=== PATIENT | female | born 1950 | race Caucasian/White ===

== ENCOUNTER 2016-10-08 10:59 | Inpatient (IN) | payer MEDICARE, BC ==
[2016-10-08 12:08] LABS: Anisocytosis Slight; Basophils % (A) 0 %; CH 30.2; CHCM 31.3; Eosinophils # (A) 0.1 k/uL (0-0.7); Eosinophils % (A) 1 %; HCT 26.9 % (34.0-46.0); HGB 8.1 gm/dL (11.4-16.0); Hypochromasia Moderate; Luc # (Auto) 0.14; Luc % (Auto) 1; Lymphocytes % (A) 10 %; MCH 29.3 pg (25.0-35.0); MCHC 30.1 g/dL (31.0-37.0); MCV 97.6 fL (80.0-100.0); Macrocytosis Slight; Monocytes # (A) 0.4 k/uL (0-1.0); Monocytes % (A) 5 %; Neutrophils # (A) 7.8 k/uL (1.3-7.7); Neutrophils % (A) 83 %; Poikilocytosis Slight; RBC 2.76 m/uL (3.80-5.40); WBC 9.5 k/uL (3.8-10.6); WBC (Perox) 9.44
[2016-10-08 12:10] LABS: Total Protein 6.2 g/dL (6.3-8.2)
[2016-10-08 12:12] LABS: Partial Thromboplastin Time 27.9 sec (22.0-30.0); Prothrombin Time 64.9 sec (9.0-12.0)
[2016-10-08 12:18] LABS: Calcium 6.3 mg/dL (8.4-10.2)
[2016-10-08 12:19] LABS: Potassium 2.8 mmol/L (3.5-5.1)
[2016-10-08 12:20] LABS: Creatine Kinase 40 U/L (30-135)
[2016-10-08 12:22] LABS: Target Cells Present
[2016-10-08 12:23] LABS: Polychromasia Present
[2016-10-08 12:32] LABS: Creatine Kinase MB 0.7 ng/mL (0.0-2.4); INR 6.4 (<1.1); Troponin I <0.012 ng/mL (0.000-0.034)
[2016-10-08 14:00] LABS: Glucose,Whole Blood 93 mg/dL (75-99)
--- NOTE | 2016-10-08 14:03 | XR ---
EXAMINATION TYPE: XR chest 1V portable DATE OF EXAM: 10/08/2016 1:43 PM COMPARISON: Prior chest x-ray for April 2015 HISTORY: Altered mental status TECHNIQUE: Single frontal view of the chest is obtained. FINDINGS: There is no focal air space opacity, pleural effusion, or pneumothorax seen. The cardiac silhouette size is within normal limits. Patient is rotated, there are overlying cardiac leads. The osseous structures are intact. IMPRESSION: No acute process.
--- NOTE | 2016-10-08 14:05 | CT ---
EXAMINATION TYPE: CT brain wo con DATE OF EXAM: 10/08/2016 1:47 PM COMPARISON: Prior CT brain four April 2015 HISTORY: Altered mental status CT DLP: 1216 mGycm Automated exposure control for dose reduction was used. FINDINGS: There is no acute intracranial hemorrhage, mass effect, or midline shift identified. The ventricles and sulci are within normal limits in size. The globes are intact and the visualized sinuses are lidia ar. IMPRESSION: No acute intracranial hemorrhage, mass effect, or midline shift is seen.
[2016-10-08 14:10] LABS: Appearance,Urine Cloudy (Clear); Bacteria,Urine Occasional /hpf; Bilirubin,Urine Negative (Negative); Glucose,Urine (UA) Negative (Negative); Ketones,Urine Trace (Negative); Leukocyte Esterase,Urine Moderate (Negative); Nitrite,Urine Negative (Negative); Particle Count 31279; Protein,Urine Trace (Negative); RBC,Urine 1 /hpf (0-5); Specific Gravity,Urine 1.011 (1.001-1.035); Squamous Epithelial Cell,Urine 1 /hpf (0-4); UA Billing (MACRO vs. MICRO) MICRO; Urobilinogen,Urine <2.0 mg/dL (<2.0); WBC,Urine 23 /hpf (0-5)
[2016-10-08] MEDS ORDERED: NALOXONE 0.4 MG/ML 1 ML VIAL IV PRN (15:01)
[2016-10-08] MEDS ORDERED: POTASSIUM BICARB-CITRIC ACID 25 MEQ TABLET.EFF PO STA (15:06)
[2016-10-08] MEDS ORDERED: WATER IV ONE ×4 (15:06→20:18)
[2016-10-08] MEDS ORDERED: DEXTROSE 5% IV ONE ×4 (15:06→20:18)
[2016-10-08] MEDS ORDERED: ACETYLCYSTEINE IV ONE ×4 (15:06→20:18)
[2016-10-08] MEDS ORDERED: CALCIUM GLUCONATE 1,000 MG in SODIUM CHLORIDE 0.9% 100 ML IVPB ONE (15:14)
--- NOTE | 2016-10-08 15:14 | ED ---
Altered Mental Status HPI - General Chief Complaint: Altered Mental Status Stated Complaint: weakness Time Seen by Provider: 10/08/16 11:03 Source: family, EMS Mode of arrival: EMS Limitations: altered mental status - History of Present Illness Initial Comments: Patient is 65-year-old woman brought in for altered mental status. The patient' s states that going on 3 days now the patient's has been more somnolent , not wanting to get out of bed, not taking anything to eat or drink. She did have previous episode of this a number years ago that may have been related to overuse of her medications, but the patient's states that he has been controlling her axis to her controlled medications and that she would not have taken an overdose this time. When the patient was not able to support herself to get to the bathroom he had her brought here. The patient appears delirious and is not giving much in way of history. MD Complaint: altered mental status, weakness Onset/Timin -: days(s) Severity: moderate Consistency of Symptoms: getting worse Context: history of similar presentation Associated Symptoms: nausea/vomiting - Related Data Home Medications Medication Instructions Recorded Confirmed Folic Acid 1 mg PO BID 08/29/14 10/08/16 Vitamin B12/Magnesium Shot 1 dose SQ Q21D 08/29/14 10/08/16 diphenhydrAMINE [Benadryl] 50 mg PO HS 08/29/14 10/08/16 Zolpidem [Ambien] 10 mg PO HS PRN 01/19/15 10/08/16 Baclofen [Lioresal] 20 mg PO TID PRN 10/08/16 10/08/16 Besivance Eye Drops 1 drop RIGHT EYE TID 10/08/16 10/08/16 Citalopram Hydrobromide [CeleXA] 40 mg PO DAILY 10/08/16 10/08/16 Melatonin 10 mg PO HS 10/08/16 10/08/16 oxyCODONE-APAP 7.5-325MG [Percocet 1 tab PO BID PRN 10/08/16 10/08/16 7.5-325 mg] Allergies Allergy/AdvReac Type Severity Reaction Status Date / Time No Known Allergies Allergy Verified 10/08/16 13:06 Review of Systems ROS Statement: Those systems with pertinent positive or pertinent negative responses have been documented in the HPI. ROS Other: All systems not noted in ROS Statement are negative. Limitations: ROS unobtainable due to patients medical condition Constitutional: Reports: weakness Respiratory: Reports: cough Cardiovascular: Denies: chest pain Gastrointestinal: Reports: vomiting. Denies: abdominal pain Neurological: Denies: headache Past Medical History Past Medical History: Fibromyalgia, Syncope Additional Past Medical History / Comment(s): DUMPING SYNDROME, DDD History of Any Multi-Drug Resistant Organisms: None Reported Past Surgical History: Adenoidectomy, Bowel Resection, Cholecystectomy, Joint Replacement, Tonsillectomy, Tubal Ligation Additional Past Surgical History / Comment(s): RT TKACOLONOSCOPYTILT TABLE TEST , D & C. Gastric Bypass - 30 years ago Past Anesthesia/Blood Transfusion Reactions: No Reported Reaction Past Psychological History: Depression Smoking Status: Never smoker Past Alcohol Use History: None Reported Past Drug Use History: None Reported - Past Family History Father Family Medical History: Cancer Sister(s) Family Medical History: Cancer Mother Family Medical History: Deep Vein Thrombosis (DVT) General Exam Limitations: altered mental status General appearance: obtunded, in distress Head exam: Present: atraumatic, normocephalic ENT exam: Present: mucous membranes dry Neck exam: Present: normal inspection. Absent: tenderness Respiratory exam: Present: normal lung sounds bilaterally, rhonchi. Absent: respiratory distress, wheezes, rales, stridor, chest wall tenderness Cardiovascular Exam: Present: regular rate, normal rhythm, normal heart sounds. Absent: systolic murmur, diastolic murmur, rubs, gallop GI/Abdominal exam: Present: soft, hypoactive bowel sounds. Absent: distended, tenderness, guarding, rebound, pulsatile mass, hernia Extremities exam: Present: normal inspection, normal capillary refill. Absent: pedal edema, calf tenderness Back exam: Present: normal inspection. Absent: CVA tenderness (R), CVA tenderness (L) Neurological exam: Present: altered, CN II-XII intact. Absent: oriented X3, motor sensory deficit Skin exam: Present: warm, dry, intact, pallor. Absent: normal color, rash Course Vital Signs 10/08/16 10/08/16 10/08/16 11:03 11:15 11:45 Temperature 97.0 F L Pulse Rate 89 94 86 Respiratory 16 16 16 Rate Blood Pressure 117/58 117/58 108/64 O2 Sat by Pulse 97 97 93 L Oximetry 10/08/16 10/08/16 12:15 12:45 Temperature Pulse Rate 84 68 Respiratory 16 16 Rate Blood Pressure 101/62 100/64 O2 Sat by Pulse 92 L 99 Oximetry Medical Decision Making - Medical Decision Making Patient's a 65-year-old woman who presents with altered mental status going on 3 days now. Workup reveals that the patient appears to have significant dehydration and some acute renal failure related to that. In addition the patient's INR is elevated though she does not take Coumadin. The patient also has an elevation of AST and ALT. I'm concerned patient may have had a missed Tylenol overdose, being part of her Percocet. We'll start N-acetylcysteine. Patient also receiving IV hydration. In addition there is probably urinary tract infection patient started on a dose of Rocephin for that. She was given calcium for the hypocalcemia. Also potassium supplementation for the hypokalemia. Case discussed with admitting physician. Patient admitted for further fluids and treatment. - Lab Data Result diagrams: 10/08/16 11:30 10/08/16 11:30 Lab Results 10/08/16 10/08/16 10/08/16 Range/Units 11:30 11:30 11:30 WBC 9.5 (3.8-10.6) k/uL RBC 2.76 L (3.80-5.40) m/uL Hgb 8.1 L (11.4-16.0) gm/dL Hct 26.9 L (34.0-46.0) % MCV 97.6 (80.0-100.0) fL MCH 29.3 (25.0-35.0) pg MCHC 30.1 L (31.0-37.0) g/dL RDW 17.0 H (11.5-15.5) % Plt Count 375 (150-450) k/uL Neutrophils % 83 % Lymphocytes % 10 % Monocytes % 5 % Eosinophils % 1 % Basophils % 0 % Neutrophils # 7.8 H (1.3-7.7) k/uL Lymphocytes # 1.0 (1.0-4.8) k/uL Monocytes # 0.4 (0-1.0) k/uL Eosinophils # 0.1 (0-0.7) k/uL Basophils # 0.0 (0-0.2) k/uL Polychromasia Present Hypochromasia Moderate Poikilocytosis Slight Anisocytosis Slight Macrocytosis Slight Target Cells Present PT (9.0-12.0) sec INR (<1.1) APTT (22.0-30.0) sec Sodium 144 (137-145) mmol/L Potassium 2.8 L* (3.5-5.1) mmol/L Chloride 109 H (98-107) mmol/L Carbon Dioxide 17 L (22-30) mmol/L Anion Gap 18 mmol/L BUN 30 H (7-17) mg/dL Creatinine 1.96 H (0.52-1.04) mg/dL Est GFR (MDRD) Af Amer 31 (>60 ml/min/1.73 sqM) Est GFR (MDRD) Non-Af 26 (>60 ml/min/1.73 sqM) Glucose 96 (74-99) mg/dL POC Glucose (mg/dL) (75-99) mg/dL POC Glu Access Developer ID Plasma Lactic Acid Adriano (0.7-2.0) mmol/L Calcium 6.3 L* (8.4-10.2) mg/dL Total Bilirubin 1.0 (0.2-1.3) mg/dL AST 172 H (14-36) U/L ALT 373 H (9-52) U/L Alkaline Phosphatase 94 (38-126) U/L Total Creatine Kinase 40 (30-135) U/L CK-MB (CK-2) 0.7 (0.0-2.4) ng/mL CK-MB (CK-2) Rel Index 1.8 Troponin I <0.012 (0.000-0.034) ng/mL Total Protein 6.2 L (6.3-8.2) g/dL Albumin 3.1 L (3.5-5.0) g/dL Urine Color Urine Appearance (Clear) Urine pH (5.0-8.0) Ur Specific [place] (1.001-1.035) Urine Protein (Negative) Urine Glucose (UA) (Negative) Urine Ketones (Negative) Urine Blood (Negative) Urine Nitrate (Negative) Urine Bilirubin (Negative) Urine Urobilinogen (<2.0) mg/dL Ur Leukocyte Esterase (Negative) Urine RBC (0-5) /hpf Urine WBC (0-5) /hpf Ur Squamous Epith Cells (0-4) /hpf Urine Bacteria (None) /hpf Acetaminophen ug/mL 10/08/16 10/08/16 10/08/16 Range/Units 11:30 11:30 11:30 WBC (3.8-10.6) k/uL RBC (3.80-5.40) m/uL Hgb (11.4-16.0) gm/dL Hct (34.0-46.0) % MCV (80.0-100.0) fL MCH (25.0-35.0) pg MCHC (31.0-37.0) g/dL RDW (11.5-15.5) % Plt Count (150-450) k/uL Neutrophils % % Lymphocytes % % Monocytes % % Eosinophils % % Basophils % % Neutrophils # (1.3-7.7) k/uL Lymphocytes # (1.0-4.8) k/uL Monocytes # (0-1.0) k/uL Eosinophils # (0-0.7) k/uL Basophils # (0-0.2) k/uL Polychromasia Hypochromasia Poikilocytosis Anisocytosis Macrocytosis Target Cells PT 64.9 H (9.0-12.0) sec INR 6.4 H* (<1.1) APTT 27.9 (22.0-30.0) sec Sodium (137-145) mmol/L Potassium (3.5-5.1) mmol/L Chloride (98-107) mmol/L Carbon Dioxide (22-30) mmol/L Anion Gap mmol/L BUN (7-17) mg/dL Creatinine (0.52-1.04) mg/dL Est GFR (MDRD) Af Amer (>60 ml/min/1.73 sqM) Est GFR (MDRD) Non-Af (>60 ml/min/1.73 sqM) Glucose (74-99) mg/dL POC Glucose (mg/dL) (75-99) mg/dL POC Glu Access Developer ID Plasma Lactic Acid Adriano 1.7 (0.7-2.0) mmol/L Calcium (8.4-10.2) mg/dL Total Bilirubin (0.2-1.3) mg/dL AST (14-36) U/L ALT (9-52) U/L Alkaline Phosphatase (38-126) U/L Total Creatine Kinase (30-135) U/L CK-MB (CK-2) (0.0-2.4) ng/mL CK-MB (CK-2) Rel Index Troponin I (0.000-0.034) ng/mL Total Protein (6.3-8.2) g/dL Albumin (3.5-5.0) g/dL Urine Color Urine Appearance (Clear) Urine pH (5.0-8.0) Ur Specific [place] (1.001-1.035) Urine Protein (Negative) Urine Glucose (UA) (Negative) Urine Ketones (Negative) Urine Blood (Negative) Urine Nitrate (Negative) Urine Bilirubin (Negative) Urine Urobilinogen (<2.0) mg/dL Ur Leukocyte Esterase (Negative) Urine RBC (0-5) /hpf Urine WBC (0-5) /hpf Ur Squamous Epith Cells (0-4) /hpf Urine Bacteria (None) /hpf Acetaminophen <10.0 ug/mL 10/08/16 10/08/16 Range/Units 13:50 13:58 WBC (3.8-10.6) k/uL RBC (3.80-5.40) m/uL Hgb (11.4-16.0) gm/dL Hct (34.0-46.0) % MCV (80.0-100.0) fL MCH (25.0-35.0) pg MCHC (31.0-37.0) g/dL RDW (11.5-15.5) % Plt Count (150-450) k/uL Neutrophils % % Lymphocytes % % Monocytes % % Eosinophils % % Basophils % % Neutrophils # (1.3-7.7) k/uL Lymphocytes # (1.0-4.8) k/uL Monocytes # (0-1.0) k/uL Eosinophils # (0-0.7) k/uL Basophils # (0-0.2) k/uL Polychromasia Hypochromasia Poikilocytosis Anisocytosis Macrocytosis Target Cells PT (9.0-12.0) sec INR (<1.1) APTT (22.0-30.0) sec Sodium (137-145) mmol/L Potassium (3.5-5.1) mmol/L Chloride (98-107) mmol/L Carbon Dioxide (22-30) mmol/L Anion Gap mmol/L BUN (7-17) mg/dL Creatinine (0.52-1.04) mg/dL Est GFR (MDRD) Af Amer (>60 ml/min/1.73 sqM) Est GFR (MDRD) Non-Af (>60 ml/min/1.73 sqM) Glucose (74-99) mg/dL POC Glucose (mg/dL) 93 (75-99) mg/dL POC Glu Access Developer ID Trisha Garcia Plasma Lactic Acid Adriano (0.7-2.0) mmol/L Calcium (8.4-10.2) mg/dL Total Bilirubin (0.2-1.3) mg/dL AST (14-36) U/L ALT (9-52) U/L Alkaline Phosphatase (38-126) U/L Total Creatine Kinase (30-135) U/L CK-MB (CK-2) (0.0-2.4) ng/mL CK-MB (CK-2) Rel Index Troponin I (0.000-0.034) ng/mL Total Protein (6.3-8.2) g/dL Albumin (3.5-5.0) g/dL Urine Color Yellow Urine Appearance Cloudy H (Clear) Urine pH 6.0 (5.0-8.0) Ur Specific [place] 1.011 (1.001-1.035) Urine Protein Trace H (Negative) Urine Glucose (UA) Negative (Negative) Urine Ketones Trace H (Negative) Urine Blood Negative (Negative) Urine Nitrate Negative (Negative) Urine Bilirubin Negative (Negative) Urine Urobilinogen <2.0 (<2.0) mg/dL Ur Leukocyte Esterase Moderate H (Negative) Urine RBC 1 (0-5) /hpf Urine WBC 23 H (0-5) /hpf Ur Squamous Epith Cells 1 (0-4) /hpf Urine Bacteria Occasional H (None) /hpf Acetaminophen ug/mL Critical Care Time Critical Care Time: Yes (40 minutes) Disposition Clinical Impression: Altered mental status, Generalized weakness, Elevated transaminase level, Elevated INR, Hypokalemia Narrative: Suspected missed Tylenol overdose. Disposition: ADMITTED IP TO THIS HOSP Condition: Poor
[2016-10-08] MEDS ORDERED: VITAMIN B12 SQ SCH (15:15)
[2016-10-08] MEDS ORDERED: SODIUM CHLORIDE 0.9% 1,000 ML IV SCH (15:15)
[2016-10-08] MEDS ORDERED: [UNRECOGNIZED DRUG - OTHER] SQ SCH (15:15)
[2016-10-08] MEDS ORDERED: SODIUM CHLORIDE 0.9% 1,000 ML with MVI, ADULT NO.4 WITH VIT K 10 ML, THIAMINE 100 MG, F... IV ONE ×5 (17:29)
[2016-10-08 17:55] LABS: Anisocytosis Slight; Basophils % (A) 0 %; CH 30.5; CHCM 31.9; Eosinophils # (A) 0.1 k/uL (0-0.7); Eosinophils % (A) 1 %; HCT 26.6 % (34.0-46.0); HDW 3.63; HGB 8.1 gm/dL (11.4-16.0); Hypochromasia Slight; Luc % (Auto) 1; Lymphocytes # (A) 1.6 k/uL (1.0-4.8); Lymphocytes % (A) 17 %; MCH 29.7 pg (25.0-35.0); MCHC 30.6 g/dL (31.0-37.0); MCV 96.8 fL (80.0-100.0); Macrocytosis Slight; Mean Platelet Volume 8.8; Monocytes # (A) 0.3 k/uL (0-1.0); Monocytes % (A) 4 %; Neutrophils # (A) 7.4 k/uL (1.3-7.7); Neutrophils % (A) 77 %; Poikilocytosis Slight; RBC 2.74 m/uL (3.80-5.40); RDW 17.3 % (11.5-15.5); WBC 9.6 k/uL (3.8-10.6); WBC (Perox) 8.97
--- NOTE | 2016-10-08 18:42 | HP ---
DATE OF ADMISSION: 10/08/2016. CHIEF COMPLAINT: Weakness and change in mental status. HISTORY OF PRESENT ILLNESS: This 64 -year-old woman with past medical history of fibromyalgia, history of recurrent syncope, abdominal pain, history of syndrome, history of adenoidectomy, bowel resection, cholecystectomy, joint replacement, history of right total knee arthroplasty, history of depression being followed by Dr. Murillo in the outpatient setting, not feeling well over the past several days. noted that the patient also somnolent and change in mental status and difficulty walking, difficulty moving the arms and the patient was taken to [facility] and admitted to the hospital for further evaluation and treatment. Percocet overdose suspected, but the is watching the patient and all the medications have been controlled by him. Interestingly, the INR was found to be 6.4 and PT 64.9 indicating coagulopathy but no obvious reason for coagulopathy was noted and there is no history of any possibility of Coumadin overdose or anything like that according to the also. The patient also had multiple , abnormalities also. There is no history of fever, rigors or chills. No history of headache, loss of consciousness or seizures. PAST MEDICAL HISTORY: History of fibromyalgia, syncope, DDD, bowel resection, cholecystectomy, history of depression. Medications prior to admission: 1. Oxycodone 7.5 milligrams b.i.d. p.r.n. 2. Benadryl 50 mg q.h.s. 3. Ambien 10 mg q.h.s. p.r.n. 4. Vitamin B12. 5. Magnesium one dose b.i.d. 6. Melatonin 10 mg at bedtime. 7. Folic acid 1 mg daily. 8. Celexa 40 mg daily. 9. ( ) eye drops, one drop right eye t.i.d. 10. Lioresal 20 mg p.o. t.i.d. p.r.n. ALLERGIES: None. FAMILY HISTORY: History of cancer in the family. SOCIAL HISTORY: No history of smoking. No history of alcohol. REVIEW OF SYSTEMS: ENT: Diminished vision. Diminished hearing. CARDIOVASCULAR: No angina or palpitations. RESPIRATORY: No cough. GI: No nausea or vomiting. : No dysuria. Nervous system: As mentioned earlier. Allergy/immunology: No asthma or hayfever. MUSCULOSKELETAL: As mentioned earlier. HEMATOLOGY/ONCOLOGY: No history of anemia. ENDOCRINE: No history of diabetes hypothyroidism, CONSTITUTIONAL: As mentioned earlier. DERMATOLOGY: Negative. RHEUMATOLOGY: Negative. PSYCHIATRY: As mentioned earlier. PHYSICAL EXAMINATION: The patient is alert and oriented times two. Pulse 92, blood pressure 98/62 respiratory rate 16, temperature 97.4, pulse ox 100% on 2 L. HEENT: Conjunctivae pale. Oral mucosa moist. Neck no jugular venous distention. No carotid bruit. No lymph node enlargement. CARDIOVASCULAR: S1, S2 muffled. No S3, no S4. RESPIRATORY: Breath sounds diminished at the bases. A few scattered rhonchi, no crackles. ABDOMEN: Soft, obese, nontender. No mass palpable. Legs: No edema, no swelling. Nervous system: Higher function as mentioned earlier. Cranial nerves 2 thru 12 intact. Eye movements are slightly sluggish on the left. No nystagmus noted. Pupils are dilated secondary to surgery and recent according to the family. Otherwise, bilateral . Gait dysfunction also noted, gait is ataxic, diffuse weakness noted. LYMPHATICS: No lymph nodes palpable in the neck, axilla or groin. SKIN: No ulcer, rash or bleeding. LABS: WBC 9.2, hemoglobin is 8.1, PT 64.9, INR 6.4. Sodium 142, potassium 2.8, calcium 6.3, albumin 3.1. UA possible urinary tract infection. ASSESSMENT: 1. Change in mental status, ataxia, rule out brain stem stroke. 2. Anemia, normocytic anemia of chronic disease. 3. Coagulopathy of undetermined origin. 4. Severe hypokalemia. 5. Increased creatinine with acute renal failure. 6. Hypocalcemia severe. 7. Increased AST, ALT, possibly hepatitis. 8. Possible urinary tract infection with sepsis. 9. History of fibromyalgia. 10. Syncope. 11. History syndrome. 12. History of bowel resection. 13. History of cholecystectomy. 14. History of degenerative joint disease. 15. History of gastric bypass. 16. History of depression. 17. FULL CODE. RECOMMENDATIONS AND DISCUSSION: In this 65-year-old woman presented with multiple complex medical issues, we will monitor the patient closely. Continue the current medications. Continue symptomatic treatment. We will repeat labs, supplement potassium and calcium. Otherwise empiric antibiotics will be given. If the INR is also elevated, we will monitor the patient in the ICU, MRI and neurology consultation. Prognosis guarded. Further recommendations to follow. A copy of dictation being forwarded to Dr. Murillo who is the primary care physician. BETTYE
[2016-10-08 18:51] LABS: Total Bilirubin 0.6 mg/dL (0.2-1.3); Total Protein 5.5 g/dL (6.3-8.2)
[2016-10-08 19:09] LABS: Calcium 6.3 mg/dL (8.4-10.2); Magnesium 0.9 mg/dL (1.6-2.3); Potassium 2.6 mmol/L (3.5-5.1)
[2016-10-08 19:23] LABS: Prothrombin Time 73.1 sec (9.0-12.0)
[2016-10-08] MEDS ORDERED: PHYTONADIONE 5 MG in SODIUM CHLORIDE 0.9% 50 ML IVPB STA (19:30)
[2016-10-08 19:32] LABS: INR 7.1 (<1.1)
[2016-10-08 20:20] LABS: Glucose,Whole Blood 144 mg/dL (75-99)
[2016-10-08] MEDS: MAGNESIUM SULFATE-D5W PMX 1 GM in DEXTROSE/WATER 1 100ML.BAG IVPB SCH ×2 (20:35→21:57)
[2016-10-08] MEDS: diphenhydrAMINE 50 MG CAP PO SCH (21:21)
[2016-10-08] MEDS: MELATONIN 5 MG TABLET PO SCH (21:21)
[2016-10-08] MEDS: FOLIC ACID 1 MG TAB PO SCH (21:56)
[2016-10-08] MEDS: CALCIUM GLUCONATE 1,000 MG in SODIUM CHLORIDE 0.9% 100 ML IVPB SCH (22:46)
[2016-10-08] MEDS ORDERED: Potassium Replacement Protocol 1 EACH MISC MISCELLANE PRN (23:35)
[2016-10-09] MEDS: POTASSIUM CHLORIDE ER 20 MEQ TAB.ER PO SCH ×4 (00:15→06:13)
[2016-10-09 03:25] LABS: Anisocytosis Slight; CHCM 29.2; HCT 30.8 % (34.0-46.0); HDW 3.45; HGB 9.2 gm/dL (11.4-16.0); Hypochromasia Marked; MCHC 29.8 g/dL (31.0-37.0); MCV 100.7 fL (80.0-100.0); Macrocytosis Slight; Mean Platelet Volume 7.7; Poikilocytosis Slight; RBC 3.06 m/uL (3.80-5.40); RDW 16.8 % (11.5-15.5); WBC (Perox) 9.63
[2016-10-09 03:35] LABS: INR 1.7 (<1.1); Prothrombin Time 16.3 sec (9.0-12.0)
[2016-10-09 03:41] LABS: ALT 366 U/L (9-52); AST 144 U/L (14-36); Acetaminophen <10.0 ug/mL; Alkaline Phosphatase 89 U/L (38-126); Anion Gap 20 mmol/L; Blood Urea Nitrogen 23 mg/dL (7-17); Calcium 6.7 mg/dL (8.4-10.2); Carbon Dioxide 16 mmol/L (22-30); Chloride 110 mmol/L (98-107); Glucose 113 mg/dL (74-99); Non-African American GFR(MDRD) 34 (>60 ml/min/1.73 sqM); Sodium 146 mmol/L (137-145); Total Bilirubin 1.2 mg/dL (0.2-1.3); Total Protein 5.7 g/dL (6.3-8.2)
[2016-10-09 03:43] LABS: Potassium 2.7 mmol/L (3.5-5.1)
[2016-10-09] MEDS ORDERED: Potassium Replacement Protocol 1 EACH MISC MISCELLANE PRN (03:53)
[2016-10-09 04:11] LABS: Magnesium 1.6 mg/dL (1.6-2.3)
[2016-10-09 04:19] LABS: Add Differential Manual Differential
[2016-10-09 04:21] LABS: Nucleated Red Blood Cells 2 /100 WBC (0-0); Total Cells Counted 200
[2016-10-09 04:22] LABS: Large Platelets Present; Manual Review Performed; Polychromasia Present; WBC 9.4 k/uL (3.8-10.6)
[2016-10-09] MEDS ORDERED: MAGNESIUM SULFATE-D5W PMX 1 GM in DEXTROSE/WATER 1 100ML.BAG IVPB ONE (07:08)
[2016-10-09] MEDS: PANTOPRAZOLE 40 MG TABLET PO SCH (08:13)
[2016-10-09 08:38] LABS: Phosphorous 2.1 mg/dL (2.5-4.5)
--- NOTE | 2016-10-09 11:25 | P.CNPUL ---
History of Present Illness Consult date: 10/09/16 Reason for consult: other Chief complaint: Mental status changes electrolyte disturbances History of present illness: This is a 65-year-old female who was brought into the emergency department for mental status changes. Apparently the patient has not been herself for about 3 days prior to admission. She was somewhat somnolent. She was widened to get out of bed. Not really taking anything by by mouth. She had a similar episode a number of years back secondary to medication overuse. Dr. Romero initially thought that maybe there was a Tylenol overdose but I don't suspect that's what was going on. Anyway the patient was found on the floor. I sent one of the nurses in the ICU down to see her as part of the 18. We ended up deciding to move the patient up to the ICU because of the fact that she needed a number of different electrolytes to be replaced and because of mental status changes and so forth. The patient seemed to do do be doing relatively well. She is on O2 at 2 L. He is getting appointment 9 IV at 75 mL an hour. She is a little lethargic and somnolent but she does arouse and answer questions. Review of Systems The patient really has a hard time articulating was wrong with her. She states that she feels a little weak. Other than that. She has no complaints. Past Medical History Past Medical History: Fibromyalgia, Syncope Additional Past Medical History / Comment(s): DUMPING SYNDROME, DDD History of Any Multi-Drug Resistant Organisms: None Reported Past Surgical History: Adenoidectomy, Bowel Resection, Cholecystectomy, Joint Replacement, Tonsillectomy, Tubal Ligation Additional Past Surgical History / Comment(s): RT TKACOLONOSCOPYTILT TABLE TEST , D & C. Gastric Bypass - 30 years ago Past Anesthesia/Blood Transfusion Reactions: No Reported Reaction Past Psychological History: Depression Smoking Status: Never smoker Past Alcohol Use History: None Reported Past Drug Use History: None Reported - Past Family History Father Family Medical History: Cancer Sister(s) Family Medical History: Cancer Mother Family Medical History: Deep Vein Thrombosis (DVT) Medications and Allergies Home Medications Medication Instructions Recorded Confirmed Type Folic Acid 1 mg PO BID 08/29/14 10/08/16 History Vitamin B12/Magnesium Shot 1 dose SQ Q21D 08/29/14 10/08/16 History diphenhydrAMINE [Benadryl] 50 mg PO HS 08/29/14 10/08/16 History Zolpidem [Ambien] 10 mg PO HS PRN 01/19/15 10/08/16 History Baclofen [Lioresal] 20 mg PO TID PRN 10/08/16 10/08/16 History Besivance Eye Drops 1 drop RIGHT EYE TID 10/08/16 10/08/16 History Citalopram Hydrobromide [CeleXA] 40 mg PO DAILY 10/08/16 10/08/16 History Melatonin 10 mg PO HS 10/08/16 10/08/16 History oxyCODONE-APAP 7.5-325MG [Percocet 1 tab PO BID PRN 10/08/16 10/08/16 History 7.5-325 mg] Allergies Allergy/AdvReac Type Severity Reaction Status Date / Time No Known Allergies Allergy Verified 10/08/16 13:06 Physical Exam Osteopathic Statement: *. No significant issues noted on an osteopathic structural exam other than those noted in the History and Physical/Consult. Vitals: Vital Signs Temp Pulse Pulse Resp BP BP Pulse Ox 10/09/16 10:00 97 17 102/66 99 10/09/16 09:00 110 H 16 102/66 97 10/09/16 08:00 98.1 F 101 H 18 102/61 97 10/09/16 07:00 98 14 118/67 97 10/09/16 06:00 93 16 113/75 92 L 10/09/16 05:00 97 16 107/70 99 10/09/16 04:00 98.4 F 95 14 83/70 98 10/09/16 03:00 91 16 110/70 98 10/09/16 02:00 96 18 110/70 95 10/09/16 01:00 90 15 116/74 98 10/09/16 00:00 98.7 F 86 18 110/63 100 10/08/16 23:46 86 16 90/68 98 10/08/16 23:00 84 14 93/56 99 10/08/16 22:00 90 18 93/63 97 10/08/16 21:00 91 16 101/66 98 10/08/16 20:33 98.3 F 96 18 117/73 98 02/18/17 17:47 92 16 10/08/16 16:45 97.5 F L 92 16 98/62 100 Intake and Output 10/08/16 10/09/16 10/09/16 22:59 06:59 14:59 Intake Total 300 1025 Output Total 700 Balance 300 325 Intake: Intake, IV Titration 300 925 Amount Calcium Gluconate 1,000 100 mg In Sodium Chloride 0.9 % 100 ml @ 100 mls/hr IVPB TID SAUL Rx#: [id number] Magnesium Sulfate-D5w Pmx 100 100 1 gm In Dextrose/Water 1 100ml.bag @ 100 mls/hr IVPB Q1H SAUL Rx#: [id number] Phytonadione 5 mg In 50 Sodium Chloride 0.9% 50 ml @ 100 mls/hr IVPB ONCE STA Rx#:[id number] Sodium Chloride 0.9% 1, 150 675 000 ml @ 75 mls/hr IV . [id number] ONE with Mvi, Adult No.4 with Vit K 10 ml with Thiamine 100 mg with Folic Acid 1 mg with Potassium Chloride 40 meq Rx#:[id number] cefTRIAXone 1,000 mg In 50 Sodium Chloride 0.9% 50 ml @ 100 mls/hr IVPB Q24HR SAUL Rx#:[id number] Oral 100 Output: Urine 700 Other: Voiding Method Bedside Commode Bedside Commode Bedside Commode # Voids 1 1 # Bowel Movements 1 Weight 72.1 kg No acute distress. Oriented 3. Not a particularly good historian. HEENT examination is unremarkable. Mucous membranes are moist. No oral lesions. Neck supple. Full range of motion. No adenopathy. No thyromegaly. Neck veins are flat. Cardiovascular examination reveals regular rhythm rate. Heart rate and low 80s. S1-S2 normal. There is no murmur. Lungs are clear breath sounds are equal. No wheezes rhonchi. Abdomen soft bowel sounds are heard. Extremities are intact. Results - Laboratory Findings CBC and BMP: 10/09/16 03:19 10/09/16 03:19 PT/INR, D-dimer PT 16.3 sec (9.0-12.0) H 10/09/16 03:19 INR 1.7 (<1.1) 10/09/16 03:19 Abnormal lab findings: Abnormal Labs 10/08/16 10/08/16 10/08/16 17:35 17:35 19:00 RBC 2.74 L Hgb 8.1 L Hct 26.6 L MCV MCHC 30.6 L RDW 17.3 H Nucleated RBCs PT 73.1 H INR 7.1 H* Sodium 148 H Potassium 2.6 L* Chloride 111 H Carbon Dioxide 15 L BUN 26 H Creatinine 1.61 H Glucose 102 H POC Glucose (mg/dL) Calcium 6.3 L* Phosphorus Magnesium 0.9 L* AST 117 H ALT 331 H Alkaline Phosphatase 35 L Total Protein 5.5 L Albumin 2.7 L Ur Oxycodone Screen 10/08/16 10/08/16 10/09/16 19:50 20:17 03:19 RBC 3.06 L Hgb 9.2 L Hct 30.8 L MCV 100.7 H MCHC 29.8 L RDW 16.8 H Nucleated RBCs 2 H PT INR Sodium Potassium Chloride Carbon Dioxide BUN Creatinine Glucose POC Glucose (mg/dL) 144 H Calcium Phosphorus Magnesium AST ALT Alkaline Phosphatase Total Protein Albumin Ur Oxycodone Screen Detected H 10/09/16 10/09/16 10/09/16 03:19 03:19 03:19 RBC Hgb Hct MCV MCHC RDW Nucleated RBCs PT 16.3 H INR Sodium 146 H Potassium 2.7 L* Chloride 110 H Carbon Dioxide 16 L BUN 23 H Creatinine 1.52 H Glucose 113 H POC Glucose (mg/dL) Calcium 6.7 L Phosphorus 2.1 L Magnesium AST 144 H ALT 366 H Alkaline Phosphatase Total Protein 5.7 L Albumin 2.9 L Ur Oxycodone Screen - Diagnostic Findings Chest x-ray: image reviewed (X-rays medications labs are all reviewed.) Assessment and Plan (1) Altered mental status Status: Acute (2) Generalized weakness Status: Acute (3) Hypokalemia Status: Acute (4) Chronic narcotic dependence Status: Acute Plan: Plan The patient's medications labs and x-rays are reviewed. I feel she stable enough to be transferred back to the general medical floor. She will need some electrolyte replacement the form of potassium. She is a low dry we'll increase the fluids. No additional recommendations are made. We'll follow. Time with Patient: Greater than 30
[2016-10-09] MEDS: CITALOPRAM HYDROBROMIDE 20 MG TAB PO SCH (13:31)
[2016-10-09] MEDS: CALCIUM GLUCONATE 1,000 MG in SODIUM CHLORIDE 0.9% 100 ML IVPB SCH ×3 (13:31→21:43)
[2016-10-09] MEDS: FOLIC ACID 1 MG TAB PO SCH ×2 (13:32→21:39)
[2016-10-09 14:38] LABS: Magnesium 1.9 mg/dL (1.6-2.3); Phosphorous 1.9 mg/dL (2.5-4.5); Potassium 3.4 mmol/L (3.5-5.1)
[2016-10-09] MEDS ORDERED: RX INFO: IV CONTRAST WAS GIVEN 1 EACH MISC MISCELLANE PRN (14:45)
--- NOTE | 2016-10-09 14:45 | P.CONS ---
History of Present Illness - Reason for Consult Consult date: 10/09/16 Coagulopathy,anemia - History of Present Illness The patient is a 65-year-old lady who was brought into the emergency room, this admission, because her had noted decreased responsiveness over the last few days in a progressive manner. The patient has a history of a bypass surgery in the because of weight loss. Per her , she has had episodes of weakness and lethargy, likely related to electrolyte depletion, intermittently. However the symptoms this time appear to be much more severe. In the emergency room, the patient was noted to have multiple electrolyte deficiencies. Her INR on admission was 6.4, and subsequently 7.1. PTT was normal. Her records, and labs in the [facility] were reviewed. In 2014 coags had been normal. The categorically denied that the patient was on any kind of blood thinners. She does take Percocet twice a day, but had been taking it only once a day. Liver enzymes on admission were, specifically ALT and AST were elevated, in the low 300, and low 100 range respectively. Bilirubin and alkaline phosphatase were normal. Liver enzymes had been normal in 05/05. Creatinine was also elevated in the same range as 05/05. Her hemoglobin was low , in the 8 range. It had been 12 in . For the there was no evidence of any obvious bleeding. The consult was therefore placed for further management. The patient has no prior history suggestive of any bleeding or clotting disorder. Her last major surgery was in 2001 which she tolerated well. No bleeding from the nose, mouth, or in the stool or urine has been noted. No history of any significant bruising. Review of Systems Constitutional: Reports fatigue, Reports lethargy, Reports poor appetite, Reports weakness Eyes: right blurred vision (Corneal perforation, on topical antibiotics), right pain (As above) Ears, nose, mouth and throat: Denies headache, Denies sore throat Cardiovascular: Reports decreased exercise tolerance Respiratory: Denies cough Gastrointestinal: Reports bloating, Reports diarrhea (Significant chronic diarrhea related to her bypass surgery) Genitourinary: Reports as per HPI (No specific complaints) Menstruation: Reports postmenopausal Musculoskeletal: Reports muscle weakness Integumentary: Denies pruritus, Denies rash Neurological: Reports as per HPI, Reports change in mentation, Reports weakness Psychiatric: Denies anxiety, Denies depression Endocrine: Reports weight change Hematologic/Lymphatic: Reports as per HPI Past Medical History Past Medical History: Fibromyalgia, Syncope Additional Past Medical History / Comment(s): DUMPING SYNDROME, DDD History of Any Multi-Drug Resistant Organisms: None Reported Past Surgical History: Adenoidectomy, Bowel Resection, Cholecystectomy, Joint Replacement, Tonsillectomy, Tubal Ligation Additional Past Surgical History / Comment(s): RT TKACOLONOSCOPYTILT TABLE TEST , D & C. Gastric Bypass - 30 years ago Past Anesthesia/Blood Transfusion Reactions: No Reported Reaction Past Psychological History: Depression Smoking Status: Never smoker Past Alcohol Use History: None Reported Past Drug Use History: None Reported - Past Family History Father Family Medical History: Cancer Sister(s) Family Medical History: Cancer Mother Family Medical History: Deep Vein Thrombosis (DVT) Medications and Allergies Home Medications Medication Instructions Recorded Confirmed Type Folic Acid 1 mg PO BID 08/29/14 10/08/16 History Vitamin B12/Magnesium Shot 1 dose SQ Q21D 08/29/14 10/08/16 History diphenhydrAMINE [Benadryl] 50 mg PO HS 08/29/14 10/08/16 History Zolpidem [Ambien] 10 mg PO HS PRN 01/19/15 10/08/16 History Baclofen [Lioresal] 20 mg PO TID PRN 10/08/16 10/08/16 History Besivance Eye Drops 1 drop RIGHT EYE TID 10/08/16 10/08/16 History Citalopram Hydrobromide [CeleXA] 40 mg PO DAILY 10/08/16 10/08/16 History Melatonin 10 mg PO HS 10/08/16 10/08/16 History oxyCODONE-APAP 7.5-325MG [Percocet 1 tab PO BID PRN 10/08/16 10/08/16 History 7.5-325 mg] Allergies Allergy/AdvReac Type Severity Reaction Status Date / Time No Known Allergies Allergy Verified 10/08/16 13:06 Physical Exam Vitals: Vital Signs Temp Pulse Pulse Resp BP BP Pulse Ox 10/09/16 12:00 96 18 97 10/09/16 11:33 96 10/09/16 11:00 102 H 18 98 10/09/16 10:00 97 17 102/66 99 10/09/16 09:00 110 H 16 102/66 97 10/09/16 08:00 98.1 F 101 H 18 102/61 97 10/09/16 07:00 98 14 118/67 97 10/09/16 06:00 93 16 113/75 92 L 10/09/16 05:00 97 16 107/70 99 10/09/16 04:00 98.4 F 95 14 83/70 98 10/09/16 03:00 91 16 110/70 98 10/09/16 02:00 96 18 110/70 95 10/09/16 01:00 90 15 116/74 98 10/09/16 00:00 98.7 F 86 18 110/63 100 10/08/16 23:46 86 16 90/68 98 10/08/16 23:00 84 14 93/56 99 10/08/16 22:00 90 18 93/63 97 10/08/16 21:00 91 16 101/66 98 10/08/16 20:33 98.3 F 96 18 117/73 98 10/08/16 17:47 92 16 10/08/16 16:45 97.5 F L 92 16 98/62 100 Intake and Output 10/08/16 10/09/16 10/09/16 22:59 06:59 14:59 Intake Total 300 1025 300 Output Total 700 2 Balance 300 325 298 Intake: Intake, IV Titration 300 925 300 Amount Calcium Gluconate 1,000 100 mg In Sodium Chloride 0.9 % 100 ml @ 100 mls/hr IVPB TID SAUL Rx#: [id number] Magnesium Sulfate-D5w Pmx 100 100 1 gm In Dextrose/Water 1 100ml.bag @ 100 mls/hr IVPB Q1H SAUL Rx#: [id number] Phytonadione 5 mg In 50 Sodium Chloride 0.9% 50 ml @ 100 mls/hr IVPB ONCE STA Rx#:[id number] Sodium Chloride 0.9% 1, 150 675 300 000 ml @ 75 mls/hr IV . [id number] ONE with Mvi, Adult No.4 with Vit K 10 ml with Thiamine 100 mg with Folic Acid 1 mg with Potassium Chloride 40 meq Rx#:[id number] cefTRIAXone 1,000 mg In 50 Sodium Chloride 0.9% 50 ml @ 100 mls/hr IVPB Q24HR [facility] Rx#:[id number] Oral 100 Output: Urine 700 Stool 2 Other: Voiding Method Bedside Commode Bedside Commode Bedside Commode # Voids 1 1 1 # Bowel Movements 1 Weight 72.1 kg - Constitutional General appearance: no acute distress - EENT Her discharge noted right eye. This is quite sensitive to light and could not be examined. Pupil on the left was reactive to light ENT: hearing grossly normal, normal oropharynx - Neck Neck: no lymphadenopathy Thyroid: bilateral: normal size - Respiratory Respiratory: bilateral: CTA - Cardiovascular Rhythm: regular Heart sounds: normal: S1, S2 - Gastrointestinal General gastrointestinal: normal bowel sounds, soft - Integumentary Integumentary: normal - Neurologic Neurologic: CNII-XII intact - Musculoskeletal Musculoskeletal: generalized weakness, strength equal bilaterally - Psychiatric The patient's responses are appropriate, but her affect is very slow. Psychiatric: A&O x's 3 Results CBC & Chem 7: 10/09/16 03:19 10/09/16 03:19 Labs: Abnormal Lab Results - Last 24 Hours (Table) 10/08/16 10/08/16 10/08/16 Range/Units 17:35 17:35 19:00 RBC 2.74 L (3.80-5.40) m/uL Hgb 8.1 L (11.4-16.0) gm/dL Hct 26.6 L (34.0-46.0) % MCV (80.0-100.0) fL MCHC 30.6 L (31.0-37.0) g/dL RDW 17.3 H (11.5-15.5) % Nucleated RBCs (0-0) /100 WBC PT 73.1 H (9.0-12.0) sec INR 7.1 H* (<1.1) Sodium 148 H (137-145) mmol/L Potassium 2.6 L* (3.5-5.1) mmol/L Chloride 111 H (98-107) mmol/L Carbon Dioxide 15 L (22-30) mmol/L BUN 26 H (7-17) mg/dL Creatinine 1.61 H (0.52-1.04) mg/dL Glucose 102 H (74-99) mg/dL POC Glucose (mg/dL) (75-99) mg/dL Calcium 6.3 L* (8.4-10.2) mg/dL Phosphorus (2.5-4.5) mg/dL Magnesium 0.9 L* (1.6-2.3) mg/dL AST 117 H (14-36) U/L ALT 331 H (9-52) U/L Alkaline Phosphatase 35 L (38-126) U/L Total Protein 5.5 L (6.3-8.2) g/dL Albumin 2.7 L (3.5-5.0) g/dL Ur Oxycodone Screen (NotDetected) 10/08/16 10/08/16 10/09/16 Range/Units 19:50 20:17 03:19 RBC 3.06 L (3.80-5.40) m/uL Hgb 9.2 L (11.4-16.0) gm/dL Hct 30.8 L (34.0-46.0) % MCV 100.7 H (80.0-100.0) fL MCHC 29.8 L (31.0-37.0) g/dL RDW 16.8 H (11.5-15.5) % Nucleated RBCs 2 H (0-0) /100 WBC PT (9.0-12.0) sec INR (<1.1) Sodium (137-145) mmol/L Potassium (3.5-5.1) mmol/L Chloride (98-107) mmol/L Carbon Dioxide (22-30) mmol/L BUN (7-17) mg/dL Creatinine (0.52-1.04) mg/dL Glucose (74-99) mg/dL POC Glucose (mg/dL) 144 H (75-99) mg/dL Calcium (8.4-10.2) mg/dL Phosphorus (2.5-4.5) mg/dL Magnesium (1.6-2.3) mg/dL AST (14-36) U/L ALT (9-52) U/L Alkaline Phosphatase (38-126) U/L Total Protein (6.3-8.2) g/dL Albumin (3.5-5.0) g/dL Ur Oxycodone Screen Detected H (NotDetected) 10/09/16 10/09/16 10/09/16 Range/Units 03:19 03:19 03:19 RBC (3.80-5.40) m/uL Hgb (11.4-16.0) gm/dL Hct (34.0-46.0) % MCV (80.0-100.0) fL MCHC (31.0-37.0) g/dL RDW (11.5-15.5) % Nucleated RBCs (0-0) /100 WBC PT 16.3 H (9.0-12.0) sec INR (<1.1) Sodium 146 H (137-145) mmol/L Potassium 2.7 L* (3.5-5.1) mmol/L Chloride 110 H (98-107) mmol/L Carbon Dioxide 16 L (22-30) mmol/L BUN 23 H (7-17) mg/dL Creatinine 1.52 H (0.52-1.04) mg/dL Glucose 113 H (74-99) mg/dL POC Glucose (mg/dL) (75-99) mg/dL Calcium 6.7 L (8.4-10.2) mg/dL Phosphorus 2.1 L (2.5-4.5) mg/dL Magnesium (1.6-2.3) mg/dL AST 144 H (14-36) U/L ALT 366 H (9-52) U/L Alkaline Phosphatase (38-126) U/L Total Protein 5.7 L (6.3-8.2) g/dL Albumin 2.9 L (3.5-5.0) g/dL Ur Oxycodone Screen (NotDetected) Microbiology - Last 24 Hours (Table) 10/08/16 19:50 Urine Culture - Preliminary Urine,Clean Catch Chest x-ray: report reviewed CT Scan - head: report reviewed Assessment and Plan (1) Elevated INR Narrative/Plan: The patient's INR responded very well to one dose of 5 mg of vitamin K given IV. This indicates that the problem is due to vitamin K deficiency. The primary differential in this case would be decreased absorption due to chronic malabsorption from her intestinal bypass. INR, was however normal in 2014. Therefore it is possible that the amount of diarrhea and malabsorption may have worsened since 05/05, either acutely and transiently versus chronically. Currently her INR is in a safe range. I will give her an additional dose of vitamin K today. She will need close follow-up of her INR now, and the outpatient setting to see if she needs ongoing supplementation. Status: Acute (2) Anemia Narrative/Plan: Given her history, as well as change in the hemoglobin compared to 05/05, it is possible that this could be related to malabsorption. A blood loss is also not ruled out. Currently hemoglobin is in a safe range. Anemia workup will be ordered. Status: Acute (3) Malabsorption Narrative/Plan: This appears to be an ongoing problem, based on her history. However symptoms this time are somewhat worse than before. Her liver enzyme elevation is also new. I will order a computed tomography scan of the abdomen and pelvis with IV and oral contrast to rule out a new complications such as developing blind loop syndrome. This will also help to evaluate the liver. If significant iron deficiency is found, I would also recommend a GI consult, to rule out any bleeding Status: Acute
[2016-10-09] MEDS ORDERED: PHYTONADIONE 2 MG in SODIUM CHLORIDE 0.9% 50 ML IVPB STA (14:49)
[2016-10-09 15:09] LABS: Reticulocyte % 3.4 % (0.5-2.0)
[2016-10-09] MEDS ORDERED: POTASSIUM CHLORIDE ER 20 MEQ TAB.ER PO SCH (16:00)
[2016-10-09] MEDS: IOHEXOL 350 MG/ML 25 ML BOTTLE (ORAL USE) PO PRN ×2 (16:08→16:52)
--- NOTE | 2016-10-09 18:48 | CT ---
EXAMINATION TYPE: CT abdomen pelvis wo con DATE OF EXAM: 10/09/2016 5:51 PM COMPARISON: NONE HISTORY: Liver enzyme elevation, chronic diarrhea and GI bypass. CT DLP: 587.40 mGycm Automated exposure control for dose reduction was used. TECHNIQUE: Helical acquisition of images was performed from the lung bases through the pelvis with o ral but without IV contrast. FINDINGS: LUNG BASES: There are small bilateral pleural effusions partially imaged. There is associated elana sive atelectasis. There are small to moderate-sized pericardial effusion. LIVER/GB: Cholecystectomy clips are noted. PANCREAS: No significant abnormality is seen. SPLEEN: No significant abnormality is seen. ADRENALS: No significant abnormality is seen. KIDNEYS: No significant abnormality is seen. RETROPERITONEAL ADENOPATHY: None visualized REPRODUCTIVE ORGANS: No significant abnormality is seen URINARY BLADDER: Small focus of nondependent air on axial image 78 most likely is product of recent Mcdaniel catheterization. Clinical correlation advised otherwise other etiologies need to be considered PELVIC ADENOPATHY: None visualized. OSSEOUS STRUCTURES: No significant abnormality is seen. BOWEL: The oral contrast reaches level of the sigmoid colon. Contrast is seen in nondistended stomac h and duodenal sweep. There is contracted or nondistended small bowel loops in the central abdomen. C ontrast and fecal material is seen in nondistended colon. There is some prominence of contrast filled left colon there is redundant sigmoid colon which extends all the way to the anterior upper abdomen anterior to the stomach. There is focal narrowing in this redundancy sigmoid colon over a short segme nt on coronal image 20 could reflect stricture. There is nondistended distal sigmoid colon and rectum . OTHER: Mild to moderate diffuse subcutaneous edema is present bilaterally. Rectus jennifer or sutures upper to mid abdomen are noted. IMPRESSION: 1. OVERALL NONSPECIFIC FAVOR NONOBSTRUCTIVE BOWEL GAS PATTERN CONTRAST REACHES COLONIC LEVEL. THER E IS A REDUNDANT SIGMOID COLON WITH PROMINENT CONTRAST FILLED LEFT AND PROXIMAL SIGMOID COLON UP TO A SHORT SEGMENT FOCAL NARROWING OR STRICTURE DETAILED IN BODY OF REPORT. CONSIDER PARTIAL OBSTRUCTI ON AT THIS LEVEL. 2. NOTE IS MADE OF A SMALL TO MODERATE-SIZED PERICARDIAL EFFUSION
[2016-10-09] MEDS: diphenhydrAMINE 50 MG CAP PO SCH (21:39)
[2016-10-09] MEDS: MELATONIN 5 MG TABLET PO SCH (21:44)
--- NOTE | 2016-10-09 23:18 | PN ---
DATE OF SERVICE: 10/09/2016 This 65-year-old woman who was admitted with change in mental status and possible acute TIA versus stroke also with multiple electrolytes abnormalities also. The patient was coagulopathy. The patient also had repeat high PT-INR which was replaced by improving today. The patient has had severe hypokalemia. The patient is monitored in ICU at this time. The potassium was 2.7 this morning but after further correction is 3.4, phosphorous also low. The patient also had multiple other medical issues also. PAST MEDICAL HISTORY: Reviewed. REVIEW OF SYSTEMS: CARDIOVASCULAR: No angina. No palpitations. RESPIRATORY: As mentioned earlier. GASTROINTESTINAL: As mentioned earlier. Nervous system: As mentioned earlier. Musculoskeletal: Negative. The current medications are reviewed and include: 1. Lioresal 20 mg t.i.d. p.r.n. 2. Calcium gluconate t.i.d. 3. Rocephin 1 gram daily. 4. Celexa 40 mg. 5. Benadryl 50 mg q.h.s. 6. Folic acid 1 mg b.i.d. 8. Melatonin 10 mg q.h.s. 9. Kalani Ciel. 10. Narcan. 11. Vitamin B12 b.i.d. 12. Besavince eye drops. 13. Protonix 40 mg with breakfast. 14. K-Dur 20 meq ( )hours. 15. Ambien 10 mg q.h.s. p.r.n. PHYSICAL EXAMINATION: The patient is alert and oriented times two. Pulse is 96, blood pressure is 102/60, respirations 18, temperature normal, pulse ox 97% on 2 L. HEENT: Conjunctivae normal. Oral mucosa moist. Conjunctivae of right eye is minimally swollen. Some watering also present. Otherwise pupils are dilated. NECK: No jugular venous distention. No carotid bruit. No lymph node enlargement. CARDIOVASCULAR: S1, S2 muffled. No S3, no S4. RESPIRATORY: Breath sounds diminished at the bases. Scattered rhonchi and crackles. ABDOMEN: Soft, nontender. No mass palpable. Legs: No edema, no swelling. Nervous system: Higher function as mentioned. Moves all 4 limbs. Mild diffuse weakness present. Minimal . Shortness of breath. LYMPHATICS: No lymph nodes palpable in the neck, axillae or groin. SKIN: No ulcer, rash or bleeding. LABS: WBC 9.2, hemoglobin is 9.2. Otherwise, INR is 1.7, sodium 146, potassium 2.7. LFTs are noted. Drug screen is positive for oxycodone. The Tylenol levels are negative. ASSESSMENT: 1. Change in mental status and ataxia rule out brain stem stroke or transient ischemic attack. 2. Anemia, normocytic, anemia of chronic disease. 3. Multiple electrolytes abuse abnormalities. 4. Severe hypokalemia. 5. Severe hypocalcemia. 6. Coagulopathy of undetermined origin, possibly nutritional. 7. Increased creatinine with acute renal failure, possible prerenal with acute tubular necrosis. 8. Increased AST, ALT, possible hepatitis of undetermined etiology. 9. Urinary tract infection with sepsis, possibly. 10. History of fibromyalgia. 11. Syncope. 12. History of bowel resection. 13. History of cholecystectomy. 14. History of degenerative joint disease. 15. History of gastric bypass. 16. History of depression. 17. History of dumping syndrome. 18. Hypophosphatemia. 19. FULL CODE WITH INSTRUCTIONS. RECOMMENDATIONS AND DISCUSSION: In this 65-year-old woman presented with multiple complex medical issues, we will monitor the patient closely. Continue the current medications. Continue symptomatic treatment. I would recommend a repeat electrolytes. Replace potassium, phosphorus and also Calcium. Otherwise, monitor ALT, AST closely. Multiple consultants input appreciated. Otherwise, continue to monitor. The prognosis is guarded. Ophthalmologic consultation because of the history of recent on the right eye. Further recommendations to follow. Dr. Christensen's input also appreciated. BETTYE
[2016-10-10 08:13] LABS: Anisocytosis Slight; Basophils % (A) 0 %; CH 29.5; CHCM 30.1; Eosinophils % (A) 0 %; HDW 3.44; HGB 8.3 gm/dL (11.4-16.0); Hypochromasia Marked; INR 1.2 (<1.1); Luc % (Auto) 1; Lymphocytes # (A) 0.9 k/uL (1.0-4.8); Lymphocytes % (A) 12 %; MCH 29.5 pg (25.0-35.0); MCHC 29.8 g/dL (31.0-37.0); MCV 99.2 fL (80.0-100.0); Macrocytosis Slight; Mean Platelet Volume 7.6; Monocytes # (A) 0.4 k/uL (0-1.0); Monocytes % (A) 5 %; Neutrophils # (A) 6.4 k/uL (1.3-7.7); Neutrophils % (A) 81 %; Poikilocytosis Slight; Prothrombin Time 12.2 sec (9.0-12.0); RBC 2.82 m/uL (3.80-5.40); RDW 18.1 % (11.5-15.5); WBC 7.9 k/uL (3.8-10.6); WBC (Perox) 8.19
[2016-10-10 08:19] LABS: Calcium 7.4 mg/dL (8.4-10.2); Magnesium 1.6 mg/dL (1.6-2.3); Phosphorous 1.6 mg/dL (2.5-4.5); Total Bilirubin 0.9 mg/dL (0.2-1.3); Total Protein 5.6 g/dL (6.3-8.2)
[2016-10-10 08:31] LABS: Potassium 2.8 mmol/L (3.5-5.1)
[2016-10-10] MEDS ORDERED: Potassium Replacement Protocol 1 EACH MISC MISCELLANE PRN ×3 (08:34→10:33)
[2016-10-10] MEDS ORDERED: POTASSIUM CHLORIDE 10 MEQ, LIDOCAINE 2% INJ 10 MG in SODIUM CHLORIDE 0.9% 100 ML IV SCH (09:00)
[2016-10-10] MEDS ORDERED: POTASSIUM CHLORIDE ER 20 MEQ TAB.ER PO SCH (10:15)
[2016-10-10] MEDS ORDERED: SODIUM CHLORIDE 0.9% 1,000 ML with POTASSIUM CHLORIDE 20 MEQ, MVI, ADULT NO.4 WITH VIT ... IV SCH ×5 (10:30)
[2016-10-10] MEDS: POTASSIUM CHLORIDE ER 20 MEQ TAB.ER PO SCH ×3 (11:28→16:26)
[2016-10-10] MEDS: POTASSIUM CHLORIDE 20 MEQ, LIDOCAINE 2% INJ 20 MG in SODIUM CHLORIDE 0.9% 100 ML IV SCH ×4 (11:34→16:03)
[2016-10-10] MEDS: 1: MVI, ADULT NO.4 WITH VIT K 10 ML, THIAMINE 100 MG, FOLIC ACID 1 MG, POTASSIUM CHLORID IV SCH ×5 (11:39)
[2016-10-10 11:41] LABS: Erythrocyte Sedimentation Rate 64 mm/hr (0-20)
[2016-10-10] MEDS: PANTOPRAZOLE 40 MG TABLET PO SCH (11:41)
[2016-10-10] MEDS: CITALOPRAM HYDROBROMIDE 20 MG TAB PO SCH (11:41)
--- NOTE | 2016-10-10 15:52 | MR ---
EXAMINATION TYPE: MR brain wo con DATE OF EXAM: 10/10/2016 3:45 PM. COMPARISON: NONE. HISTORY: Altered mental status Technique: Multiplanar, multiecho imaging of the brain was obtained without intravenous contrast. FINDINGS: There is a partially empty sella. Midline structures are otherwise unremarkable. There is a normal craniocervical junction. Echoplanar diffusion imaging is normal. There are normal vascular flow voids. Both orbits are normal. There is no evidence of a CP angle mass lesion. There is abnormal signal in the right-sided mastoid air cells. There are approximately 4 high signal FLAIR lesions in the wong radiata on the right. The largest o f these measures 4.4 mm. There is no mass effect, midline shift or intracranial blood. IMPRESSION: 1. NO ACUTE INTRACRANIAL ABNORMALITY. 2. RARE, SMALL HIGH SIGNAL FLAIR LESIONS ON THE RIGHT. THESE ARE NONSPECIFIC. A PATIENT OF THIS AGE S MALL VESSEL DISEASE WOULD BE MOST LIKELY. 3. EVIDENCE OF MILD, RIGHT-SIDED MASTOIDITIS. 4. PARTIALLY EMPTY SELLA.
[2016-10-10] MEDS: FOLIC ACID 1 MG TAB PO SCH (15:59)
[2016-10-10] MEDS: MAGNESIUM OXIDE 400 MG TAB PO SCH (15:59)
[2016-10-10] MEDS: MAGNESIUM SULFATE-D5W PMX 1 GM in DEXTROSE/WATER 1 100ML.BAG IVPB SCH ×2 (16:04→17:32)
[2016-10-10] MEDS: CALCIUM GLUCONATE 1,000 MG in SODIUM CHLORIDE 0.9% 100 ML IVPB SCH ×3 (17:27→23:09)
--- NOTE | 2016-10-10 17:46 | P.PN ---
Subjective Principal diagnosis: Altered mental status This is a very pleasant 65-year-old female patient who has a history of fibromyalgia, previous gastric bypass surgery approximately 30 years ago, dumping syndrome, bowel resection. She is a lifelong nonsmoker. She was brought to the emergency room on 10/08/2016 after developing altered mental status. Her states that she was more somnolent not wanting to get out of bed not when he didn't eat or drink anything. She has a previous history of similar findings of altered mental status secondary to unintentional pain medication overdose. Her urine drug screen was positive for oxycodone. He was also found to have significant electrolyte imbalances. Her potassium was 2.7 chloride 110 CO2 16 creatinine 1.52. She had elevated liver enzymes had an AST 144 ALT 366. Her calcium was 6.7 with a albumin of 2.9 total protein 5.7. Lightly anemic with a hemoglobin of 9.2. There was no leukocytosis. He has remained afebrile. She is maintaining O2 saturations in the 90s on room air. She is seen today 10/10/2016 in follow-up on the oncology unit. She is awake and alert in no acute distress. Her states she is nearly back to her baseline. Her urine is positive for gram-negative bacilli. Blood cultures reveal no growth to date. MRI of the brain revealed no acute intracranial abnormalities. Computed tomography scan of the abdomen and pelvis revealed possible partial obstruction. Her electrolytes are being replaced. Objective - Vital Signs Vital signs: Vital Signs Temp 98 F 10/10/16 16:49 Pulse 87 10/10/16 16:49 Resp 16 10/10/16 16:49 BP 110/73 10/10/16 16:49 Pulse Ox 97 10/10/16 16:49 Intake & Output 10/09/16 10/10/16 10/10/16 18:59 06:59 18:59 Intake Total 1225 830 Output Total 567 823 8721 Balance 622 78 -1503 Weight 72 kg Intake: Intake, IV Titration 725 180 Amount Calcium Gluconate 1,000 100 mg In Sodium Chloride 0.9 % 100 ml @ 100 mls/hr IVPB TID SAUL Rx#: [id number] Phytonadione 2 mg In 50 Sodium Chloride 0.9% 50 ml @ 100 mls/hr IVPB ONCE STA Rx#:[id number] Sodium Chloride 0.9% 1, 675 80 000 ml @ 75 mls/hr IV . [id number] ONE with Mvi, Adult No.4 with Vit K 10 ml with Thiamine 100 mg with Folic Acid 1 mg with Potassium Chloride 40 meq Rx#:[id number] Oral 500 650 Output: Urine 837 304 6845 Stool 3 2 3 Other: Voiding Method Bedside Commode Bedside Commode Bedside Commode # Voids 1 1 2 # Bowel Movements 1 - Exam GENERAL EXAM: Alert, comfortable in no apparent distress. Somewhat slow to respond. HEAD: Normocephalic. EYES: Normal reaction of pupils, equal size. NOSE: Clear with pink turbinates. THROAT: No erythema or exudates. NECK: No masses, no JVD. CHEST: No chest wall deformity. LUNGS: Equal air entry with no crackles, wheeze, rhonchi or dullness. CVS: S1 and S2 normal with no audible murmurs, regular rhythm. ABDOMEN: Slightly distended, soft, normal bowel sounds, no guarding or rigidity. Extremities: There is trace peripheral edema. No clubbing, no cyanosis. Peripheral pulses are intact. - Labs CBC & Chem 7: 10/10/16 07:44 10/10/16 07:44 Labs: Abnormal Lab Results - Last 24 Hours (Table) 10/10/16 10/10/16 10/10/16 Range/Units 07:44 07:44 07:44 RBC 2.82 L (3.80-5.40) m/uL Hgb 8.3 L (11.4-16.0) gm/dL Hct 28.0 L (34.0-46.0) % MCHC 29.8 L (31.0-37.0) g/dL RDW 18.1 H (11.5-15.5) % Lymphocytes # 0.9 L (1.0-4.8) k/uL ESR 64 H (0-20) mm/hr PT 12.2 H (9.0-12.0) sec Potassium 2.8 L* (3.5-5.1) mmol/L Chloride 108 H (98-107) mmol/L Carbon Dioxide 20 L (22-30) mmol/L Creatinine 1.22 H (0.52-1.04) mg/dL Glucose 108 H (74-99) mg/dL Calcium 7.4 L (8.4-10.2) mg/dL Phosphorus 1.6 L (2.5-4.5) mg/dL Iron 26 L (37-170) ug/dL TIBC 261 L (265-497) ug/dL % Saturation 10.0 L (20-50) % Ferritin 307 H (11-264) ng/mL AST 121 H (14-36) U/L ALT 415 H (9-52) U/L Total Protein 5.6 L (6.3-8.2) g/dL Albumin 2.7 L (3.5-5.0) g/dL Microbiology - Last 24 Hours (Table) 10/08/16 19:50 Urine Culture - Preliminary Urine,Clean Catch Gram Neg Bacilli 10/08/16 17:35 Blood Culture - Preliminary Blood No Growth after 24 hours Assessment and Plan Plan: Impression: #1 Altered mental status of unclear etiology suspect secondary to narcotic use and multiple electrolyte imbalances. #2 Progressive weakness secondary to above. #3 Malabsorption, chronic in nature. #4 Coagulopathy secondary to chronic malabsorption and vitamin K deficiency, improved. Current INR 1.2. #5 Elevated liver enzymes. #6 Fibromyalgia. #7 Chronic pain syndrome with chronic narcotic use. #8 Urinary tract infection secondary to gram-negative bacilli. Plan: The patient was seen and evaluated by Dr. Lane. Her electrolytes are being replaced. She is improved in regards to her mental status. We'll continue her current medications including antibiotics in the form of ceftriaxone. We will continue to follow and make further recommendations based on her clinical status.
[2016-10-10] MEDS: [UNRECOGNIZED DRUG - OTHER] RIGHT EYE SCH (19:01)
[2016-10-10] MEDS: MELATONIN 5 MG TABLET PO SCH (21:00)
[2016-10-10] MEDS: diphenhydrAMINE 50 MG CAP PO SCH (21:00)
[2016-10-10] MEDS: POTASSIUM CHLORIDE 40 MEQ, LIDOCAINE 2% INJ 20 MG in SODIUM CHLORIDE 0.9% 250 ML IVPB SCH (22:17)
[2016-10-11] MEDS: POTASSIUM CHLORIDE 40 MEQ, LIDOCAINE 2% INJ 20 MG in SODIUM CHLORIDE 0.9% 250 ML IVPB SCH (02:35)
[2016-10-11] MEDS: [UNRECOGNIZED DRUG - OTHER] RIGHT EYE SCH ×9 (02:37→22:59)
[2016-10-11] MEDS: BACLOFEN 10 MG TAB PO PRN (04:24)
[2016-10-11 07:45] LABS: Anisocytosis Slight; Basophils % (A) 0 %; CH 29.5; CHCM 29.7; Eosinophils # (A) 0.1 k/uL (0-0.7); Eosinophils % (A) 1 %; HCT 27.8 % (34.0-46.0); HDW 3.37; HGB 8.4 gm/dL (11.4-16.0); Hypochromasia Marked; Luc # (Auto) 0.14; Luc % (Auto) 2; Lymphocytes # (A) 0.9 k/uL (1.0-4.8); Lymphocytes % (A) 13 %; MCH 30.2 pg (25.0-35.0); MCV 100.7 fL (80.0-100.0); Macrocytosis Slight; Mean Platelet Volume 7.6; Monocytes # (A) 0.3 k/uL (0-1.0); Monocytes % (A) 4 %; Neutrophils # (A) 5.6 k/uL (1.3-7.7); Neutrophils % (A) 80 %; RBC 2.76 m/uL (3.80-5.40); RDW 18.5 % (11.5-15.5); WBC (Perox) 7.38
[2016-10-11 07:51] LABS: INR 1.2 (<1.1); Prothrombin Time 11.9 sec (9.0-12.0)
[2016-10-11 08:13] LABS: Anion Gap 12 mmol/L; Carbon Dioxide 18 mmol/L (22-30); Chloride 112 mmol/L (98-107); Glucose 99 mg/dL (74-99); Non-African American GFR(MDRD) 50 (>60 ml/min/1.73 sqM); Phosphorous 1.5 mg/dL (2.5-4.5); Sodium 142 mmol/L (137-145); Total Bilirubin 0.9 mg/dL (0.2-1.3); Total Protein 5.6 g/dL (6.3-8.2)
[2016-10-11] MEDS: CITALOPRAM HYDROBROMIDE 20 MG TAB PO SCH (08:15)
[2016-10-11] MEDS: MAGNESIUM OXIDE 400 MG TAB PO SCH (08:15)
[2016-10-11] MEDS: PANTOPRAZOLE 40 MG TABLET PO SCH (08:15)
[2016-10-11] MEDS: 1: MVI, ADULT NO.4 WITH VIT K 10 ML, THIAMINE 100 MG, FOLIC ACID 1 MG, POTASSIUM CHLORID IV SCH ×10 (08:17→17:37)
[2016-10-11 08:23] LABS: Potassium 4.8 mmol/L (3.5-5.1)
[2016-10-11 08:24] LABS: ALT 291 U/L (9-52); AST 65 U/L (14-36); Alkaline Phosphatase 74 U/L (38-126); Blood Urea Nitrogen 11 mg/dL (7-17); Calcium 7.5 mg/dL (8.4-10.2); Magnesium 1.9 mg/dL (1.6-2.3)
--- NOTE | 2016-10-11 09:44 | PN ---
DATE OF SERVICE: 10/10/2016 This 65-year-old woman was admitted with change in mental status and ataxia is being closely monitored. Patient also had multiple electrolyte abnormalities, possibly due to malabsorption. Patient is confused at this time and a brain MRI was done today which showed no acute intracranial abnormality. Small vessel ischemia was suspected with mastoiditis and partially empty sella was also noted. PAST MEDICAL HISTORY: Reviewed. REVIEW OF SYSTEMS: CARDIOVASCULAR: No angina. RESPIRATORY: As mentioned earlier. GI: As mentioned earlier. : No dysuria. NERVOUS SYSTEM: No numbness or weakness. Current medications are reviewed and include: 1. Lioresal 20 mg t.i.d. 2. Calcium gluconate. 3. Rocephin. 4. Benadryl. 5. Folic acid. 6. Magnesium oxide. 7. Melatonin. 8. Supplements. 9. Protonix. 10. Ambien. PHYSICAL EXAMINATION: The patient is alert, oriented x2. Pulse 87, blood pressure 110/70, respirations 16, temperature 98 degrees, pulse ox 97% on room air. HEENT: Conjunctivae normal. Oral mucosa moist. NECK: No jugular venous distention. No carotid bruit. No lymph node enlargement. CARDIOVASCULAR: S1 and S2, muffled. RESPIRATORY: Breath sounds diminished at the bases. A few scattered rhonchi and crackles. ABDOMEN: Soft, obese, nontender. No mass palpable. LEGS: No edema, no swelling. NERVOUS SYSTEM: Higher function as mentioned. Moves all four limbs. No focal motor deficits, mild diffuse weakness. LYMPHATIC: No lymphadenopathy in the neck, axillae or groin. SKIN: No ulcer, rash or bleeding. LABS: WBC 7, hemoglobin 8.3, potassium 2.8 and 3.3. 26 and TIBC 261, percent saturation is 10, ferritin 307. LFTs are noted. ASSESSMENT: 1. Change in mental status and ataxia, possible metabolic encephalopathy, possible acute transient ischemic attack. 2. Anemia, normocytic, anemia of chronic disease. 3. Multiple electrolyte abnormalities. 4. Severe hypokalemia. 5. Severe hypocalcemia. 6. Coagulopathy possibly vitamin K deficiency secondary to malnutrition. 7. Increased creatinine with acute renal failure, possible prerenal acute tubular necrosis. 8. Increased AST, ALT, possible hepatitis of undetermined etiology. 9. Urinary tract infection with sepsis possibly, present on admission. 10. History of fibromyalgia. 11. History of syncope. 12. History of bowel resection. 13. History of cholecystectomy. 14. History of degenerative joint disease. 15. History of gastric bypass. 16. History of depression. 17. History of dumping syndrome. 18. Hypophosphatemia. 19. FULL CODE with instructions. 20. Gait dysfunction. RECOMMENDATIONS AND DISCUSSION: I recommend to continue the current medications, continue monitoring and symptomatic treatment. Continue to monitor and replace electrolytes. See orders for further details. Otherwise would also recommend PT, OT evaluation. Evaluate the patient for possible ECF rehab. Multiple consultants' reports are appreciated. Prognosis guarded, which I discussed at length with the family, who understands and agrees. Further recommendations to follow. MTDD
[2016-10-11 10:52] LABS: Free Kappa Lt Chain Qnt, Serum 5.91 mg/dL (0.33 - 1.94); Kappa/Lambda Light Chain Ratio 1.58 (0.26 - 1.65)
[2016-10-11] MEDS: CALCIUM GLUCONATE 1,000 MG in SODIUM CHLORIDE 0.9% 100 ML IVPB SCH ×3 (10:53→21:39)
--- NOTE | 2016-10-11 11:05 | EEG ---
DATE OF SERVICE: 10/10/2016 INDICATIONS FOR EXAMINATION: Altered mental status. AGE: 65Y DESCRIPTION OF THE PROCEDURE: This EEG was performed using a 21-channel digital electroencephalograph, following the international 10-20 system. DESCRIPTION OF THE RECORDING: From the beginning of the tracing, and with the patient's eyes closed, the background rhythm was mostly consisting of 8-9 Hz alpha frequency in the posterior occipital leads. No obvious asymmetry is seen. Occasional movement artifacts and muscle artifacts are noticed. Photic stimulation was performed with a minimal driving response seen. No pathological waves were elicited. Hyperventilation was not performed. The patient remains awake throughout the tracing. No epileptiform discharges were seen. Her EKG lead showed a regular rate and rhythm. INTERPRETATION: This awake EEG can be considered within normal limits. There was no asymmetry seen. No epileptiform discharges were noticed. The absence of epileptiform discharges does not rule out the diagnosis of epilepsy, therefore clinical correlation is recommended.
--- NOTE | 2016-10-11 12:17 | P.CONS ---
History of Present Illness - Reason for Consult Consult date: 10/11/16 Malabsorption Requesting physician: Regina Romero - History of Present Illness 65-year-old female patient of Dr. Murilol with a past medical history of gastric bypass 1980s, fibromyalgia, cholecystectomy, depression, and dumping syndrome. Patient may with mental status changes and electrolyte abnormalities with underlying UTI. Consultation requested for possible malabsorption and anemia. Hemoglobin on admission 8.1. Previous hemoglobin in April 2015 was 12.0. MCV 97. INR 1.1 received vitamin K with good response currently 1.2. Iron indices: Iron 26. TIBC 261. Iron saturation 10%. Ferritin 307. Vitamin B12 greater than 1000. Albumin 2.7-3.1. Protein 5.6-6.2. Prior to admission patient was taking some oral vitamin supplements. Last EGD colonoscopy more than 5 years ago. Weight has been stable. Denies abdominal pain, hematemesis, hematochezia, or melena. She has chronic loose bowel movements since her gastric surgery 30+ years ago. CT abdomen and pelvis with oral contrast only reported redundant sigmoid colon, contrast-filled left and proximal sigmoid colon up to a short segment focal narrowing or stricture. Nondistended distal sigmoid colon and rectum. Review of Systems Constitutional: Denies fever, chills, sweats, weight gain, or loss. HEENT: Negative for migraines, blurred vision or loss, earaches, drainage, tinnitus, oral mucosal lesions, dysphagia, or odynophagia. CARDIAC: Negative for chest pain, arrhythmias, or palpitation. RESPIRATORY: Negative for shortness of breath, hemoptysis, cough, or sputum production. GI: See HPI for pertinent findings. : Negative for hematuria, urgency, frequency, polyuria, or dysuria. GYNc: Denies possibility of . Negative vaginal discharge. MUSCULOSKELETAL: Fibromyalgia. NEUROLOGIC: Negative for stroke or TIA. ENDOCRINE: Negative for thyroid problems. SKIN: Negative for rash or itching. PSYCHIATRIC: Depression. All systems: negative (See HPI) Past Medical History Past Medical History: Fibromyalgia, Syncope Additional Past Medical History / Comment(s): DUMPING SYNDROME, DDD History of Any Multi-Drug Resistant Organisms: None Reported Past Surgical History: Adenoidectomy, Bowel Resection, Cholecystectomy, Joint Replacement, Tonsillectomy, Tubal Ligation Additional Past Surgical History / Comment(s): RT TKACOLONOSCOPYTILT TABLE TEST , D & C. Gastric Bypass - 30 years ago Past Anesthesia/Blood Transfusion Reactions: No Reported Reaction Past Psychological History: Depression Smoking Status: Never smoker Past Alcohol Use History: None Reported Past Drug Use History: None Reported - Past Family History Father Family Medical History: Cancer Sister(s) Family Medical History: Cancer Mother Family Medical History: Deep Vein Thrombosis (DVT) Medications and Allergies Home Medications Medication Instructions Recorded Confirmed Type Folic Acid 1 mg PO BID 08/29/14 10/08/16 History Vitamin B12/Magnesium Shot 1 dose SQ Q21D 08/29/14 10/08/16 History diphenhydrAMINE [Benadryl] 50 mg PO HS 08/29/14 10/08/16 History Zolpidem [Ambien] 10 mg PO HS PRN 01/19/15 10/08/16 History Baclofen [Lioresal] 20 mg PO TID PRN 10/08/16 10/08/16 History [place] Eye Drops 1 drop RIGHT EYE TID 10/08/16 10/08/16 History Citalopram Hydrobromide [CeleXA] 40 mg PO DAILY 10/08/16 10/08/16 History Melatonin 10 mg PO HS 10/08/16 10/08/16 History oxyCODONE-APAP 7.5-325MG [Percocet 1 tab PO BID PRN 10/08/16 10/08/16 History 7.5-325 mg] Allergies Allergy/AdvReac Type Severity Reaction Status Date / Time No Known Allergies Allergy Verified 10/08/16 13:06 Physical Exam Vitals: Vital Signs Temp Pulse Pulse Resp BP Pulse Ox 10/11/16 07:25 98.4 F 103 H 16 93/62 98 10/10/16 23:01 96.8 F L 96 16 112/71 99 10/10/16 16:49 98 F 87 16 110/73 97 Intake and Output 10/10/16 10/11/16 10/11/16 22:59 06:59 14:59 Output Total 751 Balance -751 Output: Urine 750 Stool 1 Other: Voiding Method Bedside Commode # Voids 2 Weight 73.2 kg General appearance: The patient is alert, oriented, in no acute distress. HET: Head is normocephalic and atraumatic. Pupils are equal and reactive. Oropharynx is clear without lesions. Neck: Supple without lymphadenopathy. Trachea midline. Heart: S1 S2. Regular rate and rhythm. Lungs: No crackles or wheezes are heard. Abdomen: Soft, nontender, nondistended with bowel sounds. No peritoneal signs. No palpable organomegaly or masses. Extremities: Normal skin color and turgor. No cyanosis, rash, ulceration, clubbing, or edema. Radial and pedal pulses are 2/4 bilaterally. Neurological: No focal deficits. Strength and sensation are grossly intact. Results CBC & Chem 7: 10/11/16 07:29 10/11/16 07:29 Labs: Abnormal Lab Results - Last 24 Hours (Table) 10/10/16 10/10/16 10/10/16 Range/Units 07:44 07:44 17:07 RBC (3.80-5.40) m/uL Hgb (11.4-16.0) gm/dL Hct (34.0-46.0) % MCV (80.0-100.0) fL MCHC (31.0-37.0) g/dL RDW (11.5-15.5) % Lymphocytes # (1.0-4.8) k/uL Potassium 3.3 L (3.5-5.1) mmol/L Chloride (98-107) mmol/L Carbon Dioxide (22-30) mmol/L Creatinine (0.52-1.04) mg/dL Calcium (8.4-10.2) mg/dL Phosphorus (2.5-4.5) mg/dL AST (14-36) U/L ALT (9-52) U/L Total Protein (6.3-8.2) g/dL Total Protein (PEP) 5.6 L (6.2-8.2) g/dL Albumin (3.5-5.0) g/dL Free [place] LC, Quant 5.91 H (0.33 - 1.94) mg/dL Free Lambda LC, Quant 3.75 H (0.57 - 2.63) mg/dL 10/11/16 10/11/16 Range/Units 07:29 07:29 RBC 2.76 L (3.80-5.40) m/uL Hgb 8.4 L (11.4-16.0) gm/dL Hct 27.8 L (34.0-46.0) % MCV 100.7 H (80.0-100.0) fL MCHC 30.0 L (31.0-37.0) g/dL RDW 18.5 H (11.5-15.5) % Lymphocytes # 0.9 L (1.0-4.8) k/uL Potassium (3.5-5.1) mmol/L Chloride 112 H (98-107) mmol/L Carbon Dioxide 18 L (22-30) mmol/L Creatinine 1.09 H (0.52-1.04) mg/dL Calcium 7.5 L (8.4-10.2) mg/dL Phosphorus 1.5 L (2.5-4.5) mg/dL AST 65 H (14-36) U/L ALT 291 H (9-52) U/L Total Protein 5.6 L (6.3-8.2) g/dL Total Protein (PEP) (6.2-8.2) g/dL Albumin 2.7 L (3.5-5.0) g/dL Free [place] LC, Quant (0.33 - 1.94) mg/dL Free Lambda LC, Quant (0.57 - 2.63) mg/dL Microbiology - Last 24 Hours (Table) 10/08/16 19:50 Urine Culture - Final Urine,Clean Catch Escherichia coli 10/08/16 17:35 Blood Culture - Preliminary Blood No Growth after [address] scan - abdomen: report reviewed (Reviewed by Dr. Salvador) Assessment and Plan (1) Altered mental status Narrative/Plan: 65-year-old female admitted with acute UTI with altered mental status and electrolyte abnormalities with correction with underlying anemia without overt GI bleeding with history of gastric bypass and coagulopathy. Coagulopathy improved with vitamin K suspect nutritional malabsorption component. Status: Acute (2) Anemia Narrative/Plan: Multifactorial suspect component nutritional deficiency secondary to history of gastric bypass however occult GI loss cannot be entirely excluded. Status: Acute (3) H/O gastric bypass Status: Acute (4) Elevated INR Status: Acute (5) Malabsorption Status: Acute (6) E. coli UTI (urinary tract infection) Status: Acute (7) Coagulopathy Status: Acute Plan: 1. Prealbumin level. Dietitian consultation. Bariatric shakes 3 times daily. 2. Recommend EGD colonoscopy for workup of anemia this can be performed on , 10/13/2016. Patient would like to discuss with her family before giving a decision on these endoscopies. 3. Recommend a bariatric metabolic panel; bariatric surgical consultation recommended this can be scheduled as an outpatient. 4. Continue supportive measures. Will follow closely with you. Hematology following. Thank you for this kind referral and the opportunity to participate in the care of your patient. This consultation was discussed with Dr. Salvador. The impression and plan of care have been directed as dictated.
--- NOTE | 2016-10-11 16:39 | P.PN ---
Subjective Principal diagnosis: Altered mental status This is a very pleasant 65-year-old female patient who has a history of fibromyalgia, previous gastric bypass surgery approximately 30 years ago, dumping syndrome, bowel resection. She is a lifelong nonsmoker. She was brought to the emergency room on 10/08/2016 after developing altered mental status. Her states that she was more somnolent not wanting to get out of bed not when he didn't eat or drink anything. She has a previous history of similar findings of altered mental status secondary to unintentional pain medication overdose. Her urine drug screen was positive for oxycodone. He was also found to have significant electrolyte imbalances. Her potassium was 2.7 chloride 110 CO2 16 creatinine 1.52. She had elevated liver enzymes had an AST 144 ALT 366. Her calcium was 6.7 with a albumin of 2.9 total protein 5.7. Lightly anemic with a hemoglobin of 9.2. There was no leukocytosis. He has remained afebrile. She is maintaining O2 saturations in the 90s on room air. She is seen today 10/11/2016 in follow-up on the oncology unit. She is awake and alert in no acute distress. She is oriented 3. Her states she is nearly back to her baseline. Her urine is positive for E. coli. Blood cultures reveal no growth to date. Electrolytes aren't improved. Current sodium 142, potassium 4.8, chloride 112. Liver enzymes have improved to AST 65 , ALT 291. Her hemoglobin remains stable at 8.4. Stool for occult blood was negative. She has no pulmonary complaints. She is maintaining O2 saturations in high 90s on room air. Hemodynamically stable. Objective - Vital Signs Vital signs: Vital Signs Temp 97.4 F L 10/11/16 16:24 Pulse 97 10/11/16 16:24 Resp 18 10/11/16 16:24 BP 94/66 10/11/16 16:24 Pulse Ox 99 10/11/16 16:24 Intake & Output 10/10/16 10/11/16 10/11/16 18:59 06:59 18:59 Output Total 1503 Balance -1503 Weight 73.2 kg Output: Urine 1500 Stool 3 Other: Voiding Method Bedside Commode Bedside Commode # Voids 2 - Exam GENERAL EXAM: Alert, comfortable in no apparent distress. Somewhat slow to respond. HEAD: Normocephalic. EYES: Normal reaction of pupils, equal size. NOSE: Clear with pink turbinates. THROAT: No erythema or exudates. NECK: No masses, no JVD. CHEST: No chest wall deformity. LUNGS: Equal air entry with no crackles, wheeze, rhonchi or dullness. CVS: S1 and S2 normal with no audible murmurs, regular rhythm. ABDOMEN: Slightly distended, soft, normal bowel sounds, no guarding or rigidity. Extremities: There is trace peripheral edema. No clubbing, no cyanosis. Peripheral pulses are intact. - Labs CBC & Chem 7: 10/11/16 07:29 10/11/16 07:29 Labs: Abnormal Lab Results - Last 24 Hours (Table) 10/10/16 10/10/16 10/10/16 Range/Units 07:44 07:44 17:07 RBC (3.80-5.40) m/uL Hgb (11.4-16.0) gm/dL Hct (34.0-46.0) % MCV (80.0-100.0) fL MCHC (31.0-37.0) g/dL RDW (11.5-15.5) % Lymphocytes # (1.0-4.8) k/uL Potassium 3.3 L (3.5-5.1) mmol/L Chloride (98-107) mmol/L Carbon Dioxide (22-30) mmol/L Creatinine (0.52-1.04) mg/dL Calcium (8.4-10.2) mg/dL Phosphorus (2.5-4.5) mg/dL AST (14-36) U/L ALT (9-52) U/L Total Protein (6.3-8.2) g/dL Total Protein (PEP) 5.6 L (6.2-8.2) g/dL Albumin (3.5-5.0) g/dL Prealbumin (18-36) mg/dL Free [place] LC, Quant 5.91 H (0.33 - 1.94) mg/dL Free Lambda LC, Quant 3.75 H (0.57 - 2.63) mg/dL 10/11/16 10/11/16 10/11/16 Range/Units 07:29 07:29 07:29 RBC 2.76 L (3.80-5.40) m/uL Hgb 8.4 L (11.4-16.0) gm/dL Hct 27.8 L (34.0-46.0) % MCV 100.7 H (80.0-100.0) fL MCHC 30.0 L (31.0-37.0) g/dL RDW 18.5 H (11.5-15.5) % Lymphocytes # 0.9 L (1.0-4.8) k/uL Potassium (3.5-5.1) mmol/L Chloride 112 H (98-107) mmol/L Carbon Dioxide 18 L (22-30) mmol/L Creatinine 1.09 H (0.52-1.04) mg/dL Calcium 7.5 L (8.4-10.2) mg/dL Phosphorus 1.5 L (2.5-4.5) mg/dL AST 65 H (14-36) U/L ALT 291 H (9-52) U/L Total Protein 5.6 L (6.3-8.2) g/dL Total Protein (PEP) (6.2-8.2) g/dL Albumin 2.7 L (3.5-5.0) g/dL Prealbumin 5 L (18-36) mg/dL Free [place] LC, Quant (0.33 - 1.94) mg/dL Free Lambda LC, Quant (0.57 - 2.63) mg/dL Microbiology - Last 24 Hours (Table) 10/08/16 19:50 Urine Culture - Final Urine,Clean Catch Escherichia coli 10/08/16 17:35 Blood Culture - Preliminary Blood No Growth after 48 hours Assessment and Plan Plan: Impression: #1 Altered mental status of unclear etiology suspect secondary to narcotic use and multiple electrolyte imbalances. #2 Progressive weakness secondary to above. #3 Malabsorption, chronic in nature. #4 Coagulopathy secondary to chronic malabsorption and vitamin K deficiency, improved. Current INR 1.2. #5 Elevated liver enzymes, improving. #6 Fibromyalgia. #7 Chronic pain syndrome with chronic narcotic use. #8 Urinary tract infection secondary to E. coli. #9 Anemia of unclear etiology, the plan is for EGD/colonoscopy on 10/13/2016. Plan: The patient was seen and evaluated by Dr. Lane. She is improved in regards to her mental status. We'll continue her current medications including antibiotics in the form of ceftriaxone. We will increase her activity as tolerated. Continue to monitor her electrolytes, liver function testing and hemoglobin. We will continue to follow and make further recommendations based on her clinical status.
[2016-10-11] MEDS: SODIUM CHLORIDE 0.9% 1,000 ML with POTASSIUM CHLORIDE 20 MEQ, MVI, ADULT NO.4 WITH VIT ... IV SCH ×5 (17:39)
--- NOTE | 2016-10-11 19:44 | PN ---
DATE OF SERVICE: 10/11/2016 This 65-year-old woman was admitted with multiple medical problems and change in mental status, also had multiple electrolyte abnormalities also. The patient is slated for endoscopies by Gastroenterology. EEG was done by Dr. Duarte, which apparently was within normal limits. The patient also complaints of weakness. PAST MEDICAL HISTORY: Reviewed. REVIEW OF SYSTEMS: CARDIOVASCULAR: No angina. RESPIRATORY: As mentioned earlier. GI: As mentioned earlier. : No dysuria. NERVOUS SYSTEM: No numbness or weakness. ALLERGY/IMMUNOLOGY: No asthma or hayfever. MUSCULOSKELETAL: As mentioned earlier. Current medications are: 1. Lioresal 20 mg t.i.d. p.r.n. 2. Calcium gluconate. 3. Rocephin 1 gram daily. 4. Celexa 40 mg. 5. Benadryl 50 mg q.6. 7. Magnesium oxide. 8. Melatonin. 9. Narcan 0.2 q.2 p.r.n. 10. Protonix. 11. Multivitamin supplementation. 12. Ambien 10 mg p.r.n. PHYSICAL EXAMINATION: Patient is alert and oriented x2. Pulse 96, blood pressure 112/72, respirations 16, temperature 96.8, pulse ox 99% on room air. HEENT: Conjunctivae normal. Oral mucosa moist. NECK: No jugular venous distention. No carotid bruit. No lymph node enlargement. CARDIOVASCULAR: S1 and S2, muffled. No S3, no S4. RESPIRATORY: Breath sounds diminished at the bases. Bilateral scattered rhonchi. No crackles. ABDOMEN: Soft, nontender. No mass palpable. LEGS: No edema, no swelling. NERVOUS SYSTEM: Higher function as mentioned. Moves all four limbs. No focal motor deficits. LYMPHATIC: No lymphadenopathy in the neck, axillae or groin. SKIN: No ulcer, rash or bleeding. LABS: Hemoglobin is 8.4. Potassium is 4.8, creatinine is 1.09. Calcium is 7.5, phosphorus 1.5, AST 65, ALT is 291, albumin is 5. [place] lambda was increased. ASSESSMENT: 1. Change in mental status, ataxia, possible metabolic encephalopathy, possible acute transient ischemic attack. 2. Anemia, normocytic, anemia of chronic disease. 3. Multiple electrolyte abnormalities. 4. Severe hypokalemia. 5. Severe hypocalcemia. 6. Coagulopathy, possible vitamin K deficiency secondary to malabsorption. 7. Increased creatinine with acute renal failure with possible prerenal acute tubular necrosis. 8. Increased AST, ALT, possibly hepatitis of undetermined etiology. 9. Urinary tract infection with sepsis, possibly present on admission. 10. History of fibromyalgia. 11. History of syncope. 12. Gait dysfunction. 13. History of bowel resection. 14. History of cholecystectomy. 15. History of degenerative joint disease. 16. History of gastric bypass. 17. History of depression. 18. History of dumping syndrome. 19. History of hyperphosphatemia. 20. Gait dysfunction. 21. FULL CODE with instructions. RECOMMENDATIONS AND DISCUSSION: I recommend to continue the current medications, continue monitoring and symptomatic treatment. Continue with PT, OT evaluation. Otherwise, endoscopies per Gastroenterology. Empiric antibiotics to be continued. Guarded prognosis because of multiple complex medical issues. Further recommendations to follow. MTDD
[2016-10-11] MEDS: MELATONIN 5 MG TABLET PO SCH (22:19)
[2016-10-12] MEDS: BACLOFEN 10 MG TAB PO PRN ×3 (00:05→22:02)
[2016-10-12] MEDS: ZOLPIDEM 10 MG TAB PO PRN ×2 (00:05→23:34)
[2016-10-12 07:29] LABS: INR 1.1 (<1.1)
[2016-10-12 07:31] LABS: Anisocytosis Slight; Basophils % (A) 0 %; CHCM 29.3; Eosinophils # (A) 0.1 k/uL (0-0.7); Eosinophils % (A) 1 %; HCT 29.3 % (34.0-46.0); HDW 3.31; HGB 8.4 gm/dL (11.4-16.0); Hypochromasia Marked; Luc # (Auto) 0.13; Luc % (Auto) 2; Lymphocytes # (A) 0.9 k/uL (1.0-4.8); Lymphocytes % (A) 13 %; MCH 29.8 pg (25.0-35.0); MCHC 28.6 g/dL (31.0-37.0); MCV 103.9 fL (80.0-100.0); Macrocytosis Moderate; Mean Platelet Volume 8.5; Monocytes # (A) 0.4 k/uL (0-1.0); Monocytes % (A) 6 %; Neutrophils # (A) 5.4 k/uL (1.3-7.7); Neutrophils % (A) 78 %; RBC 2.82 m/uL (3.80-5.40); RDW 18.6 % (11.5-15.5); WBC 6.9 k/uL (3.8-10.6); WBC (Perox) 7.77
[2016-10-12 07:39] VITALS: TEMP 97.4
[2016-10-12 07:40] LABS: ALT 215 U/L (9-52); AST 55 U/L (14-36); Alkaline Phosphatase 78 U/L (38-126); Anion Gap 11 mmol/L; Blood Urea Nitrogen 8 mg/dL (7-17); Calcium 7.7 mg/dL (8.4-10.2); Carbon Dioxide 20 mmol/L (22-30); Chloride 113 mmol/L (98-107); Glucose 99 mg/dL (74-99); Magnesium 1.6 mg/dL (1.6-2.3); Non-African American GFR(MDRD) 51 (>60 ml/min/1.73 sqM); Phosphorous 2.1 mg/dL (2.5-4.5); Potassium 4.3 mmol/L (3.5-5.1); Sodium 144 mmol/L (137-145); Total Bilirubin 0.7 mg/dL (0.2-1.3); Total Protein 5.3 g/dL (6.3-8.2)
[2016-10-12] MEDS: [UNRECOGNIZED DRUG - OTHER] RIGHT EYE SCH ×4 (08:46→22:02)
[2016-10-12] MEDS: MAGNESIUM OXIDE 400 MG TAB PO SCH (08:47)
[2016-10-12] MEDS: PANTOPRAZOLE 40 MG TABLET PO SCH (08:47)
[2016-10-12] MEDS: CITALOPRAM HYDROBROMIDE 20 MG TAB PO SCH (08:47)
[2016-10-12] MEDS: SODIUM CHLORIDE 0.9% 1,000 ML with POTASSIUM CHLORIDE 20 MEQ, MVI, ADULT NO.4 WITH VIT ... IV SCH ×10 (09:02→23:34)
[2016-10-12] MEDS: CALCIUM GLUCONATE 1,000 MG in SODIUM CHLORIDE 0.9% 100 ML IVPB SCH ×3 (09:25→22:02)
--- NOTE | 2016-10-12 09:52 | P.PN ---
Subjective Principal diagnosis: anemia Female history of gastric bypass 30 years ago admitted with mental status changes UTI and electrolyte imbalances. Evaluated yesterday in regards to anemia without overt bleeding and malnutrition. He will any 0.4 this morning. She is scheduled for EGD colonoscopy tomorrow. Denies abdominal pain. Pre- albumin 5. Objective - Vital Signs Vital signs: Vital Signs Temp 97.4 F L 10/12/16 07:38 Pulse 107 H 10/12/16 07:38 Resp 16 10/12/16 07:38 BP 137/75 10/12/16 07:38 Pulse Ox 97 10/12/16 07:38 Intake & Output 10/11/16 10/12/16 10/12/16 18:59 06:59 18:59 Intake Total 590 Balance 590 Weight 73 kg Intake: IV 590 Calcium Gluconate 1,000 100 mg In Sodium Chloride 0.9 % 100 ml @ 100 mls/hr IVPB TID SAUL Rx#: [id number] Mvi, Adult No.4 with Vit 490 K 10 ml Thiamine 100 mg Folic Acid 1 mg Potassium Chloride 20 meq In Sodium Chloride 0.9% 1, 000 ml @ 70 mls/hr IV .BY DURATION SAUL Rx#: [id number] Other: Voiding Method Bedside Commode - Exam General appearance: The patient is alert, oriented, in no acute distress. HET: Head is normocephalic and atraumatic. Pupils are equal and reactive. Oropharynx is clear without lesions. Neck: Supple without lymphadenopathy. Trachea midline. Heart: S1 S2. Regular rate and rhythm. Lungs: No crackles or wheezes are heard. Abdomen: Soft, nontender, nondistended with bowel sounds. No peritoneal signs. No palpable organomegaly or masses. Extremities: Normal skin color and turgor. No cyanosis, rash, ulceration, clubbing, or edema. Radial and pedal pulses are 2/4 bilaterally. Neurological: No focal deficits. Strength and sensation are grossly intact. - Labs CBC & Chem 7: 10/12/16 07:07 10/12/16 07:07 Labs: Abnormal Lab Results - Last 24 Hours (Table) 10/10/16 10/11/16 10/12/16 Range/Units 07:44 07:29 07:07 RBC 2.82 L (3.80-5.40) m/uL Hgb 8.4 L (11.4-16.0) gm/dL Hct 29.3 L (34.0-46.0) % MCV 103.9 H (80.0-100.0) fL MCHC 28.6 L (31.0-37.0) g/dL RDW 18.6 H (11.5-15.5) % Lymphocytes # 0.9 L (1.0-4.8) k/uL Chloride (98-107) mmol/L Carbon Dioxide (22-30) mmol/L Creatinine (0.52-1.04) mg/dL Calcium (8.4-10.2) mg/dL Phosphorus (2.5-4.5) mg/dL AST (14-36) U/L ALT (9-52) U/L Total Protein (6.3-8.2) g/dL Albumin (3.5-5.0) g/dL Prealbumin 5 L (18-36) mg/dL RBC Folate >1,800 H (280 - 791) ng/mL Free [place] LC, Quant 5.91 H (0.33 - 1.94) mg/dL Free Lambda LC, Quant 3.75 H (0.57 - 2.63) mg/dL 10/12/16 Range/Units 07:07 RBC (3.80-5.40) m/uL Hgb (11.4-16.0) gm/dL Hct (34.0-46.0) % MCV (80.0-100.0) fL MCHC (31.0-37.0) g/dL RDW (11.5-15.5) % Lymphocytes # (1.0-4.8) k/uL Chloride 113 H (98-107) mmol/L Carbon Dioxide 20 L (22-30) mmol/L Creatinine 1.07 H (0.52-1.04) mg/dL Calcium 7.7 L (8.4-10.2) mg/dL Phosphorus 2.1 L (2.5-4.5) mg/dL AST 55 H (14-36) U/L ALT 215 H (9-52) U/L Total Protein 5.3 L (6.3-8.2) g/dL Albumin 2.5 L (3.5-5.0) g/dL Prealbumin (18-36) mg/dL RBC Folate (280 - 791) ng/mL Free [place] LC, Quant (0.33 - 1.94) mg/dL Free Lambda LC, Quant (0.57 - 2.63) mg/dL Microbiology - Last 24 Hours (Table) 10/08/16 17:35 Blood Culture - Preliminary Blood No Growth after 72 hours 10/11/16 12:00 Stool Culture - Preliminary Stool Assessment and Plan (1) Altered mental status Narrative/Plan: 65-year-old female admitted with acute UTI with altered mental status and electrolyte abnormalities with correction with underlying anemia without overt GI bleeding with history of gastric bypass and coagulopathy. Coagulopathy improved with vitamin K suspect nutritional malabsorption component. Status: Acute (2) Anemia Narrative/Plan: Multifactorial suspect component nutritional deficiency secondary to history of gastric bypass however occult GI loss cannot be entirely excluded. Status: Acute (3) H/O gastric bypass Status: Acute (4) Elevated INR Status: Acute (5) Malabsorption Status: Acute (6) E. coli UTI (urinary tract infection) Status: Acute (7) Coagulopathy Status: Acute Plan: 1. Prealbumin level reviewed. Dietitian consultation. 2. EGD colonoscopy tomorrow. Assessment and plan of care discussed with Dr. Salvador.
[2016-10-12] MEDS: 1: MVI, ADULT NO.4 WITH VIT K 10 ML, THIAMINE 100 MG, FOLIC ACID 1 MG, POTASSIUM CHLORID IV SCH ×5 (14:21)
[2016-10-12] MEDS ORDERED: PEG 3350-NA SULF,BICARB,CL/KCL 4,000 ML BOTTLE PO ONE (15:00)
[2016-10-12] MEDS: POTAS-SOD-PHOS 278-164-250 MG 1 EACH PACKET PO SCH ×2 (15:28→22:02)
--- NOTE | 2016-10-12 17:00 | P.PN ---
Subjective Principal diagnosis: Altered mental status This is a very pleasant 65-year-old female patient who has a history of fibromyalgia, previous gastric bypass surgery approximately 30 years ago, dumping syndrome, bowel resection. She is a lifelong nonsmoker. She was brought to the emergency room on 10/08/2016 after developing altered mental status. Her states that she was more somnolent not wanting to get out of bed not when he didn't eat or drink anything. She has a previous history of similar findings of altered mental status secondary to unintentional pain medication overdose. Her urine drug screen was positive for oxycodone. He was also found to have significant electrolyte imbalances. Her potassium was 2.7 chloride 110 CO2 16 creatinine 1.52. She had elevated liver enzymes had an AST 144 ALT 366. Her calcium was 6.7 with a albumin of 2.9 total protein 5.7. Lightly anemic with a hemoglobin of 9.2. There was no leukocytosis. He has remained afebrile. She is maintaining O2 saturations in the 90s on room air. She is seen today 10/11/2016 in follow-up on the oncology unit. She is awake and alert in no acute distress. She is oriented 3. Her states she is nearly back to her baseline. Her urine is positive for E. coli. Blood cultures reveal no growth to date. Electrolytes aren't improved. Current sodium 142, potassium 4.8, chloride 112. Liver enzymes have improved to AST 65 , ALT 291. Her hemoglobin remains stable at 8.4. Stool for occult blood was negative. She has no pulmonary complaints. She is maintaining O2 saturations in high 90s on room air. Hemodynamically stable. The patient is seen again today 10/12/2016 in follow-up on the oncology unit. She remains alert and oriented in no acute distress. She denies any worsening shortness of breath, cough or congestion. She is maintaining good O2 saturations in the upper 90s on room air. Currently afebrile. Objective - Vital Signs Vital signs: Vital Signs Temp 97.4 F L 10/12/16 07:38 Pulse 107 H 10/12/16 07:38 Resp 16 10/12/16 07:38 BP 137/75 10/12/16 07:38 Pulse Ox 97 10/12/16 07:38 Intake & Output 10/11/16 10/12/16 10/12/16 18:59 06:59 18:59 Intake Total 590 Balance 590 Weight 73 kg Intake: IV 590 Calcium Gluconate 1,000 100 mg In Sodium Chloride 0.9 % 100 ml @ 100 mls/hr IVPB TID SAUL Rx#: [id number] Mvi, Adult No.4 with Vit 490 K 10 ml Thiamine 100 mg Folic Acid 1 mg Potassium Chloride 20 meq In Sodium Chloride 0.9% 1, 000 ml @ 70 mls/hr IV .BY DURATION SAUL Rx#: [id number] Other: Voiding Method Bedside Commode - Exam GENERAL EXAM: Alert, comfortable in no apparent distress. Somewhat slow to respond. HEAD: Normocephalic. EYES: Normal reaction of pupils, equal size. NOSE: Clear with pink turbinates. THROAT: No erythema or exudates. NECK: No masses, no JVD. CHEST: No chest wall deformity. LUNGS: Equal air entry with no crackles, wheeze, rhonchi or dullness. CVS: S1 and S2 normal with no audible murmurs, regular rhythm. ABDOMEN: Slightly distended, soft, normal bowel sounds, no guarding or rigidity. Extremities: There is trace peripheral edema. No clubbing, no cyanosis. Peripheral pulses are intact. - Labs CBC & Chem 7: 10/12/16 07:07 10/12/16 07:07 Labs: Abnormal Lab Results - Last 24 Hours (Table) 10/10/16 10/10/16 10/12/16 Range/Units 07:44 07:44 07:07 RBC 2.82 L (3.80-5.40) m/uL Hgb 8.4 L (11.4-16.0) gm/dL Hct 29.3 L (34.0-46.0) % MCV 103.9 H (80.0-100.0) fL MCHC 28.6 L (31.0-37.0) g/dL RDW 18.6 H (11.5-15.5) % Lymphocytes # 0.9 L (1.0-4.8) k/uL Chloride (98-107) mmol/L Carbon Dioxide (22-30) mmol/L Creatinine (0.52-1.04) mg/dL Calcium (8.4-10.2) mg/dL Phosphorus (2.5-4.5) mg/dL AST (14-36) U/L ALT (9-52) U/L Total Protein (6.3-8.2) g/dL Total Protein (PEP) 5.6 L (6.2-8.2) g/dL Albumin (3.5-5.0) g/dL Albumin (PEP) 2.81 L (3.80-4.90) g/dL RBC Folate >1,800 H (280 - 791) ng/mL Free [place] LC, Quant 5.91 H (0.33 - 1.94) mg/dL Free [place]ambda LC, Quant 3.75 H (0.57 - 2.63) mg/dL 10/12/16 Range/Units 07:07 RBC (3.80-5.40) m/uL Hgb (11.4-16.0) gm/dL Hct (34.0-46.0) % MCV (80.0-100.0) fL MCHC (31.0-37.0) g/dL RDW (11.5-15.5) % Lymphocytes # (1.0-4.8) k/uL Chloride 113 H (98-107) mmol/L Carbon Dioxide 20 L (22-30) mmol/L Creatinine 1.07 H (0.52-1.04) mg/dL Calcium 7.7 L (8.4-10.2) mg/dL Phosphorus 2.1 L (2.5-4.5) mg/dL AST 55 H (14-36) U/L ALT 215 H (9-52) U/L Total Protein 5.3 L (6.3-8.2) g/dL Total Protein (PEP) (6.2-8.2) g/dL Albumin 2.5 L (3.5-5.0) g/dL Albumin (PEP) (3.80-4.90) g/dL RBC Folate (280 - 791) ng/mL Free [place] LC, Quant (0.33 - 1.94) mg/dL Free Lambda LC, Quant (0.57 - 2.63) mg/dL Microbiology - Last 24 Hours (Table) 10/08/16 17:35 Blood Culture - Preliminary Blood No Growth after 72 hours 10/11/16 12:00 Stool Culture - Preliminary Stool Assessment and Plan Plan: Impression: #1 Altered mental status of unclear etiology suspect secondary to narcotic use and multiple electrolyte imbalances. #2 Progressive weakness secondary to above. #3 Malabsorption, chronic in nature. #4 Coagulopathy secondary to chronic malabsorption and vitamin K deficiency, improved. Current INR 1.1. #5 Elevated liver enzymes, improving. #6 Fibromyalgia. #7 Chronic pain syndrome with chronic narcotic use. #8 Urinary tract infection secondary to E. coli. #9 Anemia of unclear etiology, the plan is for EGD/colonoscopy on 10/13/2016. Plan: The patient was seen and evaluated by Dr. Lane. She is improved in regards to her mental status. We'll continue her current medications including antibiotics in the form of ceftriaxone. She has no pulmonary complaints. We'll follow the patient on as-needed basis.
--- NOTE | 2016-10-12 17:49 | PN ---
DATE OF SERVICE: 10/12/2016 This 66-year-old woman was admitted with multiple medical problems, change in mental status, also multiple electrolyte abnormalities. Neurology is following the patient closely. Gastroenterology planning upper and lower endoscopies. No chest pain or palpitations. No fever. The patient is able to walk with a walker and per Physical Therapy, could be safely discharged home. On exam, alert and oriented x3. Pulse 107, blood pressure 137/75, respirations 16, temperature 97.4, pulse ox 97% on room air. HEENT: Conjunctivae normal. NECK: No jugular venous distension. No thyroid enlargement. No lymph node enlargement. CARDIOVASCULAR: S1 and S2 muffled. No S3. No S4. RESPIRATORY: Breath sounds diminished in the bases. No rhonchi. No crackles. ABDOMEN: Soft, nontender. No mass palpable. LEGS: No edema. No swelling. NERVOUS SYSTEM: Higher functions as mentioned earlier. Moves all 4 limbs. Nonfocal. LYMPHATICS: No lymph nodes palpable in neck or axillae. SKIN: No ulcer, rash or bleeding. Labs are WBC 6.8, hemoglobin is 8.4. Sodium 144, potassium 4.3. Phosphorus is 2.1 and ALT is 215. ASSESSMENT: 1. Change in mental status, ataxia with possible metabolic encephalopathy, possible transient ischemic attack. 2. Anemia, normocytic, anemia of chronic disease. 3. Multiple electrolyte abnormalities. 4. Severe hypokalemia. 5. Severe hypocalcemia. 6. Coagulopathy, possibly vitamin K deficiency secondary to malabsorption. 7. Increased creatinine with acute renal failure with a possible prerenal acute tubular necrosis. 8. Increased AST, ALT, possible hepatitis of undetermined etiology. 9. Urinary tract infection with sepsis, possibly present on admission. 10. History of fibromyalgia. 11. Syncope. 12. History of gait dysfunction. 13. History of bowel resection. 14. History of cholecystectomy. 15. History of degenerative joint disease. 16. History of gastric bypass. 17. History of depression. 18. History of dumping syndrome. 19. History of hyperphosphatemia. 20. Gait dysfunction. 21. FULL CODE . RECOMMENDATIONS AND DISCUSSION: In this 66-year-old woman who presented with multiple complex medical issues, will monitor the patient closely. Continue the current medications, condition symptomatic treatment. Otherwise, endoscopies, monitor lytes closely. Would add Neutra-Phos to the current regimen. Continue with antibiotics. Continue with the rest of the medication. Guarded prognosis because of multiple complex medical issues. Further recommendations to follow. Possible home with home care. BETTYE
[2016-10-12] MEDS: MELATONIN 5 MG TABLET PO SCH (22:02)
[2016-10-12 22:16] VITALS: RESP 18
--- NOTE | 2016-10-12 23:48 | P.PN ---
Subjective The pt is improved, and has been transferred out of the ICU. Her responses are still somewhat slow, but definitely improved Objective - Vital Signs Vital signs: Vital Signs Temp 97.4 F L 10/12/16 22:15 Pulse 106 H 10/12/16 22:15 Resp 18 10/12/16 22:15 BP 122/65 10/12/16 22:15 Pulse Ox 100 10/12/16 22:15 Intake & Output 10/12/16 10/12/16 10/13/16 06:59 18:59 06:59 Intake Total 590 Balance 590 Weight 73 kg Intake: IV 590 Calcium Gluconate 1,000 100 mg In Sodium Chloride 0.9 % 100 ml @ 100 mls/hr IVPB TID SAUL Rx#: [id number] Mvi, Adult No.4 with Vit 490 K 10 ml Thiamine 100 mg Folic Acid 1 mg Potassium Chloride 20 meq In Sodium Chloride 0.9% 1, 000 ml @ 70 mls/hr IV .BY DURATION SAUL Rx#: [id number] Other: Voiding Method Bedside Commode - Constitutional General appearance: Present: no acute distress - EENT Eyes: Present: EOMI, PERRLA ENT: Present: hearing grossly normal, normal oropharynx - Respiratory Respiratory: bilateral: CTA - Cardiovascular Rhythm: regular Heart sounds: normal: S1, S2 - Gastrointestinal General gastrointestinal: Present: normal bowel sounds, soft - Integumentary Integumentary: Present: normal - Neurologic Neurologic: Present: CNII-XII intact - Musculoskeletal Musculoskeletal: Present: generalized weakness, strength equal bilaterally - Psychiatric Psychiatric: Present: A&O x's 3 - Labs CBC & Chem 7: 10/12/16 07:07 10/12/16 07:07 Labs: Abnormal Lab Results - Last 24 Hours (Table) 10/10/16 10/10/16 10/12/16 Range/Units 07:44 07:44 07:07 RBC 2.82 L (3.80-5.40) m/uL Hgb 8.4 L (11.4-16.0) gm/dL Hct 29.3 L (34.0-46.0) % MCV 103.9 H (80.0-100.0) fL MCHC 28.6 L (31.0-37.0) g/dL RDW 18.6 H (11.5-15.5) % Lymphocytes # 0.9 L (1.0-4.8) k/uL Chloride (98-107) mmol/L Carbon Dioxide (22-30) mmol/L Creatinine (0.52-1.04) mg/dL Calcium (8.4-10.2) mg/dL Phosphorus (2.5-4.5) mg/dL AST (14-36) U/L ALT (9-52) U/L Total Protein (6.3-8.2) g/dL Total Protein (PEP) 5.6 L (6.2-8.2) g/dL Albumin (3.5-5.0) g/dL Albumin (PEP) 2.81 L (3.80-4.90) g/dL RBC Folate >1,800 H (280 - 791) ng/mL Free [place] LC, Quant 5.91 H (0.33 - 1.94) mg/dL Free [place]ambda LC, Quant 3.75 H (0.57 - 2.63) mg/dL 10/12/16 Range/Units 07:07 RBC (3.80-5.40) m/uL Hgb (11.4-16.0) gm/dL Hct (34.0-46.0) % MCV (80.0-100.0) fL MCHC (31.0-37.0) g/dL RDW (11.5-15.5) % Lymphocytes # (1.0-4.8) k/uL Chloride 113 H (98-107) mmol/L Carbon Dioxide 20 L (22-30) mmol/L Creatinine 1.07 H (0.52-1.04) mg/dL Calcium 7.7 L (8.4-10.2) mg/dL Phosphorus 2.1 L (2.5-4.5) mg/dL AST 55 H (14-36) U/L ALT 215 H (9-52) U/L Total Protein 5.3 L (6.3-8.2) g/dL Total Protein (PEP) (6.2-8.2) g/dL Albumin 2.5 L (3.5-5.0) g/dL Albumin (PEP) (3.80-4.90) g/dL RBC Folate (280 - 791) ng/mL Free [place] LC, Quant (0.33 - 1.94) mg/dL Free [place]ambda LC, Quant (0.57 - 2.63) mg/dL Microbiology - Last 24 Hours (Table) 10/08/16 17:35 Blood Culture - Preliminary Blood No Growth after 96 hours 10/11/16 12:00 Stool Culture - Preliminary Stool Assessment and Plan (1) Elevated INR Narrative/Plan: This has normalised with aggressive vitamin K supplementation. This confirms a deficiency state and rules out an antibody. The deficiency, at this time, appears to be due to malabsorption Status: Acute (2) Anemia Narrative/Plan: Hgb is stable. Anemia w/u is negative so far. Acute bleed cannot be ruled out based on normal iron stores. Continue to follow. If G/I w/u is negative, and Hgb does not improve, we will need to plan a bone marrow, as her labs do not show a deficiency of any of the major nutritional components of hematopoeisis Status: Acute (3) Malabsorption Status: Acute
[2016-10-13 05:57] LABS: Methylmalonic Acid 0.38 umol/L (<0.40)
[2016-10-13] MEDS: [UNRECOGNIZED DRUG - OTHER] RIGHT EYE SCH (07:46)
[2016-10-13] MEDS: 1: MVI, ADULT NO.4 WITH VIT K 10 ML, THIAMINE 100 MG, FOLIC ACID 1 MG, POTASSIUM CHLORID IV SCH ×10 (07:50→14:13)
[2016-10-13 08:08] LABS: Anisocytosis Slight; Basophils % (A) 0 %; CH 28.9; CHCM 28.4; Eosinophils # (A) 0.1 k/uL (0-0.7); Eosinophils % (A) 1 %; HCT 27.3 % (34.0-46.0); HDW 3.25; HGB 8.1 gm/dL (11.4-16.0); Hypochromasia Marked; Luc # (Auto) 0.13; Luc % (Auto) 2; Lymphocytes # (A) 0.8 k/uL (1.0-4.8); Lymphocytes % (A) 14 %; MCH 30.5 pg (25.0-35.0); MCHC 29.6 g/dL (31.0-37.0); Macrocytosis Moderate; Mean Platelet Volume 7.9; Monocytes # (A) 0.4 k/uL (0-1.0); Monocytes % (A) 7 %; Neutrophils # (A) 4.5 k/uL (1.3-7.7); Neutrophils % (A) 76 %; RBC 2.65 m/uL (3.80-5.40); RDW 17.8 % (11.5-15.5); WBC 5.9 k/uL (3.8-10.6); WBC (Perox) 6.28
[2016-10-13 08:15] LABS: INR 1.2 (<1.1); Prothrombin Time 11.5 sec (9.0-12.0)
[2016-10-13 08:26] LABS: ALT 174 U/L (9-52); AST 55 U/L (14-36); Alkaline Phosphatase 64 U/L (38-126); Anion Gap 13 mmol/L; Blood Urea Nitrogen 7 mg/dL (7-17); Calcium 7.3 mg/dL (8.4-10.2); Carbon Dioxide 16 mmol/L (22-30); Chloride 114 mmol/L (98-107); Glucose 84 mg/dL (74-99); Magnesium 1.4 mg/dL (1.6-2.3); Non-African American GFR(MDRD) 56 (>60 ml/min/1.73 sqM); Phosphorous 2.4 mg/dL (2.5-4.5); Potassium 3.9 mmol/L (3.5-5.1); Sodium 143 mmol/L (137-145); Total Bilirubin 0.6 mg/dL (0.2-1.3); Total Protein 4.9 g/dL (6.3-8.2)
[2016-10-13] MEDS ORDERED: LACTATED RINGERS 1,000 ML IV ONE (08:50)
[2016-10-13] MEDS ORDERED: PROPOFOL 10 MG/ML 20 ML VIAL IV ONE (08:50)
[2016-10-13] MEDS: PANTOPRAZOLE 40 MG TABLET PO SCH (11:30)
[2016-10-13] MEDS: CALCIUM GLUCONATE 1,000 MG in SODIUM CHLORIDE 0.9% 100 ML IVPB SCH (11:30)
[2016-10-13] MEDS: CITALOPRAM HYDROBROMIDE 20 MG TAB PO SCH (11:31)
[2016-10-13] MEDS: MAGNESIUM OXIDE 400 MG TAB PO SCH (11:31)
[2016-10-13] MEDS: POTAS-SOD-PHOS 278-164-250 MG 1 EACH PACKET PO SCH (11:31)
[2016-10-13] MEDS: MAGNESIUM SULFATE-D5W PMX 1 GM in DEXTROSE/WATER 1 100ML.BAG IVPB SCH ×2 (12:55→14:13)
--- NOTE | 2016-10-13 13:38 | P.PCN ---
Date of Procedure: 10/13/16 Procedure(s) Performed: Procedure: 1. Esophagogastroduodenoscopy and biopsy. 2. Colonoscopy and biopsy. Preoperative diagnosis: Profound anemia and suspected GI bleeding. Postoperative diagnosis: 1. Small sliding hiatal hernia with no obvious esophagitis or complicated reflux disease. 2. Mild antral gastritis. 3. No evidence of prior gastric bypass surgery as she related by her history. 4. Mild sigmoid diverticulosis. 5. Nonspecific very short segment of colitis in the right colon of unclear significance biopsies obtained. Preparation: GoLYTELY prep. Sedation: Was provided by anesthesia. Brief clinical history: The patient is a 66-year-old female with a past medical history of gastric bypass in the , fibromyalgia, cholecystectomy, depression, and dumping syndrome. Patient was admitted with mental status changes and electrolyte abnormalities with underlying UTI. Consultation requested for possible malabsorption and anemia. Hemoglobin on admission 8.1. Previous hemoglobin in April 2015 was 12.0. MCV 97. INR 1.1 received vitamin K with good response currently 1.2. Her Iron indices: Iron 26. TIBC 261. Iron saturation 10%. Ferritin 307. Vitamin B12 greater than 1000. Albumin 2.7-3.1. Protein 5.6-6.2. Prior to admission patient was taking some oral vitamin supplements. Last EGD/colonoscopy was more than 5 years ago. Weight has been stable. Denies abdominal pain, hematemesis, hematochezia, or melena. She has chronic loose bowel movements since her gastric surgery 30+ years ago. The CT of her abdomen and pelvis with oral contrast reported redundant sigmoid colon, contrast-filled left and proximal sigmoid colon up to a short segment focal narrowing or stricture. Nondistended distal sigmoid colon and rectum. Procedure: With the patient on her left lateral decubitus position and after informed consent and adequate sedation, I passed the Olympus-GIF 160 video upper endoscope through the cricopharyngeus down the esophagus. GE junction was around 37 cm from the incisors and there was a small sliding hiatal hernia. The esophagus did not show any obvious esophagitis or complicated reflux disease. The endoscope was then advanced into the stomach. I insufflated the stomach with air and retroflexed the endoscope in the cardia. I saw no evidence of prior gastric bypass or other gastric surgeries. There was mottling and erythema in the antrum but no ulcers or erosions. Pyloric channel , duodenal bulb, post bulbar area and descending duodenum appeared within normal limits. Because of her symptoms, obtained biopsies from the duodenum, antrum and esophagus then the endoscope was withdrawn and then I proceeded with the colonoscopy. Perianal area did not show any fissures or fistulas. There were no masses felt on digital rectal examination. The Olympus CFQ 160L video colonoscope was then inserted in the rectum in the usual fashion and advanced to the cecum. There was a very short segment of colitis in the right colon of unclear clinical significance and there were multiple diverticular orifices seen scattered in the sigmoid but I saw no evidence of acute diverticulitis, polyps, cancer or other pathology. I obtained biopsies in the right colon. I retroflexed endoscope in the rectum before it was withdrawn. The patient tolerated the procedure well. Plan: The patient was reassured. Will await biopsy results. Would allow diet and further plans will be made based on her course and biopsy results.
[2016-10-13] MEDS: SODIUM CHLORIDE 0.9% 1,000 ML with POTASSIUM CHLORIDE 20 MEQ, MVI, ADULT NO.4 WITH VIT ... IV SCH ×5 (14:12)
[2016-10-13 15:40] VITALS: BP 133/70; PULSE 103
--- NOTE | 2016-10-14 08:40 | DS ---
DATE OF ADMISSION: 10/08/2016 DATE OF DISCHARGE: 10/13/2016 Patient is admitted with metabolic encephalopathy secondary to multiple electrolytes abnormalities which were believed to be secondary to malnutrition, although which is again today believed to be secondary to her gastric bypass surgery years ago, although patient never had any gastric bypass surgery which was not evident on any of the upper and lower gastrointestinal endoscopies. Patient underwent upper and lower GI endoscopies which are essentially within normal limits and part of encephalopathy is probably toxic encephalopathy from medications that is not cardiac medications including narcotic medications including Ambien she was receiving and Percocet. she was receiving both of which were discontinued. Although I left her on diphenhydramine for sleep purposes along with melatonin and patient will be discharged today. Patient will require home physical therapy. Patient has generalized weakness. The patient was seen and examined on the day of discharge. PHYSICAL EXAMINATION: GENERAL: The patient is alert and oriented x3, not in any acute distress. Well developed, well nourished. HEENT: Pupils are round and equally reacting to light. EOMI. No scleral icterus. No conjunctival pallor. Normocephalic, atraumatic. No pharyngeal erythema. No thyromegaly. CARDIOVASCULAR: S1 and S2 present. No murmurs, rubs, or gallops. PULMONARY: Chest is clear to auscultation, no wheezing or crackles. ABDOMEN: Soft, nontender, nondistended, normoactive bowel sounds. No palpable organomegaly. MUSCULOSKELETAL: No joint swelling or deformity. EXTREMITIES: No cyanosis, clubbing, or pedal edema. NEUROLOGICAL: Gross neurological examination did not reveal any focal deficits. SKIN: No rashes. Vitals are stable. Patient's electrolytes for low magnesium of 1.4. FINAL DIAGNOSIS: 1. Altered mental status secondary to toxic metabolic encephalopathy most probably from medications with contribution from electrolytes. 2. Anemia normocytic and anemia of chronic disease. 3. Multiple electrolytes abnormalities which were corrected and acute renal failure, improved with IV fluid resuscitation, which may have contributed to her Augmentin status. 4. Urinary tract infection apparently on admission patient may have asymptomatic bacteria but anyways, patient received 5 days of antibiotics. I do not believe patient will require any more antibiotics. 5. Generalized deconditioning. 6. Depression. Please refer to my depart summary for further list of discharge medications. Activity as tolerated. Regular diet and patient will be discharged home with home physical therapy.
== END 2016-10-13 16:39 | disposition home health service (06) | DRG 92 ==
LOC: EC 10:59 → 4MS4W 15:14 → 6ICU 20:31 → 5ONC 10-10 02:29
PROVIDERS: ADMIT Hospitalist; ATTEND Hospitalist
PROC: 0DB58ZX Excision of Esophagus, Via Natural or Artificial Opening Endoscopic, Diagnostic (ICD-10-PCS; 2016-10-13)
PROC: 0DBF8ZX Excision of Right Large Intestine, Via Natural or Artificial Opening Endoscopic, Diagnostic (ICD-10-PCS; 2016-10-13)
PROC: 0DB98ZX Excision of Duodenum, Via Natural or Artificial Opening Endoscopic, Diagnostic (ICD-10-PCS; principal; 2016-10-13 07:50)
PROC: 0DB68ZX Excision of Stomach, Via Natural or Artificial Opening Endoscopic, Diagnostic (ICD-10-PCS; 2016-10-13 07:50)
DX: G92 Toxic encephalopathy (principal); N17.9 Acute kidney failure, unspecified; F11.20 Opioid dependence, uncomplicated; K90.9 Intestinal malabsorption, unspecified; D68.9 Coagulation defect, unspecified; N39.0 Urinary tract infection, site not specified; E83.39 Other disorders of phosphorus metabolism; E83.51 Hypocalcemia; B96.20 Unspecified Escherichia coli [E. coli] as the cause of diseases classified elsewhere; E56.1 Deficiency of vitamin K; D63.8 Anemia in other chronic diseases classified elsewhere; E86.0 Dehydration; E87.6 Hypokalemia; F32.9 Major depressive disorder, single episode, unspecified; G89.4 Chronic pain syndrome; K52.9 Noninfective gastroenteritis and colitis, unspecified; K44.9 Diaphragmatic hernia without obstruction or gangrene; K57.30 Diverticulosis of large intestine without perforation or abscess without bleeding; M79.7 Fibromyalgia; R74.8 Abnormal levels of other serum enzymes; T42.6X5A Adverse effect of other antiepileptic and sedative-hypnotic drugs, initial encounter; T40.2X5A Adverse effect of other opioids, initial encounter; K91.1 Postgastric surgery syndromes; H54.7 Unspecified visual loss; H91.90 Unspecified hearing loss, unspecified ear; R26.9 Unspecified abnormalities of gait and mobility; Z79.899 Other long term (current) drug therapy; Z96.651 Presence of right artificial knee joint; Y92.009 Unspecified place in unspecified non-institutional (private) residence as the place of occurrence of the external cause
CPT/HCPCS: 36415; 43239; 45380; 70450; 70551; 71010; 74176; 80053; 80306; 81001; 82140; 82272; 82550; 82553; 82607; 82728; 82747; 83520; 83540; 83550; 83605; 83735; 83883; 83921; 84100; 84132; 84134; 84165; 84443; 84484; 85025; 85045; 85610; 85652; 85730; 86334; 87040; 87045; 87046; 87077; 87086; 87186; 87502; 88305; 88312; 88342; 93005; 95816; 96365; 96368; 99153; 99291

== ENCOUNTER 2020-04-29 11:45 | Inpatient (IN) | payer MEDICARE, BC ==
[2020-04-29] MEDS ORDERED: SODIUM CHLORIDE 0.9% 1,000 ML IV STA ×3 (12:23→14:48)
--- NOTE | 2020-04-29 12:55 | ED ---
Weakness HPI - General Chief complaint: Weakness Stated complaint: altered mental status Time Seen by Provider: 04/29/20 12:14 Source: patient, EMS, RN notes reviewed Mode of arrival: EMS Limitations: altered mental status - History of Present Illness Initial comments: This is a 68-year-old female with an apparently benign past medical history other than dumping syndrome many years ago who apparently was doing her normal activities up to 4 days ago who woke up 3 days ago with altered mental status and lethargy and less responsiveness. Family apparently brought her in today for evaluation. No reports of fevers chills nausea vomiting sweats cough phlegm production dysuria no new medications reported no reports of drug or alcohol. MD Complaint: generalized weakness - Related Data Home Medications Medication Instructions Recorded Confirmed Folic Acid 1 mg PO HS 08/29/14 04/29/20 Baclofen [Lioresal] 20 mg PO TID 10/08/16 04/29/20 Citalopram Hydrobromide [CeleXA] 40 mg PO HS 10/08/16 04/29/20 Melatonin 10 mg PO HS 10/08/16 04/29/20 Ibuprofen [Motrin] 800 mg PO Q8H 04/29/20 04/29/20 Zolpidem [Ambien] 10 mg PO HS 04/29/20 04/29/20 diphenhydrAMINE [Benadryl] 150 mg PO HS 04/29/20 04/29/20 Allergies Allergy/AdvReac Type Severity Reaction Status Date / Time No Known Allergies Allergy Verified 10/08/16 13:06 Review of Systems ROS Statement: Those systems with pertinent positive or pertinent negative responses have been documented in the HPI. ROS Other: All systems not noted in ROS Statement are negative. Past Medical History Past Medical History: Fibromyalgia, Syncope Additional Past Medical History / Comment(s): DUMPING SYNDROME, DDD History of Any Multi-Drug Resistant Organisms: None Reported Past Surgical History: Adenoidectomy, Bowel Resection, Cholecystectomy, Joint Replacement, Tonsillectomy, Tubal Ligation Additional Past Surgical History / Comment(s): RT TKACOLONOSCOPYTILT TABLE TEST, D & C. Gastric Bypass - 30 years ago Past Anesthesia/Blood Transfusion Reactions: No Reported Reaction Past Psychological History: Depression Smoking Status: Smoker, current status unknown Past Alcohol Use History: None Reported Past Drug Use History: None Reported - Past Family History Father Family Medical History: Cancer Sister(s) Family Medical History: Cancer Mother Family Medical History: Deep Vein Thrombosis (DVT) General Exam - General Exam Comments Initial Comments: This is a well-developed well-nourished awake lethargic female she is a poor historian Limitations: altered mental status General appearance: alert, in no apparent distress Head exam: Present: atraumatic, normocephalic, normal inspection Eye exam: Present: normal appearance, PERRL, EOMI. Absent: scleral icterus, conjunctival injection, periorbital swelling ENT exam: Present: mucous membranes dry Neck exam: Present: normal inspection, full ROM, other (No stridor JVD or brui ts). Absent: tenderness, meningismus, lymphadenopathy Respiratory exam: Present: normal lung sounds bilaterally. Absent: respiratory distress, wheezes, rales, rhonchi, stridor Cardiovascular Exam: Present: regular rate, normal rhythm, normal heart sounds. Absent: systolic murmur, diastolic murmur, rubs, gallop, clicks GI/Abdominal exam: Present: soft, normal bowel sounds. Absent: distended, tenderness, guarding, rebound, rigid Extremities exam: Present: normal inspection, full ROM, normal capillary refill. Absent: tenderness, pedal edema, joint swelling, calf tenderness Back exam: Present: normal inspection Neurological exam: Present: alert, oriented X3, CN II-XII intact Psychiatric exam: Present: normal affect, normal mood Skin exam: Present: warm, dry, intact, normal color. Absent: rash Course Vital Signs 04/29/20 11:48 Temperature 97.9 F Pulse Rate 97 Respiratory 18 Rate Blood Pressure 120/59 O2 Sat by Pulse 98 Oximetry - Reevaluation(s) Reevaluation #1: 04/29/20 13:16 The patient's is present he has confirm the above story. Patient's also had very minimal oral intake or past several days. Reevaluation #2: 04/29/20 15:38 Evaluation the patient reveals clinically no change he still is awake and lethargic but does answer questions when asked. I did discuss findings with the patient as well as with patient's family Dr. Martinez and did come the emergency department to see the patient. EKG Findings - EKG Results: EKG: interpreted by ERMD, sinus rhythm (Sinus tachycardia rate of 101. Interval 154 QRS 98 QT/QTC 388/[address]-T wave configuration. Some artifact present) Medical Decision Making - Lab Data Result diagrams: 04/29/20 12:51 04/29/20 12:51 Lab Results 04/29/20 04/29/20 04/29/20 Range/Units 12:51 12:51 12:51 WBC 10.1 (3.8-10.6) k/uL RBC 3.51 L (3.80-5.40) m/uL Hgb 10.4 L (11.4-16.0) gm/dL Hct 36.0 (34.0-46.0) % MCV 102.7 H (80.0-100.0) fL MCH 29.6 (25.0-35.0) pg MCHC 28.8 L (31.0-37.0) g/dL RDW 15.9 H (11.5-15.5) % Plt Count 217 (150-450) k/uL Neutrophils % 78 % Lymphocytes % 16 % Monocytes % 4 % Eosinophils % 1 % Basophils % 1 % Neutrophils # 7.8 H (1.3-7.7) k/uL Lymphocytes # 1.6 (1.0-4.8) k/uL Monocytes # 0.4 (0-1.0) k/uL Eosinophils # 0.1 (0-0.7) k/uL Basophils # 0.1 (0-0.2) k/uL Hypochromasia Marked Poikilocytosis Slight Macrocytosis Moderate PT 17.5 H (9.0-12.0) sec INR 1.8 H (<1.2) APTT 26.6 (22.0-30.0) sec VBG pH (7.31-7.41) VBG pCO2 (37-51) mmHg VBG HCO3 (24-28) mmol/L Sodium 151 H (137-145) mmol/L Potassium 2.8 L (3.5-5.1) mmol/L Chloride 127 H (98-107) mmol/L Carbon Dioxide 7 L* (22-30) mmol/L Anion Gap 17 mmol/L BUN 26 H (7-17) mg/dL Creatinine 1.95 H (0.52-1.04) mg/dL Est GFR (CKD-EPI)AfAm 30 (>60 ml/min/1.73 sqM) Est GFR (CKD-EPI)NonAf 26 (>60 ml/min/1.73 sqM) Glucose 68 L (74-99) mg/dL Plasma Lactic Acid Adriano (0.7-2.0) mmol/L Calcium 4.6 L* (8.4-10.2) mg/dL Phosphorus (2.5-4.5) mg/dL Magnesium (1.6-2.3) mg/dL Total Bilirubin 0.3 (0.2-1.3) mg/dL AST 22 (14-36) U/L ALT 15 (4-34) U/L Alkaline Phosphatase 211 H (38-126) U/L Ammonia (<30) umol/L Creatine Kinase 119 (30-135) U/L Troponin I (0.000-0.034) ng/mL NT-Pro-B Natriuret Pep pg/mL Total Protein 5.9 L (6.3-8.2) g/dL Albumin 3.3 L (3.5-5.0) g/dL Lipase (23-300) U/L Urine Color Urine Appearance (Clear) Urine pH (5.0-8.0) Ur Specific [place] (1.001-1.035) Urine Protein (Negative) Urine Glucose (UA) (Negative) Urine Ketones (Negative) Urine Blood (Negative) Urine Nitrite (Negative) Urine Bilirubin (Negative) Urine Urobilinogen (<2.0) mg/dL Ur Leukocyte Esterase (Negative) Urine RBC (0-5) /hpf Urine WBC (0-5) /hpf Ur Squamous Epith Cells (0-4) /hpf Amorphous Sediment (None) /hpf Urine Bacteria (None) /hpf Urine Mucus (None) /hpf 04/29/20 04/29/20 04/29/20 Range/Units 12:51 12:51 12:51 WBC (3.8-10.6) k/uL RBC (3.80-5.40) m/uL Hgb (11.4-16.0) gm/dL Hct (34.0-46.0) % MCV (80.0-100.0) fL MCH (25.0-35.0) pg MCHC (31.0-37.0) g/dL RDW (11.5-15.5) % Plt Count (150-450) k/uL Neutrophils % % Lymphocytes % % Monocytes % % Eosinophils % % Basophils % % Neutrophils # (1.3-7.7) k/uL Lymphocytes # (1.0-4.8) k/uL Monocytes # (0-1.0) k/uL Eosinophils # (0-0.7) k/uL Basophils # (0-0.2) k/uL Hypochromasia Poikilocytosis Macrocytosis PT (9.0-12.0) sec INR (<1.2) APTT (22.0-30.0) sec VBG pH (7.31-7.41) VBG pCO2 (37-51) mmHg VBG HCO3 (24-28) mmol/L Sodium (137-145) mmol/L Potassium (3.5-5.1) mmol/L Chloride (98-107) mmol/L Carbon Dioxide (22-30) mmol/L Anion Gap mmol/L BUN (7-17) mg/dL Creatinine (0.52-1.04) mg/dL Est GFR (CKD-EPI)AfAm (>60 ml/min/1.73 sqM) Est GFR (CKD-EPI)NonAf (>60 ml/min/1.73 sqM) Glucose (74-99) mg/dL Plasma Lactic Acid Adriano <0.5 L (0.7-2.0) mmol/L Calcium (8.4-10.2) mg/dL Phosphorus (2.5-4.5) mg/dL Magnesium (1.6-2.3) mg/dL Total Bilirubin (0.2-1.3) mg/dL AST (14-36) U/L ALT (4-34) U/L Alkaline Phosphatase (38-126) U/L Ammonia 68 H (<30) umol/L Creatine Kinase (30-135) U/L Troponin I <0.012 (0.000-0.034) ng/mL NT-Pro-B Natriuret Pep 1030 pg/mL Total Protein (6.3-8.2) g/dL Albumin (3.5-5.0) g/dL Lipase (23-300) U/L Urine Color Urine Appearance (Clear) Urine pH (5.0-8.0) Ur Specific [place] (1.001-1.035) Urine Protein (Negative) Urine Glucose (UA) (Negative) Urine Ketones (Negative) Urine Blood (Negative) Urine Nitrite (Negative) Urine Bilirubin (Negative) Urine Urobilinogen (<2.0) mg/dL Ur Leukocyte Esterase (Negative) Urine RBC (0-5) /hpf Urine WBC (0-5) /hpf Ur Squamous Epith Cells (0-4) /hpf Amorphous Sediment (None) /hpf Urine Bacteria (None) /hpf Urine Mucus (None) /hpf 04/29/20 04/29/20 04/29/20 Range/Units 12:51 13:53 14:53 WBC (3.8-10.6) k/uL RBC (3.80-5.40) m/uL Hgb (11.4-16.0) gm/dL Hct (34.0-46.0) % MCV (80.0-100.0) fL MCH (25.0-35.0) pg MCHC (31.0-37.0) g/dL RDW (11.5-15.5) % Plt Count (150-450) k/uL Neutrophils % % Lymphocytes % % Monocytes % % Eosinophils % % Basophils % % Neutrophils # (1.3-7.7) k/uL Lymphocytes # (1.0-4.8) k/uL Monocytes # (0-1.0) k/uL Eosinophils # (0-0.7) k/uL Basophils # (0-0.2) k/uL Hypochromasia Poikilocytosis Macrocytosis PT (9.0-12.0) sec INR (<1.2) APTT (22.0-30.0) sec VBG pH 7.01 L* (7.31-7.41) VBG pCO2 30 L (37-51) mmHg VBG HCO3 7 L* (24-28) mmol/L Sodium (137-145) mmol/L Potassium (3.5-5.1) mmol/L Chloride (98-107) mmol/L Carbon Dioxide (22-30) mmol/L Anion Gap mmol/L BUN (7-17) mg/dL Creatinine (0.52-1.04) mg/dL Est GFR (CKD-EPI)AfAm (>60 ml/min/1.73 sqM) Est GFR (CKD-EPI)NonAf (>60 ml/min/1.73 sqM) Glucose (74-99) mg/dL Plasma Lactic Acid Adriano (0.7-2.0) mmol/L Calcium (8.4-10.2) mg/dL Phosphorus 3.6 (2.5-4.5) mg/dL Magnesium 0.6 L* (1.6-2.3) mg/dL Total Bilirubin (0.2-1.3) mg/dL AST (14-36) U/L ALT (4-34) U/L Alkaline Phosphatase (38-126) U/L Ammonia (<30) umol/L Creatine Kinase (30-135) U/L Troponin I (0.000-0.034) ng/mL NT-Pro-B Natriuret Pep pg/mL Total Protein (6.3-8.2) g/dL Albumin (3.5-5.0) g/dL Lipase 49 (23-300) U/L Urine Color Yellow Urine Appearance Clear (Clear) Urine pH 5.5 (5.0-8.0) Ur Specific Lima 1.011 (1.001-1.035) Urine Protein 1+ H (Negative) Urine Glucose (UA) Negative (Negative) Urine Ketones 1+ H (Negative) Urine Blood Small H (Negative) Urine Nitrite Positive H (Negative) Urine Bilirubin Negative (Negative) Urine Urobilinogen <2.0 (<2.0) mg/dL Ur Leukocyte Esterase Small H (Negative) Urine RBC 1 (0-5) /hpf Urine WBC 11 H (0-5) /hpf Ur Squamous Epith Cells <1 (0-4) /hpf Amorphous Sediment Rare H (None) /hpf Urine Bacteria Few H (None) /hpf Urine Mucus Rare H (None) /hpf Critical Care Time Critical Care Time: Yes Total Critical Care Time: 44 Critical Care Time: Critical care time 44 minutes which includes initial presentation with history physical labs x-rays multiple reevaluation the patient discussed with patient's and several occasions discussion with the main physician admission orders sec mentation the above Disposition Clinical Impression: Metabolic acidosis, Dehydration, Acute kidney injury, Acute metabolic encephalopathy, Hypomagnesemia syndrome, Hypokalemia Disposition: ADMITTED IP TO THIS HOSP Condition: Serious Referrals: Lidia,Eldon, MD [Primary Care Provider] - 1-2 days
[2020-04-29 13:10] LABS: Basophils # (A) 0.1 k/uL (0-0.2); Basophils % (A) 1 %; Eosinophils # (A) 0.1 k/uL (0-0.7); Eosinophils % (A) 1 %; HGB 10.4 gm/dL (11.4-16.0); Hypochromasia Marked; Lymphocytes # (A) 1.6 k/uL (1.0-4.8); Lymphocytes % (A) 16 %; MCH 29.6 pg (25.0-35.0); MCHC 28.8 g/dL (31.0-37.0); MCV 102.7 fL (80.0-100.0); Macrocytosis Moderate; Mean Platelet Volume 8.7; Monocytes # (A) 0.4 k/uL (0-1.0); Monocytes % (A) 4 %; Neutrophils # (A) 7.8 k/uL (1.3-7.7); Neutrophils % (A) 78 %; Platelet Count 217 k/uL (150-450); Poikilocytosis Slight; RBC 3.51 m/uL (3.80-5.40); RDW 15.9 % (11.5-15.5); WBC 10.1 k/uL (3.8-10.6)
[2020-04-29 13:16] LABS: INR 1.8 (<1.2); Partial Thromboplastin Time 26.6 sec (22.0-30.0); Prothrombin Time 17.5 sec (9.0-12.0)
[2020-04-29 13:21] LABS: Lactic Acid, Venous <0.5 mmol/L (0.7-2.0)
[2020-04-29 13:22] LABS: Albumin 3.3 g/dL (3.5-5.0); Potassium 2.8 mmol/L (3.5-5.1); Total Bilirubin 0.3 mg/dL (0.2-1.3); Total Protein 5.9 g/dL (6.3-8.2)
[2020-04-29 13:43] LABS: Calcium 4.6 mg/dL (8.4-10.2)
[2020-04-29 14:27] LABS: Amorphous Sediment,Urine Rare /hpf; Appearance,Urine Clear (Clear); Bacteria,Urine Few /hpf; Bilirubin,Urine Negative (Negative); Blood,Urine Small (Negative); Color,Urine Yellow; Glucose,Urine (UA) Negative (Negative); Ketones,Urine 1+ (Negative); Leukocyte Esterase,Urine Small (Negative); Mucus,Urine Rare /hpf; Nitrite,Urine Positive (Negative); PH, Urine 5.5 (5.0-8.0); Protein,Urine 1+ (Negative); RBC,Urine 1 /hpf (0-5); Specific Gravity,Urine 1.011 (1.001-1.035); Squamous Epithelial Cell,Urine <1 /hpf (0-4); Urobilinogen,Urine <2.0 mg/dL (<2.0); WBC,Urine 11 /hpf (0-5)
[2020-04-29 14:30] LABS: Phosphorus 3.6 mg/dL (2.5-4.5)
[2020-04-29 14:41] LABS: Magnesium 0.6 mg/dL (1.6-2.3)
--- NOTE | 2020-04-29 14:44 | CT ---
EXAMINATION TYPE: CT brain wo con DATE OF EXAM: 04/29/2020 COMPARISON: 10/08/2016 HISTORY: weakness CT DLP: 1157.4 mGycm Automated exposure control for dose reduction was used. FINDINGS: Mild generalized degenerative change of the greater frontal lobe component. No midline shift or mass effect. No acute hemorrhage. Fat attenuation within the anterior interhemispheric fissure measuring 4 Hounsfield units noted and similar to prior exam of 2017. Could represent tiny dermoid. Craniocervical junction maintained. Sella turcica has a normal appearance. Calvarium intact. Body of the lateral ventricles somewhat diminutive in size but no evidence of ventricular dilation. Correlate clinically. IMPRESSION: 1. No evidence of acute hemorrhage or mass effect.
[2020-04-29] MEDS ORDERED: CALCIUM CHLORIDE 100 MG/ML 10 ML SYRINGE IVP STA (14:57)
[2020-04-29 15:05] LABS: VBG PH 7.01 (7.31-7.41)
--- NOTE | 2020-04-29 15:16 | XR ---
EXAMINATION TYPE: XR chest 2V DATE OF EXAM: 04/29/2020 COMPARISON: 10/08/2016 HISTORY: 69-year-old female with weakness and confusion, altered mental status TECHNIQUE: AP and lateral views FINDINGS: The heart is upper limits of normal in size. Rightward patient rotation. Large patient body habitus c asting hazy densities over the lungs. Some strandy atelectasis of the right base. No definite consoli dation or pleural effusion. IMPRESSION: Rotated exam. No definite acute process.
[2020-04-29] MEDS ORDERED: NALOXONE 0.4 MG/ML 1 ML VIAL IV PRN (15:43)
[2020-04-29] MEDS ORDERED: cefTRIAXone IN SWFI 1,000 MG/10 ML SYRINGE IVP STA (15:45)
--- NOTE | 2020-04-29 15:46 | ED ---
Medical Decision Making - Lab Data Result diagrams: 04/29/20 12:51 04/29/20 12:51 Lab Results 04/29/20 04/29/20 04/29/20 Range/Units 12:51 12:51 12:51 WBC 10.1 (3.8-10.6) k/uL RBC 3.51 L (3.80-5.40) m/uL Hgb 10.4 L (11.4-16.0) gm/dL Hct 36.0 (34.0-46.0) % MCV 102.7 H (80.0-100.0) fL MCH 29.6 (25.0-35.0) pg MCHC 28.8 L (31.0-37.0) g/dL RDW 15.9 H (11.5-15.5) % Plt Count 217 (150-450) k/uL Neutrophils % 78 % Lymphocytes % 16 % Monocytes % 4 % Eosinophils % 1 % Basophils % 1 % Neutrophils # 7.8 H (1.3-7.7) k/uL Lymphocytes # 1.6 (1.0-4.8) k/uL Monocytes # 0.4 (0-1.0) k/uL Eosinophils # 0.1 (0-0.7) k/uL Basophils # 0.1 (0-0.2) k/uL Hypochromasia Marked Poikilocytosis Slight Macrocytosis Moderate PT 17.5 H (9.0-12.0) sec INR 1.8 H (<1.2) APTT 26.6 (22.0-30.0) sec VBG pH (7.31-7.41) VBG pCO2 (37-51) mmHg VBG HCO3 (24-28) mmol/L Sodium 151 H (137-145) mmol/L Potassium 2.8 L (3.5-5.1) mmol/L Chloride 127 H (98-107) mmol/L Carbon Dioxide 7 L* (22-30) mmol/L Anion Gap 17 mmol/L BUN 26 H (7-17) mg/dL Creatinine 1.95 H (0.52-1.04) mg/dL Est GFR (CKD-EPI)AfAm 30 (>60 ml/min/1.73 sqM) Est GFR (CKD-EPI)NonAf 26 (>60 ml/min/1.73 sqM) Glucose 68 L (74-99) mg/dL Plasma Lactic Acid Adriano (0.7-2.0) mmol/L Calcium 4.6 L* (8.4-10.2) mg/dL Phosphorus (2.5-4.5) mg/dL Magnesium (1.6-2.3) mg/dL Total Bilirubin 0.3 (0.2-1.3) mg/dL AST 22 (14-36) U/L ALT 15 (4-34) U/L Alkaline Phosphatase 211 H (38-126) U/L Ammonia (<30) umol/L Creatine Kinase 119 (30-135) U/L Troponin I (0.000-0.034) ng/mL NT-Pro-B Natriuret Pep pg/mL Total Protein 5.9 L (6.3-8.2) g/dL Albumin 3.3 L (3.5-5.0) g/dL Lipase (23-300) U/L Urine Color Urine Appearance (Clear) Urine pH (5.0-8.0) Ur Specific [place] (1.001-1.035) Urine Protein (Negative) Urine Glucose (UA) (Negative) Urine Ketones (Negative) Urine Blood (Negative) Urine Nitrite (Negative) Urine Bilirubin (Negative) Urine Urobilinogen (<2.0) mg/dL Ur Leukocyte Esterase (Negative) Urine RBC (0-5) /hpf Urine WBC (0-5) /hpf Ur Squamous Epith Cells (0-4) /hpf Amorphous Sediment (None) /hpf Urine Bacteria (None) /hpf Urine Mucus (None) /hpf 04/29/20 04/29/20 04/29/20 Range/Units 12:51 12:51 12:51 WBC (3.8-10.6) k/uL RBC (3.80-5.40) m/uL Hgb (11.4-16.0) gm/dL Hct (34.0-46.0) % MCV (80.0-100.0) fL MCH (25.0-35.0) pg MCHC (31.0-37.0) g/dL RDW (11.5-15.5) % Plt Count (150-450) k/uL Neutrophils % % Lymphocytes % % Monocytes % % Eosinophils % % Basophils % % Neutrophils # (1.3-7.7) k/uL Lymphocytes # (1.0-4.8) k/uL Monocytes # (0-1.0) k/uL Eosinophils # (0-0.7) k/uL Basophils # (0-0.2) k/uL Hypochromasia Poikilocytosis Macrocytosis PT (9.0-12.0) sec INR (<1.2) APTT (22.0-30.0) sec VBG pH (7.31-7.41) VBG pCO2 (37-51) mmHg VBG HCO3 (24-28) mmol/L Sodium (137-145) mmol/L Potassium (3.5-5.1) mmol/L Chloride (98-107) mmol/L Carbon Dioxide (22-30) mmol/L Anion Gap mmol/L BUN (7-17) mg/dL Creatinine (0.52-1.04) mg/dL Est GFR (CKD-EPI)AfAm (>60 ml/min/1.73 sqM) Est GFR (CKD-EPI)NonAf (>60 ml/min/1.73 sqM) Glucose (74-99) mg/dL Plasma Lactic Acid Adriano <0.5 L (0.7-2.0) mmol/L Calcium (8.4-10.2) mg/dL Phosphorus (2.5-4.5) mg/dL Magnesium (1.6-2.3) mg/dL Total Bilirubin (0.2-1.3) mg/dL AST (14-36) U/L ALT (4-34) U/L Alkaline Phosphatase (38-126) U/L Ammonia 68 H (<30) umol/L Creatine Kinase (30-135) U/L Troponin I <0.012 (0.000-0.034) ng/mL NT-Pro-B Natriuret Pep 1030 pg/mL Total Protein (6.3-8.2) g/dL Albumin (3.5-5.0) g/dL Lipase (23-300) U/L Urine Color Urine Appearance (Clear) Urine pH (5.0-8.0) Ur Specific [place] (1.001-1.035) Urine Protein (Negative) Urine Glucose (UA) (Negative) Urine Ketones (Negative) Urine Blood (Negative) Urine Nitrite (Negative) Urine Bilirubin (Negative) Urine Urobilinogen (<2.0) mg/dL Ur Leukocyte Esterase (Negative) Urine RBC (0-5) /hpf Urine WBC (0-5) /hpf Ur Squamous Epith Cells (0-4) /hpf Amorphous Sediment (None) /hpf Urine Bacteria (None) /hpf Urine Mucus (None) /hpf 04/29/20 04/29/20 04/29/20 Range/Units 12:51 13:53 14:53 WBC (3.8-10.6) k/uL RBC (3.80-5.40) m/uL Hgb (11.4-16.0) gm/dL Hct (34.0-46.0) % MCV (80.0-100.0) fL MCH (25.0-35.0) pg MCHC (31.0-37.0) g/dL RDW (11.5-15.5) % Plt Count (150-450) k/uL Neutrophils % % Lymphocytes % % Monocytes % % Eosinophils % % Basophils % % Neutrophils # (1.3-7.7) k/uL Lymphocytes # (1.0-4.8) k/uL Monocytes # (0-1.0) k/uL Eosinophils # (0-0.7) k/uL Basophils # (0-0.2) k/uL Hypochromasia Poikilocytosis Macrocytosis PT (9.0-12.0) sec INR (<1.2) APTT (22.0-30.0) sec VBG pH 7.01 L* (7.31-7.41) VBG pCO2 30 L (37-51) mmHg VBG HCO3 7 L* (24-28) mmol/L Sodium (137-145) mmol/L Potassium (3.5-5.1) mmol/L Chloride (98-107) mmol/L Carbon Dioxide (22-30) mmol/L Anion Gap mmol/L BUN (7-17) mg/dL Creatinine (0.52-1.04) mg/dL Est GFR (CKD-EPI)AfAm (>60 ml/min/1.73 sqM) Est GFR (CKD-EPI)NonAf (>60 ml/min/1.73 sqM) Glucose (74-99) mg/dL Plasma Lactic Acid Adriano (0.7-2.0) mmol/L Calcium (8.4-10.2) mg/dL Phosphorus 3.6 (2.5-4.5) mg/dL Magnesium 0.6 L* (1.6-2.3) mg/dL Total Bilirubin (0.2-1.3) mg/dL AST (14-36) U/L ALT (4-34) U/L Alkaline Phosphatase (38-126) U/L Ammonia (<30) umol/L Creatine Kinase (30-135) U/L Troponin I (0.000-0.034) ng/mL NT-Pro-B Natriuret Pep pg/mL Total Protein (6.3-8.2) g/dL Albumin (3.5-5.0) g/dL Lipase 49 (23-300) U/L Urine Color Yellow Urine Appearance Clear (Clear) Urine pH 5.5 (5.0-8.0) Ur Specific [place] 1.011 (1.001-1.035) Urine Protein 1+ H (Negative) Urine Glucose (UA) Negative (Negative) Urine Ketones 1+ H (Negative) Urine Blood Small H (Negative) Urine Nitrite Positive H (Negative) Urine Bilirubin Negative (Negative) Urine Urobilinogen <2.0 (<2.0) mg/dL Ur Leukocyte Esterase Small H (Negative) Urine RBC 1 (0-5) /hpf Urine WBC 11 H (0-5) /hpf Ur Squamous Epith Cells <1 (0-4) /hpf Amorphous Sediment Rare H (None) /hpf Urine Bacteria Few H (None) /hpf Urine Mucus Rare H (None) /hpf Disposition Clinical Impression: Metabolic acidosis, Dehydration, Acute kidney injury, Acute metabolic encephalopathy, Hypomagnesemia syndrome, Hypokalemia, Urinary tract infection Disposition: ADMITTED IP TO THIS HOSP Condition: Serious Referrals: Eldon Murillo MD [Primary Care Provider] - 1-2 days
[2020-04-29] MEDS: MAGNESIUM SULFATE-D5W PMX 1 GM in DEXTROSE/WATER 1 100ML.BAG IVPB SCH ×3 (16:23→22:57)
[2020-04-29] MEDS ORDERED: POTASSIUM CHLORIDE 10 MEQ in WATER FOR INJECTION 1 100ML.BAG IVPB ONE ×2 (20:04→22:46)
[2020-04-29] MEDS: SODIUM BICARBONATE 150 MEQ in DEXTROSE 5% IN WATER 1,000 ML IV SCH ×2 (20:30)
--- NOTE | 2020-04-29 20:49 | P.HPIM ---
History of Present Illness This is a pleasant 69 years old female with multiple medical problems as below. Was brought by her from home because she altered mental status. She is a patient of Dr. Lidia Colón. Patient could not provide information, it was taken from the at bedside. As per patient was not eating and drinking well for the last 3-4 days, yesterday she started to get more confused total at progressed to a degree that he decided to bring him to the hospital As per patient denied any dizziness, no chest pain or dyspnea, no abdominal pain, no nausea vomiting or diarrhea. Patient is afebrile. CBC is unremarkable except for mild anemia of 10.4. INR is 1.8. PH is 7.0, pCO2 30, PFC 03 is 7 Sodium is high at 151, low potassium at 2.8, creatinine is elevated at 1.9, magnesium is low 0.6, glucose is low at 68. And Imodium is elevated at 68. Troponin is negative. UA is suspicious of infection Chest x-ray showed no acute process. CT of the brain is negative for acute process. EKG shows sinus tachycardia at 101 with QTC of [address]-T changes. Review of Systems N/a, patient is confused Past Medical History Past Medical History: Fibromyalgia, Syncope Additional Past Medical History / Comment(s): DUMPING SYNDROME, DDD History of Any Multi-Drug Resistant Organisms: None Reported Past Surgical History: Adenoidectomy, Bowel Resection, Cholecystectomy, Joint Replacement, Tonsillectomy, Tubal Ligation Additional Past Surgical History / Comment(s): RT TKACOLONOSCOPYTILT TABLE TEST, D & C. Gastric Bypass - 30 years ago Past Anesthesia/Blood Transfusion Reactions: No Reported Reaction Past Psychological History: Depression Smoking Status: Never smoker, Smoker, current status unknown Past Alcohol Use History: None Reported Past Drug Use History: None Reported - Past Family History Father Family Medical History: Cancer Sister(s) Family Medical History: Cancer Mother Family Medical History: Deep Vein Thrombosis (DVT) Medications and Allergies Home Medications Medication Instructions Recorded Confirmed Type Folic Acid 1 mg PO HS 08/29/14 04/29/20 History Baclofen [Lioresal] 20 mg PO TID 10/08/16 04/29/20 History Citalopram Hydrobromide [CeleXA] 40 mg PO HS 10/08/16 04/29/20 History Melatonin 10 mg PO HS 10/08/16 04/29/20 History Ibuprofen [Motrin] 800 mg PO Q8H 04/29/20 04/29/20 History Zolpidem [Ambien] 10 mg PO HS 04/29/20 04/29/20 History diphenhydrAMINE [Benadryl] 150 mg PO HS 04/29/20 04/29/20 History Allergies Allergy/AdvReac Type Severity Reaction Status Date / Time No Known Allergies Allergy Verified 10/08/16 13:06 Physical Exam Vitals: Vital Signs Temp Pulse Pulse Resp BP BP Pulse Ox 04/29/20 16:56 97.9 F 98 18 115/60 95 04/29/20 16:49 98 18 115/60 95 04/29/20 16:19 99 16 126/60 97 04/29/20 15:57 107 H 18 113/63 96 04/29/20 14:57 18 113/63 04/29/20 13:57 18 124/64 04/29/20 12:57 18 04/29/20 11:57 18 04/29/20 11:48 97.9 F 97 18 120/59 98 Intake and Output 04/29/20 04/29/20 04/29/20 06:59 14:59 22:59 Other: Weight 70.307 kg 70.307 kg -GENERAL: The patient can open I, but does not follow commands or answer questions HEENT: Pupils are round and equally reacting to light. EOMI. No scleral icterus. No conjunctival pallor. Normocephalic, atraumatic. No pharyngeal erythema. No thyromegaly. CARDIOVASCULAR: S1 and S2 present. No murmurs, rubs, or gallops. PULMONARY: Chest is clear to auscultation, no wheezing or crackles. ABDOMEN: Soft, nontender, nondistended, normoactive bowel sounds. No palpable organomegaly. MUSCULOSKELETAL: No joint swelling or deformity. EXTREMITIES: No cyanosis, clubbing, or pedal edema. -NEUROLOGICAL: Gross neurological examination did not reveal any focal deficits. No asymmetry in the extremities states. No differences in tone. Exam is limited by AMS SKIN: No rashes. no petechiae. Results CBC & Chem 7: 04/29/20 12:51 04/29/20 12:51 Labs: Abnormal Lab Results - Last 24 Hours (Table) 04/29/20 04/29/20 04/29/20 Range/Units 12:51 12:51 12:51 RBC 3.51 L (3.80-5.40) m/uL Hgb 10.4 L (11.4-16.0) gm/dL MCV 102.7 H (80.0-100.0) fL MCHC 28.8 L (31.0-37.0) g/dL RDW 15.9 H (11.5-15.5) % Neutrophils # 7.8 H (1.3-7.7) k/uL PT 17.5 H (9.0-12.0) sec INR 1.8 H (<1.2) VBG pH (7.31-7.41) VBG pCO2 (37-51) mmHg VBG HCO3 (24-28) mmol/L Sodium 151 H (137-145) mmol/L Potassium 2.8 L (3.5-5.1) mmol/L Chloride 127 H (98-107) mmol/L Carbon Dioxide 7 L* (22-30) mmol/L BUN 26 H (7-17) mg/dL Creatinine 1.95 H (0.52-1.04) mg/dL Glucose 68 L (74-99) mg/dL Plasma Lactic Acid Adriano (0.7-2.0) mmol/L Calcium 4.6 L* (8.4-10.2) mg/dL Magnesium (1.6-2.3) mg/dL Alkaline Phosphatase 211 H (38-126) U/L Ammonia (<30) umol/L Total Protein 5.9 L (6.3-8.2) g/dL Albumin 3.3 L (3.5-5.0) g/dL Urine Protein (Negative) Urine Ketones (Negative) Urine Blood (Negative) Urine Nitrite (Negative) Ur Leukocyte Esterase (Negative) Urine WBC (0-5) /hpf Amorphous Sediment (None) /hpf Urine Bacteria (None) /hpf Urine Mucus (None) /hpf 04/29/20 04/29/20 04/29/20 Range/Units 12:51 12:51 13:53 RBC (3.80-5.40) m/uL Hgb (11.4-16.0) gm/dL MCV (80.0-100.0) fL MCHC (31.0-37.0) g/dL RDW (11.5-15.5) % Neutrophils # (1.3-7.7) k/uL PT (9.0-12.0) sec INR (<1.2) VBG pH (7.31-7.41) VBG pCO2 (37-51) mmHg VBG HCO3 (24-28) mmol/L Sodium (137-145) mmol/L Potassium (3.5-5.1) mmol/L Chloride (98-107) mmol/L Carbon Dioxide (22-30) mmol/L BUN (7-17) mg/dL Creatinine (0.52-1.04) mg/dL Glucose (74-99) mg/dL Plasma Lactic Acid Adriano <0.5 L (0.7-2.0) mmol/L Calcium (8.4-10.2) mg/dL Magnesium 0.6 L* (1.6-2.3) mg/dL Alkaline Phosphatase (38-126) U/L Ammonia 68 H (<30) umol/L Total Protein (6.3-8.2) g/dL Albumin (3.5-5.0) g/dL Urine Protein 1+ H (Negative) Urine Ketones 1+ H (Negative) Urine Blood Small H (Negative) Urine Nitrite Positive H (Negative) Ur Leukocyte Esterase Small H (Negative) Urine WBC 11 H (0-5) /hpf Amorphous Sediment Rare H (None) /hpf Urine Bacteria Few H (None) /hpf Urine Mucus Rare H (None) /hpf 04/29/20 Range/Units 14:53 RBC (3.80-5.40) m/uL Hgb (11.4-16.0) gm/dL MCV (80.0-100.0) fL MCHC (31.0-37.0) g/dL RDW (11.5-15.5) % Neutrophils # (1.3-7.7) k/uL PT (9.0-12.0) sec INR (<1.2) VBG pH 7.01 L* (7.31-7.41) VBG pCO2 30 L (37-51) mmHg VBG HCO3 7 L* (24-28) mmol/L Sodium (137-145) mmol/L Potassium (3.5-5.1) mmol/L Chloride (98-107) mmol/L Carbon Dioxide (22-30) mmol/L BUN (7-17) mg/dL Creatinine (0.52-1.04) mg/dL Glucose (74-99) mg/dL Plasma Lactic Acid Adriano (0.7-2.0) mmol/L Calcium (8.4-10.2) mg/dL Magnesium (1.6-2.3) mg/dL Alkaline Phosphatase (38-126) U/L Ammonia (<30) umol/L Total Protein (6.3-8.2) g/dL Albumin (3.5-5.0) g/dL Urine Protein (Negative) Urine Ketones (Negative) Urine Blood (Negative) Urine Nitrite (Negative) Ur Leukocyte Esterase (Negative) Urine WBC (0-5) /hpf Amorphous Sediment (None) /hpf Urine Bacteria (None) /hpf Urine Mucus (None) /hpf Microbiology - Last 24 Hours (Table) 04/29/20 13:53 Urine Culture - Preliminary Urine,Catheterized Thrombosis Risk Factor Assmnt - Choose All That Apply Each Factor Represents 1 point: Heart failure (<1month) Each Risk Factor Represents 3 Points: Age 75 years or older, Family history of DVT/PE Thrombosis Risk Factor Assessment Total Risk Factor Score: 7 Thrombosis Risk Factor Assessment Level: High Risk Assessment and Plan Assessment: Metabolic encephalopathy secondary to renal infection Acute urinary tract infection and Severe electrolyte abnormalities with hypokalemia and hypomagnesemia Hypernatremia Fibromyalgia History of dumping syndrome Plan: this is a pleasant 69 years old female who presents with UTI, looked a little abnormal 10th AMS. Continue with Rocephin and IV hydration, patient was started on D5W with sodium bicarb. Continue with Rocephin and follow-up urine culture. Replace electrolytes and monitor closely. Continue with IV hydration. Labs and medication were reviewed.. Continue same treatment. Continue with symptomatic treatment. Resume home medication. Monitor lytes and vitals. DVT and GI prophylaxis. Further recommendations of the clinical course of the patient DVT prophylaxis: Subcutaneous heparin GI Prophylaxis: Pepcid PT/OT: Pending Prognosis is guarded
[2020-04-29] MEDS ORDERED: Magnesium Replacement Protocol 1 EACH MISC MISCELLANE PRN (21:32)
[2020-04-29] MEDS ORDERED: Potassium Replacement Protocol 1 EACH MISC MISCELLANE PRN (21:32)
[2020-04-29 22:35] LABS: Magnesium 1.3 mg/dL (1.6-2.3); Potassium 3.1 mmol/L (3.5-5.1)
[2020-04-29 22:41] LABS: Calcium 5.5 mg/dL (8.4-10.2)
[2020-04-30] MEDS: MAGNESIUM SULFATE-D5W PMX 1 GM in DEXTROSE/WATER 1 100ML.BAG IVPB SCH (00:22)
[2020-04-30 08:24] LABS: Magnesium 1.8 mg/dL (1.6-2.3)
[2020-04-30 08:29] LABS: Calcium 5.3 mg/dL (8.4-10.2); Potassium 2.6 mmol/L (3.5-5.1)
[2020-04-30] MEDS ORDERED: Potassium Replacement Protocol 1 EACH MISC MISCELLANE PRN (08:36)
[2020-04-30] MEDS: FAMOTIDINE 20 MG/2 ML VIAL IV SCH ×2 (08:37→20:12)
[2020-04-30] MEDS: SODIUM BICARBONATE 150 MEQ in DEXTROSE 5% IN WATER 1,000 ML IV SCH ×2 (08:38)
[2020-04-30] MEDS: HEPARIN SODIUM,PORCINE 5,000 UNIT/ML 1 ML VIAL SQ SCH ×2 (08:38→20:12)
[2020-04-30] MEDS: POTASSIUM CHLORIDE 10 MEQ in WATER FOR INJECTION 1 100ML.BAG IVPB SCH ×6 (10:09→16:36)
--- NOTE | 2020-04-30 20:00 | P.PN ---
Subjective This is a pleasant 69 years old female with multiple medical problems as below. Was brought by her from home because she altered mental status. She is a patient of Dr. Lidia Colón. Patient could not provide information, it was taken from the at bedside. As per patient was not eating and drinking well for the last 3-4 days, yesterday she started to get more confused total at progressed to a degree that he decided to bring him to the hospital As per patient denied any dizziness, no chest pain or dyspnea, no abd ominal pain, no nausea vomiting or diarrhea. Patient is afebrile. CBC is unremarkable except for mild anemia of 10.4. INR is 1.8. PH is 7.0, pCO2 30, PFC 03 is 7 Sodium is high at 151, low potassium at 2.8, creatinine is elevated at 1.9, magnesium is low 0.6, glucose is low at 68. And Imodium is elevated at 68. Troponin is negative. UA is suspicious of infection Chest x-ray showed no acute process. CT of the brain is negative for acute process. EKG shows sinus tachycardia at 101 with QTC of [address]-T changes. 04/30/20 Patient slightly improving her mentation, she is getting slowly more awake, she answers some questions with simple words, she was able to get into comode by the help of staff She is hemodynamically stable Today showing sodium 150, potassium 2.6, creatinine 1.7, calcium 5.3 Kiana has been replaced per protocol and we'll keep monitoring. Patient remains on Rocephin and urine blood cultures are pending Review of Systems N/a, patient is confused Active Medications Generic Name Dose Route Start Last Admin Trade Name Mckenna PRN Reason Stop Dose Admin Famotidine 10 mg 04/30/20 09:00 04/30/20 08:37 Pepcid IV 10 mg Q12HR SAUL Administration Heparin Sodium (Porcine) 5,000 unit 04/30/20 09:00 04/30/20 08:38 Heparin SQ 5,000 unit Q12HR SAUL Administration Sodium Bicarbonate 100 ml/ 1,100 mls @ 75 mls/hr 04/29/20 16:00 04/30/20 08:38 Dextrose/Water IV 75 mls/hr .[id number] SAUL Administration Ceftriaxone Sodium 1 gm/ 50 mls @ 100 mls/hr 04/30/20 14:00 04/30/20 18:14 Sodium Chloride IVPB 100 mls/hr Q24H SAUL Administration Miscellaneous Information 1 each 04/29/20 21:32 Magnesium Per Protocol MISCELLANE DAILY PRN Per Protocol Protocol Miscellaneous Information 1 each 04/30/20 08:36 Potassium Replacement Protocol 1 Each Misc MISCELLANE DAILY PRN Per Protocol Protocol Naloxone HCl 0.2 mg 04/29/20 15:43 Narcan IV Q2M PRN Opioid Reversal Objective - Vital Signs Vital signs: Vital Signs Temp 98.4 F 04/30/20 16:00 Pulse 72 04/30/20 16:00 Resp 17 04/30/20 16:00 BP 116/56 04/30/20 16:00 Pulse Ox 95 04/30/20 16:00 Intake & Output 04/29/20 04/30/20 04/30/20 18:59 06:59 18:59 Output Total 1450 800 Balance -1450 -800 Weight 70.307 kg 70.5 kg Output: Urine 1450 800 Other: Voiding Method Indwelling Catheter Indwelling Catheter - Exam -GENERAL: The patient is gradually getting more awake, she answers some questions with yes or no and she follows, and today HEENT: Pupils are round and equally reacting to light. EOMI. No scleral icterus. No conjunctival pallor. Normocephalic, atraumatic. No pharyngeal erythema. No thyromegaly. CARDIOVASCULAR: S1 and S2 present. No murmurs, rubs, or gallops. PULMONARY: Chest is clear to auscultation, no wheezing or crackles. ABDOMEN: Soft, nontender, nondistended, normoactive bowel sounds. No palpable organomegaly. MUSCULOSKELETAL: No joint swelling or deformity. EXTREMITIES: No cyanosis, clubbing, or pedal edema. -NEUROLOGICAL: Gross neurological examination did not reveal any focal deficits. No asymmetry in the extremities states. No differences in tone. Exam is limited by AMS SKIN: No rashes. no petechiae. - Labs CBC & Chem 7: 04/29/20 12:51 04/30/20 06:48 Labs: Abnormal Lab Results - Last 24 Hours (Table) 04/29/20 04/30/20 Range/Units 22:02 06:48 Sodium 150 H 150 H (137-145) mmol/L Potassium 3.1 L 2.6 L* (3.5-5.1) mmol/L Chloride 127 H 124 H (98-107) mmol/L Carbon Dioxide 9 L* 13 L (22-30) mmol/L BUN 23 H 20 H (7-17) mg/dL Creatinine 1.95 H 1.70 H (0.52-1.04) mg/dL Glucose 104 H 124 H (74-99) mg/dL Calcium 5.5 L* 5.3 L* (8.4-10.2) mg/dL Magnesium 1.3 L (1.6-2.3) mg/dL Microbiology - Last 24 Hours (Table) 04/29/20 13:53 Urine Culture - Preliminary Urine,Catheterized Assessment and Plan Assessment: Metabolic encephalopathy secondary to renal infection Acute urinary tract infection and Severe electrolyte abnormalities with hypokalemia and hypomagnesemia Hypernatremia Fibromyalgia History of dumping syndrome Plan: this is a pleasant 69 years old female who presents with UTI, looked a little abnormal 10th AMS. Continue with Rocephin and IV hydration, patient was started on D5W with sodium bicarb. Continue with Rocephin and follow-up urine culture. Replace electrolytes and monitor closely. Continue with IV hydration. Labs and medication were reviewed.. Continue same treatment. Continue with symptomatic treatment. Resume home medication. Monitor lytes and vitals. DVT and GI prophylaxis. Further recommendations of the clinical course of the patient DVT prophylaxis: Subcutaneous heparin GI Prophylaxis: Pepcid PT/OT: Pending Prognosis is guarded
[2020-05-01] MEDS: SODIUM BICARBONATE 150 MEQ in DEXTROSE 5% IN WATER 1,000 ML IV SCH ×2 (04:36)
[2020-05-01 06:38] LABS: VBG PH 7.29 (7.31-7.41)
[2020-05-01 06:45] LABS: INR 1.3 (<1.2); Prothrombin Time 13.2 sec (9.0-12.0)
[2020-05-01 06:46] LABS: Magnesium 1.5 mg/dL (1.6-2.3)
[2020-05-01 06:50] LABS: Potassium 2.3 mmol/L (3.5-5.1)
[2020-05-01 06:51] LABS: Calcium 5.3 mg/dL (8.4-10.2)
[2020-05-01] MEDS ORDERED: Potassium Replacement Protocol 1 EACH MISC MISCELLANE PRN (06:53)
[2020-05-01] MEDS ORDERED: CALCIUM CHLORIDE 100 MG/ML 10 ML SYRINGE IVP STA (06:58)
[2020-05-01] MEDS: POTASSIUM CHLORIDE ER 20 MEQ TAB.ER PO SCH ×3 (09:21→09:26)
[2020-05-01] MEDS: MAGNESIUM SULFATE-D5W PMX 1 GM in DEXTROSE/WATER 1 100ML.BAG IVPB SCH ×2 (09:21→15:50)
[2020-05-01] MEDS: HEPARIN SODIUM,PORCINE 5,000 UNIT/ML 1 ML VIAL SQ SCH ×2 (09:22→20:50)
[2020-05-01] MEDS: FAMOTIDINE 20 MG/2 ML VIAL IV SCH (09:22)
--- NOTE | 2020-05-02 04:31 | P.PN ---
Subjective This is a pleasant 69 years old female with multiple medical problems as below. Was brought by her from home because she altered mental status. She is a patient of Dr. Lidia Colón. Patient could not provide information, it was taken from the at bedside. As per patient was not eating and drinking well for the last 3-4 days, yesterday she started to get more confused total at progressed to a degree that he decided to bring him to the hospital As per patient denied any dizziness, no chest pain or dyspnea, no abd ominal pain, no nausea vomiting or diarrhea. Patient is afebrile. CBC is unremarkable except for mild anemia of 10.4. INR is 1.8. PH is 7.0, pCO2 30, PFC 03 is 7 Sodium is high at 151, low potassium at 2.8, creatinine is elevated at 1.9, magnesium is low 0.6, glucose is low at 68. And Imodium is elevated at 68. Troponin is negative. UA is suspicious of infection Chest x-ray showed no acute process. CT of the brain is negative for acute process. EKG shows sinus tachycardia at 101 with QTC of [address]-T changes. 04/30/20 Patient slightly improving her mentation, she is getting slowly more awake, she answers some questions with simple words, she was able to get into comode by the help of staff She is hemodynamically stable Today showing sodium 150, potassium 2.6, creatinine 1.7, calcium 5.3 Kiana has been replaced per protocol and we'll keep monitoring. Patient remains on Rocephin and urine blood cultures are pending 05/01/20 Patient is still gradually improving, today she knows [facility] is [facility], she knows that she is and the name of the president. Patient still been treated for ceftriaxone and IV fluids with D5 bicarb, acidosis is improving and patient may become more awake and started on oral pills tomorrow Serum potassium and magnesium were O been replaced Urine culture is growing E. coli which is sensitive to Rocephin. INR is improved. And hyponatremia is improving 150 down to 146. Review of Systems N/a, patient is confused Active Medications Generic Name Dose Route Start Last Admin Trade Name Freq PRN Reason Stop Dose Admin Famotidine 10 mg 05/02/20 09:00 Famotidine 20 Mg Tab PO DAILY SAUL Heparin Sodium (Porcine) 5,000 unit 04/30/20 09:00 05/01/20 20:50 Heparin SQ Not Given Q12HR [facility] Sodium Bicarbonate 100 ml/ 1,100 mls @ 75 mls/hr 04/29/20 16:00 05/01/20 04:36 Dextrose/Water IV 75 mls/hr .[id number] SAUL Administration Ceftriaxone Sodium 1 gm/ 50 mls @ 100 mls/hr 04/30/20 14:00 05/01/20 15:56 Sodium Chloride IVPB 100 mls/hr Q24H SAUL Administration Miscellaneous Information 1 each 04/29/20 21:32 Magnesium Per Protocol MISCELLANE DAILY PRN Per Protocol Protocol Miscellaneous Information 1 each 04/30/20 08:36 Potassium Replacement Protocol 1 Each [facility] MISCELLANE DAILY PRN Per Protocol Protocol Miscellaneous Information 1 each 05/01/20 06:53 Potassium Replacement Protocol 1 Each [facility] MISCELLANE DAILY PRN Per Protocol Protocol Naloxone HCl 0.2 mg 04/29/20 15:43 Narcan IV Q2M PRN Opioid Reversal Objective - Vital Signs Vital signs: Vital Signs Temp 98 F 05/01/20 20:00 Pulse 81 05/01/20 20:00 Resp 18 05/01/20 20:00 BP 134/67 05/01/20 20:00 Pulse Ox 100 05/01/20 20:00 Intake & Output 05/01/20 05/01/20 05/02/20 06:59 18:59 06:59 Intake Total 360 Output Total 1400 Balance -1040 Weight 56.5 kg 56.5 kg Intake: Oral 360 Output: Urine 1400 Other: Voiding Method Indwelling Catheter Indwelling Catheter Indwelling Catheter # Voids 0 0 # Bowel Movements 0 0 - Exam -GENERAL: The patient is gradually getting more awake, she answers some questions with yes or no and she follows, and today HEENT: Pupils are round and equally reacting to light. EOMI. No scleral icterus. No conjunctival pallor. Normocephalic, atraumatic. No pharyngeal erythema. No thyromegaly. CARDIOVASCULAR: S1 and S2 present. No murmurs, rubs, or gallops. PULMONARY: Chest is clear to auscultation, no wheezing or crackles. ABDOMEN: Soft, nontender, nondistended, normoactive bowel sounds. No palpable organomegaly. MUSCULOSKELETAL: No joint swelling or deformity. EXTREMITIES: No cyanosis, clubbing, or pedal edema. -NEUROLOGICAL: Gross neurological examination did not reveal any focal deficits. No asymmetry in the extremities states. No differences in tone. Exam is limited by AMS SKIN: No rashes. no petechiae. - Labs CBC & Chem 7: 04/29/20 12:51 05/01/20 05:35 Labs: Abnormal Lab Results - Last 24 Hours (Table) 05/01/20 05/01/20 05/01/20 Range/Units 05:35 05:35 05:35 PT 13.2 H (9.0-12.0) sec INR 1.3 H (<1.2) VBG pH 7.29 L (7.31-7.41) VBG HCO3 17 L (24-28) mmol/L Sodium 146 H (137-145) mmol/L Potassium 2.3 L* (3.5-5.1) mmol/L Chloride 118 H (98-107) mmol/L Carbon Dioxide 18 L (22-30) mmol/L BUN 18 H (7-17) mg/dL Creatinine 1.23 H (0.52-1.04) mg/dL Glucose 124 H (74-99) mg/dL Calcium 5.3 L* (8.4-10.2) mg/dL Magnesium 1.5 L (1.6-2.3) mg/dL Microbiology - Last 24 Hours (Table) 04/29/20 16:55 Blood Culture - Preliminary Blood No Growth after 48 hours 04/29/20 13:53 Urine Culture - Final Urine,Catheterized Escherichia coli Assessment and Plan Assessment: Metabolic encephalopathy secondary to renal infection Acute urinary tract infection and Severe electrolyte abnormalities with hypokalemia and hypomagnesemia Hypernatremia Fibromyalgia History of dumping syndrome Plan: this is a pleasant 69 years old female who presents with UTI, looked a little abnormal 10th AMS. Continue with Rocephin and IV hydration, patient was started on D5W with sodium bicarb. Continue with Rocephin .Replace electrolytes and monitor closely. Continue with IV hydration. Labs and medication were reviewed.. Continue same treatment. Continue with symptomatic treatment. Resume home medication. Monitor lytes and vitals. DVT and GI prophylaxis. Further recommendations of the clinical course of the patient DVT prophylaxis: Subcutaneous heparin GI Prophylaxis: Pepcid PT/OT: Pending Prognosis is guarded
[2020-05-02] MEDS: HEPARIN SODIUM,PORCINE 5,000 UNIT/ML 1 ML VIAL SQ SCH ×2 (10:00→20:24)
[2020-05-02] MEDS: FAMOTIDINE 20 MG TAB PO SCH (10:00)
[2020-05-02] MEDS: SODIUM BICARBONATE 150 MEQ in DEXTROSE 5% IN WATER 1,000 ML IV SCH ×6 (10:01→18:29)
[2020-05-02 10:29] LABS: Basophils % (A) 0 %; Eosinophils # (A) 0.1 k/uL (0-0.7); Eosinophils % (A) 1 %; HCT 32.4 % (34.0-46.0); HGB 9.9 gm/dL (11.4-16.0); Hypochromasia Marked; Lymphocytes # (A) 1.4 k/uL (1.0-4.8); Lymphocytes % (A) 19 %; MCHC 30.4 g/dL (31.0-37.0); MCV 98.5 fL (80.0-100.0); Macrocytosis Slight; Mean Platelet Volume 8.7; Monocytes # (A) 0.3 k/uL (0-1.0); Monocytes % (A) 4 %; Neutrophils # (A) 5.4 k/uL (1.3-7.7); Neutrophils % (A) 75 %; Platelet Count 184 k/uL (150-450); Poikilocytosis Slight; RBC 3.29 m/uL (3.80-5.40); RDW 15.7 % (11.5-15.5); WBC 7.3 k/uL (3.8-10.6)
[2020-05-02 10:58] LABS: Potassium 2.4 mmol/L (3.5-5.1)
[2020-05-02 10:59] LABS: Calcium 5.8 mg/dL (8.4-10.2)
[2020-05-02] MEDS ORDERED: Potassium Replacement Protocol 1 EACH MISC MISCELLANE PRN ×2 (11:34→18:48)
[2020-05-02] MEDS: POTASSIUM CHLORIDE ER 20 MEQ TAB.ER PO SCH ×6 (12:59→21:49)
[2020-05-02] MEDS: MELATONIN 5 MG TABLET PO SCH (20:23)
[2020-05-03 06:51] LABS: Basophils % (A) 0 %; Eosinophils % (A) 1 %; HCT 34.2 % (34.0-46.0); HGB 10.1 gm/dL (11.4-16.0); Hypochromasia Marked; Lymphocytes # (A) 1.2 k/uL (1.0-4.8); Lymphocytes % (A) 22 %; MCHC 29.6 g/dL (31.0-37.0); MCV 101.4 fL (80.0-100.0); Macrocytosis Slight; Mean Platelet Volume 8.9; Monocytes # (A) 0.3 k/uL (0-1.0); Monocytes % (A) 6 %; Neutrophils # (A) 3.7 k/uL (1.3-7.7); Neutrophils % (A) 69 %; Platelet Count 144 k/uL (150-450); Poikilocytosis Slight; RBC 3.37 m/uL (3.80-5.40); RDW 15.7 % (11.5-15.5); WBC 5.3 k/uL (3.8-10.6)
[2020-05-03 06:55] LABS: INR 1.1 (<1.2)
[2020-05-03 07:02] LABS: Albumin 2.9 g/dL (3.5-5.0); Magnesium 1.8 mg/dL (1.6-2.3); Potassium 3.2 mmol/L (3.5-5.1); Total Bilirubin 0.5 mg/dL (0.2-1.3); Total Protein 5.7 g/dL (6.3-8.2)
[2020-05-03 07:08] LABS: Calcium 5.6 mg/dL (8.4-10.2)
[2020-05-03] MEDS: SODIUM BICARBONATE 150 MEQ in DEXTROSE 5% IN WATER 1,000 ML IV SCH ×2 (08:30)
[2020-05-03] MEDS: HEPARIN SODIUM,PORCINE 5,000 UNIT/ML 1 ML VIAL SQ SCH ×2 (08:44→20:16)
[2020-05-03] MEDS: FAMOTIDINE 20 MG TAB PO SCH (08:44)
[2020-05-03] MEDS ORDERED: Potassium Replacement Protocol 1 EACH MISC MISCELLANE PRN (08:45)
[2020-05-03] MEDS: POTASSIUM CHLORIDE ER 20 MEQ TAB.ER PO SCH ×2 (10:19→11:00)
--- NOTE | 2020-05-03 14:42 | P.PN ---
Subjective Progress Note Date: 05/02/20 Principal diagnosis: Metabolic encephalopathy MS. Murray is a 69-year-old female with a past medical history of fibromyalgia, syncope, dumping syndrome status post bariatric surgery done 30 years back, brought in by her for altered mental status changes. Patient is a poor historian, states that she has been not eating and drinking well for the past 3-4 days and got confused so brought into the hospital. Workup for underlying infection was initiated, she was empirically started on ceftriaxone for possible UTI and admitted for further management. On 05/02/2020- patient is lying in bed appears to be in no acute distress. Her is at bedside. No acute events reported by nursing staff overnight. As per discussion with her , he states that her mentation is improving gradually. Patient denies having any chest pain or palpitations. She reports no cough or difficulty in breathing. No abdominal pain nausea vomiting. Patient has chronic diarrhea, no new changes reported. She denies having intake dysuria or hematuria. On reviewing her vitals patient has been afebrile for the past 24 hours. Saturating at 99% on 2 L of oxygen, heart rate around 70s, blood pressure within normal limits. On reviewing her labs, her potassium has been found to be low at 2.4. Hypocalcemia with calcium of 5.8. Active Medications Famotidine (Famotidine 20 Mg Tab) 10 mg PO DAILY [facility] [place] Last Admin: 05/02/20 10:00 Dose: 10 mg Documented by: Heparin Sodium (Porcine) (Heparin) 5,000 unit SQ Q12HR [facility] [place] Last Admin: 05/02/20 20:24 Dose: 5,000 unit Documented by: Sodium Bicarbonate 100 ml/ (Dextrose/Water) 1,100 mls @ 75 mls/hr IV .[id number] [facility] Last Admin: 05/02/20 18:29 Dose: Not Given Documented by: Ceftriaxone Sodium 1 gm/ (Sodium Chloride) 50 mls @ 100 mls/hr IVPB Q24H [facility] [place] Last Admin: 05/02/20 12:58 Dose: 100 mls/hr Documented by: Melatonin (Melatonin 5 Mg Tablet) 10 mg PO HS [facility] [place] Last Admin: 05/02/20 20:23 Dose: 10 mg Documented by: Miscellaneous Information (Magnesium Per Protocol) 1 each MISCELLANE DAILY PRN; Protocol PRN Reason: Per Protocol Miscellaneous Information (Potassium Replacement Protocol 1 Each Misc) 1 each MISCELLANE DAILY PRN; Protocol PRN Reason: Per Protocol Miscellaneous Information (Potassium Replacement Protocol 1 Each Misc) 1 each MISCELLANE DAILY PRN; Protocol PRN Reason: Per Protocol Miscellaneous Information (Potassium Replacement Protocol 1 Each Misc) 1 each MISCELLANE DAILY PRN; Protocol PRN Reason: Per Protocol Miscellaneous Information (Potassium Replacement Protocol 1 Each Misc) 1 each MISCELLANE DAILY PRN; Protocol PRN Reason: Per Protocol Naloxone HCl (Narcan) 0.2 mg IV Q2M PRN PRN Reason: Opioid Reversal Objective - Vital Signs Vital signs: Vital Signs Temp 98.4 F 05/02/20 16:00 Pulse 73 05/02/20 16:00 Resp 18 05/02/20 16:00 BP 131/62 05/02/20 16:00 Pulse Ox 99 05/02/20 16:00 Intake & Output 05/01/20 05/02/20 05/02/20 18:59 06:59 18:59 Intake Total 360 170 Output Total 1400 1974 Balance -1040 -1805 Weight 56.5 kg 52 kg Intake: Oral 360 170 Output: Urine 1400 1974 Other: Voiding Method Indwelling Catheter Indwelling Catheter Indwelling Catheter # Voids 0 0 # Bowel Movements 0 0 2 - Exam -GENERAL: Appears to be no acute distress. Comfortably sitting up in the bed. at bedside. HEENT: Pupils are round and equally reacting to light. EOMI. No scleral icterus. No conjunctival pallor. CARDIOVASCULAR: S1 and S2 present. No murmurs, rubs, or gallops. PULMONARY: Chest is clear to auscultation, no wheezing or crackles. ABDOMEN: Soft, nontender, nondistended, normoactive bowel sounds. No palpable organomegaly. MUSCULOSKELETAL: No joint swelling or deformity. EXTREMITIES: No cyanosis, clubbing, or pedal edema. NEUROLOGICAL: Alert awake oriented 2, Gross neurological examination did not reveal any focal deficits. No asymmetry in the extremities states. SKIN: No rashes. no petechiae. - Labs CBC & Chem 7: 05/03/20 05:50 05/03/20 05:50 Labs: Abnormal Lab Results - Last 24 Hours (Table) 05/02/20 05/02/20 Range/Units 10:15 10:15 RBC 3.29 L (3.80-5.40) m/uL Hgb 9.9 L (11.4-16.0) gm/dL Hct 32.4 L (34.0-46.0) % MCHC 30.4 L (31.0-37.0) g/dL RDW 15.7 H (11.5-15.5) % Potassium 2.4 L* (3.5-5.1) mmol/L Chloride 112 H (98-107) mmol/L Glucose 126 H (74-99) mg/dL Calcium 5.8 L* (8.4-10.2) mg/dL Microbiology - Last 24 Hours (Table) 04/29/20 16:55 Blood Culture - Preliminary Blood No Growth after 48 hours 04/29/20 13:53 Urine Culture - Final Urine,Catheterized Escherichia coli Assessment and Plan Assessment: ASSESSMENT Acute metabolic encephalopathy-resolving UTI secondary to E. coli Acute kidney injury- resolved Hypernatremia Hypokalemia Hypocalcemia Moderate protein calorie malnutrition Fibromyalgia History of dumping syndrome PLAN: Patient to be continued on ceftriaxone secondary to UTI. Will replace potassium. AK I seem to be resolving as her creatinine is trending down. Patient's mentation slowly getting back to her baseline. Continue with the current medication regimen. Further recommendations to follow depending on the progress of the patient.
[2020-05-03 15:33] LABS: Potassium 2.8 mmol/L (3.5-5.1)
[2020-05-03 15:44] LABS: Calcium 5.7 mg/dL (8.4-10.2)
--- NOTE | 2020-05-03 16:52 | P.PN ---
Subjective Progress Note Date: 05/03/20 Principal diagnosis: Metabolic encephalopathy MS. Murray is a 69-year-old female with a past medical history of fibromyalgia, syncope, dumping syndrome status post bariatric surgery done 30 years back, brought in by her for altered mental status changes. Patient is a poor historian, states that she has been not eating and drinking well for the past 3-4 days and got confused so brought into the hospital. Workup for underlying infection was initiated, she was empirically started on ceftriaxone for possible UTI and admitted for further management. On 05/02/2020- patient is lying in bed appears to be in no acute distress. Her is at bedside. No acute events reported by nursing staff overnight. As per discussion with her , he states that her mentation is improving gradually. Patient denies having any chest pain or palpitations. She reports no cough or difficulty in breathing. No abdominal pain nausea vomiting. Patient has chronic diarrhea, no new changes reported. She denies having intake dysuria or hematuria. On reviewing her vitals patient has been afebrile for the past 24 hours. Saturating at 99% on 2 L of oxygen, heart rate around 70s, blood pressure within normal limits. On reviewing her labs, her potassium has been found to be low at 2.4. Hypocalcemia with calcium of 5.8. On 05/03/2020- patient is lying in bed appears to be in acute distress. Her at the bedside. As per nursing staff report the patient lost her IV access last night. It was very difficult to get another IV. As the patient's electrolytes have normalized, her sodium bicarb drip has been discontinued. Patient's hypertension still on the lower side. We'll place it by mouth. She has been on ceftriaxone for her UTI, that was changed to ciprofloxacin yesterday. On reviewing the vitals patient has been afebrile for the past 24 h ours. Has been maintaining saturations are 97% on room air, blood pressure 132/82, heart rate around 70s to 80s. On reviewing her labs so sodium 142, potassium 2.8, chloride 1:15, bicarbonate 18, BUN 13, creatinine 0.81, calcium 5.7. Albumin 2.9. Corrected calcium is 6.5. Active Medications Ciprofloxacin (Ciprofloxacin Hcl 250 Mg Tab) 250 mg PO BID [facility] Famotidine (Famotidine 20 Mg Tab) 10 mg PO DAILY [facility] Last Admin: 05/03/20 08:44 Dose: 10 mg Documented by: Heparin Sodium (Porcine) (Heparin) 5,000 unit SQ Q12HR [facility] Last Admin: 05/03/20 08:44 Dose: 5,000 unit Documented by: Melatonin (Melatonin 5 Mg Tablet) 10 mg PO HS [facility] Last Admin: 05/02/20 20:23 Dose: 10 mg Documented by: Miscellaneous Information (Magnesium Per Protocol) 1 each MISCELLANE DAILY PRN; Protocol PRN Reason: Per Protocol Miscellaneous Information (Potassium Replacement Protocol 1 Each Misc) 1 each MISCELLANE DAILY PRN; Protocol PRN Reason: Per Protocol Miscellaneous Information (Potassium Replacement Protocol 1 Each Misc) 1 each MISCELLANE DAILY PRN; Protocol PRN Reason: Per Protocol Miscellaneous Information (Potassium Replacement Protocol 1 Each Misc) 1 each M ISCELLANE DAILY PRN; Protocol PRN Reason: Per Protocol Miscellaneous Information (Potassium Replacement Protocol 1 Each Misc) 1 each MISCELLANE DAILY PRN; Protocol PRN Reason: Per Protocol Miscellaneous Information (Potassium Replacement Protocol 1 Each Misc) 1 each MISCELLANE DAILY PRN; Protocol PRN Reason: Per Protocol Naloxone HCl (Narcan) 0.2 mg IV Q2M PRN PRN Reason: Opioid Reversal Objective - Vital Signs Vital signs: Vital Signs Temp 97.9 F 05/03/20 15:54 Pulse 75 05/03/20 15:54 Resp 17 05/03/20 15:54 BP 132/82 05/03/20 15:54 Pulse Ox 97 05/03/20 15:54 Intake & Output 05/02/20 05/03/20 05/03/20 18:59 06:59 18:59 Intake Total 170 100 Output Total 1974 1000 750 Balance -180 -1000 -650 Weight 52.5 kg Intake: Oral 170 100 Output: Urine 1974 1000 750 Other: Voiding Method Indwelling Catheter Indwelling Catheter Indwelling Catheter # Voids 0 # Bowel Movements 1 1 - Exam GENERAL: Appears to be no acute distress. Comfortably sitting up in the bed. at bedside. HEENT: Pupils are round and equally reacting to light. EOMI. No scleral icterus. No conjunctival pallor. CARDIOVASCULAR: S1 and S2 present. No murmurs, rubs, or gallops. PULMONARY: Chest is clear to auscultation, no wheezing or crackles. ABDOMEN: Soft, nontender, nondistended, normoactive bowel sounds. No palpable organomegaly. MUSCULOSKELETAL: No joint swelling or deformity. EXTREMITIES: No cyanosis, clubbing, or pedal edema. NEUROLOGICAL: Alert awake oriented 2-3 , Gross neurological examination did not reveal any focal deficits. No asymmetry in the extremities . SKIN: No rashes. no petechiae. - Labs CBC & Chem 7: 05/03/20 05:50 05/03/20 15:10 Labs: Abnormal Lab Results - Last 24 Hours (Table) 05/02/20 05/03/20 05/03/20 Range/Units 17:12 05:50 05:50 RBC 3.37 L (3.80-5.40) m/uL Hgb 10.1 L (11.4-16.0) gm/dL MCV 101.4 H (80.0-100.0) fL MCHC 29.6 L (31.0-37.0) g/dL RDW 15.7 H (11.5-15.5) % Plt Count 144 L (150-450) k/uL Potassium 2.5 L* 3.2 L (3.5-5.1) mmol/L Chloride 114 H (98-107) mmol/L Carbon Dioxide 21 L (22-30) mmol/L Glucose 102 H (74-99) mg/dL Calcium 5.6 L* (8.4-10.2) mg/dL Alkaline Phosphatase 183 H (38-126) U/L Total Protein 5.7 L (6.3-8.2) g/dL Albumin 2.9 L (3.5-5.0) g/dL 05/03/20 Range/Units 15:10 RBC (3.80-5.40) m/uL Hgb (11.4-16.0) gm/dL MCV (80.0-100.0) fL MCHC (31.0-37.0) g/dL RDW (11.5-15.5) % Plt Count (150-450) k/uL Potassium 2.8 L (3.5-5.1) mmol/L Chloride 115 H (98-107) mmol/L Carbon Dioxide 18 L (22-30) mmol/L Glucose 121 H (74-99) mg/dL Calcium 5.7 L* (8.4-10.2) mg/dL Alkaline Phosphatase (38-126) U/L Total Protein (6.3-8.2) g/dL Albumin (3.5-5.0) g/dL Microbiology - Last 24 Hours (Table) 04/29/20 16:55 Blood Culture - Preliminary Blood No Growth after 72 hours Assessment and Plan Assessment: ASSESSMENT Acute metabolic encephalopathy-resolving UTI secondary to E. coli Acute kidney injury- resolved Hypernatremia Hypokalemia Hypocalcemia Moderate protein calorie malnutrition Fibromyalgia History of dumping syndrome PLAN: Patient lost her IV access and was a difficult stick. We will replace her potassium by mouth. Started on calcitriol for her hypocalcemia. Ceftriaxone has been discontinued and changed to ciprofloxacin today. AK I seem to be resolving as her creatinine is trending down. Patient's mentation slowly getting back to her baseline. Continue with the current medication regimen. Further recommendations to follow depending on the progress of the patient. Anticipate discharge in the next 24-48 hours.
[2020-05-03] MEDS: MELATONIN 5 MG TABLET PO SCH (20:16)
[2020-05-03] MEDS: CIPROFLOXACIN HCL 250 MG TAB PO SCH (20:16)
[2020-05-03 22:23] VITALS: TEMP 98
[2020-05-04 04:08] VITALS: RESP 18
[2020-05-04 06:59] LABS: Potassium 3.8 mmol/L (3.5-5.1)
[2020-05-04 07:08] LABS: Calcium 5.7 mg/dL (8.4-10.2)
[2020-05-04] MEDS: FAMOTIDINE 20 MG TAB PO SCH (08:39)
[2020-05-04] MEDS: HEPARIN SODIUM,PORCINE 5,000 UNIT/ML 1 ML VIAL SQ SCH (08:39)
[2020-05-04] MEDS: CIPROFLOXACIN HCL 250 MG TAB PO SCH (08:39)
[2020-05-04 10:50] VITALS: PULSE 83
[2020-05-04 11:23] VITALS: BMI 20.5
[2020-05-04 12:14] VITALS: BP 122/76
--- NOTE | 2020-05-04 15:32 | P.DS ---
Providers Date of admission: 04/29/20 15:43 Expected date of discharge: 05/04/20 Attending physician: Tavia Martinez Primary care physician: Eldon Murillo [facility] Course: HPI - This is a pleasant 69 years old female with multiple medical problems as below. Was brought by her from home because she altered mental status. She is a patient of Dr. Lidia Colón. Patient could not provide information, it was taken from the at bedside. As per patient was not eating and drinking well for the last 3-4 days, yesterday she started to get more confused total at progressed to a degree that he decided to bring him to the hospital As per patient denied any dizziness, no chest pain or dyspnea, no abdominal pain, no nausea vomiting or diarrhea. Patient is afebrile. CBC is unremarkable except for mild anemia of 10.4. INR is 1.8. PH is 7.0, pCO2 30, PFC 03 is 7 Sodium is high at 151, low potassium at 2.8, creatinine is elevated at 1.9, magnesium is low 0.6, glucose is low at 68. And Imodium is elevated at 68. Troponin is negative. UA is suspicious of infection Chest x-ray showed no acute process. CT of the brain is negative for acute process. EKG shows sinus tachycardia at 101 with QTC of [address]-T changes. Hospital course: Patient had urine culture done positive for E. coli. Patient received ceftriaxone for 3 days. On 05/03/2020 patient lost her IV access, so her ceftriaxone has been changed to ciprofloxacin. Patient received 5 days of antibiotic course for her UTI in the hospital. Her potassium has been supplemented through IV and also by mouth. Today her potassium is at 3.8. Her corrected calcium is 6.5. This morning patient is comfortably lying in bed appears to be in no acute distress. As per nursing staff report patient was able to get out of the bed by herself and go to the bathroom. Discussion with the at bedside, he states that she is back to her baseline and wants her to be discharged home today. Patient is being discharged home on potassium and calcium supplements. Vital Signs - 8 hr 05/04/20 05/04/20 08:00 12:00 Pulse Rate [ 83 72 Pulse Oximetery ] Respiratory 18 18 Rate Blood Pressure 122/70 122/76 [Right Arm] O2 Sat by Pulse 99 96 Oximetry GENERAL: Appears to be no acute distress. Comfortably sitting up in the bed. at bedside. HEENT: Pupils are round and equally reacting to light. EOMI. No scleral icterus. No conjunctival pallor. CARDIOVASCULAR: S1 and S2 present. No murmurs, rubs, or gallops. PULMONARY: Chest is clear to auscultation, no wheezing or crackles. ABDOMEN: Soft, nontender, nondistended, normoactive bowel sounds. No palpable organomegaly. MUSCULOSKELETAL: No joint swelling or deformity. EXTREMITIES: No cyanosis, clubbing, or pedal edema. NEUROLOGICAL: Alert awake oriented X 3 , Gross neurological examination did not reveal any focal deficits. No asymmetry in the extremities . SKIN: No rashes. no petechiae. DISCHARGE DIAGNOSIS Acute metabolic encephalopathy-resolved UTI secondary to E. coli Acute kidney injury- resolved Hypernatremia Hypokalemia Hypocalcemia Moderate protein calorie malnutrition Fibromyalgia History of dumping syndrome FOLLOW-up: Patient is advised to follow up with her PCP in 2-3 days. Patient is advised to continue taking potassium and calcium supplements. Patient is being discharged home in a fair condition. More than 35 minutes spent towards the discharge of the patient. Patient Condition at Discharge: Fair Plan - Discharge Summary Discharge Rx Participant: No New Discharge Prescriptions: New Calcium Carbonate/Vitamin D3 [Calcium 600-D3 20Mcg(800 Unit)] 1 each PO DAILY 30 Days #30 tablet Potassium Chloride [Klor-Con 20] 20 meq PO DAILY 30 Days #30 tab Continue Folic Acid 1 mg PO HS Citalopram Hydrobromide [CeleXA] 40 mg PO HS Melatonin 10 mg PO HS Baclofen [Lioresal] 20 mg PO TID diphenhydrAMINE [Benadryl] 150 mg PO HS Zolpidem [Ambien] 10 mg PO HS Ibuprofen [Motrin] 800 mg PO Q8H Discharge Medication List Folic Acid 1 mg PO HS 08/29/14 [History] Baclofen [Lioresal] 20 mg PO TID 10/08/16 [History] Citalopram Hydrobromide [CeleXA] 40 mg PO HS 10/08/16 [History] Melatonin 10 mg PO HS 10/08/16 [History] Ibuprofen [Motrin] 800 mg PO Q8H 04/29/20 [History] Zolpidem [Ambien] 10 mg PO HS 04/29/20 [History] diphenhydrAMINE [Benadryl] 150 mg PO HS 04/29/20 [History] Calcium Carbonate/Vitamin D3 [Calcium 600-D3 20Mcg(800 Unit)] 1 each PO DAILY 30 Days #30 tablet 05/04/20 [Rx] Potassium Chloride [Klor-Con 20] 20 meq PO DAILY 30 Days #30 tab 05/04/20 [Rx] Follow up Appointment(s)/Referral(s): Eldon Murillo MD [Primary Care Provider] - 1-2 days Discharge Disposition: HOME SELF-CARE
[2020-05-04] MEDS ORDERED: FAMOTIDINE 20 MG TAB PO SCH (21:00)
== END 2020-05-04 18:14 | disposition home or self-care (01) | DRG 689 ==
LOC: EC 11:45 → 3SCARD 15:43
PROVIDERS: ADMIT Internal Medicine; ATTEND Internal Medicine
PROC: 05HD33Z Insertion of Infusion Device into Right Cephalic Vein, Percutaneous Approach (ICD-10-PCS; principal; 2020-05-04 09:10)
DX: N39.0 Urinary tract infection, site not specified (principal); G93.41 Metabolic encephalopathy; N17.9 Acute kidney failure, unspecified; E87.0 Hyperosmolality and hypernatremia; E87.2 Acidosis; E44.0 Moderate protein-calorie malnutrition; E83.51 Hypocalcemia; Z68.20 Body mass index [BMI] 20.0-20.9, adult; Z66 Do not resuscitate; I10 Essential (primary) hypertension; E86.0 Dehydration; B96.20 Unspecified Escherichia coli [E. coli] as the cause of diseases classified elsewhere; E87.6 Hypokalemia; E83.42 Hypomagnesemia; K52.9 Noninfective gastroenteritis and colitis, unspecified; F32.9 Major depressive disorder, single episode, unspecified; M79.7 Fibromyalgia; D64.9 Anemia, unspecified; Z79.1 Long term (current) use of non-steroidal anti-inflammatories (NSAID); Z79.899 Other long term (current) drug therapy; Z90.89 Acquired absence of other organs; Z87.19 Personal history of other diseases of the digestive system; Z90.49 Acquired absence of other specified parts of digestive tract; Z98.51 Tubal ligation status; Z96.651 Presence of right artificial knee joint; Z98.84 Bariatric surgery status; Z98.890 Other specified postprocedural states; Z83.2 Family history of diseases of the blood and blood-forming organs and certain disorders involving the immune mechanism; Z80.9 Family history of malignant neoplasm, unspecified
CPT/HCPCS: 36410; 36415; 70450; 71046; 76937; 80048; 80053; 81001; 82140; 82550; 82607; 82803; 83605; 83690; 83735; 83880; 84100; 84132; 84484; 85025; 85610; 85730; 87040; 87077; 87086; 87186; 93005; 96361; 96365; 96375; 99291

== ENCOUNTER 2020-06-13 13:09 | Inpatient (IN) | payer MEDICARE, BC ==
[2020-06-13] MEDS ORDERED: SODIUM CHLORIDE 0.9% 1,000 ML IV STA ×2 (13:37)
--- NOTE | 2020-06-13 13:55 | ED ---
General Adult HPI - General Chief complaint: Recheck/Abnormal Lab/Rx Stated complaint: UTI Time Seen by Provider: 06/13/20 13:18 Source: patient, family, RN notes reviewed, old records reviewed Mode of arrival: wheelchair Limitations: physical limitation - History of Present Illness Initial comments: This is a 69-year-old female with a history of dumping syndrome as well as recent admission for metabolic encephalopathy hypomagnesemia hypokalemia hyper natremia was brought in from her home by her due to lethargy decreased ability to ambulate some confusion she apparently knocked everything off her nightstand today which is unlike her. She states she has not been eating and drinking well the last couple days. Her last admission she was dehydrated among other issues. Her brought her in today early so it would not be as severe as last episode. She demonstrates no fevers chills nausea vomiting sweats diarrhea or other symptoms no cough no phlegm production no other current modifying factors - Related Data Home Medications Medication Instructions Recorded Confirmed Folic Acid 1 mg PO HS 08/29/14 04/29/20 Baclofen [Lioresal] 20 mg PO TID 10/08/16 04/29/20 Citalopram Hydrobromide [CeleXA] 40 mg PO HS 10/08/16 04/29/20 Melatonin 10 mg PO HS 10/08/16 04/29/20 Ibuprofen [Motrin] 800 mg PO Q8H 04/29/20 04/29/20 Zolpidem [Ambien] 10 mg PO HS 04/29/20 04/29/20 diphenhydrAMINE [Benadryl] 150 mg PO HS 04/29/20 04/29/20 Previous Rx's Medication Instructions Recorded Calcium Carbonate/Vitamin D3 1 each PO DAILY 30 Days #30 tablet 05/04/20 [Calcium 600-D3 20Mcg(800 Unit)] Potassium Chloride [Klor-Con 20] 20 meq PO DAILY 30 Days #30 tab 05/04/20 Allergies Allergy/AdvReac Type Severity Reaction Status Date / Time No Known Allergies Allergy Verified 06/13/20 13:15 Review of Systems ROS Statement: Those systems with pertinent positive or pertinent negative responses have been documented in the HPI. ROS Other: All systems not noted in ROS Statement are negative. Past Medical History Past Medical History: Fibromyalgia, Syncope Additional Past Medical History / Comment(s): DUMPING SYNDROME, DDD History of Any Multi-Drug Resistant Organisms: None Reported Past Surgical History: Adenoidectomy, Bowel Resection, Cholecystectomy, Joint Replacement, Tonsillectomy, Tubal Ligation Additional Past Surgical History / Comment(s): RT TKACOLONOSCOPYTILT TABLE TEST, D & C. Gastric Bypass - 30 years ago Past Anesthesia/Blood Transfusion Reactions: No Reported Reaction Past Psychological History: Depression Smoking Status: Never smoker Past Alcohol Use History: None Reported Past Drug Use History: None Reported - Past Family History Father Family Medical History: Cancer Sister(s) Family Medical History: Cancer Mother Family Medical History: Deep Vein Thrombosis (DVT) General Exam - General Exam Comments Initial Comments: This is a well-developed asthenic appearing female who is awake alert oriented 3 Limitations: physical limitation General appearance: alert, lethargic Head exam: Present: atraumatic, normocephalic, normal inspection Eye exam: Present: normal appearance, PERRL, EOMI. Absent: scleral icterus, conjunctival injection, periorbital swelling ENT exam: Present: mucous membranes dry Neck exam: Present: normal inspection. Absent: tenderness, meningismus, lymphadenopathy Respiratory exam: Present: normal lung sounds bilaterally. Absent: respiratory distress, wheezes, rales, rhonchi, stridor Cardiovascular Exam: Present: regular rate, normal rhythm, normal heart sounds. Absent: systolic murmur, diastolic murmur, rubs, gallop, clicks GI/Abdominal exam: Present: soft, normal bowel sounds. Absent: distended, tenderness, guarding, rebound, rigid Extremities exam: Present: normal inspection, full ROM, normal capillary refill. Absent: tenderness, pedal edema, joint swelling, calf tenderness Back exam: Present: normal inspection Neurological exam: Present: alert, oriented X3, CN II-XII intact Psychiatric exam: Present: normal affect, normal mood Skin exam: Present: warm, dry, intact, normal color. Absent: rash Course Vital Signs 06/13/20 06/13/20 13:10 15:00 Temperature 97.2 F L Pulse Rate 84 75 Respiratory 18 16 Rate Blood Pressure 122/71 114/89 O2 Sat by Pulse 99 98 Oximetry EKG Findings - EKG Results: EKG: interpreted by KENDRAD, sinus rhythm (Sinus rhythm with occasional PVCs rate 79. Interval 136, QRS 88 QT since QTC 460/[address]-T wave changes) Medical Decision Making - Medical Decision Making I did discuss findings with the patient family as well as Dr. Garza was in the emergency department. Patient be admitted - Lab Data Result diagrams: 06/13/20 13:52 06/13/20 13:52 Lab Results 06/13/20 06/13/20 06/13/20 Range/Units 13:52 13:52 13:52 WBC 6.2 (3.8-10.6) k/uL RBC 3.72 L (3.80-5.40) m/uL Hgb 10.8 L (11.4-16.0) gm/dL Hct 39.1 (34.0-46.0) % MCV 105.0 H (80.0-100.0) fL MCH 29.0 (25.0-35.0) pg MCHC 27.6 L (31.0-37.0) g/dL RDW 17.3 H (11.5-15.5) % Plt Count 222 (150-450) k/uL Neutrophils % 60 % Lymphocytes % 31 % Monocytes % 6 % Eosinophils % 2 % Basophils % 1 % Neutrophils # 3.7 (1.3-7.7) k/uL Lymphocytes # 1.9 (1.0-4.8) k/uL Monocytes # 0.4 (0-1.0) k/uL Eosinophils # 0.1 (0-0.7) k/uL Basophils # 0.0 (0-0.2) k/uL Manual Slide Review Performed Hypochromasia Marked Anisocytosis Slight Macrocytosis Marked A Sodium 145 (137-145) mmol/L Potassium 4.4 (3.5-5.1) mmol/L Chloride 125 H (98-107) mmol/L Carbon Dioxide 9 L* (22-30) mmol/L Anion Gap 11 mmol/L BUN 28 H (7-17) mg/dL Creatinine 1.19 H (0.52-1.04) mg/dL Est GFR (CKD-EPI)AfAm 54 (>60 ml/min/1.73 sqM) Est GFR (CKD-EPI)NonAf 47 (>60 ml/min/1.73 sqM) Glucose 91 (74-99) mg/dL Plasma Lactic Acid Adriano 0.8 (0.7-2.0) mmol/L Calcium 7.0 L (8.4-10.2) mg/dL Magnesium 1.7 (1.6-2.3) mg/dL Total Bilirubin 0.6 (0.2-1.3) mg/dL AST 36 (14-36) U/L ALT 22 (4-34) U/L Alkaline Phosphatase 228 H (38-126) U/L Creatine Kinase 54 (30-135) U/L Troponin I (0.000-0.034) ng/mL Total Protein 7.3 (6.3-8.2) g/dL Albumin 4.0 (3.5-5.0) g/dL 06/13/20 Range/Units 13:52 WBC (3.8-10.6) k/uL RBC (3.80-5.40) m/uL Hgb (11.4-16.0) gm/dL Hct (34.0-46.0) % MCV (80.0-100.0) fL MCH (25.0-35.0) pg MCHC (31.0-37.0) g/dL RDW (11.5-15.5) % Plt Count (150-450) k/uL Neutrophils % % Lymphocytes % % Monocytes % % Eosinophils % % Basophils % % Neutrophils # (1.3-7.7) k/uL Lymphocytes # (1.0-4.8) k/uL Monocytes # (0-1.0) k/uL Eosinophils # (0-0.7) k/uL Basophils # (0-0.2) k/uL Manual Slide Review Hypochromasia Anisocytosis Macrocytosis Sodium (137-145) mmol/L Potassium (3.5-5.1) mmol/L Chloride (98-107) mmol/L Carbon Dioxide (22-30) mmol/L Anion Gap mmol/L BUN (7-17) mg/dL Creatinine (0.52-1.04) mg/dL Est GFR (CKD-EPI)AfAm (>60 ml/min/1.73 sqM) Est GFR (CKD-EPI)NonAf (>60 ml/min/1.73 sqM) Glucose (74-99) mg/dL Plasma Lactic Acid Adriano (0.7-2.0) mmol/L Calcium (8.4-10.2) mg/dL Magnesium (1.6-2.3) mg/dL Total Bilirubin (0.2-1.3) mg/dL AST (14-36) U/L ALT (4-34) U/L Alkaline Phosphatase (38-126) U/L Creatine Kinase (30-135) U/L Troponin I <0.012 (0.000-0.034) ng/mL Total Protein (6.3-8.2) g/dL Albumin (3.5-5.0) g/dL Disposition Clinical Impression: Dehydration, Acute kidney injury, Acidosis, Hypernatremia, Weakness Disposition: ADMITTED IP TO THIS [facility] Condition: Fair Referrals: Eldon Murillo MD [Primary Care Provider] - 1-2 days
[2020-06-13 14:23] LABS: Magnesium 1.7 mg/dL (1.6-2.3); Potassium 4.4 mmol/L (3.5-5.1); Total Bilirubin 0.6 mg/dL (0.2-1.3); Total Protein 7.3 g/dL (6.3-8.2)
[2020-06-13 14:27] LABS: Anisocytosis Slight; Basophils % (A) 1 %; Eosinophils # (A) 0.1 k/uL (0-0.7); Eosinophils % (A) 2 %; HCT 39.1 % (34.0-46.0); HGB 10.8 gm/dL (11.4-16.0); Hypochromasia Marked; Lymphocytes # (A) 1.9 k/uL (1.0-4.8); Lymphocytes % (A) 31 %; MCHC 27.6 g/dL (31.0-37.0); Macrocytosis Marked; Mean Platelet Volume 9.3; Monocytes # (A) 0.4 k/uL (0-1.0); Monocytes % (A) 6 %; Neutrophils # (A) 3.7 k/uL (1.3-7.7); Neutrophils % (A) 60 %; Platelet Count 222 k/uL (150-450); RBC 3.72 m/uL (3.80-5.40); RDW 17.3 % (11.5-15.5); WBC 6.2 k/uL (3.8-10.6)
--- NOTE | 2020-06-13 15:12 | XR ---
EXAMINATION TYPE: XR chest 2V DATE OF EXAM: 06/13/2020 COMPARISON: 04/29/2020 HISTORY: Weakness TECHNIQUE: FINDINGS: There is some blunting of the right costophrenic angle. Heart size is normal. There is no h eart failure. Bony thorax is intact. IMPRESSION: Mild pleural reaction right lung base increased slightly compared to old exam. No heart f ailure seen. No pulmonary consolidation.
[2020-06-13] MEDS ORDERED: NALOXONE 0.4 MG/ML 1 ML VIAL IV PRN (15:29)
[2020-06-13] MEDS: DEXTROSE 5% IN WATER 1,000 ML with SODIUM BICARB (1 MEQ/ML) 50 ML IV SCH (16:13)
[2020-06-13] MEDS: BACLOFEN 10 MG TAB PO SCH ×2 (16:14→19:59)
[2020-06-13] MEDS: IBUPROFEN 800 MG TAB PO SCH ×2 (16:14→19:59)
[2020-06-13 16:40] LABS: Appearance,Urine Clear (Clear); Bacteria,Urine Moderate /hpf; Bilirubin,Urine Negative (Negative); Blood,Urine Negative (Negative); Color,Urine Light Yellow; Glucose,Urine (UA) Negative (Negative); Ketones,Urine Negative (Negative); Leukocyte Esterase,Urine Negative (Negative); Mucus,Urine Rare /hpf; Nitrite,Urine Negative (Negative); Protein,Urine 1+ (Negative); RBC,Urine 1 /hpf (0-5); Specific Gravity,Urine 1.011 (1.001-1.035); Squamous Epithelial Cell,Urine <1 /hpf (0-4); Urobilinogen,Urine <2.0 mg/dL (<2.0); WBC,Urine 1 /hpf (0-5)
[2020-06-13] MEDS: FOLIC ACID 1 MG TAB PO SCH (19:59)
[2020-06-13] MEDS: CITALOPRAM HYDROBROMIDE 20 MG TAB PO SCH (19:59)
[2020-06-13] MEDS: MELATONIN 5 MG TABLET PO SCH (19:59)
[2020-06-13] MEDS: ZOLPIDEM 10 MG TAB PO SCH (20:52)
[2020-06-13] MEDS ORDERED: diphenhydrAMINE 50 MG CAP PO SCH (21:00)
--- NOTE | 2020-06-13 21:37 | HP ---
HISTORY AND PHYSICAL DATE OF SERVICE: 06/13/2020 CHIEF COMPLAINTS: Weakness and vomiting and dehydration. HISTORY OF PRESENT ILLNESS: This 69-year-old woman with a past history of fibromyalgia, memory impairment, history of DJD, syncope, dumping syndrome, history of bowel surgery, bariatric surgery, , gastric bypass, being followed by Dr. Eldon Murillo in the outpatient setting was complaining of weakness. The patient was having lethargy and diminished p.o. intake and the patient was confused and is worried about her because the same similar pattern happened before and the patient admitted. The patient was recently admitted with UTI, suspect metabolic encephalopathy. Taken to [facility]. Patient found to be dehydrated and with multiple electrolyte abnormalities including a potassium, chloride 125, and CO2 of 19, and the patient admitted for further evaluation and treatment. There is no history of any fever, rigors or chills. No history of headache, loss of consciousness, seizures at this time. PAST MEDICAL HISTORY: History of fibromyalgia, memory impairment, history of rheumatoid arthritis, hysterectomy, appendectomy. HOME MEDICATIONS: Home medications prior to admission are: Benadryl. Ambien, Klor-Con, melatonin, Motrin, folic acid, Celexa, calcium and Lioresal. Doses reviewed. ALLERGIES: None. FAMILY HISTORY: History of cancer in the family. SOCIAL HISTORY: No history of smoking. No history of alcohol intake. REVIEW OF SYSTEMS: ENT diminished vision. Diminished hearing. CARDIOVASCULAR: No angina or palpitations. RESPIRATIONS as mentioned earlier. GI: As mentioned earlier. : As mentioned earlier. NERVOUS SYSTEM: Mentioned earlier. ALLERGY/IMMUNOLOGY: No asthma or hayfever. MUSCULOSKELETAL as mentioned earlier. HEMATOLOGY/ONCOLOGY: No history of anemia. MUSCULOSKELETAL: As mentioned earlier. ENDOCRINE as mentioned earlier. CONSTITUTIONAL: As mentioned earlier. DERMATOLOGY: Negative. RHEUMATOLOGY: Negative. PSYCHIATRY: As mentioned earlier. PHYSICAL EXAMINATION: Alert and oriented times three. Pulse is 79. Blood pressure 120/58, respirations 16, temperature 98 degrees. Pulse ox 100 percent on room air. HEENT: Conjunctivae normal. NECK: No JVD. CARDIOVASCULAR; S1, S2 muffled. RESPIRATORY: Breath sounds diminished in the bases. A few scattered rhonchi and crackles. ABDOMEN: Soft, nontender. No mass palpable. LEGS: No edema. No swelling. NERVOUS SYSTEM: Diffusely weak. SKIN: No ulcers, rashes or bleeding. JOINTS: No active deforming arthropathy. LABS: WBC 6.2, hemoglobin 10.2, sodium 140, potassium 4.5, CO2 is 9. ASSESSMENT: 1. Diminished p.o. intake with dehydration, present on admission. 2. Severe acidosis of undetermined etiology. 3. Acute renal failure with prerenal acute tubular necrosis. 4. Hyperchloremia. 5. Anemia, macrocytosis. 6. History of urinary tract infection, sepsis. 7. History of fibromyalgia. 8. History of memory impairment. 9. History rheumatoid arthritis. 10.History of syncope. 11.History of dumping syndrome. 12.History of bronchitis. 13.History of appendectomy. 14.History of bowel resection. 15.History of gastric bypass. 16.History of right total knee joint arthroplasty. 17.History of depression. 18.History of panic disorder. 19.FULL CODE. RECOMMENDATIONS AND DISCUSSION: This 69-year-old woman who presented with multiple complex medical issues, we will monitor the patient closely, continue the current medications. We will continue IV fluids empirically. There is no evidence of UTI currently at this time. We will continue to monitor. The exact etiology of the metabolic acidosis, hypochloremia is unknown. I would recommend Nephrology consultation. The patient had significant acidosis previously as well. I would also recommend ABG and continue to monitor. The chest x-ray was personally reviewed by me and showed some minimal pleural reactions. No acute changes. The EKG showed occasional PVCs. Guarded prognosis. Further recommendation to follow. A copy of dictation being forwarded to Dr. Eldon Murillo who is the primary physician. MMODL / IJN: [id number] /
[2020-06-13 22:08] LABS: ABG HCO3 12 mmol/L (21-25); ABG Oxygen Saturation 95.5 % (94-97); ABG PCO2 34 mmHg (35-45); ABG PO2 93 mmHg (83-108); ABG TCO2 14 mmol/L (19-24); Allen Test Performed? Yes
[2020-06-13 22:15] LABS: ABG PH 7.18 (7.35-7.45)
[2020-06-14] MEDS: DEXTROSE 5% IN WATER 1,000 ML with SODIUM BICARB (1 MEQ/ML) 50 ML IV SCH (03:11)
[2020-06-14 07:47] LABS: Calcium 6.7 mg/dL (8.4-10.2); Potassium 3.3 mmol/L (3.5-5.1)
[2020-06-14 08:05] LABS: Anisocytosis Slight; HCT 34.9 % (34.0-46.0); HGB 10.1 gm/dL (11.4-16.0); Hypochromasia Marked; MCH 29.9 pg (25.0-35.0); MCHC 28.8 g/dL (31.0-37.0); MCV 103.7 fL (80.0-100.0); Macrocytosis Moderate; Mean Platelet Volume 9.1; Platelet Count 209 k/uL (150-450); RBC 3.37 m/uL (3.80-5.40); RDW 17.4 % (11.5-15.5); WBC 6.2 k/uL (3.8-10.6)
[2020-06-14 08:36] LABS: Basophils # (M) 0.06 k/uL (0-0.2); Eosinophils # (M) 0.25 k/uL (0-0.7); Lymphocytes # (M) 1.36 k/uL (1.0-4.8); Neutrophils # (M) 4.03 k/uL (1.3-7.7); Neutrophils % (M) 65 %; Nucleated Red Blood Cells 0 /100 WBC (0-0); Total Cells Counted 100
[2020-06-14] MEDS: IBUPROFEN 800 MG TAB PO SCH ×2 (09:03→16:08)
[2020-06-14] MEDS: CALCIUM CARB-VIT D 500MG-200UN 1 EACH TAB PO SCH (09:03)
[2020-06-14] MEDS: POTASSIUM CHLORIDE ER 20 MEQ TAB.ER PO SCH (09:03)
[2020-06-14] MEDS: BACLOFEN 10 MG TAB PO SCH ×3 (09:03→20:34)
[2020-06-14] MEDS: HEPARIN SODIUM,PORCINE 5,000 UNIT/ML 1 ML VIAL SQ SCH ×3 (09:03→20:34)
[2020-06-14] MEDS: DEXTROSE 5% IN WATER 1,000 ML with SODIUM BICARB (1 MEQ/ML) 150 ML IV SCH ×2 (11:23→23:16)
--- NOTE | 2020-06-14 12:11 | CONS ---
CONSULTATION REASON FOR CONSULT: Renal failure. HISTORY OF PRESENT ILLNESS: Patient is a 69-year-old female who has a history of abdominal surgery in the form of gastric bypass surgery about 40 years ago. The patient had gastric bypass surgery about 40 years ago. She has a history of dumping syndrome and was admitted to the hospital with complaints of increased weakness, lethargy, mental status changes. The patient was found to be significantly acidotic. She reports she has had loose bowel movements and diarrhea for a long time now, which has not changed recently. She did have admission for severe metabolic acidosis in April of 2020 as well. The patient does not take sodium bicarb tablets at home. The patient stated that she had been drinking more pop and she believes that has caused her to have increased diarrhea. No history of fevers, chills. No nausea, vomiting. No cough. Serum creatinine at 1.0 mg/dL. CO2 was 9 on initial admission. PAST MEDICAL HISTORY: Significant for fibromyalgia, syncope, dumping syndrome, previous history of metabolic acidosis and hospitalization in April of 2020. PAST SURGICAL HISTORY: Appendectomy, bowel resection, cholecystectomy, tubal ligation, tonsillectomy, right total knee arthroplasty, colonoscopy, D and C, gastric bypass. PAST SOCIAL HISTORY: Negative for smoking, drug abuse or alcohol abuse. MEDICATIONS: Medications at home prior to admission included folic acid, Benadryl, Ambien, eye drops, Celexa, Percocet, melatonin. ALLERGIES: None. REVIEW OF SYSTEMS: As per HPI. Other systems negative. EXAMINATION: Patient is comfortable, awake, alert, oriented x3, not in any acute distress. Blood pressure is 138/74, heart rate 75 per minute. She is afebrile. Examination of the heart S1, S2. Examination of the lungs, bilateral breath sounds are heard. Abdomen is soft, nontender. Examination of the lower extremities shows no evidence of edema. 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 LAB: Show sodium of 142, potassium 3.3, CO2 is 13, chloride 120, BUN 23, creatinine 1.0, hemoglobin of 10.1 g/dL. UA shows 1+ protein, no significant cells noted. ASSESSMENT: 1. Severe metabolic acidosis non-gap associated with diarrhea and significant gastrointestinal fluid loss. Currently maintained on bicarb drip and slightly improved. Patient has had chronic diarrhea for many years. However, she was recently admitted in April for severe metabolic acidosis. Patient is advised to avoid consumption of soft drinks, which she believes has worsened her diarrhea. In the meantime, patient will also be started on sodium bicarb tablets that she will take at home. If the metabolic acidosis is not controlled and volume depletion and dehydration recurs, patient will need outpatient IV fluids 1-2 times a week. 2. Chronic kidney disease baseline creatinine around 1, possibly lower. The patient has 1+ protein. We will revaluate her UA down the road. She should avoid using Motrin. 3. History of gastric bypass surgery. 4. Osteoarthritis status post knee arthroplasty. 5. Hypokalemia, currently being replaced. PLAN: Change IV bicarb to D5 W with 150 mEq of bicarb at 100 mL an hour. Plan to discharge patient on oral sodium bicarb tablets. She will need followup as outpatient and consider adding IV fluids as outpatient if this recurs. Thank you for this consultation. We will continue to follow the patient with you during her hospitalization. LB / SAMUEL: [id number] /
[2020-06-14] MEDS ORDERED: Potassium Replacement Protocol 1 EACH MISC MISCELLANE PRN ×2 (14:06→16:22)
[2020-06-14] MEDS ORDERED: Magnesium Replacement Protocol 1 EACH MISC MISCELLANE PRN ×2 (14:06→16:22)
--- NOTE | 2020-06-14 15:02 | PN ---
PROGRESS NOTE DATE OF SERVICE: 06/14/2020 This is a 69-year-old woman admitted with weakness and dizziness, had features of severe metabolic acidosis. The pH was 7.18 at this time. The patient's has received some bicarb. Potassium 3.3, CO2 is 13 on [address] BMP today. Dr. Eden has seen the patient and the primary GI loss was indicated as a possibility of acidosis. The metabolic acidosis not controlling as inpatient. Dr. Eden is recommending even outpatient IV fluids 1-2 times per week. The patient also had chronic kidney disease with 1+ protein and history of gastric bypass surgery also. The patient is slightly better today but still confused and complaining of extreme weakness. PAST MEDICAL HISTORY: Reviewed. REVIEW OF SYSTEMS: CARDIOVASCULAR: No angina. RESPIRATORY: As mentioned earlier. GI: As mentioned earlier. : No dysuria. NERVOUS SYSTEM: No numbness or weakness. CURRENT MEDICATIONS: Reviewed include Lioresal, Os-Tera with vitamin D, Celexa, bicarb drip, folic acid, heparin, Motrin, melatonin, Narcan, Ambien. PHYSICAL EXAMINATION: GENERAL: Patient is alert and oriented times three. VITAL SIGNS: Pulse 75, blood pressure 130/74, respirations 16, temperature 97.2, pulse ox 98% on room air. HEENT: Conjunctivae normal. NECK: No jugular venous distention. RESPIRATORY: Breath sounds diminished at the bases. No rhonchi, no crackles. HEART: S1 and S2, muffled. ABDOMEN: Soft, no tenderness. No masses palpable. EXTREMITIES: No edema, no swelling. NERVOUS: No focal deficits. LABS: WBC 6.2, hemoglobin 10.1 sodium 142, potassium 3.3, CO2 is 13. ASSESSMENT: 1. Severe metabolic acidosis because of gastrointestinal fluid loss and as well as diarrhea. 2. Acute on chronic diarrhea. 3. Diminished p.o. intake. 4. Acute renal failure from prerenal acute tubular necrosis. 5. Mild proteinuria. 6. Hypochloremia. 7. Anemia, macrocytosis. 8. History of urinary tract infection with sepsis. 9. History of fibromyalgia. 10.History of memory impairment. 11.History of rheumatoid arthritis. 12.History of syncope. 13.History of dumping syndrome. 14.History of bronchitis. 15.Appendectomy. 16.Bowel resection. 17.History of gastric bypass. 18.History of right total knee arthroplasty. 19.History of depression. 20.History of panic disorder. 21.FULL CODE. RECOMMENDATIONS AND DISCUSSION: I recommend to continue the current medications at this time. CO2 is slightly improved. I would continue with IV fluids with bicarb. Otherwise, monitor potassium supplementation. Monitor closely. Also recommend Gastroenterology consultation for evaluation of dumping syndrome and acute on chronic diarrhea. The patient might need an endoscopy and other workup as well. Overall prognosis guarded because of multiple complex medical issues. Further recommendations to follow. Once again, the patient will require a full admit for lasting for more than 2 nights for evaluation and treatment of above-mentioned multiple complex medical issues. MMODL / IJN: [id number] /
[2020-06-14] MEDS: MAGNESIUM SULFATE-D5W PMX 1 GM in DEXTROSE/WATER 1 100ML.BAG IVPB SCH ×2 (17:33→18:30)
[2020-06-14] MEDS: ZOLPIDEM 10 MG TAB PO SCH (20:34)
[2020-06-14] MEDS: CITALOPRAM HYDROBROMIDE 20 MG TAB PO SCH (20:34)
[2020-06-14] MEDS: MELATONIN 5 MG TABLET PO SCH (20:34)
[2020-06-14] MEDS: FOLIC ACID 1 MG TAB PO SCH (20:35)
[2020-06-14] MEDS: POTASSIUM CHLORIDE 10 MEQ in WATER FOR INJECTION 1 100ML.BAG IVPB SCH ×3 (20:35→23:16)
[2020-06-15] MEDS: IBUPROFEN 800 MG TAB PO SCH ×2 (01:17→07:49)
[2020-06-15] MEDS: POTASSIUM CHLORIDE 10 MEQ in WATER FOR INJECTION 1 100ML.BAG IVPB SCH (01:18)
[2020-06-15] MEDS: CALCIUM CARB-VIT D 500MG-200UN 1 EACH TAB PO SCH (07:49)
[2020-06-15] MEDS: POTASSIUM CHLORIDE ER 20 MEQ TAB.ER PO SCH (07:49)
[2020-06-15] MEDS: BACLOFEN 10 MG TAB PO SCH ×3 (07:49→20:04)
[2020-06-15] MEDS: HEPARIN SODIUM,PORCINE 5,000 UNIT/ML 1 ML VIAL SQ SCH ×2 (07:49→20:15)
[2020-06-15 07:51] VITALS: RESP 16
[2020-06-15 08:01] LABS: Anisocytosis Slight; Basophils % (A) 1 %; Eosinophils # (A) 0.1 k/uL (0-0.7); Eosinophils % (A) 2 %; HCT 30.9 % (34.0-46.0); HGB 9.2 gm/dL (11.4-16.0); Hypochromasia Marked; Lymphocytes # (A) 1.4 k/uL (1.0-4.8); Lymphocytes % (A) 33 %; MCH 30.9 pg (25.0-35.0); MCHC 29.7 g/dL (31.0-37.0); MCV 103.7 fL (80.0-100.0); Macrocytosis Moderate; Mean Platelet Volume 9.1; Monocytes # (A) 0.4 k/uL (0-1.0); Monocytes % (A) 9 %; Neutrophils # (A) 2.3 k/uL (1.3-7.7); Neutrophils % (A) 53 %; Platelet Count 156 k/uL (150-450); RBC 2.98 m/uL (3.80-5.40); RDW 17.6 % (11.5-15.5); WBC 4.4 k/uL (3.8-10.6)
[2020-06-15 08:17] LABS: Calcium 6.6 mg/dL (8.4-10.2); Potassium 3.5 mmol/L (3.5-5.1)
[2020-06-15] MEDS ORDERED: POTASSIUM CHLORIDE ER 20 MEQ TAB.ER PO STA (09:25)
[2020-06-15] MEDS: DEXTROSE 5% IN WATER 1,000 ML with SODIUM BICARB (1 MEQ/ML) 150 ML IV SCH ×2 (11:14→20:05)
--- NOTE | 2020-06-15 15:27 | PN ---
PROGRESS NOTE Patient is seen for followup for severe metabolic acidosis secondary to GI fluid loss and diarrhea. Currently patient is maintained on bicarb drip. Her acidosis has improved. Overall she states she is feeling better but still quite weak. PHYSICAL EXAMINATION: On examination today, blood pressure is 125/72, heart rate 71 per minute. She is afebrile. EXAMINATION OF THE HEART: S1 and S2. EXAMINATION OF LUNGS: Bilateral breath sounds are heard. ABDOMEN: Soft, non-tender. Examination of lower extremities shows no significant edema. SPEECH THERAPIST exam is grossly intact. LABS: Labs show sodium 141, potassium 3.5, chloride 117. CO2 is 16, BUN 24, creatinine 0.92, hemoglobin 9.2 g/dL. ASSESSMENT: 1. Non-gap metabolic acidosis secondary to diarrhea and gastrointestinal fluid loss, currently maintained on bicarb drip and improving. 2. Hypokalemia associated with gastrointestinal fluid loss and bicarb drip, status post replacement. 3. History of gastric bypass surgery and dumping syndrome with chronic diarrhea, status post surgery about 40 years ago. 4. Mild acute kidney injury, currently improved. 5. Chronic kidney disease, stage 2 to 3, with trace protein noted, possibly related to ongoing use of nonsteroidal anti-inflammatory agents. PLAN: Continue with the bicarb drip. Recommend discontinuation of Motrin. Repeat UA down the road, as the proteinuria might improve post discontinuation of NSAIDs. Patient will also need sodium chloride tabs to be continued as outpatient upon discharge. MMODL / IJN: [id number] /
--- NOTE | 2020-06-15 18:17 | P.PN ---
Subjective This is a pleasant 69 years old female with multiple medical problems presents with signs symptoms of dehydration and hypernatremia with metabolic acidosis in view of her chronic diarrhea, also there is suspicion of dumping syndrome and she has history of gastric bypass surgery. Patient states that she has chronic diarrhea for about 40 years about 3-4 times per day with no abdominal pain today. She is generally weak and lying in bed most of the time. Nephrology input is appreciated and treated with sodium bicarb and switch from IV infusion 2 tablets today by trailer assembler team. Also she recommended to stop Motrin and follow-up for her proteinuria. CONSTITUTIONAL: No fever, no malaise, no fatigue. HEENT: No recent visual problems or hearing problems. Denied any sore throat. CARDIOVASCULAR: No orthopnea, PND, no palpitations, no syncope. PULMONARY: No shortness of breath, no cough, no hemoptysis. GASTROINTESTINAL: No diarrhea, no nausea, no vomiting, no abdominal pain. Normoactive bowel sounds. NEUROLOGICAL: No headaches, no weakness, no numbness. HEMATOLOGICAL: Denies any bleeding or petechiae. Active Medications Generic Name Dose Route Start Last Admin Trade Name Kostaq PRN Reason Stop Dose Admin Baclofen 20 mg 06/13/20 16:00 06/15/20 15:21 Baclofen 10 Mg Tab PO 20 mg TID SAUL Administration Calcium Carbonate 1 each 06/14/20 09:00 06/15/20 07:49 Calcium Carb-Vit D 500mg-200un 1 Each Tab PO 1 each DAILY SAUL Administration Citalopram Hydrobromide 40 mg 06/13/20 21:00 06/14/20 20:34 Citalopram Hydrobromide 20 Mg Tab PO 40 mg HS SAUL Administration Folic Acid 1 mg 06/13/20 21:00 06/14/20 20:35 Folic Acid 1 Mg Tab PO 1 mg HS SAUL Administration Heparin Sodium (Porcine) 5,000 unit 06/14/20 09:00 06/15/20 07:49 Heparin Sodium,Porcine 5,000 Unit/Ml 1 Ml Vial SQ 5,000 unit Q12HR SAUL Administration Sodium Bicarbonate 150 ml/ 1,150 mls @ 100 mls/hr 06/14/20 11:00 06/15/20 11:14 Dextrose/Water IV 100 mls/hr .[id number] SAUL Administration Melatonin 10 mg 06/13/20 21:00 06/14/20 20:34 Melatonin 5 Mg Tablet PO 10 mg HS SAUL Administration Miscellaneous Information 1 each 06/14/20 14:06 Magnesium Replacement Protocol 1 Each Misc MISCELLANE DAILY PRN Per Protocol Protocol Miscellaneous Information 1 each 06/14/20 14:06 Potassium Replacement Protocol 1 Each Misc MISCELLANE DAILY PRN Per Protocol Protocol Miscellaneous Information 1 each 06/14/20 16:22 Magnesium Replacement Protocol 1 Each Misc MISCELLANE DAILY PRN Per Protocol Protocol Miscellaneous Information 1 each 06/14/20 16:22 Potassium Replacement Protocol 1 Each Misc MISCELLANE DAILY PRN Per Protocol Protocol Naloxone HCl 0.2 mg 06/13/20 15:29 Naloxone 0.4 Mg/Ml 1 Ml Vial IV Q2M PRN Opioid Reversal Potassium Chloride 20 meq 06/14/20 09:00 06/15/20 07:49 Potassium Chloride Er 20 Meq Tab.Er PO 20 meq DAILY SAUL Administration Sodium Bicarbonate 650 mg 06/15/20 21:00 Sodium Bicarbonate Tab 650 Mg Tab PO BID SAUL Zolpidem Tartrate 10 mg 06/13/20 21:00 06/14/20 20:34 Zolpidem 10 Mg Tab PO 10 mg HS SAUL Administration Objective - Vital Signs Vital signs: Vital Signs Temp 97.9 F 06/15/20 16:52 Pulse 77 06/15/20 16:52 Resp 16 06/15/20 16:52 BP 133/72 06/15/20 16:52 Pulse Ox 98 06/15/20 16:52 Intake & Output 06/14/20 06/15/20 06/15/20 18:59 06:59 18:59 Intake Total 236 1770 Balance 236 1770 Intake: Intake, IV Titration 650 Amount Dextrose 5% in Water 1, 650 000 ml @ 100 mls/hr IV . [id number] SAUL with Sodium Bicarb (1 Meq/ml) 50 ml Rx#:[id number] Oral 236 1120 Other: Voiding Method Toilet Toilet Toilet # Voids 1 2 1 # Bowel Movements 2 2 3 - Exam -GENERAL: The patient is alert and oriented x3, not in any acute distress. Well developed, well nourished. Generally weak HEENT: Pupils are round and equally reacting to light. EOMI. No scleral icterus. No conjunctival pallor. Normocephalic, atraumatic. No pharyngeal erythema. No thyromegaly. CARDIOVASCULAR: S1 and S2 present. No murmurs, rubs, or gallops. PULMONARY: Chest is clear to auscultation, no wheezing or crackles. ABDOMEN: Soft, nontender, nondistended, normoactive bowel sounds. No palpable organomegaly. MUSCULOSKELETAL: No joint swelling or deformity. EXTREMITIES: No cyanosis, clubbing, or pedal edema. NEUROLOGICAL: Gross neurological examination did not reveal any focal deficits. SKIN: No rashes. no petechiae. - Labs CBC & Chem 7: 06/15/20 06:55 06/15/20 06:55 Labs: Abnormal Lab Results - Last 24 Hours (Table) 06/15/20 06/15/20 Range/Units 06:55 06:55 RBC 2.98 L (3.80-5.40) m/uL Hgb 9.2 L (11.4-16.0) gm/dL Hct 30.9 L (34.0-46.0) % MCV 103.7 H (80.0-100.0) fL MCHC 29.7 L (31.0-37.0) g/dL RDW 17.6 H (11.5-15.5) % Chloride 117 H (98-107) mmol/L Carbon Dioxide 16 L (22-30) mmol/L BUN 24 H (7-17) mg/dL Calcium 6.6 L (8.4-10.2) mg/dL Assessment and Plan Assessment: Acute metabolic acidosis secondary to her chronic diarrhea Acute on chronic diarrhea Decreased oral intake, with dehydration Mild proteinuria History of urinary tract infection Fibromyalgia Memory impairment Rheumatoid arthritis Dumping syndrome History of gastric bypass surgery History of right total knee arthroplasty Depression, not in active tissue Plan: This is a pleasant 69 years old female who presents with acute on chronic diarrhea with dehydration and acidosis, she's been treated with IV fluid and sodium bicarb which showed interval improvement. Sodium bicarb switched pills by nephrology team. GI consult is called. Check physical therapy evaluation Labs and medication were reviewed.. Continue same treatment. Continue with symptomatic treatment. Resume home medication. Monitor lytes and vitals. DVT and GI prophylaxis. Further recommendationsas per clinical course of the patient DVT prophylaxis: Subcutaneous heparin GI Prophylaxis: Ppi PT/OT: Pending
[2020-06-15] MEDS: MELATONIN 5 MG TABLET PO SCH (20:04)
[2020-06-15] MEDS: FOLIC ACID 1 MG TAB PO SCH (20:04)
[2020-06-15] MEDS: SODIUM BICARBONATE TAB 650 MG TAB PO SCH (20:04)
[2020-06-15] MEDS: ZOLPIDEM 10 MG TAB PO SCH (20:04)
[2020-06-15] MEDS: CITALOPRAM HYDROBROMIDE 20 MG TAB PO SCH (20:04)
[2020-06-15] MEDS: PANTOPRAZOLE 40 MG TABLET PO SCH (23:53)
[2020-06-16 04:50] VITALS: TEMP 98
[2020-06-16 05:15] LABS: Anisocytosis Slight; Basophils % (A) 1 %; Eosinophils # (A) 0.1 k/uL (0-0.7); Eosinophils % (A) 2 %; HCT 29.4 % (34.0-46.0); HGB 8.8 gm/dL (11.4-16.0); Hypochromasia Marked; Lymphocytes # (A) 1.3 k/uL (1.0-4.8); Lymphocytes % (A) 30 %; MCH 30.1 pg (25.0-35.0); MCHC 29.9 g/dL (31.0-37.0); MCV 100.8 fL (80.0-100.0); Macrocytosis Moderate; Mean Platelet Volume 8.5; Monocytes # (A) 0.4 k/uL (0-1.0); Monocytes % (A) 8 %; Neutrophils # (A) 2.5 k/uL (1.3-7.7); Neutrophils % (A) 58 %; Platelet Count 168 k/uL (150-450); RBC 2.92 m/uL (3.80-5.40); RDW 17.7 % (11.5-15.5); WBC 4.3 k/uL (3.8-10.6)
[2020-06-16] MEDS: SODIUM BICARBONATE TAB 650 MG TAB PO SCH (08:53)
[2020-06-16] MEDS: CALCIUM CARB-VIT D 500MG-200UN 1 EACH TAB PO SCH (08:53)
[2020-06-16] MEDS: POTASSIUM CHLORIDE ER 20 MEQ TAB.ER PO SCH (08:53)
[2020-06-16] MEDS: BACLOFEN 10 MG TAB PO SCH (08:54)
[2020-06-16] MEDS: HEPARIN SODIUM,PORCINE 5,000 UNIT/ML 1 ML VIAL SQ SCH (08:54)
[2020-06-16] MEDS: PANTOPRAZOLE 40 MG TABLET PO SCH (09:05)
[2020-06-16 09:20] LABS: African American GFR (CKD) 75.6 (60.0-200.0); Anion Gap 5.9 mmol/L (4.00-12.00); BUN/Creat Ratio 23.33 Ratio (12.00-20.00); Carbon Dioxide 27.1 mmol/L (21.6-31.8); Non-African American GFR(CKD) 65.2 (60.0-200.0); Potassium 3.2 mmol/L (3.5-5.5)
[2020-06-16 09:35] LABS: Calcium 6.4 mg/dL (8.7-10.3)
[2020-06-16] MEDS ORDERED: CALCIUM CARBONATE 500 MG CHEWABLE PO SCH (09:43)
[2020-06-16] MEDS ORDERED: CHOLESTYRAMINE (WITH SUGAR) 4 GM PACKET PO SCH (10:00)
[2020-06-16 11:38] VITALS: BP 113/69; PULSE 77
[2020-06-16] MEDS ORDERED: POTASSIUM CHLORIDE ER 20 MEQ TAB.ER PO STA (13:53)
[2020-06-16] MEDS: DEXTROSE 5% IN WATER 1,000 ML with SODIUM BICARB (1 MEQ/ML) 150 ML IV SCH (14:38)
--- NOTE | 2020-06-16 15:11 | PN ---
PROGRESS NOTE Patient is seen for followup for severe metabolic acidosis associated with gastrointestinal fluid loss and chronic diarrhea. This is currently significantly improved. Patient's CO2 is at 27. She is maintained on bicarb drip and also taking oral sodium bicarb. PHYSICAL EXAMINATION: Today, patient is comfortable. Blood pressure is 113/69, heart rate 77 per minute, she is afebrile. Examination of the heart S1, S2. Examination of the lungs, bilateral breath sounds are heard. Abdomen is soft, nontender. Examination of the lower extremities shows no evidence of edema. MOTORCYCLE ASSEMBLER exam is grossly intact. LABS: Show hemoglobin 8.8, sodium 144, potassium 3.2, chloride 111. CO2 is 27, creatinine 0.9, BUN 21. ASSESSMENT: 1. Non gap metabolic acidosis secondary to diarrhea, now improved. The patient will be maintained on oral sodium bicarb, post discharge as well. 2. Hypokalemia, status post replacement. 3. Acute kidney injury which was mainly prerenal, currently improved. 4. Hypocalcemia. Rule out nutritional vitamin D deficiency. PLAN: Replace potassium, DC IV bicarb, maintain patient on oral sodium bicarb post discharge and we will see her for followup in the office in about 1-2 weeks' time. Patient should have repeat labs done as outpatient in 3-4 days. I will also check a 25 hydroxy vitamin D level and we will replace if she is deficient. MMODL / IJN: [id number] /
--- NOTE | 2020-06-16 16:56 | CONS ---
CONSULTATION DATE OF DICTATION: 06/16/2020 REASON FOR CONSULTATION: Acute on chronic diarrhea. HISTORY OF PRESENT ILLNESS: The patient is a 69-year-old pleasant white female with history of bariatric surgery with intestinal bypass surgery done in the 1980s. Since then she has been having chronic diarrhea for the last 40 years' duration. She usually has bowel movements anywhere from 5 to 10 a day which are loose to watery in consistency. No blood or mucus in the stool. Over the years she has managed to control the diarrhea with her dietary intake and was doing well. However, for the last 2 or 3 days she started having worsening diarrhea and became somewhat confused and started having cramping in the upper extremities. She became so lethargic and confused that her oral intake diminished, and hence, because of the concern for severe dehydration, she was brought into the emergency room and subsequently admitted to the hospital for further evaluation. She was started on Questran 4 grams yesterday and today, and her diarrhea is somewhat improving. She denies any abdominal pain. She reports no nausea, no vomiting. She is feeling much better today and wants to go home. She was seen by Dr. Salvador in the past and had an EGD and colonoscopy by him in 2017. Upper endoscopy revealed a small hiatal hernia and mild gastritis, but biopsies were negative. Colonoscopy revealed scattered sigmoid diverticulosis and a short segment of colitis in the right colon. Biopsies revealed acute ischemic colitis. PAST MEDICAL HISTORY: Her past medical history is significant for fibromyalgia, rheumatoid arthritis, insomnia. PAST SURGICAL HISTORY: Hysterectomy, intestinal bypass surgery 40 years ago, appendectomy. MEDICATIONS: Medications at home include Ambien, K-Kathy, melatonin, Motrin, folic acid, Celexa, calcium, Lioresal. SOCIAL HISTORY: No smoking. No alcohol use. FAMILY HISTORY: History of cancer in the family. REVIEW OF SYSTEMS: CARDIOPULMONARY: No chest pain or shortness of breath. GENITOURINARY: No dysuria or hematuria. MUSCULOSKELETAL: Unremarkable. SKIN: Unremarkable. ENDOCRINE: Unremarkable. PSYCHIATRIC: Unremarkable. GI: As mentioned above. NEUROLOGY: Some confusion, which has resolved. ENT/VISION: Unremarkable. CONSTITUTIONAL: Weight loss of about 5 or 6 pounds, but no fever, chills or night sweats. HEMATOLOGY: Mild microcytic anemia. PHYSICAL EXAMINATION: She appears comfortable. No apparent distress. Vital signs are stable. Blood pressure is 113/69, pulse rate 77, temperature 98. HEENT examination unremarkable. Conjunctivae pink. Sclerae anicteric. Oral cavity no lesions. NECK: No JVD or lymph node enlargement. CHEST: Clear to auscultation. HEART: Regular rate and rhythm. ABDOMEN: Soft. Bowel sounds are positive. No organomegaly. EXTREMITIES: No pedal edema. NEUROLOGIC: Alert and oriented x3. No focal deficits. SKIN: No rashes. LABS: Labs done at the time of admission to the hospital: WBC 6.2, hemoglobin 10.1, platelets normal. Basic metabolic panel showed potassium of 3.3. BUN was 23, creatinine 1. Calcium was 6.7. Magnesium was 2. Today hemoglobin is 8.8, WBC 4.3, platelets 168. BUN and creatinine are within normal limits at 21 and 0.9, respectively. IMPRESSION: 1. Worsening diarrhea for the last 3 days' duration associated with electrolyte abnormalities and dehydration. Patient was hydrated adequately and now doing better. 2. Chronic diarrhea of almost 40 years' duration. Patient started having diarrhea since her intestinal bypass surgery that was done in the for weight loss. She normally has bowel movements anywhere from 5 to 10 a day which are loose to watery in consistency and managed with diet modification. Occasionally she does have severe diarrhea resulting in acute kidney injury, for which she had a few hospitalizations in the past. She was started on Questran one packet daily and her symptoms are improving. 3. Acute kidney injury and gap metabolic acidosis secondary to diarrhea, which is improving. RECOMMENDATIONS: I had a lengthy discussion with the patient regarding management of diarrhea related to the prior intestinal bypass surgery done 40 years ago. She will continue with diet modification, but in the meantime I suggested that she can start on Questran 4 grams once or twice daily as needed based on her symptoms. She was advised to adjust the dose of the medication as needed. She wants to go home today and it is okay for her to be discharged, but I did suggest that she follow up in office in 3 to 4 weeks and, based on her symptoms, we will manage it on an outpatient basis. No need for any endoscopic intervention at the present time since she already had EGD and colonoscopy 3 years ago. Will follow with you closely. Thank you for this consultation. MMODL / IJN: [id number] /
--- NOTE | 2020-06-16 22:35 | P.DS ---
Providers Date of admission: 06/14/20 10:41 Attending physician: Regina Romero Consults: 06/13/20 21:06 Consult Physician Routine Consulting Provider: Jaylene Eden Consult Reason/Comments: Acidosis Do you want consulting provider notified?: Yes, Notify in am 06/15/20 18:18 Consult Physician Routine Consulting Provider: Ximena Avina Consult Reason/Comments: acute on chronic diarrhea Do you want consulting provider notified?: Yes, Notify in am Primary care physician: [facility] Course: Diagnoses: Acute metabolic acidosis secondary to her chronic diarrhea Acute on chronic diarrhea Decreased oral intake, with dehydration Mild proteinuria History of urinary tract infection Fibromyalgia Memory impairment Rheumatoid arthritis Dumping syndrome History of gastric bypass surgery History of right total knee arthroplasty Depression, not in active tissue Hospital course: This is a pleasant 69 years old female with multiple medical problems presents with signs symptoms of dehydration and hypernatremia with metabolic acidosis in view of her chronic diarrhea, also there is suspicion of dumping syndrome and she has history of gastric bypass surgery. Patient states that she has chronic diarrhea for about 40 years about 3-4 times per day with no abdominal pain today. She is generally weak and lying in bed most of the time. Nephrology input is appreciated and treated with sodium bicarb and switch from IV infusion to tablets upon discharge by crude unit operator team. Also she recommended to stop Motrin and follow-up for her proteinuria. Patient also has been evaluated by Dr. Avina from GI who recommended the patient continue with Questran as needed and follow-up with GI office Patient is discharged on Tums and sodium bicarb tablets per nephrology recommendation and Questran per GI team recommendation, also she was discharge on a Protonix and calcium-vitamin D Patient states she is back to her baseline and she wants to go home today as it is her 53rd Wedding anniversary, was at bedside and agrees she is at baseline and to go home today. Problems and management plan were discussed with the patient and he verbalized understanding and acceptance Patient was found stable and can be discharged home however he needs follow-up as an outpatient. Patient was instructed to follow up with PCP within one week and patient agrees, Patient agrees with the appointments made for her with Dr. Eden On 07/14, with Dr. Aivna on 07/09 Gen: patient is a AAOx3, no distress CVS: S1-S2, RRR, no murmur Lungs: B/L CTA, no wheezing Abdomen: soft, no distention, no tenderness, positive bowel sounds Extremity: no leg edema or induration Time spent more than 35 minutes Patient Condition at Discharge: Fair Plan - Discharge Summary Discharge Rx Participant: Yes New Discharge Prescriptions: New Calcium Carb-Vit D 500Mg-200Un [Oscal 500+D] 1 each PO BID #60 tab Pantoprazole [Protonix] 40 mg PO AC-BRKFST #30 tablet. Cholestyramine (with Sugar) [Questran Packet] 4 gm PO BID@1000,1800 7 Days #14 packet Sodium Bicarbonate Tab 650 mg PO BID #60 tab Calcium Carbonate [Tums] 500 mg PO BID #60 chew Continue Folic Acid 1 mg PO HS Citalopram Hydrobromide [CeleXA] 40 mg PO HS Melatonin 10 mg PO HS Baclofen [Lioresal] 20 mg PO TID Zolpidem [Ambien] 10 mg PO HS Potassium Chloride [Klor-Con 20] 20 meq PO DAILY 30 Days #30 tab Calcium Carbonate/Vitamin D3 [Calcium 600-D3 20Mcg(800 Unit)] 1 tab PO DAILY Discontinued diphenhydrAMINE [Benadryl] 150 mg PO HS Ibuprofen [Motrin] 800 mg PO Q8H Discharge Medication List Folic Acid 1 mg PO HS 08/29/14 [History] Baclofen [Lioresal] 20 mg PO TID 10/08/16 [History] Citalopram Hydrobromide [CeleXA] 40 mg PO HS 10/08/16 [History] Melatonin 10 mg PO HS 10/08/16 [History] Zolpidem [Ambien] 10 mg PO HS 04/29/20 [History] Potassium Chloride [Klor-Con 20] 20 meq PO DAILY 30 Days #30 tab 05/04/20 [Rx] Calcium Carbonate/Vitamin D3 [Calcium 600-D3 20Mcg(800 Unit)] 1 tab PO DAILY 06/13/20 [History] Calcium Carb-Vit D 500Mg-200Un [Oscal 500+D] 1 each PO BID #60 tab 06/16/20 [Rx] Calcium Carbonate [Tums] 500 mg PO BID #60 chew 06/16/20 [Rx] Cholestyramine (with Sugar) [Questran Packet] 4 gm PO BID@1000,1800 7 Days #14 packet 06/16/20 [Rx] Pantoprazole [Protonix] 40 mg PO AC-BRKFST #30 tablet. 06/16/20 [Rx] Sodium Bicarbonate Tab 650 mg PO BID #60 tab 06/16/20 [Rx] Follow up Appointment(s)/Referral(s): Jaylene Eden MD [STAFF PHYSICIAN] - 07/14/20 11:20 am () Eldon Murillo MD [Primary Care Provider] - 06/22/20 1:00 pm Ximena Avina MD [STAFF PHYSICIAN] - 07/09/20 2:10 pm (Assurance Analyst for your chronic diarrhea (Stomach and colon doctor)) Patient Instructions/Handouts: Cholestyramine (By mouth), Pantoprazole (By mouth), Calcium/Vitamin D Supplement (By mouth), Antacid, Calcium and Magnesium (By mouth), Sodium Bicarbonate (By mouth), Dehydration (DC), Acute Kidney Injury (DC) Discharge Disposition: HOME WITH HOME HEALTH SERVICES
== END 2020-06-16 16:33 | disposition home or self-care (01) | DRG 640 ==
LOC: EC 13:09 → 1SOBS 15:29 → OBSVTOIN 06-14 10:41 → 6NMEDSUR 06-15 15:50
PROVIDERS: ADMIT Hospitalist; ATTEND Hospitalist
DX: E87.2 Acidosis (principal); N17.0 Acute kidney failure with tubular necrosis; E87.0 Hyperosmolality and hypernatremia; K91.1 Postgastric surgery syndromes; E83.51 Hypocalcemia; Z20.828 Contact with and (suspected) exposure to other viral communicable diseases; M06.9 Rheumatoid arthritis, unspecified; E86.0 Dehydration; M51.36 Other intervertebral disc degeneration, lumbar region; M79.7 Fibromyalgia; F32.9 Major depressive disorder, single episode, unspecified; M19.90 Unspecified osteoarthritis, unspecified site; E87.8 Other disorders of electrolyte and fluid balance, not elsewhere classified; D64.9 Anemia, unspecified; D75.89 Other specified diseases of blood and blood-forming organs; F41.0 Panic disorder [episodic paroxysmal anxiety]; N18.2 Chronic kidney disease, stage 2 (mild); I49.3 Ventricular premature depolarization; E87.6 Hypokalemia; K44.9 Diaphragmatic hernia without obstruction or gangrene; K57.30 Diverticulosis of large intestine without perforation or abscess without bleeding; G47.00 Insomnia, unspecified; R80.9 Proteinuria, unspecified; Z79.899 Other long term (current) drug therapy; Z79.1 Long term (current) use of non-steroidal anti-inflammatories (NSAID); Z90.49 Acquired absence of other specified parts of digestive tract; Z98.890 Other specified postprocedural states; Z98.84 Bariatric surgery status; Z87.440 Personal history of urinary (tract) infections; Z90.710 Acquired absence of both cervix and uterus; Z96.651 Presence of right artificial knee joint; Z82.49 Family history of ischemic heart disease and other diseases of the circulatory system; Z80.9 Family history of malignant neoplasm, unspecified
CPT/HCPCS: 36415; 36600; 71046; 80048; 80053; 81001; 82306; 82533; 82550; 82805; 83605; 83735; 84484; 85025; 93005; 96360; 96361; 99285

== ENCOUNTER → 2020-07-17 | Outpatient (CLI) | payer MEDICARE, BC ==
--- NOTE | 2020-07-17 15:14 | US ---
EXAMINATION TYPE: US kidneys/renal and bladder DATE OF EXAM: 07/17/2020 COMPARISON: CT 10/09/2016 CLINICAL HISTORY: N17.9 ACUTE KIDNEY INJURY. Difficult exam due to overlying bowel gas EXAM MEASUREMENTS: Right Kidney: 8.4 x 3.9 x 3.9 cm Left Kidney: 9.1 x 4.0 x 4.3 cm Right Kidney: No hydronephrosis or masses seen Left Kidney: No hydronephrosis or masses seen Bladder: Possible small diverticulum visualized Bilateral Jets seen: No Urinary bladder is sonolucent. IMPRESSION: 1. No acute retroperitoneal abnormality
== END | disposition home or self-care (01) ==
LOC: RADUSWWP 13:31
PROVIDERS: ATTEND Internal Medicine Nephrology
DX: N17.9 Acute kidney failure, unspecified (principal)
CPT/HCPCS: 76770

== ENCOUNTER → 2020-07-22 | Outpatient (CLI) | payer MEDICARE, BC ==
[2020-07-22 14:01] LABS: Anisocytosis Slight; Basophils % (A) 1 %; Eosinophils # (A) 0.1 k/uL (0-0.7); Eosinophils % (A) 2 %; HCT 32.1 % (34.0-46.0); Hypochromasia Marked; Lymphocytes # (A) 1.5 k/uL (1.0-4.8); Lymphocytes % (A) 37 %; MCH 31.4 pg (25.0-35.0); Macrocytosis Marked; Mean Platelet Volume 9.6; Monocytes # (A) 0.3 k/uL (0-1.0); Monocytes % (A) 7 %; Neutrophils # (A) 2.1 k/uL (1.3-7.7); Neutrophils % (A) 52 %; Platelet Count 229 k/uL (150-450); Poikilocytosis Slight; RBC 2.86 m/uL (3.80-5.40); RDW 16.7 % (11.5-15.5)
[2020-07-22 14:10] LABS: MCV 112.2 fL (80.0-100.0)
[2020-07-22 18:45] LABS: Ferritin 92.4 ng/mL (10.0-291.0)
[2020-07-22 18:52] LABS: % Iron Saturation 19.86 (12.00-45.00); African American GFR (CKD) 59.3 (60.0-200.0); Anion Gap 8.7 mmol/L (4.00-12.00); BUN/Creat Ratio 28.18 Ratio (12.00-20.00); Calcium 7.4 mg/dL (8.7-10.3); Carbon Dioxide 15.3 mmol/L (21.6-31.8); Magnesium 1.6 mg/dL (1.5-2.4); Non-African American GFR(CKD) 51.2 (60.0-200.0); Phosphorus 3.2 mg/dL (2.4-5.1); Uric Acid 5.7 mg/dL (2.9-7.7)
== END | disposition home or self-care (01) ==
LOC: LABWHC1 11:42
PROVIDERS: ATTEND Nurse Practitioner Family
DX: D64.9 Anemia, unspecified (principal); N17.9 Acute kidney failure, unspecified; N39.0 Urinary tract infection, site not specified; N25.81 Secondary hyperparathyroidism of renal origin; E55.9 Vitamin D deficiency, unspecified; M10.9 Gout, unspecified
CPT/HCPCS: 36415; 80048; 82306; 82728; 83540; 83550; 83735; 83970; 84100; 84550; 85025

== ENCOUNTER → 2020-09-14 | Outpatient (CLI) | payer MEDICARE, BC ==
[2020-09-14 15:06] LABS: Appearance,Urine Clear (Clear); Bacteria,Urine Rare /hpf; Bilirubin,Urine Negative (Negative); Blood,Urine Negative (Negative); Color,Urine Light Yellow; Glucose,Urine (UA) Negative (Negative); Ketones,Urine Negative (Negative); Leukocyte Esterase,Urine Trace (Negative); Mucus,Urine Rare /hpf; Nitrite,Urine Negative (Negative); PH, Urine 5.5 (5.0-8.0); Protein,Urine Trace (Negative); RBC,Urine <1 /hpf (0-5); Specific Gravity,Urine 1.016 (1.001-1.035); Squamous Epithelial Cell,Urine 1 /hpf (0-4); Urobilinogen,Urine <2.0 mg/dL (<2.0); WBC,Urine 1 /hpf (0-5)
[2020-09-14 15:15] LABS: HCT 35.1 % (34.0-46.0); HGB 10.4 gm/dL (11.4-16.0); Hypochromasia Marked; MCHC 29.6 g/dL (31.0-37.0); Macrocytosis Slight; Mean Platelet Volume 7.8; Platelet Count 252 k/uL (150-450); RBC 3.46 m/uL (3.80-5.40); RDW 14.2 % (11.5-15.5); WBC 4.6 k/uL (3.8-10.6)
[2020-09-14 15:19] LABS: MCV 101.2 fL (80.0-100.0)
[2020-09-15 02:43] LABS: Ferritin 35.6 ng/mL (10.0-291.0)
[2020-09-15 03:56] LABS: % Iron Saturation 9.25 (12.00-45.00); African American GFR (CKD) 48.5 (60.0-200.0); Anion Gap 13.1 mmol/L (4.00-12.00); BUN/Creat Ratio 38.46 Ratio (12.00-20.00); Calcium 7.5 mg/dL (8.7-10.3); Carbon Dioxide 20.9 mmol/L (21.6-31.8); Magnesium 1.7 mg/dL (1.5-2.4); Non-African American GFR(CKD) 41.8 (60.0-200.0); Phosphorus 4.4 mg/dL (2.4-5.1); Uric Acid 8.3 mg/dL (2.9-7.7)
== END | disposition home or self-care (01) ==
LOC: LABWHC1 14:05
PROVIDERS: ATTEND Nurse Practitioner Family
DX: N17.9 Acute kidney failure, unspecified (principal); D64.9 Anemia, unspecified; N39.0 Urinary tract infection, site not specified; N25.81 Secondary hyperparathyroidism of renal origin; E55.9 Vitamin D deficiency, unspecified; M10.9 Gout, unspecified
CPT/HCPCS: 36415; 80048; 81001; 82306; 82728; 83540; 83550; 83735; 83970; 84100; 84550; 85027

== ENCOUNTER 2021-01-16 09:39 | Inpatient (IN) | payer MEDICARE, BC ==
[2021-01-16 09:44] LABS: Glucose,Whole Blood 104 mg/dL (75-99)
[2021-01-16] MEDS ORDERED: SODIUM CHLORIDE 0.9% 1,000 ML IV STA ×3 (09:49→11:56)
--- NOTE | 2021-01-16 09:54 | ED ---
Altered Mental Status HPI - General Stated Complaint: weakness Time Seen by Provider: 01/16/21 09:39 Source: family, EMS, RN notes reviewed, old records reviewed Mode of arrival: EMS Limitations: altered mental status - History of Present Illness Initial Comments: This is a 70-year-old female who is brought in by EMS because of decreased level of activity she has a history UTIs Analysis he gets like this per family when she does have UTIs her left foot imbalances last time she was here she had hypokalemia hypomagnesemia and a history of UTI in the past also. No reports of fevers chills or sweats to time no nausea no vomiting she has a decreased oral intake however. Patient is a poor historian MD Complaint: altered mental status, decreased responsiveness - Related Data Home Medications Medication Instructions Recorded Confirmed Folic Acid 1 mg PO HS 08/29/14 01/16/21 Baclofen [Lioresal] 20 mg PO TID 10/08/16 01/16/21 Citalopram Hydrobromide [CeleXA] 40 mg PO HS 10/08/16 01/16/21 Melatonin 10 mg PO HS 10/08/16 01/16/21 Zolpidem [Ambien] 10 mg PO HS 04/29/20 01/16/21 Calcium Carbonate/Vitamin D3 1 tab PO DAILY 06/13/20 01/16/21 [Calcium 600-D3 20 mcg (800 Unit)] Cyanocobalamin (Vitamin B-12) 5,000 mcg PO DAILY 01/16/21 01/16/21 [Vitamin B-12] Furosemide [Lasix] 20 mg PO DAILY 01/16/21 01/16/21 Ibuprofen [Motrin] 800 mg PO Q8H 01/16/21 01/16/21 diphenhydrAMINE [Benadryl] 150 mg PO HS 01/16/21 01/16/21 Previous Rx's Medication Instructions Recorded Potassium Chloride [Klor-Con 20] 20 meq PO DAILY 30 Days #30 tab 05/04/20 Sodium Bicarbonate Tab 650 mg PO BID #60 tab 06/16/20 Allergies Allergy/AdvReac Type Severity Reaction Status Date / Time No Known Allergies Allergy Verified 01/16/21 11:11 Review of Systems ROS Statement: Those systems with pertinent positive or pertinent negative responses have been documented in the HPI. ROS Other: All systems not noted in ROS Statement are negative. Past Medical History Past Medical History: Fibromyalgia, Memory Impairment, Respiratory Disorder, Rheumatoid Arthritis (RA), Syncope Additional Past Medical History / Comment(s): DUMPING SYNDROME, DDD, broncitis History of Any Multi-Drug Resistant Organisms: None Reported Past Surgical History: Adenoidectomy, Appendectomy, Bowel Resection, Cholecystectomy, Joint Replacement, Tonsillectomy, Tubal Ligation Additional Past Surgical History / Comment(s): RT TKA COLONOSCOPY TILT TABLE TEST, D & C. Gastric Bypass - 30 years ago Past Anesthesia/Blood Transfusion Reactions: No Reported Reaction Past Psychological History: Depression, Panic Disorder Smoking Status: Never smoker Past Alcohol Use History: None Reported Past Drug Use History: None Reported - Past Family History Father Family Medical History: Cancer Sister(s) Family Medical History: Cancer Mother Family Medical History: Deep Vein Thrombosis (DVT) General Exam - General Exam Comments Initial Comments: This is a well-developed sec appearing female who is awake but lethargic she does follow commands Limitations: altered mental status General appearance: alert, in no apparent distress Head exam: Present: atraumatic, normocephalic, normal inspection Eye exam: Present: normal appearance, PERRL, EOMI. Absent: scleral icterus, conjunctival injection, periorbital swelling ENT exam: Present: mucous membranes dry Neck exam: Present: normal inspection. Absent: tenderness, meningismus, lymphadenopathy Respiratory exam: Present: normal lung sounds bilaterally. Absent: respiratory distress, wheezes, rales, rhonchi, stridor Cardiovascular Exam: Present: regular rate, normal rhythm, normal heart sounds. Absent: systolic murmur, diastolic murmur, rubs, gallop, clicks GI/Abdominal exam: Present: soft, normal bowel sounds. Absent: distended, tenderness, guarding, rebound, rigid Extremities exam: Present: normal inspection, full ROM, normal capillary refill. Absent: tenderness, pedal edema, joint swelling, calf tenderness Back exam: Present: normal inspection Neurological exam: Present: alert, altered, CN II-XII intact Psychiatric exam: Present: normal affect, normal mood Skin exam: Present: warm, dry, intact, normal color. Absent: rash Course Vital Signs 01/16/21 01/16/21 01/16/21 09:43 10:13 10:48 Temperature 98.1 F Pulse Rate 96 92 Respiratory 23 23 18 Rate Blood Pressure 131/71 128/57 O2 Sat by Pulse 97 97 Oximetry 01/16/21 11:13 Temperature 97.8 F Pulse Rate 93 Respiratory 20 Rate Blood Pressure 112/61 O2 Sat by Pulse 97 Oximetry - Reevaluation(s) Reevaluation #1: 01/16/21 12:07 Patient did feel improved after the 1500 mL of urine was removed Medical Decision Making - Medical Decision Making I did discuss findings with the patient family as well as with Dr. Mcgovern. Patient be admitted he does demonstrate evidence of acute dehydration acute ki dney injury hypomagnesemia hypocalcemia hypernatremia microscopic hematuria - Lab Data Result diagrams: 01/16/21 10:05 01/16/21 10:05 Lab Results 01/16/21 01/16/21 01/16/21 Range/Units 09:42 10:05 10:05 WBC 10.1 (3.8-10.6) k/uL RBC 4.05 (3.80-5.40) m/uL Hgb 11.9 (11.4-16.0) gm/dL Hct 40.0 (34.0-46.0) % MCV 98.8 (80.0-100.0) fL MCH 29.5 (25.0-35.0) pg MCHC 29.9 L (31.0-37.0) g/dL RDW 15.5 (11.5-15.5) % Plt Count 253 (150-450) k/uL MPV 8.0 Neutrophils % 72 % Lymphocytes % 16 % Monocytes % 6 % Eosinophils % 3 % Basophils % 1 % Neutrophils # 7.3 (1.3-7.7) k/uL Lymphocytes # 1.6 (1.0-4.8) k/uL Monocytes # 0.6 (0-1.0) k/uL Eosinophils # 0.3 (0-0.7) k/uL Basophils # 0.1 (0-0.2) k/uL Hypochromasia Marked Poikilocytosis Slight Macrocytosis Slight Sodium (137-145) mmol/L Potassium (3.5-5.1) mmol/L Chloride (98-107) mmol/L Carbon Dioxide (22-30) mmol/L Anion Gap mmol/L BUN (7-17) mg/dL Creatinine (0.52-1.04) mg/dL Est GFR (CKD-EPI)AfAm (>60 ml/min/1.73 sqM) Est GFR (CKD-EPI)NonAf (>60 ml/min/1.73 sqM) Glucose (74-99) mg/dL POC Glucose (mg/dL) 104 H (75-99) mg/dL POC Glu Auth Specialist ID Iza Holman Plasma Lactic Acid Adriano (0.7-2.0) mmol/L Calcium (8.4-10.2) mg/dL Magnesium (1.6-2.3) mg/dL Total Bilirubin (0.2-1.3) mg/dL AST (14-36) U/L ALT (4-34) U/L Alkaline Phosphatase (38-126) U/L Creatine Kinase (30-135) U/L Troponin I (0.000-0.034) ng/mL Total Protein (6.3-8.2) g/dL Albumin (3.5-5.0) g/dL Urine Color Light Yellow Urine Appearance Cloudy H (Clear) Urine pH 5.5 (5.0-8.0) Ur Specific [place] 1.009 (1.001-1.035) Urine Protein 1+ H (Negative) Urine Glucose (UA) Negative (Negative) Urine Ketones Negative (Negative) Urine Blood Large H (Negative) Urine Nitrite Negative (Negative) Urine Bilirubin Negative (Negative) Urine Urobilinogen <2.0 (<2.0) mg/dL Ur Leukocyte Esterase Negative (Negative) Urine RBC >182 H (0-5) /hpf Urine WBC 15 H (0-5) /hpf Ur Squamous Epith Cells <1 (0-4) /hpf Urine Bacteria Few H (None) /hpf Urine Mucus Rare H (None) /hpf 01/16/21 01/16/21 01/16/21 Range/Units 10:05 10:05 10:05 WBC (3.8-10.6) k/uL RBC (3.80-5.40) m/uL Hgb (11.4-16.0) gm/dL Hct (34.0-46.0) % MCV (80.0-100.0) fL MCH (25.0-35.0) pg MCHC (31.0-37.0) g/dL RDW (11.5-15.5) % Plt Count (150-450) k/uL MPV Neutrophils % % Lymphocytes % % Monocytes % % Eosinophils % % Basophils % % Neutrophils # (1.3-7.7) k/uL Lymphocytes # (1.0-4.8) k/uL Monocytes # (0-1.0) k/uL Eosinophils # (0-0.7) k/uL Basophils # (0-0.2) k/uL Hypochromasia Poikilocytosis Macrocytosis Sodium 147 H (137-145) mmol/L Potassium 3.9 (3.5-5.1) mmol/L Chloride 121 H (98-107) mmol/L Carbon Dioxide <5 L* (22-30) mmol/L Anion Gap mmol/L BUN 71 H (7-17) mg/dL Creatinine 3.07 H (0.52-1.04) mg/dL Est GFR (CKD-EPI)AfAm 17 (>60 ml/min/1.73 sqM) Est GFR (CKD-EPI)NonAf 15 (>60 ml/min/1.73 sqM) Glucose 94 (74-99) mg/dL POC Glucose (mg/dL) (75-99) mg/dL POC Glu Auth Specialist ID Plasma Lactic Acid Adriano 0.7 (0.7-2.0) mmol/L Calcium 5.4 L* (8.4-10.2) mg/dL Magnesium 1.2 L (1.6-2.3) mg/dL Total Bilirubin 0.3 (0.2-1.3) mg/dL AST 24 (14-36) U/L ALT 14 (4-34) U/L Alkaline Phosphatase 230 H (38-126) U/L Creatine Kinase 49 (30-135) U/L Troponin I <0.012 (0.000-0.034) ng/mL Total Protein 7.4 (6.3-8.2) g/dL Albumin 4.1 (3.5-5.0) g/dL Urine Color Urine Appearance (Clear) Urine pH (5.0-8.0) Ur Specific [place] (1.001-1.035) Urine Protein (Negative) Urine Glucose (UA) (Negative) Urine Ketones (Negative) Urine Blood (Negative) Urine Nitrite (Negative) Urine Bilirubin (Negative) Urine Urobilinogen (<2.0) mg/dL Ur Leukocyte Esterase (Negative) Urine RBC (0-5) /hpf Urine WBC (0-5) /hpf Ur Squamous Epith Cells (0-4) /hpf Urine Bacteria (None) /hpf Urine Mucus (None) /hpf - EKG Data -: EKG Interpreted by Me EKG shows normal: sinus rhythm EKG Comments: Sinus rhythm 95. Interval 162 QRS 92 QT since QTC 404/[address] configuration prolonged QT - Radiology Data Radiology results: report reviewed (Imaging reviewed no acute findings), image reviewed Critical Care Time Critical Care Time: Yes Total Critical Care Time: 37 Critical Care Time: Critical care time includes initial presentation with history physical labs x- rays discussed with paramedics upon arrival review of old charting was available discussed with the patient family regarding findings discussed with the admitting physician admission orders and documentation the above Disposition Clinical Impression: Acute kidney injury, Dehydration, Hypomagnesemia syndrome, Hypocalcemia, Acute urinary retention, Metabolic acidosis, Hypernatremia Disposition: ADMITTED IP TO THIS [facility] Condition: Fair Referrals: Eldon Murillo MD [Primary Care Provider] - 1-2 days
[2021-01-16 10:16] LABS: Basophils # (A) 0.1 k/uL (0-0.2); Basophils % (A) 1 %; Eosinophils # (A) 0.3 k/uL (0-0.7); Eosinophils % (A) 3 %; HGB 11.9 gm/dL (11.4-16.0); Hypochromasia Marked; Lymphocytes # (A) 1.6 k/uL (1.0-4.8); Lymphocytes % (A) 16 %; MCH 29.5 pg (25.0-35.0); MCHC 29.9 g/dL (31.0-37.0); MCV 98.8 fL (80.0-100.0); Macrocytosis Slight; Monocytes # (A) 0.6 k/uL (0-1.0); Monocytes % (A) 6 %; Neutrophils # (A) 7.3 k/uL (1.3-7.7); Neutrophils % (A) 72 %; Platelet Count 253 k/uL (150-450); Poikilocytosis Slight; RBC 4.05 m/uL (3.80-5.40); RDW 15.5 % (11.5-15.5); WBC 10.1 k/uL (3.8-10.6)
[2021-01-16 10:29] LABS: ALT 14 U/L (4-34); AST 24 U/L (14-36); African American GFR (CKD) 17 (>60 ml/min/1.73 sqM); Albumin 4.1 g/dL (3.5-5.0); Alkaline Phosphatase 230 U/L (38-126); Appearance,Urine Cloudy (Clear); Bacteria,Urine Few /hpf; Bilirubin,Urine Negative (Negative); Blood Urea Nitrogen 71 mg/dL (7-17); Blood,Urine Large (Negative); Chloride 121 mmol/L (98-107); Color,Urine Light Yellow; Creatine Kinase 49 U/L (30-135); Glucose 94 mg/dL (74-99); Glucose,Urine (UA) Negative (Negative); Ketones,Urine Negative (Negative); Leukocyte Esterase,Urine Negative (Negative); Magnesium 1.2 mg/dL (1.6-2.3); Mucus,Urine Rare /hpf; Nitrite,Urine Negative (Negative); Non-African American GFR(CKD) 15 (>60 ml/min/1.73 sqM); PH, Urine 5.5 (5.0-8.0); Potassium 3.9 mmol/L (3.5-5.1); Protein,Urine 1+ (Negative); RBC,Urine >182 /hpf (0-5); Sodium 147 mmol/L (137-145); Specific Gravity,Urine 1.009 (1.001-1.035); Squamous Epithelial Cell,Urine <1 /hpf (0-4); Total Bilirubin 0.3 mg/dL (0.2-1.3); Total Protein 7.4 g/dL (6.3-8.2); Urobilinogen,Urine <2.0 mg/dL (<2.0); WBC,Urine 15 /hpf (0-5)
--- NOTE | 2021-01-16 10:36 | XR ---
EXAMINATION TYPE: XR chest 2V DATE OF EXAM: 01/16/2021 COMPARISON: Chest x-ray 06/13/2020 HISTORY: Distended abdomen, weakness TECHNIQUE: Frontal and lateral views of the chest are obtained. FINDINGS: Patient is rotated. There are overlying leads. There is no focal air space opacity, pleura l effusion, or pneumothorax seen. The cardiac silhouette size is within normal limits. The osseous structures are intact. IMPRESSION: No acute cardiopulmonary process.
--- NOTE | 2021-01-16 10:38 | XR ---
KUB HISTORY: Distended abdomen weakness Single frontal KUB Surgical sutures present, there are clips in the right upper quadrant. There are gas filled loops of small and large bowel present. No evident pneumoperitoneum or pathologic calcification. Bone minerali zation is normal. IMPRESSION: Postop changes. Nonspecific findings, follow-up as indicated.
[2021-01-16 10:48] LABS: Calcium 5.4 mg/dL (8.4-10.2)
[2021-01-16 10:49] LABS: Carbon Dioxide <5 mmol/L (22-30)
[2021-01-16] MEDS: MAGNESIUM SULFATE-D5W PMX 1 GM in DEXTROSE/WATER 1 100ML.BAG IVPB SCH ×2 (12:10→13:30)
[2021-01-16] MEDS ORDERED: ACETAMINOPHEN TAB 325 MG TAB PO PRN (12:12)
[2021-01-16] MEDS ORDERED: NALOXONE 0.4 MG/ML 1 ML VIAL IV PRN (12:12)
[2021-01-16] MEDS ORDERED: ALPRAZolam 0.25 MG TAB PO PRN (19:55)
[2021-01-16] MEDS ORDERED: HYDROcodone/APAP 5-325MG 1 EACH TAB PO PRN (19:55)
[2021-01-16] MEDS ORDERED: Magnesium Replacement Protocol 1 EACH MISC MISCELLANE PRN (19:55)
[2021-01-16 20:51] LABS: Basophils # (A) 0.1 k/uL (0-0.2); Basophils % (A) 0 %; Eosinophils # (A) 0.2 k/uL (0-0.7); Eosinophils % (A) 2 %; HCT 37.9 % (34.0-46.0); HGB 11.1 gm/dL (11.4-16.0); Hypochromasia Marked; Lymphocytes # (A) 1.3 k/uL (1.0-4.8); Lymphocytes % (A) 11 %; MCH 28.9 pg (25.0-35.0); MCHC 29.3 g/dL (31.0-37.0); MCV 98.4 fL (80.0-100.0); Macrocytosis Slight; Mean Platelet Volume 8.5; Monocytes # (A) 0.5 k/uL (0-1.0); Monocytes % (A) 4 %; Neutrophils # (A) 10.3 k/uL (1.3-7.7); Neutrophils % (A) 82 %; Platelet Count 218 k/uL (150-450); Poikilocytosis Slight; RBC 3.86 m/uL (3.80-5.40); RDW 15.5 % (11.5-15.5); WBC 12.6 k/uL (3.8-10.6)
--- NOTE | 2021-01-16 21:08 | CT ---
EXAMINATION TYPE: CT brain wo con DATE OF EXAM: 01/16/2021 COMPARISON: 04/29/2020 HISTORY: Altered mental status. CT DLP: 1202.4 mGycm Automated exposure control for dose reduction was used. Images obtained of the brain without contrast. Ventricles and sulci appear normal. There is no mass e ffect nor midline shift. There is no sign of intracranial hemorrhage. Calvarium is intact. Skull base is intact. There is normal aeration of the mastoid air cells. IMPRESSION: Negative unenhanced head CT scan.
[2021-01-16 21:10] LABS: ALT 12 U/L (4-34); AST 18 U/L (14-36); African American GFR (CKD) 18 (>60 ml/min/1.73 sqM); Albumin 3.5 g/dL (3.5-5.0); Alkaline Phosphatase 223 U/L (38-126); Blood Urea Nitrogen 63 mg/dL (7-17); Chloride 124 mmol/L (98-107); Glucose 99 mg/dL (74-99); Non-African American GFR(CKD) 15 (>60 ml/min/1.73 sqM); Potassium 3.6 mmol/L (3.5-5.1); Sodium 147 mmol/L (137-145); Total Bilirubin <0.1 mg/dL (0.2-1.3); Total Protein 6.7 g/dL (6.3-8.2)
[2021-01-16 21:17] LABS: Carbon Dioxide <5 mmol/L (22-30)
[2021-01-16 21:19] LABS: Calcium 5.4 mg/dL (8.4-10.2)
[2021-01-16] MEDS ORDERED: CALCIUM GLUCONATE 1 GM in SODIUM CHLORIDE 0.9% 100 ML IVPB ONE (21:45)
[2021-01-16] MEDS: FOLIC ACID 1 MG TAB PO SCH (22:58)
[2021-01-16] MEDS: BACLOFEN 10 MG TAB PO SCH ×2 (22:58→23:03)
[2021-01-16] MEDS: diphenhydrAMINE 50 MG CAP PO SCH (22:58)
[2021-01-16] MEDS: CITALOPRAM HYDROBROMIDE 20 MG TAB PO SCH (22:58)
[2021-01-16] MEDS: MELATONIN 5 MG TABLET PO SCH (22:59)
[2021-01-16] MEDS: SODIUM BICARBONATE TAB 650 MG TAB PO SCH (22:59)
[2021-01-16] MEDS: ZOLPIDEM 10 MG TAB PO SCH (22:59)
[2021-01-16] MEDS: PANTOPRAZOLE 40 MG/10 ML VIAL IVP SCH (23:03)
[2021-01-16] MEDS: HEPARIN SODIUM,PORCINE/PF 5,000 UNIT/0.5 ML SYRINGE SQ SCH (23:03)
--- NOTE | 2021-01-16 23:49 | HP ---
HISTORY AND PHYSICAL DATE OF SERVICE: 01/16/2021 CHIEF COMPLAINTS: Weakness and renal failure. HISTORY OF PRESENT ILLNESS: This 70-year-old woman with a past medical history of multiple medical problems including fibromyalgia, history of memory impairment, history of rheumatoid arthritis, syncope, history of dumping syndrome, being followed by Dr. Murillo in the outpatient setting is complaining of generalized level of activity, weakness and some confusion. The patient has frequent UTIs. Apparently the family was doing some vitamin water regimen. The patient was found to have significant renal failure. Patient admitted to the hospital for further evaluation and treatment. Patient has significant dehydration, present on admission, also. The patient unable to provide a coherent history. Most of the history is taken from my discussion with the staff and as well as review of the chart at this time. The patient also had a chest x-ray which was reviewed personally by me showed no acute abnormality. The creatinine was found to be 3.07 and CO2 was less than 5, sodium is 147. UA shows mostly RBCs. The creatinine kinase is normal at 49. There is no history of trauma. PAST MEDICAL HISTORY: Fibromyalgia, memory impairment, history of rheumatoid arthritis, syncope. MEDICATIONS: Prior to admission include home medications are: Vitamin B12, Benadryl, Motrin, Lasix, Ambien, sodium bicarb, Klor-Con, melatonin, folic acid, Celexa, calcium carbonate, Lioresal. ALLERGIES: None. Family history and social history could not be taken. REVIEW OF SYSTEMS: Could not be taken. PHYSICAL EXAMINATION: Patient is conscious, confused, nonverbal and confused. Pulse 95, blood pressure 112/59, respirations 22, temperature 97.9, pulse ox 94% on room air. HEENT: Conjunctivae normal. Oral mucosa severely dry. NECK is no JVD. No carotid bruit. Cardiovascular system: S1, S2 muffled. No S3, no S4. RESPIRATION: Breath sounds diminished in the bases. A few scattered rhonchi. ABDOMEN: Soft. Nontender. No mass palpable. LEGS: No edema. No swelling. NERVOUS SYSTEM: Diffusely weak. SKIN: No ulcer, no rash and no bleeding. JOINTS: No active deforming arthropathy. LAB: WBC 10.9, hemoglobin 11.9, sodium 147, potassium 3.9. Other labs are noted. ASSESSMENT: 1. Acute renal failure with acute tubular necrosis secondary to possible dehydration. 2. Severe metabolic acidosis secondary to renal failure. 3. Hypernatremia. 4. Hypocalcemia. 5. Hypomagnesemia. 6. History of fibromyalgia. 7. History of memory impairment. 8. History of rheumatoid arthritis. 9. Syncope. 10.History of dumping syndrome. 11.History of bronchitis. 12.History of degenerative joint disease. 13.History of bowel resection. 14.History of cholecystectomy. 15.History of depression. 16.History of panic disorder. 17.FULL CODE. RECOMMENDATIONS AND DISCUSSION: This 70-year-old woman who presented with multiple complex medical issues, we will monitor the patient closely, continue the current medications, and symptomatic treatment. We will initiate IV fluids. Obtain the cultures. I would also recommend a CT scan of the brain. Nephrology evaluation. Guarded prognosis because of multiple complex medical issues. Further recommendations to follow. We will resume the home medications. Avoid nephrotoxic medications. Exact etiology of renal failure is unknown at this time. Further recommendations to follow. p.o. sodium bicarb was also given. We will repeat labs also at this time on a stat basis and continue to monitor. Prognosis guarded. A copy of dictation being forwarded to Dr. Murillo who is the primary physician. MMODL / REAGANN: [id number] /
[2021-01-17 07:47] LABS: ALT 11 U/L (4-34); AST 18 U/L (14-36); African American GFR (CKD) 16 (>60 ml/min/1.73 sqM); Albumin 3.3 g/dL (3.5-5.0); Alkaline Phosphatase 206 U/L (38-126); Blood Urea Nitrogen 62 mg/dL (7-17); Chloride 128 mmol/L (98-107); Glucose 88 mg/dL (74-99); Magnesium 1.5 mg/dL (1.6-2.3); Non-African American GFR(CKD) 14 (>60 ml/min/1.73 sqM); Potassium 3.6 mmol/L (3.5-5.1); Sodium 150 mmol/L (137-145); Total Bilirubin 0.1 mg/dL (0.2-1.3); Total Protein 6.1 g/dL (6.3-8.2)
[2021-01-17 07:56] LABS: Calcium 5.4 mg/dL (8.4-10.2); Carbon Dioxide <5 mmol/L (22-30)
[2021-01-17] MEDS ORDERED: DEXTROSE 5% IN WATER 1,000 ML with SODIUM BICARB (1 MEQ/ML) 150 ML IV SCH (08:15)
[2021-01-17] MEDS ORDERED: CALCIUM GLUCONATE 2 GM in SODIUM CHLORIDE 0.9% 100 ML IVPB ONE (08:42)
[2021-01-17] MEDS ORDERED: DEXTROSE 5% IN WATER 1,000 ML IV SCH (08:45)
[2021-01-17] MEDS: HEPARIN SODIUM,PORCINE/PF 5,000 UNIT/0.5 ML SYRINGE SQ SCH ×2 (10:43→22:28)
[2021-01-17] MEDS ORDERED: Magnesium Replacement Protocol 1 EACH MISC MISCELLANE PRN (10:52)
[2021-01-17] MEDS: BACLOFEN 10 MG TAB PO SCH ×3 (10:56→22:09)
[2021-01-17] MEDS: CALCIUM CARB-VIT D 500 MG-5 MCG TAB PO SCH (10:56)
[2021-01-17] MEDS: SODIUM BICARBONATE TAB 650 MG TAB PO SCH ×2 (10:57→22:02)
[2021-01-17] MEDS: POTASSIUM CHLORIDE ER 20 MEQ TAB.ER PO SCH (10:57)
[2021-01-17] MEDS: CYANOCOBALAMIN 500 MCG TAB PO SCH (10:57)
[2021-01-17 11:35] LABS: INR 4.1 (<1.2); Prothrombin Time 39.6 sec (9.0-12.0)
[2021-01-17 11:49] LABS: C Reactive Protein 5.8 mg/dL (<1.0)
[2021-01-17 12:08] LABS: ABG Base Excess -26.7 mmol/L; ABG Oxygen Saturation 93.9 % (94-97); ABG PCO2 22 mmHg (35-45); ABG PO2 95 mmHg (83-108); ABG TCO2 6 mmol/L (19-24); Allen Test Performed? Yes
[2021-01-17 12:12] LABS: ABG HCO3 5 mmol/L (21-25); ABG PH 6.97 (7.35-7.45)
--- NOTE | 2021-01-17 13:12 | CONS ---
CONSULTATION REASON FOR CONSULT: Renal failure. HISTORY OF PRESENT ILLNESS: The patient is a 70-year-old female who has a previous history of dumping syndrome and previous episodes of volume depletion. She also has underlying dementia, fibromyalgia, rheumatoid arthritis. The patient was brought in by her as she had become significantly weak and was not communicating much. She has had loose bowel movements. No prior history of significant kidney disease. She was noted to be severely acidotic with the serum CO2 of less than 5. Sodium was elevated at 147. The patient's blood pressure was on the lower side, systolic around 119-112 mmHg. Serum creatinine was 2.97, it has increased to 3.2 today. Review of previous lab shows creatinine 1.3 on 09/14/2020. Currently patient is not communicating much. She is not eating much as well. PAST MEDICAL HISTORY: Dumping syndrome, history of UTIs, fibromyalgia, rheumatoid arthritis, syncope, bronchitis, dementia. PAST SURGICAL HISTORY: Appendectomy, adenoidectomy, bowel resection, cholecystectomy, tonsillectomy, tubal ligation, right total knee arthroplasty, colonoscopy, D and C, gastric bypass surgery. SOCIAL HISTORY: Negative for smoking, drug abuse or alcohol abuse. MEDICATIONS: Medications prior to admission included folic acid, baclofen, Celexa, melatonin, Ambien, calcium, Lasix, Motrin, Benadryl, vitamin B12, potassium, sodium bicarb. ALLERGIES: NONE. REVIEW OF SYSTEMS: As per HPI. Other systems negative. EXAMINATION: Patient is comfortable. She is not in any acute distress. Does not communicate much. Blood pressure is 116/64, heart rate 105 per minute, she is afebrile. Examination of the heart S1, S2. Examination of the lungs, decreased breath sounds at the bases. Abdomen is soft, nontender. Examination lower extremities shows no significant edema. ILLUMINATOR exam shows patient is lethargic. She does not communicate much. LAB: Show sodium of 150 today, potassium 3.6, CO2 less than 5, chloride 128, BUN 62, creatinine 3.23, hemoglobin 11.1 g/dL. ASSESSMENT: 1. Acute kidney injury secondary to volume depletion, possible component of acute tubular necrosis as well, currently with Mcdaniel catheter which showed about 1500 mL. I am not sure if that was initial amount obtained on Mcdaniel catheter placement which might indicate an element of urine retention as well. 2. Severe metabolic acidosis secondary to gastrointestinal fluid loss and renal failure, start bicarb drip. 3. Hypernatremia associated with free water deficit. 4. Mental status changes secondary to hypernatremia as well as severe acidosis and underlying urinary tract infection. Urine culture is currently pending. 5. History of dumping syndrome. 6. Hypocalcemia. Rule out vitamin D deficiency. PLAN: Start bicarb drip, add D5W as well separately, 1 amp of calcium gluconate now. Check 25 hydroxy vitamin D level. Monitor potassium and repeat labs in a.m. Check ultrasound of the kidneys. Follow up on urine cultures. Thank you for this consultation. Will continue to follow the patient with you during her hospitalization. MMODL / IJN: [id number] /
[2021-01-17] MEDS: MAGNESIUM SULFATE-D5W PMX 1 GM in DEXTROSE/WATER 1 100ML.BAG IVPB SCH ×2 (13:15→16:07)
--- NOTE | 2021-01-17 14:13 | US ---
EXAMINATION TYPE: US kidneys/renal and bladder DATE OF EXAM: 01/17/2021 COMPARISON: US 07/17/2020 CLINICAL HISTORY: RF. Renal failure EXAM MEASUREMENTS: Right Kidney: 9.6 x 5.2 x 4.2 cm Left Kidney: 9.5 x 5.0 x 3.5 cm Right Kidney: No hydronephrosis or masses seen Left Kidney: No hydronephrosis or masses seen Bladder: Not distended, patient has alanis Cortical echogenicity is increased. IMPRESSION: Correlate for medical renal disease.
[2021-01-17 16:25] LABS: Ferritin 104.1 ng/mL (10.0-291.0)
--- NOTE | 2021-01-17 18:14 | PN ---
PROGRESS NOTE DATE OF SERVICE: 01/17/2021. This 70-year-old woman who was admitted with acute renal failure also had significant acute metabolic acidosis. The patient continues to be drowsy at this time. A CT of the brain done yesterday showed no acute abnormality. The patient had abdomen bladder ultrasound which showed medical renal disease. The patient continues to be drowsy at this time. The ABG showed pH of 6.97, and as well as CO2 was less than 5 indicating severe metabolic acidosis. INR was elevated at 4.1. PAST MEDICAL HISTORY: Reviewed. REVIEW OF SYSTEMS: Could not be taken, the patient is stuporous. CURRENT MEDICATIONS: Reviewed and include: Tylenol, [place], Xanax, Lioresal, Os-Tera, Celexa, vitamin B12, folic acid, Narcan, bicarb drip, Ambien. PHYSICAL EXAMINATION: Patient is stuporous. Pulse is 101. Blood pressure 120/74, respiration 18, temperature normal. Pulse ox 94% on room air. HEENT: Conjunctivae normal. NECK: No JVD. CARDIOVASCULAR: S1, S2 muffled. RESPIRATORY: Breath sounds diminished in the bases. A few scattered rhonchi. ABDOMEN: Soft, nontender. LEGS: No edema. No swelling. NERVOUS SYSTEM: Diffusely weak. LABS: WBC 12.6. ABGs noted. Sodium 150, and C-reactive protein is 5.8. UA noted. ASSESSMENT: 1. Acute renal failure with acute tubular necrosis secondary to possible dehydration. 2. Severe metabolic acidosis secondary to renal failure. 3. Change in mental status, acute metabolic encephalopathy multifactorial. 4. Hypernatremia. 5. Hypocalcemia. 6. Elevated inflammatory markers, rule out sepsis. 7. Hypomagnesemia. 8. History of fibromyalgia. 9. History of memory impairment. 10.History of rheumatoid arthritis. 11.Syncope. 12.History of dumping syndrome. 13.History of bronchitis. 14.History of degenerative joint disease. 15.History of bowel resection. 16.History of cholecystectomy. 17.History of depression. 18.History of panic disorder. 19.FULL CODE. RECOMMENDATIONS AND DISCUSSION: Recommend to continue current medications, symptomatic treatment. Recommend follow with Nephrology who is planning a bicarb drip at this time. Monitor bicarb closely. Recommend pulmonary/ Critical Care consultation. I would also recommend empiric antibiotics. I would also obtain a procalcitonin level as well. Overall prognosis guarded because of multiple complex medical issues and the lytes will be replaced and reviewed. Further recommendations to follow. A copy of this dictation is being forwarded to Dr. Murillo. Discussed with at the bedside. MMJACKIEL / IJN: [id number] /
[2021-01-17 18:54] LABS: Glucose,Whole Blood 158 mg/dL (75-99)
[2021-01-17] MEDS ORDERED: SODIUM BICARB 8.4% 50 ML SYR (1 MEQ/ML) IV STA (18:56)
[2021-01-17 19:00] LABS: ABG PCO2 25 mmHg (35-45); ABG PO2 62 mmHg (83-108); ABG TCO2 8 mmol/L (19-24); Allen Test Performed? Yes
[2021-01-17 19:07] LABS: ABG HCO3 8 mmol/L (21-25)
--- NOTE | 2021-01-17 19:11 | P.PN ---
Progress Note - Text Progress Note Date: 01/17/21 70-year-old woman who is admitted for multiple metabolic arrangements and encephalopathy. I was consulted to bedside for a rapid response. Patient is encephalopathic, not interactive to verbal stimulus. She does appear to track. She does not follow commands. She does withdraw to pain in all 4 extremities, localizes in the upper extremities. Review of her lab work demonstrates multiple metabolic arrangements including hypocalcemia and hypomagnesemia, hypernatremia, acute kidney injury. Review of previous ABG demonstrated pH of 6.97, bicarb less than 5, pCO2 of 22. Patient's vital signs are stable and she was saturating well and [address] cannula[address] of the head which was done on admission was negative for acute hemorrhagic stroke. Gen: awake, withdraws to pain, nonverbal HEENT: normocephalic, atraumatic, , dry mucous membranes Resp: good air exchange, breathing comfortably with no accessory muscle use CVS: good distal perfusion x 4, GI: soft, NTTP, ND : no SPT, no CVAT, alanis catheter is present MSK: no pitting edema, no clubbing Neuro: Withdraws to pain, localizes in upper extremities Assessment, plan: -Repeat ABG, labs: CBC, BMP, magnesium, hepatic liver function panel, urine electrolytes, UA, urine osmolality, serum osmolality -Push 3 A of bicarb, continue drip -BMP every 4 hours -Patient will be transferred to the ICU for closer monitoring I spent 15 minutes of critical care time in this patient
[2021-01-17 19:12] LABS: Glucose,Whole Blood 150 mg/dL (75-99)
[2021-01-17 19:27] LABS: Basophils % (A) 0 %; Eosinophils # (A) 0.1 k/uL (0-0.7); Eosinophils % (A) 1 %; Hypochromasia Moderate; Lymphocytes # (A) 0.7 k/uL (1.0-4.8); Lymphocytes % (A) 10 %; MCHC 32.2 g/dL (31.0-37.0); Mean Platelet Volume 9.8; Monocytes # (A) 0.4 k/uL (0-1.0); Monocytes % (A) 5 %; Neutrophils # (A) 6.1 k/uL (1.3-7.7); Neutrophils % (A) 82 %; Platelet Count 184 k/uL (150-450); Poikilocytosis Slight; WBC 7.4 k/uL (3.8-10.6)
[2021-01-17 19:38] LABS: HGB 8.7 gm/dL (11.4-16.0)
[2021-01-17 19:39] LABS: MCV 93.3 fL (80.0-100.0)
[2021-01-17 20:04] LABS: Albumin 2.6 g/dL (3.5-5.0); Magnesium 1.9 mg/dL (1.6-2.3); Potassium 2.9 mmol/L (3.5-5.1); Total Protein 4.9 g/dL (6.3-8.2)
[2021-01-17 20:37] LABS: ABG Base Excess -15.3 mmol/L; ABG HCO3 12 mmol/L (21-25); ABG Oxygen Saturation 96.6 % (94-97); ABG PCO2 28 mmHg (35-45); ABG PH 7.25 (7.35-7.45); ABG PO2 132 mmHg (83-108); ABG TCO2 13 mmol/L (19-24); Allen Test Performed? Yes
[2021-01-17 20:56] LABS: Calcium 5.2 mg/dL (8.4-10.2)
[2021-01-17 20:59] LABS: Bilirubin,Unconjugated 0.1 mg/dL (0.0-1.1); Total Bilirubin 0.1 mg/dL (0.2-1.3)
[2021-01-17] MEDS: diphenhydrAMINE 50 MG CAP PO SCH (22:02)
[2021-01-17] MEDS: CITALOPRAM HYDROBROMIDE 20 MG TAB PO SCH (22:02)
[2021-01-17] MEDS: FOLIC ACID 1 MG TAB PO SCH (22:02)
[2021-01-17] MEDS ORDERED: PHYTONADIONE 10 MG in SODIUM CHLORIDE 0.9% 50 ML IVPB ONE (22:15)
[2021-01-17 22:26] LABS: Glucose,Whole Blood 137 mg/dL (75-99)
[2021-01-17] MEDS: INSULIN ASPART (NovoLOG) 100 UNIT/ML VIAL SQ SCH (22:26)
[2021-01-17] MEDS: PANTOPRAZOLE 40 MG/10 ML VIAL IVP SCH (22:28)
[2021-01-17 22:34] LABS: Appearance,Urine Turbid (Clear); Bacteria,Urine Few /hpf; Bilirubin,Urine Negative (Negative); Blood,Urine Large (Negative); Color,Urine Light Yellow; Glucose,Urine (UA) Negative (Negative); Ketones,Urine Negative (Negative); Leukocyte Esterase,Urine Large (Negative); Mucus,Urine Rare /hpf; Nitrite,Urine Negative (Negative); Protein,Urine 1+ (Negative); RBC,Urine >182 /hpf (0-5); Specific Gravity,Urine 1.013 (1.001-1.035); Squamous Epithelial Cell,Urine 1 /hpf (0-4); Urobilinogen,Urine <2.0 mg/dL (<2.0); WBC,Urine >182 /hpf (0-5)
[2021-01-17 22:45] LABS: Creatinine,Urine Random 24.2 mg/dL
[2021-01-17] MEDS ORDERED: CALCIUM GLUCONATE 1 GM in SODIUM CHLORIDE 0.9% 100 ML IVPB ONE (23:00)
[2021-01-17] MEDS: SODIUM CHLORIDE 0.45% 1,000 ML IV SCH (23:02)
[2021-01-17] MEDS: POTASSIUM CHLORIDE 10 MEQ in WATER FOR INJECTION 1 100ML.BAG IVPB SCH (23:09)
[2021-01-18] MEDS: POTASSIUM CHLORIDE 10 MEQ in WATER FOR INJECTION 1 100ML.BAG IVPB SCH ×9 (00:24→12:45)
[2021-01-18 00:32] LABS: Basophils # (A) 0.1 k/uL (0-0.2); Basophils % (A) 1 %; Eosinophils # (A) 0.1 k/uL (0-0.7); Eosinophils % (A) 1 %; HCT 30.1 % (34.0-46.0); HGB 9.6 gm/dL (11.4-16.0); Hypochromasia Moderate; Lymphocytes # (A) 0.7 k/uL (1.0-4.8); Lymphocytes % (A) 8 %; MCH 29.9 pg (25.0-35.0); MCHC 31.8 g/dL (31.0-37.0); Mean Platelet Volume 8.3; Monocytes # (A) 0.5 k/uL (0-1.0); Monocytes % (A) 5 %; Neutrophils # (A) 7.3 k/uL (1.3-7.7); Neutrophils % (A) 83 %; Platelet Count 226 k/uL (150-450); Poikilocytosis Slight; RBC 3.21 m/uL (3.80-5.40); RDW 15.9 % (11.5-15.5); WBC 8.9 k/uL (3.8-10.6)
[2021-01-18 00:39] LABS: INR 2.3 (<1.2); Prothrombin Time 22.1 sec (9.0-12.0)
[2021-01-18 00:47] LABS: Potassium 2.8 mmol/L (3.5-5.1)
[2021-01-18 00:59] LABS: Calcium 5.6 mg/dL (8.4-10.2)
[2021-01-18] MEDS: INSULIN ASPART (NovoLOG) 100 UNIT/ML VIAL SQ SCH ×4 (06:41→20:47)
[2021-01-18 06:45] LABS: Basophils # (A) 0.1 k/uL (0-0.2); Basophils % (A) 1 %; Eosinophils # (A) 0.2 k/uL (0-0.7); Eosinophils % (A) 3 %; HCT 27.6 % (34.0-46.0); HGB 8.8 gm/dL (11.4-16.0); Hypochromasia Marked; Lymphocytes % (A) 13 %; MCH 30.3 pg (25.0-35.0); MCHC 31.8 g/dL (31.0-37.0); MCV 95.3 fL (80.0-100.0); Mean Platelet Volume 7.8; Monocytes # (A) 0.5 k/uL (0-1.0); Monocytes % (A) 6 %; Neutrophils % (A) 76 %; Platelet Count 198 k/uL (150-450); Poikilocytosis Slight; RDW 15.7 % (11.5-15.5); WBC 7.9 k/uL (3.8-10.6)
[2021-01-18 07:03] LABS: Albumin 2.6 g/dL (3.5-5.0); Magnesium 1.6 mg/dL (1.6-2.3); Potassium 3.3 mmol/L (3.5-5.1); Total Bilirubin 0.2 mg/dL (0.2-1.3); Total Protein 5.3 g/dL (6.3-8.2)
[2021-01-18 07:27] LABS: Calcium 4.6 mg/dL (8.4-10.2)
[2021-01-18 07:57] LABS: Glucose,Whole Blood 92 mg/dL (75-99)
--- NOTE | 2021-01-18 08:14 | P.CNPUL ---
History of Present Illness Consult date: 01/18/21 Chief complaint: altered mental status History of present illness: This is a 70-year-old female patient's transfers this intensive care unit bec ause of being unresponsive. She was severely metabolic acidotic with serum bicarb of less than 5 and a pH of 6.9. This is a blood. This was done earlier note, I was informed on this patient at around 7 PM and I recommended transferring her to the intensive care unit with severe metabolic derangements. She is known to have dementia, fibromyalgia and rheumatoid arthritis. She apparently also has moderate protein calorie malnutrition, and history of dumping syndrome and frequent UTIs. She apparently became significantly weak and she will indicated. No previous history of kidney disease. She was noted to be severely acidotic. She was in acute kidney injury. There was a concern of an underlying urinary tract infection. Note that the patient was seen by nephrology pressors with admission. Based on the previous bouts. My recommended immediate 3 A of sodium bicarb 50 mEq each and subsequent blood pressure with a pH of 7.25 with a pCO2 of 28 and pO2 of 132. This was on FiO2 of 20%. Most recent electrolytes showed a sodium of 149, potassium of 2.9 chloride of 114 and bicarb 72, BUN was 64.7. Glucose was 396. The patient lactic acid level is down to 0.8. LFTs were normal. Her INR on admission was 4.0 mL of 39. White cell count 7.4 with a hemoglobin of 8.7 and platelets of 184. COVID-19 testing was negative. UA was abnormal. The patient was given IV Rocephin. Currently on D5 bicarb infusion with 150 mEq today tells a decision hours. CAT scan of the brain was negative. The chest x-ray showed no abnormalities Overnight, the patient was given bicarb infusion, mental status gradually started to improve. Sodium came up to 151. I switched her to half-normal sa line which is still running at the rate of 100 mL an hour. Creatinine is down to 2.4. Sodium level is down to 143. Serum bicarb currently is at 11. WBC count is at 7.9 with a hemoglobin of 8.8. Blood sugars under better control. Urine culture is still pending. The patient remains on IV Rocephin. Noted the patient had significant bicarb deficit that was noted at a time of admission and her acidosis is being corrected slowly. Otherwise, I took her off the Ambien, I took of the melatonin, I took her off the Benadryl, the rest of the oral medications can be gradually resumed as long as the patient is showing adequate mentation and adequate ability to swallow. Urine output is in order of 1620 since the patient's arrival tear to the ICU. Review of Systems ROS unobtainable: due to mental status Past Medical History Past Medical History: Fibromyalgia, Memory Impairment, Rheumatoid Arthritis (RA) Additional Past Medical History / Comment(s): DUMPING SYNDROME, DDD, frequent UTI's History of Any Multi-Drug Resistant Organisms: None Reported Past Surgical History: Adenoidectomy, Appendectomy, Bowel Resection, Cholecystectomy, Joint Replacement, Tonsillectomy, Tubal Ligation Additional Past Surgical History / Comment(s): RT TKA COLONOSCOPY TILT TABLE TEST, D & C. Gastric Bypass - 30 years ago Past Anesthesia/Blood Transfusion Reactions: No Reported Reaction Past Psychological History: Depression, Panic Disorder Smoking Status: Never smoker Past Alcohol Use History: None Reported Past Drug Use History: None Reported - Past Family History Father Family Medical History: Cancer Sister(s) Family Medical History: Cancer Mother Family Medical History: Deep Vein Thrombosis (DVT) Medications and Allergies Home Medications Medication Instructions Recorded Confirmed Type Folic Acid 1 mg PO HS 08/29/14 01/16/21 History Baclofen [Lioresal] 20 mg PO TID 10/08/16 01/16/21 History Citalopram Hydrobromide [CeleXA] 40 mg PO HS 10/08/16 01/16/21 History Melatonin 10 mg PO HS 10/08/16 01/16/21 History Zolpidem [Ambien] 10 mg PO HS 04/29/20 01/16/21 History Potassium Chloride [Klor-Con 20] 20 meq PO DAILY 30 Days #30 tab 05/04/20 01/16/21 Rx Calcium Carbonate/Vitamin D3 1 tab PO DAILY 06/13/20 01/16/21 History [Calcium 600-D3 20 mcg (800 Unit)] Sodium Bicarbonate Tab 650 mg PO BID #60 tab 06/16/20 01/16/21 Rx Cyanocobalamin (Vitamin B-12) 5,000 mcg PO DAILY 01/16/21 01/16/21 History [Vitamin B-12] Furosemide [Lasix] 20 mg PO DAILY 01/16/21 01/16/21 History Ibuprofen [Motrin] 800 mg PO Q8H 01/16/21 01/16/21 History diphenhydrAMINE [Benadryl] 150 mg PO HS 01/16/21 01/16/21 History Allergies Allergy/AdvReac Type Severity Reaction Status Date / Time No Known Allergies Allergy Verified 01/16/21 11:11 Physical Exam Vitals: Vital Signs Temp Pulse Pulse Resp BP BP Pulse Ox 01/18/21 07:00 102 H 14 113/60 97 01/18/21 06:30 104 H 17 97 01/18/21 06:00 105 H 14 111/59 96 01/18/21 05:30 105 H 19 96 01/18/21 05:00 105 H 20 101/51 97 01/18/21 04:30 82 22 97 01/18/21 04:00 98.7 F 86 79 19 106/59 97 01/18/21 03:30 84 15 96 01/18/21 03:00 82 17 102/46 97 01/18/21 02:30 85 19 97 01/18/21 02:00 84 23 92/49 96 01/18/21 01:30 83 20 96 01/18/21 01:00 85 21 110/77 96 01/18/21 00:30 87 18 110/77 96 01/18/21 00:00 98.7 F 85 79 14 93/60 97 01/17/21 23:30 85 16 93/60 96 01/17/21 23:01 84 18 103/63 96 01/17/21 23:00 85 17 103/63 96 01/17/21 22:30 85 15 97 01/17/21 22:00 85 24 107/49 96 01/17/21 21:30 86 16 97 01/17/21 21:00 87 16 103/49 97 01/17/21 20:30 87 20 97 01/17/21 20:00 99.2 F 89 22 122/60 98 01/17/21 19:30 92 15 96 01/17/21 19:16 93 17 96 01/17/21 16:00 92 18 112/63 96 01/17/21 14:00 18 01/17/21 12:00 101 H 18 122/74 94 L Intake and Output 01/17/21 01/18/21 01/18/21 22:59 06:59 14:59 Intake Total 1450 100 Output Total 900 720 75 Balance -900 730 25 Intake: Intake, IV Titration 1450 100 Amount Phytonadione 10 mg In 50 Sodium Chloride 0.9% 50 ml @ 100 mls/hr IVPB ONCE ONE Rx#:[id number] Potassium Chloride 10 meq 600 In Water For Injection 1 100ml.bag @ 100 mls/hr IVPB Q1HR [facility] Rx#: [id number] Sodium Chloride 0.45% 1, 800 100 000 ml @ 100 mls/hr IV . Q10H [facility] Rx#:[id number] Output: Urine 900 720 75 Other: Voiding Method Indwelling Catheter Weight 55.8 kg GENERAL: Unresponsive, Appears to be no acute distress. Comfortably sitting up in the bed. at bedside. Head exam was generally normal. There was no scleral icterus or corneal arcus. Mucous membranes were moist. HEENT: Pupils are round and equally reacting to light. EOMI. No scleral icterus. No conjunctival pallor. CARDIOVASCULAR: S1 and S2 present. No murmurs, rubs, or gallops. PULMONARY: Chest is clear to auscultation, no wheezing or crackles. ABDOMEN: Soft, nontender, nondistended, normoactive bowel sounds. No palpable organomegaly. MUSCULOSKELETAL: No joint swelling or deformity. EXTREMITIES: No cyanosis, clubbing, or pedal edema. NEUROLOGICAL: unresponsive , Gross neurological examination did not reveal any focal deficits. No asymmetry in the extremities . SKIN: No rashes. no petechiae. Results - Laboratory Findings CBC and BMP: 01/18/21 06:30 01/18/21 06:30 ABG ABG pH 7.25 (7.35-7.45) L 01/17/21 20:34 ABG pCO2 28 mmHg (35-45) L 01/17/21 20:34 ABG pO2 132 mmHg (83-108) H 01/17/21 20:34 ABG O2 Saturation 96.6 % (94-97) 01/17/21 20:34 PT/INR, D-dimer PT 22.1 sec (9.0-12.0) H 01/18/21 00:01 INR 2.3 (<1.2) H 01/18/21 00:01 D-Dimer 0.88 mg/L FEU (<0.60) H 01/17/21 10:59 Abnormal lab findings: Abnormal Labs 01/16/21 01/16/21 01/16/21 09:42 10:05 10:05 WBC RBC Hgb Hct MCHC 29.9 L RDW Neutrophils # Lymphocytes # ESR PT INR D-Dimer ABG pH ABG pCO2 ABG pO2 ABG HCO3 ABG Total CO2 ABG O2 Saturation Sodium Potassium Chloride Carbon Dioxide BUN Creatinine Glucose POC Glucose (mg/dL) 104 H Osmolality Calcium Magnesium Total Bilirubin Alkaline Phosphatase C-Reactive Protein Total Protein Albumin Urine Appearance Cloudy H Urine Protein 1+ H Urine Blood Large H Ur Leukocyte Esterase Urine RBC >182 H Urine WBC 15 H Urine WBC Clumps Urine Bacteria Few H Urine Mucus Rare H U Random Total Protein 01/16/21 01/16/21 01/16/21 10:05 20:35 20:35 WBC 12.6 H RBC Hgb 11.1 L Hct MCHC 29.3 L RDW Neutrophils # 10.3 H Lymphocytes # ESR PT INR D-Dimer ABG pH ABG pCO2 ABG pO2 ABG HCO3 ABG Total CO2 ABG O2 Saturation Sodium 147 H 147 H Potassium Chloride 121 H 124 H Carbon Dioxide <5 L* <5 L* BUN 71 H 63 H Creatinine 3.07 H 2.97 H Glucose POC Glucose (mg/dL) Osmolality Calcium 5.4 L* 5.4 L* Magnesium 1.2 L Total Bilirubin <0.1 L Alkaline Phosphatase 230 H 223 H C-Reactive Protein Total Protein Albumin Urine Appearance Urine Protein Urine Blood Ur Leukocyte Esterase Urine RBC Urine WBC Urine WBC Clumps Urine Bacteria Urine Mucus U Random Total Protein 01/17/21 01/17/21 01/17/21 06:50 10:59 10:59 WBC RBC Hgb Hct MCHC RDW Neutrophils # Lymphocytes # ESR 35 H PT 39.6 H INR 4.1 H D-Dimer 0.88 H ABG pH ABG pCO2 ABG pO2 ABG HCO3 ABG Total CO2 ABG O2 Saturation Sodium 150 H Potassium Chloride 128 H Carbon Dioxide <5 L* BUN 62 H Creatinine 3.23 H Glucose POC Glucose (mg/dL) Osmolality Calcium 5.4 L* Magnesium 1.5 L Total Bilirubin 0.1 L Alkaline Phosphatase 206 H C-Reactive Protein Total Protein 6.1 L Albumin 3.3 L Urine Appearance Urine Protein Urine Blood Ur Leukocyte Esterase Urine RBC Urine WBC Urine WBC Clumps Urine Bacteria Urine Mucus U Random Total Protein 01/17/21 01/17/21 01/17/21 10:59 12:00 18:51 WBC RBC Hgb Hct MCHC RDW Neutrophils # Lymphocytes # ESR PT INR D-Dimer ABG pH 6.97 L* 7.10 L* ABG pCO2 22 L 25 L ABG pO2 62 L ABG HCO3 5 L* 8 L* ABG Total CO2 6 L 8 L ABG O2 Saturation 93.9 L 89.0 L Sodium Potassium Chloride Carbon Dioxide BUN Creatinine Glucose POC Glucose (mg/dL) Osmolality Calcium Magnesium Total Bilirubin Alkaline Phosphatase C-Reactive Protein 5.8 H Total Protein Albumin Urine Appearance Urine Protein Urine Blood Ur Leukocyte Esterase Urine RBC Urine WBC Urine WBC Clumps Urine Bacteria Urine Mucus U Random Total Protein 01/17/21 01/17/21 01/17/21 18:52 19:11 19:14 WBC RBC 2.90 L Hgb 8.7 L D Hct 27.0 L MCHC RDW 16.0 H Neutrophils # Lymphocytes # 0.7 L ESR PT INR D-Dimer ABG pH ABG pCO2 ABG pO2 ABG HCO3 ABG Total CO2 ABG O2 Saturation Sodium Potassium Chloride Carbon Dioxide BUN Creatinine Glucose POC Glucose (mg/dL) 158 H 150 H Osmolality Calcium Magnesium Total Bilirubin Alkaline Phosphatase C-Reactive Protein Total Protein Albumin Urine Appearance Urine Protein Urine Blood Ur Leukocyte Esterase Urine RBC Urine WBC Urine WBC Clumps Urine Bacteria Urine Mucus U Random Total Protein 01/17/21 01/17/21 01/17/21 19:14 20:34 22:00 WBC RBC Hgb Hct MCHC RDW Neutrophils # Lymphocytes # ESR PT INR D-Dimer ABG pH 7.25 L ABG pCO2 28 L ABG pO2 132 H ABG HCO3 12 L ABG Total CO2 13 L ABG O2 Saturation Sodium 149 H Potassium 2.9 L Chloride 114 H Carbon Dioxide BUN 64 H Creatinine 2.71 H Glucose 395 H POC Glucose (mg/dL) Osmolality 345 H* Calcium 5.2 L* Magnesium Total Bilirubin 0.1 L Alkaline Phosphatase 173 H C-Reactive Protein Total Protein 4.9 L Albumin 2.6 L Urine Appearance Urine Protein Urine Blood Ur Leukocyte Esterase Urine RBC Urine WBC Urine WBC Clumps Urine Bacteria Urine Mucus U Random Total Protein 39 H 01/17/21 01/17/21 01/18/21 22:00 22:25 00:01 WBC RBC Hgb Hct MCHC RDW Neutrophils # Lymphocytes # ESR PT INR D-Dimer ABG pH ABG pCO2 ABG pO2 ABG HCO3 ABG Total CO2 ABG O2 Saturation Sodium 151 H Potassium 2.8 L Chloride 125 H Carbon Dioxide 11 L BUN 63 H Creatinine 2.96 H Glucose 123 H POC Glucose (mg/dL) 137 H Osmolality Calcium 5.6 L* Magnesium Total Bilirubin Alkaline Phosphatase C-Reactive Protein Total Protein Albumin Urine Appearance Turbid H Urine Protein 1+ H Urine Blood Large H Ur Leukocyte Esterase Large H Urine RBC >182 H Urine WBC >182 H Urine WBC Clumps Many H Urine Bacteria Few H Urine Mucus Rare H U Random Total Protein 01/18/21 01/18/21 01/18/21 00:01 00:01 06:30 WBC RBC 3.21 L Hgb 9.6 L Hct 30.1 L MCHC RDW 15.9 H Neutrophils # Lymphocytes # 0.7 L ESR PT 22.1 H INR 2.3 H D-Dimer ABG pH ABG pCO2 ABG pO2 ABG HCO3 ABG Total CO2 ABG O2 Saturation Sodium Potassium 3.3 L Chloride 121 H Carbon Dioxide 11 L BUN 55 H Creatinine 2.47 H Glucose POC Glucose (mg/dL) Osmolality Calcium 4.6 L* Magnesium Total Bilirubin Alkaline Phosphatase 164 H C-Reactive Protein Total Protein 5.3 L Albumin 2.6 L Urine Appearance Urine Protein Urine Blood Ur Leukocyte Esterase Urine RBC Urine WBC Urine WBC Clumps Urine Bacteria Urine Mucus U Random Total Protein 01/18/21 06:30 WBC RBC 2.90 L Hgb 8.8 L Hct 27.6 L MCHC RDW 15.7 H Neutrophils # Lymphocytes # ESR PT INR D-Dimer ABG pH ABG pCO2 ABG pO2 ABG HCO3 ABG Total CO2 ABG O2 Saturation Sodium Potassium Chloride Carbon Dioxide BUN Creatinine Glucose POC Glucose (mg/dL) Osmolality Calcium Magnesium Total Bilirubin Alkaline Phosphatase C-Reactive Protein Total Protein Albumin Urine Appearance Urine Protein Urine Blood Ur Leukocyte Esterase Urine RBC Urine WBC Urine WBC Clumps Urine Bacteria Urine Mucus U Random Total Protein - Diagnostic Findings Chest x-ray: image reviewed Assessment and Plan Plan: 1 acute mental status change, secondary to severe metabolic derangement, severe metabolic acidosis and bicarbonate deficit. CAT scan of the brain is negative here after being completely unresponsive yesterday, neuro status is gradually improving. More awake. Following some simple commands. Unable to fully communicate. Opens her eyes spontaneously. I'm glad to see her arousable and she is moving all 4 extremities and withdraws to painful stimulation. Speech is still garbled. 2 severe metabolic acidosis, likely secondary to bicarbonate deficit. Lactic acid was nonelevated 3 acute kidney injury secondary to vascular volume depletion, improving 4 history of dumping syndrome 5 dehydration 6 hypocalcemia and the calcium level has being replaced 7 rheumatoid arthritis 8 Fibromyalgia 9 dementia 10 frequent UTIs with suspected recurrent UTI 11 coagulopathy, elevated INR, likely nutritional Plan Will restart this patient back on a bicarb infusion with D5 and a total of 150 mEq of sodium bicarb at the rate of 100 mL an hour Monitor the blood sugars and use insulin riding scale coverage for blood sugar control Replace calcium and give the patient another amp of calcium gluconate and started on oral calcium 500 mg twice a day Replace potassium Continue IV Rocephin Monitor mental status May need a swallow evaluation Neurologic status is gradually improving We'll continue to follow Establish a CODE STATUS, to my understanding, the patient is a DNR/DNI code. Obtain another set of electrolytes is around noontime
[2021-01-18] MEDS ORDERED: Potassium Replacement Protocol 1 EACH MISC MISCELLANE PRN (09:03)
[2021-01-18] MEDS: CALCIUM GLUCONATE 1 GM in SODIUM CHLORIDE 0.9% 100 ML IVPB ONE (09:30)
[2021-01-18] MEDS: DEXTROSE 5% IN WATER 1,000 ML with SODIUM BICARB (1 MEQ/ML) 150 ML IV SCH ×2 (09:30→20:23)
[2021-01-18] MEDS: HEPARIN SODIUM,PORCINE/PF 5,000 UNIT/0.5 ML SYRINGE SQ SCH ×2 (09:32→20:52)
[2021-01-18] MEDS: BACLOFEN 10 MG TAB PO SCH ×3 (09:32→20:52)
[2021-01-18] MEDS: CALCIUM CARB-VIT D 500 MG-5 MCG TAB PO SCH (09:32)
[2021-01-18] MEDS: SODIUM BICARBONATE TAB 650 MG TAB PO SCH ×2 (09:32→20:52)
[2021-01-18] MEDS: CYANOCOBALAMIN 500 MCG TAB PO SCH (09:32)
[2021-01-18] MEDS: POTASSIUM CHLORIDE ER 20 MEQ TAB.ER PO SCH (09:32)
[2021-01-18] MEDS: SODIUM CHLORIDE 0.45% 1,000 ML IV SCH (10:31)
[2021-01-18] MEDS: MAGNESIUM SULFATE-D5W PMX 1 GM in DEXTROSE/WATER 1 100ML.BAG IVPB SCH ×2 (10:46→12:18)
[2021-01-18 12:08] LABS: Glucose,Whole Blood 114 mg/dL (75-99)
--- NOTE | 2021-01-18 12:30 | PN ---
PROGRESS NOTE Patient is seen for followup for acute kidney injury, hypernatremia, and metabolic acidosis. She was started on bicarb drip yesterday and apparently it looks like the bicarb drip was somehow discontinued overnight. This has been restarted this morning. Patient's mentation has improved. She was transferred to the ICU secondary to worsening mentation yesterday. Urine output currently at about 75-130 mL an hour. Patient's blood pressure is not significantly low. No obvious diarrhea noted at this time. PHYSICAL EXAMINATION: On examination today, blood pressure 116/53, heart rate 101 per minute. She is afebrile. Examination of the heart S1, S2. Examination of the lungs, bilateral breath sounds are heard. Abdomen is soft, nontender. Examination of lower extremities shows no evidence of edema. 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 Her mentation is much better than yesterday. She is moving all 4 extremities. LAB: Show sodium 143, potassium 3.3, CO2 is 11, BUN 55, creatinine 2.47, hemoglobin 8.8 g/dL. ASSESSMENT: 1. Acute kidney injury, prerenal, slowly improving with IV fluids. 2. Severe metabolic acidosis, started on bicarb drip yesterday somehow that was discontinued and it has been restarted this morning. 3. Hypernatremia associated with free water deficit, currently improved. 4. Mental status changes secondary to severe hypernatremia, acidosis and underlying urinary tract infection. 5. History of dumping syndrome. 6. Hypocalcemia status post supplementation, 25 hydroxy vitamin D level was ordered, which is very low as of 09/14/2020 at 5.2. I do not have a recent level. 7. Anemia, no active bleeding noted. 8. Hypokalemia currently being replaced. PLAN: Start vitamin D supplementation. Repeat 25 hydroxy vitamin D level. Calcium supplementation for now. Resume bicarb drip. Replace potassium. Repeat labs in a.m. Encourage increased oral intake as mentation has currently improved. MMODL / IJN: [id number] /
[2021-01-18] MEDS ORDERED: ERGOCALCIFEROL 1,250 MCG (50,000 IU) CAPSULE PO SCH (13:00)
--- NOTE | 2021-01-18 14:27 | PN ---
PROGRESS NOTE DATE OF SERVICE: 01/18/2021 HISTORY OF PRESENT ILLNESS: This 70-year-old woman who was admitted with acute renal failure and severe metabolic acidosis had change in mental status also. The patient is also being empirically treated with antibiotics. The patient received multiple doses of bicarb. His CO2 to is improving at this time. The patient is being closely monitored in ICU at this time. The patient was transferred to ICU overnight. Pulmonary consultation also has been sought. There is no history of fever, rigors. No headache, loss of consciousness, seizures at this time. PAST MEDICAL HISTORY: Reviewed. REVIEW OF SYSTEMS: CARDIOVASCULAR: No angina. RESPIRATORY: As mentioned earlier. GI: As mentioned earlier. : No dysuria. NERVOUS SYSTEM: Diffusely weak. CURRENT MEDICATIONS: Tylenol, Pettus, Xanax, Os-Tera with vitamin D, Rocephin, Celexa, vitamin B12, folic acid, heparin. PHYSICAL EXAM: Patient is alert, oriented x2. Pulse is 101 blood pressure 107/55, respiration 14, temperature 98.4, pulse ox 97% on 2 L. HEENT: Conjunctivae normal. Oral mucosa moist. NECK: No jugular venous distention. No lymph node enlargement. CARDIOVASCULAR: S1, S2, muffled. No S3, no S4, RESPIRATORY: Diminished breath sounds at the bases. A few scattered rhonchi. ABDOMEN: Soft, nontender. LEGS: No edema, no swelling. NERVOUS SYSTEM: Diffusely weak. LAB STUDIES: WBC 7, hemoglobin is 8.8, sodium 143, potassium 3.3, calcium is 4.6. ASSESSMENT: 1. Acute renal failure with acute tubular necrosis secondary to possible dehydration. 2. Severe metabolic acidosis secondary to renal failure. 3. Change in mental status, acute metabolic encephalopathy, multifactorial. 4. Hypernatremia. 5. Hypocalcemia. 6. Hypokalemia. 7. Elevated inflammatory markers, rule out sepsis, on empiric antibiotics. 8. Hypomagnesemia. 9. History of fibromyalgia. 10.History of memory impairment. 11.History of rheumatoid arthritis. 12.Syncope. 13.History of dumping syndrome. 14.History of bronchitis. 15.History of DJD. 16.History of bowel resection. 17.History of cholecystectomy. 18.History of depression. 19.History of panic disorder. 20.FULL CODE. RECOMMENDATIONS: Recommend to continue current management and symptomatic treatment. Otherwise, continue with bicarb. Monitor electrolytes closely. Neuro checks. CT scan did not show any acute abnormalities. Replace potassium. Sodium is 143. Replace calcium. Continue the antibiotics. Cultures are negative so far. Guarded prognosis. Further recommendations to follow. MMODL / IJN: [id number] /
[2021-01-18 16:05] LABS: Albumin 3.3 g/dL (3.5-5.0); Potassium 4.1 mmol/L (3.5-5.1); Total Bilirubin 0.4 mg/dL (0.2-1.3); Total Protein 6.1 g/dL (6.3-8.2)
[2021-01-18 16:14] LABS: Calcium 5.7 mg/dL (8.4-10.2)
[2021-01-18 20:49] LABS: Glucose,Whole Blood 132 mg/dL (75-99)
[2021-01-18 20:49] LABS: Glucose,Whole Blood 140 mg/dL (75-99)
[2021-01-18] MEDS: PANTOPRAZOLE 40 MG/10 ML VIAL IVP SCH (20:51)
[2021-01-18] MEDS: FOLIC ACID 1 MG TAB PO SCH (20:52)
[2021-01-18] MEDS: CITALOPRAM HYDROBROMIDE 20 MG TAB PO SCH (20:52)
[2021-01-18] MEDS: diphenhydrAMINE 50 MG CAP PO SCH (20:53)
[2021-01-18] MEDS ORDERED: INSULIN ASPART (NovoLOG) 100 UNIT/ML VIAL SQ SCH (21:58)
[2021-01-19] MEDS: DEXTROSE 5% IN WATER 1,000 ML with SODIUM BICARB (1 MEQ/ML) 150 ML IV SCH ×2 (02:50→09:58)
[2021-01-19 04:29] LABS: Anisocytosis Slight; Basophils % (A) 1 %; Eosinophils # (A) 0.3 k/uL (0-0.7); Eosinophils % (A) 5 %; HCT 28.2 % (34.0-46.0); HGB 8.6 gm/dL (11.4-16.0); Hypochromasia Moderate; Lymphocytes # (A) 1.1 k/uL (1.0-4.8); Lymphocytes % (A) 18 %; MCH 28.5 pg (25.0-35.0); MCHC 30.6 g/dL (31.0-37.0); Mean Platelet Volume 8.1; Monocytes # (A) 0.4 k/uL (0-1.0); Monocytes % (A) 7 %; Neutrophils # (A) 3.8 k/uL (1.3-7.7); Neutrophils % (A) 66 %; Platelet Count 177 k/uL (150-450); Poikilocytosis Slight; RBC 3.04 m/uL (3.80-5.40); RDW 16.2 % (11.5-15.5); WBC 5.8 k/uL (3.8-10.6)
[2021-01-19 04:45] LABS: Potassium 2.8 mmol/L (3.5-5.1); Total Bilirubin 0.2 mg/dL (0.2-1.3); Total Protein 5.6 g/dL (6.3-8.2)
[2021-01-19 05:04] LABS: Calcium 5.5 mg/dL (8.4-10.2)
[2021-01-19] MEDS ORDERED: Potassium Replacement Protocol 1 EACH MISC MISCELLANE PRN (05:14)
[2021-01-19] MEDS ORDERED: CALCIUM GLUCONATE 1 GM in SODIUM CHLORIDE 0.9% 100 ML IVPB ONE ×2 (05:15→09:30)
[2021-01-19] MEDS: POTASSIUM CHLORIDE 10 MEQ in WATER FOR INJECTION 1 100ML.BAG IVPB SCH ×10 (05:27→19:57)
[2021-01-19] MEDS: INSULIN ASPART (NovoLOG) 100 UNIT/ML VIAL SQ SCH ×4 (06:45→20:42)
[2021-01-19 06:51] LABS: Glucose,Whole Blood 141 mg/dL (75-99)
[2021-01-19] MEDS: HEPARIN SODIUM,PORCINE/PF 5,000 UNIT/0.5 ML SYRINGE SQ SCH ×2 (08:40→20:47)
[2021-01-19] MEDS: BACLOFEN 10 MG TAB PO SCH ×3 (08:40→21:00)
[2021-01-19] MEDS: CALCIUM CARB-VIT D 500 MG-5 MCG TAB PO SCH (08:41)
[2021-01-19] MEDS: SODIUM BICARBONATE TAB 650 MG TAB PO SCH ×2 (08:41→20:47)
[2021-01-19] MEDS: POTASSIUM CHLORIDE ER 20 MEQ TAB.ER PO SCH (08:42)
[2021-01-19] MEDS: CYANOCOBALAMIN 500 MCG TAB PO SCH (09:59)
[2021-01-19] MEDS: ERGOCALCIFEROL 1,250 MCG (50,000 IU) CAPSULE PO SCH (10:17)
--- NOTE | 2021-01-19 11:30 | PN ---
PROGRESS NOTE Patient is seen for followup for acute kidney injury and hyponatremia, metabolic acidosis. Her bicarb was restarted yesterday and her metabolic acidosis has improved. Potassium is however down to 2.8. The patient's sodium stays about the same. Her mentation has improved. She has started to increase her oral intake. PHYSICAL EXAMINATION: On examination today, blood pressure is 114/61, heart rate 75 per minute. She is afebrile. Examination of the heart S1, S2. Examination of the lungs, bilateral breath sounds are heard. Decreased breath sounds at bases. Abdomen is soft, nontender. Examination of lower extremities shows no significant edema. 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 LAB: Lab show sodium 147, potassium 2.8, chloride 117, CO2 is 18, BUN 52, creatinine 2.2, hemoglobin 8.6 g/dL. ASSESSMENT: 1. Acute kidney injury prerenal currently improving with IV hydration. 2. Hypokalemia associated with decreased oral intake and bicarb drip, status post replacement. 3. Severe metabolic acidosis associated with acute kidney injury and gastrointestinal fluid loss prior to admission. Currently maintained on bicarb drip and improving. 4. Hypernatremia associated with free water deficit. 5. History of dumping syndrome. 6. Encephalopathy associated with electrolyte imbalance, volume depletion and acidosis. 7. Hypocalcemia associated with severe nutritional vitamin D deficiency. Maintained on calcium supplementation and vitamin D supplementation. 8. Anemia with no active bleeding noted at this time. PLAN: Encourage increased free water intake. Continue with the D5 W. replace potassium. Check magnesium. Repeat labs in a.m. MMODL / IJN: [id number] /
[2021-01-19 11:47] LABS: Glucose,Whole Blood 148 mg/dL (75-99)
--- NOTE | 2021-01-19 14:47 | P.PN ---
Subjective Progress Note Date: 01/19/21 Principal diagnosis: Acute metabolic encephalopathy This is a 70-year-old female patient's transfers this intensive care unit because of being unresponsive. She was severely metabolic acidotic with serum bicarb of less than 5 and a pH of 6.9. This is a blood. This was done earlier note, I was informed on this patient at around 7 PM and I recommended transferring her to the intensive care unit with severe metabolic derangements. She is known to have dementia, fibromyalgia and rheumatoid arthritis. She apparently also has moderate protein calorie malnutrition, and history of dumping syndrome and frequent UTIs. She apparently became significantly weak and she will indicated. No previous history of kidney disease. She was noted to be severely acidotic. She was in acute kidney injury. There was a concern of an underlying urinary tract infection. Note that the patient was seen by nephrology pressors with admission. Based on the previous bouts. My recommended immediate 3 A of sodium bicarb 50 mEq each and subsequent blood pressure with a pH of 7.25 with a pCO2 of 28 and pO2 of 132. This was on FiO2 of 20%. Most recent electrolytes showed a sodium of 149, potassium of 2.9 chloride of 114 and bicarb 72, BUN was 64.7. Glucose was 396. The patient lactic acid level is down to 0.8. LFTs were normal. Her INR on admission was 4.0 mL of 39. White cell count 7.4 with a hemoglobin of 8.7 and platelets of 184. COVID-19 testing was negative. UA was abnormal. The patient was given IV Rocephin. Currently on D5 bicarb infusion with 150 mEq today tells a decision hours. CAT scan of the brain was negative. The chest x-ray showed no abnormalities Overnight, the patient was given bicarb infusion, mental status gradually started to improve. Sodium came up to 151. I switched her to half-normal saline which is still running at the rate of 100 mL an hour. Creatinine is down to 2.4. Sodium level is down to 143. Serum bicarb currently is at 11. WBC count is at 7.9 with a hemoglobin of 8.8. Blood sugars under better control. Urine culture is still pending. The patient remains on IV Rocephin. Noted the patient had significant bicarb deficit that was noted at a time of admission and her acidosis is being corrected slowly. Otherwise, I took her off the Ambien, I took of the melatonin, I took her off the Benadryl, the rest of the oral m edications can be gradually resumed as long as the patient is showing adequate mentation and adequate ability to swallow. Urine output is in order of 1620 since the patient's arrival tear to the ICU. Patient was reevaluated today 01/19/2021, remains in the ICU, continues to have multiple metabolic abnormalities patient continues to have low calcium, acidotic, remains on bicarb at 150 mEq per hour, she is on room air, O2 sats is 95%, patient is confused, I'm not certain whether she is almost back to her baseline, patient does have history of underlying dementia, she also has history of dumping syndrome and recurrent urinary tract infections. She is now back on full diet, continues to have low potassium of 2.8 low calcium of 5.5 low bicarb of 18, and I plan to continue her sodium bicarb drip, I will give her another gram of calcium gluconate, and will have a repeat basic metabolic profile on this patient later on this afternoon. Obviously the patient is clinically better today compared to the last 2 days after reading the notes from Dr. Lane. Patient is now off Ambien, off Benadryl, mentation seems to be slowly improving. Potassium today is 2.8 sodium is 147. Calcium is 5.5. Hemoglobin 8.6. Objective - Vital Signs Vital signs: Vital Signs Temp 98 F 01/19/21 12:00 Pulse 80 01/19/21 14:00 Resp 16 01/19/21 14:00 BP 135/76 01/19/21 14:00 Pulse Ox 96 01/19/21 13:00 Intake & Output 01/18/21 01/19/21 01/19/21 18:59 06:59 18:59 Intake Total 1999 1999 2139 Output Total 1425 920 470 Balance 575 9000 1670 Weight 59.6 kg Intake: Intake, IV Titration 1999 1999 1800 Amount Calcium Gluconate 1 gm In 100 Sodium Chloride 0.9% 100 ml @ 100 mls/hr IVPB ONCE ONE Rx#:[id number] Calcium Gluconate 1 gm In 100 Sodium Chloride 0.9% 100 ml @ 100 mls/hr IVPB ONCE ONE Rx#:[id number] Calcium Gluconate 1 gm In 100 Sodium Chloride 0.9% 100 ml @ 100 mls/hr IVPB ONCE ONE Rx#:[id number] Dextrose 5% in Water 1, 1050 1800 1200 000 ml @ 150 mls/hr IV . Q7H40M [facility] with Sodium Bicarb (1 Meq/ml) 150 ml Rx#:[id number] Magnesium Sulfate-D5w Pmx 200 1 gm In Dextrose/Water 1 100ml.bag @ 100 mls/hr IVPB Q1H [facility] Rx#: [id number] Potassium Chloride 10 meq 400 In Water For Injection 1 100ml.bag @ 100 mls/hr IVPB Q1HR [facility] Rx#: [id number] Potassium Chloride 10 meq 100 500 In Water For Injection 1 100ml.bag @ 100 mls/hr IVPB Q1HR [facility] Rx#: [id number] Sodium Chloride 0.45% 1, 200 000 ml @ 100 mls/hr IV . Q10H [facility] Rx#:[id number] cefTRIAXone 1 gm In 50 Sodium Chloride 0.9% 50 ml @ 100 mls/hr IVPB Q24H [facility] Rx#:[id number] Oral 340 Output: Urine 1425 920 470 Other: Voiding Method Indwelling Catheter Indwelling Catheter Indwelling Catheter - Exam Physical Exam: Revealed 70-year-old female, sitting in bed, awake, slightly confused, in no distress, on room air. Head: Atraumatic, normocephalic. HEENT:[Neck is supple.] [No neck masses.] [No thyromegaly.] [No JVD.] Moist mucous membranes. Nonicteric. Chest: [Symmetrical chest expansion, clear throughout no crackles or rhonchi or wheezes. Cardiac Exam: [Normal S1 and S2, no S3 gallop, no murmur.] Abdomen: [Soft, nontender, no megaly, no rebound, no guarding, normal bowel sounds.] Musculoskeletal: No deformities, no limitation in range of motion. Skin: No rashes. Extremities: [No clubbing, no edema, no cyanosis.] Neurological Exam: Awake, follows simple instructions, pleasantly confused, otherwise no gross focal deficits. Psychiatric: Depressed mood, blunt affect, slightly confused. She knows she is at [facility], does not know the year or the month. No idea why she is in the hospital - Labs CBC & Chem 7: 06/01/21 03:25 01/19/21 03:25 Labs: Abnormal Lab Results - Last 24 Hours (Table) 01/18/21 01/18/21 01/18/21 Range/Units 15:32 17:59 20:47 RBC (3.80-5.40) m/uL Hgb (11.4-16.0) gm/dL Hct (34.0-46.0) % MCHC (31.0-37.0) g/dL RDW (11.5-15.5) % Sodium 147 H (137-145) mmol/L Potassium (3.5-5.1) mmol/L Chloride 122 H (98-107) mmol/L Carbon Dioxide 10 L (22-30) mmol/L BUN 58 H (7-17) mg/dL Creatinine 2.53 H (0.52-1.04) mg/dL Glucose 122 H (74-99) mg/dL POC Glucose (mg/dL) 140 H 132 H (75-99) mg/dL Calcium 5.7 L* (8.4-10.2) mg/dL AST 47 H (14-36) U/L Alkaline Phosphatase 195 H (38-126) U/L Total Protein 6.1 L (6.3-8.2) g/dL Albumin 3.3 L (3.5-5.0) g/dL 01/19/21 01/19/21 01/19/21 Range/Units 03:25 03:25 06:44 RBC 3.04 L (3.80-5.40) m/uL Hgb 8.6 L (11.4-16.0) gm/dL Hct 28.2 L (34.0-46.0) % MCHC 30.6 L (31.0-37.0) g/dL RDW 16.2 H (11.5-15.5) % Sodium 147 H (137-145) mmol/L Potassium 2.8 L (3.5-5.1) mmol/L Chloride 117 H (98-107) mmol/L Carbon Dioxide 18 L (22-30) mmol/L BUN 52 H (7-17) mg/dL Creatinine 2.20 H (0.52-1.04) mg/dL Glucose 133 H (74-99) mg/dL POC Glucose (mg/dL) 141 H (75-99) mg/dL Calcium 5.5 L* (8.4-10.2) mg/dL AST (14-36) U/L Alkaline Phosphatase 175 H (38-126) U/L Total Protein 5.6 L (6.3-8.2) g/dL Albumin 3.0 L (3.5-5.0) g/dL 01/19/21 Range/Units 11:46 RBC (3.80-5.40) m/uL Hgb (11.4-16.0) gm/dL Hct (34.0-46.0) % MCHC (31.0-37.0) g/dL RDW (11.5-15.5) % Sodium (137-145) mmol/L Potassium (3.5-5.1) mmol/L Chloride (98-107) mmol/L Carbon Dioxide (22-30) mmol/L BUN (7-17) mg/dL Creatinine (0.52-1.04) mg/dL Glucose (74-99) mg/dL POC Glucose (mg/dL) 148 H (75-99) mg/dL Calcium (8.4-10.2) mg/dL AST (14-36) U/L Alkaline Phosphatase (38-126) U/L Total Protein (6.3-8.2) g/dL Albumin (3.5-5.0) g/dL Microbiology - Last 24 Hours (Table) 01/17/21 10:59 Blood Culture - Preliminary Blood No Growth after 48 hours Assessment and Plan Assessment: Impression: Acute metabolic encephalopathy with multiple metabolic abnormalities including hypernatremia, hypocalcemia, severe metabolic acidosis and history of dumping syndrome. Suspect underlying dehydration. Acute dehydration. Most likely secondary to history of dumping syndrome. Acute kidney injury secondary to hypovolemia and volume depletion. Severe metabolic acidosis secondary to dehydration and hypoperfusion. As well as acute kidney injury. Rheumatoid arthritis. Fibromyalgia. Frequent urinary tract infection, possible recurrent UTI. Coagulopathy with elevated INR likely nutritional. History of underlying dementia. Recommendation: Continue bicarbonate infusion for now. Continue to monitor electrolytes including sodium, calcium magnesium, and potassium. And correct accordingly. Continue IV Rocephin empirically for UTI. Neurology to assess, obviously her neurological status is improving compared to her presentation neurological status. Continue to monitor the ICU for the next 24 hours. Repeat and monitor labs daily. Given another amp of calcium gluconate to this morning. Continue to monitor sugars and address accordingly. Prognosis remains relatively guarded. We'll continue to follow Time with Patient: Less than 30
--- NOTE | 2021-01-19 15:21 | PN ---
PROGRESS NOTE DATE OF SERVICE: 01/19/2021. This 70-year-old woman who was admitted with acute renal failure, acute tubular necrosis possibly secondary to dehydration also had severe metabolic acidosis. Patient has got BiPAP drip and the patient is slightly improved. Patient also suspected UTI also. Cultures are negative. Patient on empiric antibiotics. Multiple consultants following the patient closely. The patient is on D5 water currently. The patient also had hypercalcemia secondary to vitamin D deficiency. Patient had significant change in mental status. PAST MEDICAL HISTORY: Reviewed. REVIEW OF SYSTEMS: CARDIOVASCULAR system: No angina. RESPIRATION: As mentioned earlier. GI as mentioned. no dysuria. NERVOUS SYSTEM: No numbness or weakness. CURRENT MEDICATIONS: Reviewed and include: Tylenol, Sparks, Xanax, Lioresal, Os-Tera, Rocephin. Doses reviewed. PHYSICAL EXAMINATION: Patient alert and oriented x1. Pulse 75. Blood pressure 130/64, respirations 18, temperature 98 degrees, pulse ox 94% on room air. HEENT: Conjunctivae normal. NECK: No JVD. CARDIOVASCULAR: S1, S2 muffled. RESPIRATORY: Breath sounds diminished in the bases. A few scattered rhonchi and crackles. ABDOMEN: Soft, nontender. LEGS are no edema. NERVOUS SYSTEM: Diffusely weak. LABS: Hemoglobin 8.6, sodium 147, potassium 2.8 and calcium is 5.5. ASSESSMENT: 1. Acute renal failure with acute tubular necrosis secondary to possible dehydration, present on admission. 2. Severe metabolic acidosis secondary to renal failure. 3. Change in mental status acute metabolic encephalopathy multifactorial. 4. Hypernatremia. 5. Severe hypocalcemia, possibly secondary to vitamin D deficiency. 6. Hypokalemia. 7. Elevated inflammatory markers, rule out sepsis, on empiric antibiotics. 8. Possible acute urinary tract infection. 9. Hypomagnesemia. 10.History of fibromyalgia. 11.History of memory impairment. 12.History of rheumatoid arthritis. 13.Syncope. 14.History of dumping syndrome. 15.History of bronchitis. 16.History of degenerative joint disease. 17.History of bowel resection. 18.History of cholecystectomy. 19.History of depression. 20.History of panic disorder. 21.FULL CODE. RECOMMENDATIONS AND DISCUSSION: I recommend to continue current medications, management and symptomatic treatment. Otherwise, continue with D5 water with potassium supplementation, calcium supplementation, bicarb is being closely monitored at this time. The COVID-19 is negative. Urine culture is negative so far, but we will continue the empiric IV antibiotics. D-dimer is noted. Further recommendations to follow. Repeat jose c. MMODL / IJN: [id number] /
[2021-01-19 16:12] LABS: Calcium 5.5 mg/dL (8.4-10.2)
[2021-01-19] MEDS ORDERED: POTASSIUM CHLORIDE ER 20 MEQ TAB.ER PO STA (16:25)
[2021-01-19] MEDS: LACTATED RINGERS 1,000 ML IV SCH (16:35)
[2021-01-19 16:47] LABS: Glucose,Whole Blood 141 mg/dL (75-99)
[2021-01-19] MEDS ORDERED: CALCIUM GLUCONATE 2 GM in SODIUM CHLORIDE 0.9% 100 ML IVPB ONE (17:45)
[2021-01-19 20:34] LABS: Glucose,Whole Blood 129 mg/dL (75-99)
[2021-01-19] MEDS: PANTOPRAZOLE 40 MG TABLET PO SCH (20:47)
[2021-01-19] MEDS: FOLIC ACID 1 MG TAB PO SCH (20:47)
[2021-01-19] MEDS: diphenhydrAMINE 50 MG CAP PO SCH (20:47)
[2021-01-19] MEDS: CITALOPRAM HYDROBROMIDE 20 MG TAB PO SCH (20:47)
[2021-01-19 23:59] LABS: ALT 13 U/L (4-34); AST 26 U/L (14-36); African American GFR (CKD) 31 (>60 ml/min/1.73 sqM); Albumin 2.9 g/dL (3.5-5.0); Alkaline Phosphatase 165 U/L (38-126); Anion Gap 10 mmol/L; Blood Urea Nitrogen 40 mg/dL (7-17); Carbon Dioxide 23 mmol/L (22-30); Chloride 111 mmol/L (98-107); Glucose 110 mg/dL (74-99); Non-African American GFR(CKD) 27 (>60 ml/min/1.73 sqM); Potassium 2.9 mmol/L (3.5-5.1); Sodium 144 mmol/L (137-145); Total Bilirubin <0.1 mg/dL (0.2-1.3); Total Protein 5.6 g/dL (6.3-8.2)
[2021-01-20 00:01] LABS: Calcium 5.8 mg/dL (8.4-10.2)
[2021-01-20] MEDS ORDERED: Potassium Replacement Protocol 1 EACH MISC MISCELLANE PRN (00:34)
[2021-01-20] MEDS: POTASSIUM BICARBONATE/CIT AC 20 MEQ TABLET.EFF NG-TUBE SCH ×3 (00:44→03:01)
[2021-01-20] MEDS: LACTATED RINGERS 1,000 ML IV SCH ×2 (05:24→17:13)
[2021-01-20] MEDS: INSULIN ASPART (NovoLOG) 100 UNIT/ML VIAL SQ SCH ×4 (06:46→21:47)
[2021-01-20 06:47] LABS: Glucose,Whole Blood 103 mg/dL (75-99)
[2021-01-20 07:08] LABS: Basophils % (A) 1 %; Eosinophils # (A) 0.3 k/uL (0-0.7); Eosinophils % (A) 5 %; HCT 28.4 % (34.0-46.0); HGB 9.2 gm/dL (11.4-16.0); Hypochromasia Moderate; Lymphocytes # (A) 1.1 k/uL (1.0-4.8); Lymphocytes % (A) 17 %; MCH 30.5 pg (25.0-35.0); MCHC 32.6 g/dL (31.0-37.0); MCV 93.8 fL (80.0-100.0); Mean Platelet Volume 8.2; Monocytes # (A) 0.4 k/uL (0-1.0); Monocytes % (A) 6 %; Neutrophils # (A) 4.2 k/uL (1.3-7.7); Neutrophils % (A) 68 %; Platelet Count 183 k/uL (150-450); RBC 3.03 m/uL (3.80-5.40); RDW 15.5 % (11.5-15.5); WBC 6.1 k/uL (3.8-10.6)
[2021-01-20 07:25] LABS: Albumin 2.9 g/dL (3.5-5.0); Potassium 3.5 mmol/L (3.5-5.1); Total Bilirubin 0.2 mg/dL (0.2-1.3); Total Protein 5.5 g/dL (6.3-8.2)
[2021-01-20 07:45] LABS: Calcium 5.6 mg/dL (8.4-10.2)
[2021-01-20] MEDS ORDERED: POTASSIUM BICARBONATE/CIT AC 20 MEQ TABLET.EFF PO ONE (08:10)
[2021-01-20] MEDS ORDERED: CALCIUM GLUCONATE 2 GM in SODIUM CHLORIDE 0.9% 100 ML IVPB ONE (08:45)
[2021-01-20] MEDS: HEPARIN SODIUM,PORCINE/PF 5,000 UNIT/0.5 ML SYRINGE SQ SCH ×2 (09:06→22:28)
[2021-01-20] MEDS: POTASSIUM CHLORIDE ER 20 MEQ TAB.ER PO SCH (09:06)
[2021-01-20] MEDS: CALCIUM CARBONATE 500 MG CHEWABLE PO SCH ×3 (09:06→22:27)
[2021-01-20] MEDS: CALCIUM CARB-VIT D 500 MG-5 MCG TAB PO SCH (09:07)
[2021-01-20] MEDS: BACLOFEN 10 MG TAB PO SCH ×3 (09:07→22:27)
[2021-01-20] MEDS: CYANOCOBALAMIN 500 MCG TAB PO SCH (09:07)
[2021-01-20] MEDS: SODIUM BICARBONATE TAB 650 MG TAB PO SCH ×2 (09:07→22:26)
[2021-01-20 09:53] VITALS: BMI 21.2
[2021-01-20 11:22] LABS: Glucose,Whole Blood 128 mg/dL (75-99)
--- NOTE | 2021-01-20 13:00 | P.PN ---
Subjective Progress Note Date: 01/20/21 Principal diagnosis: Acute metabolic encephalopathy This is a 70-year-old female patient's transfers this intensive care unit because of being unresponsive. She was severely metabolic acidotic with serum bicarb of less than 5 and a pH of 6.9. This is a blood. This was done earlier note, I was informed on this patient at around 7 PM and I recommended transferring her to the intensive care unit with severe metabolic derangements. She is known to have dementia, fibromyalgia and rheumatoid arthritis. She apparently also has moderate protein calorie malnutrition, and history of dumping syndrome and frequent UTIs. She apparently became significantly weak and she will indicated. No previous history of kidney disease. She was noted to be severely acidotic. She was in acute kidney injury. There was a concern of an underlying urinary tract infection. Note that the patient was seen by nephrology pressors with admission. Based on the previous bouts. My recommended immediate 3 A of sodium bicarb 50 mEq each and subsequent blood pressure with a pH of 7.25 with a pCO2 of 28 and pO2 of 132. This was on FiO2 of 20%. Most recent electrolytes showed a sodium of 149, potassium of 2.9 chloride of 114 and bicarb 72, BUN was 64.7. Glucose was 396. The patient lactic acid level is down to 0.8. LFTs were normal. Her INR on admission was 4.0 mL of 39. White cell count 7.4 with a hemoglobin of 8.7 and platelets of 184. COVID-19 testing was negative. UA was abnormal. The patient was given IV Rocephin. Currently on D5 bicarb infusion with 150 mEq today tells a decision hours. CAT scan of the brain was negative. The chest x-ray showed no abnormalities Overnight, the patient was given bicarb infusion, mental status gradually started to improve. Sodium came up to 151. I switched her to half-normal saline which is still running at the rate of 100 mL an hour. Creatinine is down to 2.4. Sodium level is down to 143. Serum bicarb currently is at 11. WBC count is at 7.9 with a hemoglobin of 8.8. Blood sugars under better control. Urine culture is still pending. The patient remains on IV Rocephin. Noted the patient had significant bicarb deficit that was noted at a time of admission and her acidosis is being corrected slowly. Otherwise, I took her off the Ambien, I took of the melatonin, I took her off the Benadryl, the rest of the oral m edications can be gradually resumed as long as the patient is showing adequate mentation and adequate ability to swallow. Urine output is in order of 1620 since the patient's arrival tear to the ICU. Patient was reevaluated today 01/19/2021, remains in the ICU, continues to have multiple metabolic abnormalities patient continues to have low calcium, acidotic, remains on bicarb at 150 mEq per hour, she is on room air, O2 sats is 95%, patient is confused, I'm not certain whether she is almost back to her baseline, patient does have history of underlying dementia, she also has history of dumping syndrome and recurrent urinary tract infections. She is now back on full diet, continues to have low potassium of 2.8 low calcium of 5.5 low bicarb of 18, and I plan to continue her sodium bicarb drip, I will give her another gram of calcium gluconate, and will have a repeat basic metabolic profile on this patient later on this afternoon. Obviously the patient is clinically better today compared to the last 2 days after reading the notes from Dr. Lane. Patient is now off Ambien, off Benadryl, mentation seems to be slowly improving. Potassium today is 2.8 sodium is 147. Calcium is 5.5. Hemoglobin 8.6. Patient was reevaluated today on 01/20/2021, remains in the ICU, patient is becoming more and more awake and appropriate. She has steady improvement compared to yesterday. And her metabolic derangements are improving except for a relatively low calcium, and that being addressed by giving the patient calcium gluconate and she is receiving Tums. Her mental status overall has been steadily improving. And the patient seems to be a little more appropriate and follows simple instructions quite well today. She is now on room air, and she is saturating in the 90s. She is hemodynamically stable. She is to receive 2 A of calcium gluconate early this morning. Her albumin is 2.9. Urine output is excellent she has 45 ML per hour. And she remains on all are at 80 mL per hour. ABC is relatively normal electrolytes are normal potassium is up to 3.5. Renal profile is improving creatinine is down to 1.8 Objective - Vital Signs Vital signs: Vital Signs Temp 98.2 F 01/20/21 08:00 Pulse 75 01/20/21 12:00 Resp 11 L 01/20/21 12:00 BP 127/78 01/20/21 12:00 Pulse Ox 95 01/20/21 10:00 Intake & Output 01/19/21 01/20/21 01/20/21 18:59 06:59 18:59 Intake Total 3200 1140 420 Output Total 640 580 180 Balance 2560 560 240 Weight 58 kg 58 kg Intake: Intake, IV Titration 2640 1060 420 Amount Calcium Gluconate 1 gm In 100 Sodium Chloride 0.9% 100 ml @ 100 mls/hr IVPB ONCE ONE Rx#:[id number] Calcium Gluconate 2 gm In 100 Sodium Chloride 0.9% 100 ml @ 100 mls/hr IVPB ONCE ONE Rx#:[id number] Calcium Gluconate 2 gm In 100 Sodium Chloride 0.9% 100 ml @ 100 mls/hr IVPB ONCE ONE Rx#:[id number] Dextrose 5% in Water 1, 1350 000 ml @ 150 mls/hr IV . Q7H40M [facility] with Sodium Bicarb (1 Meq/ml) 150 ml Rx#:[id number] Lactated Ringers 1,000 ml 240 960 320 @ 80 mls/hr IV .[id number] [facility] Rx#:[id number] Potassium Chloride 10 meq 500 In Water For Injection 1 100ml.bag @ 100 mls/hr IVPB Q1HR [facility] Rx#: [id number] Potassium Chloride 10 meq 300 100 In Water For Injection 1 100ml.bag @ 100 mls/hr IVPB Q1HR [facility] Rx#: [id number] cefTRIAXone 1 gm In 50 Sodium Chloride 0.9% 50 ml @ 100 mls/hr IVPB Q24H [facility] Rx#:[id number] Oral 560 80 Output: Urine 640 580 180 Other: Voiding Method Indwelling Catheter Indwelling Catheter Indwelling Catheter - Exam Physical Exam: Revealed 70-year-old female, sitting in bed, awake, bit more appropriate today compared to yesterday, but nonetheless she remains slightly confused Head: Atraumatic, normocephalic. HEENT:[Neck is supple.] [No neck masses.] [No thyromegaly.] [No JVD.] Moist mucous membranes. Nonicteric. Chest: [Symmetrical chest expansion, diminished at the bases no crackles or rhonchi or wheezes Cardiac Exam: [Normal S1 and S2, no S3 gallop, no murmur.] Abdomen: [Soft, nontender, no megaly, no rebound, no guarding, normal bowel sounds.] Musculoskeletal: No deformities, no limitation in range of motion. Skin: No rashes. Extremities: [No clubbing, no edema, no cyanosis.] Neurological Exam: Awake, follows simple instructions, still having difficulty with orientation to time, but she knows where she is, and she does not know the year or month.. Psychiatric: Depressed mood, blunt affect, slightly confused. - Labs CBC & Chem 7: 01/20/21 06:49 01/20/21 07:00 Labs: Abnormal Lab Results - Last 24 Hours (Table) 01/19/21 01/19/21 01/19/21 Range/Units 14:47 16:44 20:33 RBC (3.80-5.40) m/uL Hgb (11.4-16.0) gm/dL Hct (34.0-46.0) % Potassium 3.0 L (3.5-5.1) mmol/L Chloride 110 H (98-107) mmol/L BUN 44 H (7-17) mg/dL Creatinine 2.05 H (0.52-1.04) mg/dL Glucose 146 H (74-99) mg/dL POC Glucose (mg/dL) 141 H 129 H (75-99) mg/dL Calcium 5.5 L* (8.4-10.2) mg/dL Total Bilirubin (0.2-1.3) mg/dL Alkaline Phosphatase (38-126) U/L Total Protein (6.3-8.2) g/dL Albumin (3.5-5.0) g/dL 01/19/21 01/20/21 01/20/21 Range/Units 23:28 06:45 06:49 RBC 3.03 L (3.80-5.40) m/uL Hgb 9.2 L (11.4-16.0) gm/dL Hct 28.4 L (34.0-46.0) % Potassium 2.9 L (3.5-5.1) mmol/L Chloride 111 H (98-107) mmol/L BUN 40 H (7-17) mg/dL Creatinine 1.89 H (0.52-1.04) mg/dL Glucose 110 H (74-99) mg/dL POC Glucose (mg/dL) 103 H (75-99) mg/dL Calcium 5.8 L* (8.4-10.2) mg/dL Total Bilirubin <0.1 L (0.2-1.3) mg/dL Alkaline Phosphatase 165 H (38-126) U/L Total Protein 5.6 L (6.3-8.2) g/dL Albumin 2.9 L (3.5-5.0) g/dL 01/20/21 01/20/21 Range/Units 07:00 11:20 RBC (3.80-5.40) m/uL Hgb (11.4-16.0) gm/dL Hct (34.0-46.0) % Potassium (3.5-5.1) mmol/L Chloride 112 H (98-107) mmol/L BUN 38 H (7-17) mg/dL Creatinine 1.82 H (0.52-1.04) mg/dL Glucose (74-99) mg/dL POC Glucose (mg/dL) 128 H (75-99) mg/dL Calcium 5.6 L* (8.4-10.2) mg/dL Total Bilirubin (0.2-1.3) mg/dL Alkaline Phosphatase 146 H (38-126) U/L Total Protein 5.5 L (6.3-8.2) g/dL Albumin 2.9 L (3.5-5.0) g/dL Microbiology - Last 24 Hours (Table) 01/17/21 10:59 Blood Culture - Preliminary Blood No Growth after 48 hours Assessment and Plan Assessment: Impression: Acute metabolic encephalopathy with multiple metabolic abnormalities including hypernatremia, hypocalcemia, severe metabolic acidosis and history of dumping syndrome. Suspect underlying dehydration. Improving. Acute dehydration. Most likely secondary to history of dumping syndrome. Improving. Acute kidney injury secondary to hypovolemia and volume depletion. Improving. Severe metabolic acidosis secondary to dehydration and hypoperfusion. As well as acute kidney injury. Rheumatoid arthritis. Fibromyalgia. Frequent urinary tract infection, possible recurrent UTI. Coagulopathy with elevated INR likely nutritional. History of underlying dementia. Recommendation: Discontinue bicarb infusion. Continue to monitor electrolytes including sodium, calcium magnesium, and potassium. And correct accordingly. Continue IV Rocephin empirically for UTI. Transfer to a monitor bed today out of the ICU. Patient to be seen by neurology on consultation. Continue Tums and continue to monitor her calcium. We will continue to follow.
--- NOTE | 2021-01-20 13:42 | P.PN ---
Progress Note - Text Progress Note Date: 01/20/21 Presenting complaint: Tired Hospital course: 70-year-old patient, Dr. Murillo, but a known history of fibromyalgia, memory impairment, rheumatoid arthritis, dumping syndrome, depression. Patient presented, feeling weak and tired rundown. Decreased responsiveness. Admitted with acute metabolic encephalopathy, acute kidney injury prerenal, severe metabolic acidosis, hypocalcemia, hypokalemia. Was moved to the ICU. Aggressive replacement of electrolytes. Today: Sitting up in a chair. Being fed by her . Oral intake is improving. About 50%. Feels tired. No nausea vomiting. Review of systems: Was done for constitutional, cardiovascular, GI, pulmonary. relevant finding as above Active Medications Acetaminophen (Acetaminophen Tab 325 Mg Tab) 650 mg PO Q6HR PRN PRN Reason: Mild Pain or Fever > 100.5 Hydrocodone Bitart/Acetaminophen (Hydrocodone/Apap 5-325mg 1 Each Tab) 1 each PO Q6HR PRN PRN Reason: Pain Alprazolam (Alprazolam 0.25 Mg Tab) 0.25 mg PO TID PRN PRN Reason: Anxiety Baclofen (Baclofen 10 Mg Tab) 20 mg PO TID [facility] Last Admin: 01/20/21 09:07 Dose: 20 mg Documented by: Calcium Carbonate (Calcium Carb-Vit D 500 Mg-5 Mcg Tab) 1 each PO DAILY [facility] Last Admin: 01/20/21 09:07 Dose: 1 each Documented by: Calcium Carbonate/Glycine (Calcium Carbonate 500 Mg Chewable) 1,000 mg PO TID [facility] Last Admin: 01/20/21 09:06 Dose: 1,000 mg Documented by: Citalopram Hydrobromide (Citalopram Hydrobromide 20 Mg Tab) 40 mg PO [facility] Last Admin: 01/19/21 20:47 Dose: 40 mg Documented by: Cyanocobalamin (Cyanocobalamin 500 Mcg Tab) 5,000 mcg PO DAILY [facility] Last Admin: 01/20/21 09:07 Dose: 5,000 mcg Documented by: Diphenhydramine HCl (Diphenhydramine 50 Mg Cap) 50 mg PO [facility] Last Admin: 01/19/21 20:47 Dose: 50 mg Documented by: Ergocalciferol (Ergocalciferol 1,250 Mcg (50,000 Iu) Capsule) 1,250 mcg PO Q48H [facility] Last Admin: 01/19/21 10:17 Dose: 1,250 mcg Documented by: Folic Acid (Folic Acid 1 Mg Tab) 1 mg PO [facility] Last Admin: 01/19/21 20:47 Dose: 1 mg Documented by: Heparin Sodium (Porcine) (Heparin Sodium,Porcine/Pf 5,000 Unit/0.5 Ml Syringe) 5,000 unit SQ Q12HR [facility] Last Admin: 01/20/21 09:06 Dose: 5,000 unit Documented by: Ceftriaxone Sodium 1 gm/ (Sodium Chloride) 50 mls @ 100 mls/hr IVPB Q24H [facility] Last Admin: 01/19/21 15:58 Dose: 100 mls/hr Documented by: Lactated Ringer's (Lactated Ringers) 1,000 mls @ 80 mls/hr IV .[id number] [facility] Last Admin: 01/20/21 05:24 Dose: 80 mls/hr Documented by: Insulin Aspart (Insulin Aspart (Novolog) 100 Unit/Ml Vial) 0 unit SQ ACHS [facility]; Protocol Last Admin: 01/20/21 11:34 Dose: Not Given Documented by: Miscellaneous Information (Magnesium Replacement Protocol 1 Each Misc) 1 each MISCELLANE DAILY PRN; Protocol PRN Reason: Per Protocol Miscellaneous Information (Magnesium Replacement Protocol 1 Each Misc) 1 each MISCELLANE DAILY PRN; Protocol PRN Reason: Per Protocol Miscellaneous Information (Potassium Replacement Protocol 1 Each Misc) 1 each MISCELLANE DAILY PRN; Protocol PRN Reason: Per Protocol Naloxone HCl (Naloxone 0.4 Mg/Ml 1 Ml Vial) 0.2 mg IV Q2M PRN PRN Reason: Opioid Reversal Pantoprazole Sodium (Pantoprazole 40 Mg Tablet) 40 mg PO [facility] Last Admin: 01/19/21 20:47 Dose: 40 mg Documented by: Potassium Chloride (Potassium Chloride Er 20 Meq Tab.Er) 20 meq PO DAILY [facility] Last Admin: 01/20/21 09:06 Dose: 20 meq Documented by: Sodium Bicarbonate (Sodium Bicarbonate Tab 650 Mg Tab) 650 mg PO BID [facility] Last Admin: 01/20/21 09:07 Dose: 650 mg Documented by: On examination: VITAL SIGNS: [98.2, 71, 17, 1 29 x 88, 95% on room air] GENERAL APPEARANCE: Sitting up in a chair, awake, a bit tired. HEENT: Normal external appearance of nose and ear. Oral cavity normal EYES: Pupils equal. Conjunctiva normal. NECK: JVD not raised. Mass not palpable. RESPIRATORY: Respiratory effort normal. Lungs clear to auscultation. CARDIOVASCULAR: First and second sounds normal. No edema. ABDOMEN: Soft. Liver and spleen not palpable. No tenderness. No mass palpable. MUSCULAR skeletal: Evidence of OA PSYCHIATRY: Answering simple questions. INVESTIGATIONS, reviewed in the clinical context: January 20: WBC 6.1 hemoglobin 9.2 platelets 183 potassium 3.5 bun 38 creatinine 1.82 albumin 2.9 calcium 5.6 Admission labs: WBC 10.1 hemoglobin 11.9 platelets 253 sodium 147 bicarbonate pleasant 5 creatinine 3.07 potassium 5.4 magnesia 1.2 Coronavirus [PCR]-not detected Chest x-ray: Unremarkable CT brain: Unremarkable Ultrasound kidney and bladder: Medical renal disease suggested Assessment and plan: -Acute metabolic encephalopathy, multifactorial especially from electrolyte abnormalities, metabolic acidosis-improving Follow clinically -Acute kidney injury likely prerenal Fluids being replaced and oral intake encouraged -Acute severe metabolic acidosis due to kidney injury Fluids and bicarbonate supplementation -Chronic rheumatoid arthritis Follow clinically -Chronic fibromyalgia Follow clinically. Cutback to dose of baclofen -Prolonged pro time, likely nutritional Encourage oral intake -Moderate cognitive impairment Follow clinically -Severe hypocalcemia-slow to respond Follow levels closely. Replace calcium -Hypernatremia from free water deficit-corrected Follow BMP -Hypomagnesemia-corrected Follow -Hypokalemia Being replaced. Follow BMP -Suspect underlying chronic kidney disease, likely stage III Follow closely. Follow with nephrology -Acute medical debility PTOT -Chronic dumping syndrome -Depression not otherwise specified Continue with Celexa -Chronic insomnia Patient is a rather hefty dose of Ambien cutback on the dose Care was discussed with the at the bedside. Discussed with the nurse. Patient be moved out of ICU. Follow with PTOT.
--- NOTE | 2021-01-20 16:00 | PN ---
PROGRESS NOTE Patient is seen for followup for acute kidney injury and hypernatremia and metabolic acidosis. Her metabolic acidosis has resolved. Hypernatremia has been improving and renal function has improved as well. Serum creatinine now staying at about 1.8 mg/dL. PHYSICAL EXAMINATION: On examination today, blood pressure was 127/78, heart rate 75 per minute. Patient is afebrile. Examination of the heart S1, S2. Examination of the lungs, bilateral breath sounds are heard. Abdomen is soft, nontender. Examination of lower extremities shows no evidence of edema. [employer] exam grossly intact. LAB: Show sodium of 144, potassium 3.5, chloride 112, BUN 38, creatinine 1.8, serum calcium 5.6, albumin 2.9 g/dL, hemoglobin 9.2. ASSESSMENT: 1. Acute kidney injury secondary to hypotension, hypovolemia, currently improving, nonoliguric. UA shows significant pyuria. Urine culture did not show any significant growth. 2. Hypernatremia associated with free water deficit, currently improved. 3. Metabolic acidosis status post IV bicarb, now improved, maintained on oral sodium bicarb as well. 4. Hypocalcemia associated with vitamin D deficiency, maintained on supplementation. PLAN: Continue with Ringer lactate. Encourage increased oral intake. Replace calcium. Continue vitamin D supplementation. MMODL / IJN: [id number] /
[2021-01-20 16:59] LABS: Glucose,Whole Blood 92 mg/dL (75-99)
[2021-01-20 20:49] LABS: Glucose,Whole Blood 102 mg/dL (75-99)
[2021-01-20] MEDS: ZOLPIDEM 5 MG TAB PO SCH (22:26)
[2021-01-20] MEDS: diphenhydrAMINE 50 MG CAP PO SCH (22:27)
[2021-01-20] MEDS: PANTOPRAZOLE 40 MG TABLET PO SCH (22:27)
[2021-01-20] MEDS: CITALOPRAM HYDROBROMIDE 20 MG TAB PO SCH (22:27)
[2021-01-20] MEDS: FOLIC ACID 1 MG TAB PO SCH (22:27)
[2021-01-21] MEDS: LACTATED RINGERS 1,000 ML IV SCH ×2 (05:29→19:46)
[2021-01-21] MEDS: ZOLPIDEM 10 MG TAB PO SCH (06:34)
[2021-01-21] MEDS: MELATONIN 5 MG TABLET PO SCH (06:34)
[2021-01-21 06:36] LABS: Glucose,Whole Blood 94 mg/dL (75-99)
[2021-01-21] MEDS: INSULIN ASPART (NovoLOG) 100 UNIT/ML VIAL SQ SCH ×4 (08:16→20:31)
[2021-01-21] MEDS: HEPARIN SODIUM,PORCINE/PF 5,000 UNIT/0.5 ML SYRINGE SQ SCH ×2 (08:23→20:36)
[2021-01-21] MEDS: ERGOCALCIFEROL 1,250 MCG (50,000 IU) CAPSULE PO SCH (08:24)
[2021-01-21] MEDS: CALCIUM CARBONATE 500 MG CHEWABLE PO SCH ×3 (08:24→20:39)
[2021-01-21] MEDS: BACLOFEN 10 MG TAB PO SCH ×3 (08:24→20:36)
[2021-01-21] MEDS: SODIUM BICARBONATE TAB 650 MG TAB PO SCH ×2 (08:24→20:35)
[2021-01-21] MEDS: CYANOCOBALAMIN 500 MCG TAB PO SCH (08:24)
[2021-01-21] MEDS: POTASSIUM CHLORIDE ER 20 MEQ TAB.ER PO SCH (08:24)
[2021-01-21] MEDS: CALCIUM CARB-VIT D 500 MG-5 MCG TAB PO SCH (08:26)
[2021-01-21 12:16] LABS: Glucose,Whole Blood 86 mg/dL (75-99)
--- NOTE | 2021-01-21 16:42 | PN ---
PROGRESS NOTE Patient is seen for followup for acute kidney injury, hypernatremia. Her renal function has been improving. Patient is maintained on IV fluids. She is tolerating oral intake as well. PHYSICAL EXAMINATION: Blood pressure was 139/71, heart rate 62 per minute, she is afebrile. Examination of the heart S1, S2. Examination of the lungs, decreased breath sounds at bases. Abdomen is soft, nontender. Examination of lower extremities shows no evidence of edema. [employer] exam grossly intact. Patient is moving all 4 extremities. She needs to be fed. LAB: From 01/20/2021 show sodium 144, potassium 3.5, chloride 112, BUN 38, creatinine 1.8. ASSESSMENT: 1. Acute kidney injury, prerenal, currently improved with IV hydration. Serum creatinine down to 1.8 from 3.0 on initial admission. 2. Severe metabolic acidosis associated with gastrointestinal fluid loss and renal failure, currently improved with bicarb drip. 3. Hypernatremia associated with free water deficit, now improved. 4. Hypocalcemia with severe nutrition vitamin D deficiency, maintained on supplementation. PLAN: Continue with calcium and vitamin D. Continue Ringer lactate until patient is eating well. Repeat labs in a.m. MMODL / IJN: [id number] /
[2021-01-21 16:45] LABS: Glucose,Whole Blood 95 mg/dL (75-99)
--- NOTE | 2021-01-21 17:28 | P.PN ---
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 Patient presented, feeling weak and tired rundown. Decreased responsiveness. Admitted with acute metabolic encephalopathy, acute kidney injury prerenal, severe metabolic acidosis, hypocalcemia, hypokalemia. Was moved to the ICU. Aggressive replacement of electrolytes. Today: We'll go to the ICU. Sitting up in a chair. Oral intake better. at the bedside. Walked a better with supervision. PTOT Review of systems: Was done for constitutional, cardiovascular, GI, pulmonary. relevant finding as above Active Medications Acetaminophen (Acetaminophen Tab 325 Mg Tab) 650 mg PO Q6HR PRN PRN Reason: Mild Pain or Fever > 100.5 Hydrocodone Bitart/Acetaminophen (Hydrocodone/Apap 5-325mg 1 Each Tab) 1 each PO Q6HR PRN PRN Reason: Pain Alprazolam (Alprazolam 0.25 Mg Tab) 0.25 mg PO TID PRN PRN Reason: Anxiety Baclofen (Baclofen 10 Mg Tab) 5 mg PO TID [facility] Last Admin: 01/21/21 16:10 Dose: 5 mg Documented by: Calcium Carbonate (Calcium Carb-Vit D 500 Mg-5 Mcg Tab) 1 each PO DAILY [facility] Last Admin: 01/21/21 08:26 Dose: 1 each Documented by: Calcium Carbonate/Glycine (Calcium Carbonate 500 Mg Chewable) 1,000 mg PO TID [facility] Last Admin: 01/21/21 16:10 Dose: 1,000 mg Documented by: Citalopram Hydrobromide (Citalopram Hydrobromide 20 Mg Tab) 40 mg PO [facility] Last Admin: 01/20/21 22:27 Dose: 40 mg Documented by: Cyanocobalamin (Cyanocobalamin 500 Mcg Tab) 5,000 mcg PO DAILY [facility] Last Admin: 01/21/21 08:24 Dose: 5,000 mcg Documented by: Ergocalciferol (Ergocalciferol 1,250 Mcg (50,000 Iu) Capsule) 1,250 mcg PO Q48H [facility] Last Admin: 01/21/21 08:24 Dose: 1,250 mcg Documented by: Folic Acid (Folic Acid 1 Mg Tab) 1 mg PO [facility] Last Admin: 01/20/21 22:27 Dose: 1 mg Documented by: Heparin Sodium (Porcine) (Heparin Sodium,Porcine/Pf 5,000 Unit/0.5 Ml Syringe) 5,000 unit SQ Q12HR [facility] Last Admin: 01/21/21 08:23 Dose: 5,000 unit Documented by: Ceftriaxone Sodium 1 gm/ (Sodium Chloride) 50 mls @ 100 mls/hr IVPB Q24H [facility] Last Admin: 01/21/21 16:10 Dose: 100 mls/hr Documented by: Lactated Ringer's (Lactated Ringers) 1,000 mls @ 80 mls/hr IV .[id number] [facility] Last Admin: 01/21/21 05:29 Dose: 80 mls/hr Documented by: Insulin Aspart (Insulin Aspart (Novolog) 100 Unit/Ml Vial) 0 unit SQ [facility]; Protocol Last Admin: 01/21/21 12:31 Dose: Not Given Documented by: Melatonin (Melatonin 3 Mg Tablet) 3 mg PO [facility] Miscellaneous Information (Magnesium Replacement Protocol 1 Each Misc) 1 each MISCELLANE DAILY PRN; Protocol PRN Reason: Per Protocol Miscellaneous Information (Magnesium Replacement Protocol 1 Each Misc) 1 each MISCELLANE DAILY PRN; Protocol PRN Reason: Per Protocol Miscellaneous Information (Potassium Replacement Protocol 1 Each Misc) 1 each MISCELLANE DAILY PRN; Protocol PRN Reason: Per Protocol Naloxone HCl (Naloxone 0.4 Mg/Ml 1 Ml Vial) 0.2 mg IV Q2M PRN PRN Reason: Opioid Reversal Pantoprazole Sodium (Pantoprazole 40 Mg Tablet) 40 mg PO [facility] Last Admin: 01/20/21 22:27 Dose: 40 mg Documented by: Potassium Chloride (Potassium Chloride Er 20 Meq Tab.Er) 20 meq PO DAILY [facility] Last Admin: 01/21/21 08:24 Dose: 20 meq Documented by: Sodium Bicarbonate (Sodium Bicarbonate Tab 650 Mg Tab) 650 mg PO BID [facility] Last Admin: 01/21/21 08:24 Dose: 650 mg Documented by: Zolpidem Tartrate (Zolpidem 5 Mg Tab) 5 mg PO [facility] Last Admin: 01/20/21 22:26 Dose: 5 mg Documented by: On examination: VITAL SIGNS: 97.7, 62, 18, 139/71, 97% room air GENERAL APPEARANCE: Sitting up in a chair, awake, HEENT: Normal external appearance of nose and ear. Oral cavity normal EYES: Pupils equal. Conjunctiva normal. NECK: JVD not raised. Mass not palpable. RESPIRATORY: Respiratory effort normal. Lungs clear to auscultation. CARDIOVASCULAR: First and second sounds normal. No edema. ABDOMEN: Soft. Liver and spleen not palpable. No tenderness. No mass palpable. MUSCULAR skeletal: Evidence of OA PSYCHIATRY: AO 3, mood and affect normal INVESTIGATIONS, reviewed in the clinical context: January 20: WBC 6.1 hemoglobin 9.2 platelets 183 potassium 3.5 bun 38 creatinine 1.82 albumin 2.9 calcium 5.6 Admission labs: WBC 10.1 hemoglobin 11.9 platelets 253 sodium 147 bicarbonate pleasant 5 creatinine 3.07 potassium 5.4 magnesia 1.2 Coronavirus [PCR]-not detected Chest x-ray: Unremarkable CT brain: Unremarkable Ultrasound kidney and bladder: Medical renal disease suggested Assessment and plan: -Acute metabolic encephalopathy, multifactorial especially from electrolyte abnormalities, metabolic better Follow clinically -Acute kidney injury likely prerenal Fluids being replaced and oral intake encouraged -Acute severe metabolic acidosis due to kidney injury-improved Fluids and bicarbonate supplementation -Chronic rheumatoid arthritis Follow clinically -Chronic fibromyalgia Follow clinically. Cutback to dose of baclofen -Prolonged pro time, likely nutritional Encourage oral intake -Moderate cognitive impairment Follow clinically -Severe hypocalcemia-slow to respond Follow levels closely. Replace calcium -Hypernatremia from free water deficit-corrected Follow BMP -Hypomagnesemia-corrected Follow -Hypokalemia Being replaced. Follow BMP -Suspect underlying chronic kidney disease, likely stage III Follow closely. Follow with nephrology -Acute medical debility PTOT -Chronic dumping syndrome -Depression not otherwise specified Continue with Celexa -Chronic insomnia Patient is a rather hefty dose of Ambien , decreased Continue with PT OT. Repeat labs in the morning. Including ionized calcium.
[2021-01-21 20:31] LABS: Glucose,Whole Blood 108 mg/dL (75-99)
[2021-01-21] MEDS: ZOLPIDEM 5 MG TAB PO SCH (20:35)
[2021-01-21] MEDS: PANTOPRAZOLE 40 MG TABLET PO SCH (20:35)
[2021-01-21] MEDS: FOLIC ACID 1 MG TAB PO SCH (20:36)
[2021-01-21] MEDS: MELATONIN 3 MG TABLET PO SCH (20:36)
[2021-01-21] MEDS: CITALOPRAM HYDROBROMIDE 20 MG TAB PO SCH (20:36)
[2021-01-22 07:13] LABS: Glucose,Whole Blood 99 mg/dL (75-99)
[2021-01-22] MEDS: INSULIN ASPART (NovoLOG) 100 UNIT/ML VIAL SQ SCH ×4 (07:26→21:28)
[2021-01-22] MEDS: SODIUM BICARBONATE TAB 650 MG TAB PO SCH ×2 (07:32→21:39)
[2021-01-22] MEDS: BACLOFEN 10 MG TAB PO SCH ×3 (07:32→21:39)
[2021-01-22] MEDS: HEPARIN SODIUM,PORCINE/PF 5,000 UNIT/0.5 ML SYRINGE SQ SCH ×2 (07:33→21:40)
[2021-01-22] MEDS: POTASSIUM CHLORIDE ER 20 MEQ TAB.ER PO SCH (07:33)
[2021-01-22] MEDS: CALCIUM CARB-VIT D 500 MG-5 MCG TAB PO SCH (07:33)
[2021-01-22] MEDS: LACTATED RINGERS 1,000 ML IV SCH (07:33)
[2021-01-22] MEDS: CYANOCOBALAMIN 500 MCG TAB PO SCH (07:33)
[2021-01-22] MEDS: CALCIUM CARBONATE 500 MG CHEWABLE PO SCH ×3 (07:33→21:39)
[2021-01-22 08:45] LABS: Ionized Calcium 3.4 mg/dL (4.5-5.3)
[2021-01-22 08:57] LABS: African American GFR (CKD) 35 (>60 ml/min/1.73 sqM); Anion Gap 9 mmol/L; Blood Urea Nitrogen 35 mg/dL (7-17); Carbon Dioxide 24 mmol/L (22-30); Chloride 109 mmol/L (98-107); Glucose 89 mg/dL (74-99); Magnesium 1.5 mg/dL (1.6-2.3); Non-African American GFR(CKD) 30 (>60 ml/min/1.73 sqM); Potassium 3.3 mmol/L (3.5-5.1); Sodium 142 mmol/L (137-145)
[2021-01-22 09:12] LABS: Calcium 5.8 mg/dL (8.4-10.2)
[2021-01-22] MEDS ORDERED: POTASSIUM CHLORIDE ER 10 MEQ TAB.ER.PRT PO SCH (10:00)
[2021-01-22] MEDS: POTASSIUM CHLORIDE ER 10 MEQ TAB.ER.PRT PO SCH ×2 (10:13→11:35)
[2021-01-22] MEDS ORDERED: CALCIUM GLUCONATE 2 GM in SODIUM CHLORIDE 0.9% 100 ML IVPB ONE (10:15)
[2021-01-22 11:29] LABS: Glucose,Whole Blood 92 mg/dL (75-99)
[2021-01-22] MEDS: PRIMIDONE 50 MG TAB PO SCH ×2 (12:49→15:35)
[2021-01-22] MEDS: MAGNESIUM OXIDE 400 MG TAB PO SCH ×3 (12:49→21:39)
--- NOTE | 2021-01-22 15:12 | CDI ---
Documentation Clarification Form Date: 01/22/2021 02:32:58 PM From: Dara Cardona RN, CCDS Admit Date: 01/16/2021 12:13:00 PM Patient Name: Yasmin Murray Visit Number: [id number] Discharge Date: ATTENTION: The Clinical Documentation Specialists (CDI) and [facility] Coding Staff appreciate your assistance in clarifying documentation. Please respond to the clarification below the line at the bottom and electronically sign. The CDI & [facility] Coding staff will review the response and follow-up if needed. Please note: Queries are made part of the Legal Health Record. If you have any questions, please contact the author of this message via ITS. Dr. Martin Bateman The patient presented with weakness, confusion and has frequent UTIs per H/P. On 01/17 progress note has elevated inflammatory markers, rule out Sepsis. Additional clarification regarding the etiology/cause of the clinical indicators is requested. History/Risk Factors: Dumping Syndrome, Fibromyalgia, UTIs, Clinical Indicators: 70-year-old female present to ED on 01/16/21 by EMS with altered mental status, decreased responsiveness, and decrease oral intake. 01/16 WBC: 10.1, 12.6 Carbon dioxide <5, Sodium 147, BUN 71, Creatinine 3.07, Calcium 5.4 01/16 Lactic acid: 0.7 01/16 UA: Large blood, Leukocyte Esterase Negative, Urine RBC >182, Urine WBC 15 Urine Bacteria Few 01/16 Urine Culture: Final: No Growth after 18 hours 01/16 Blood cultures: Pending, no growth after 120 hrs 01/16 Vital signs: 131/71 96 23 98.1(AX) 97 % RA Treatment: Rocephin 1 GM IVPG Q 24 HRS IV Bolus: 1,000 MLS X2 (01/16) Sodium Bicarb 150 IV X1 Sodium bicarb tab 650 MG BID In your professional opinion, please clarify if these findings signify one of the following conditions: [ ] Sepsis POA [ ] Sepsis ruled out [ ] Other, please specify [ ] Unable to determine SIRS Criteria: 2 or more of the following may indicate SIRS -Temperature < 96.8F (36C) or > 101.0F (38.3C) -Heart Rate > 90 bpm -Respiratory Rate > 20 breaths/min or PaCO2 < 32 mmHg -White Blood Cell Count > 12,000 or < 4,000 cells/mm3 or > 10% bands (Template Last Reviewed: September 2020) Sepsis ruled out [facility]
--- NOTE | 2021-01-22 15:55 | P.PN ---
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 Patient presented, feeling weak and tired rundown. Decreased responsiveness. Admitted with acute metabolic encephalopathy, acute kidney injury prerenal, severe metabolic acidosis, hypocalcemia, hypokalemia. Was moved to the ICU. Aggressive replacement of electrolytes. Today: Oral intake improving. at the bedside. Patient's had chronic tremors, her mother also had the same. Electrolytes of comeback again abnormal. Review of systems: Was done for constitutional, cardiovascular, GI, pulmonary. relevant finding as above Active Medications Acetaminophen (Acetaminophen Tab 325 Mg Tab) 650 mg PO Q6HR PRN PRN Reason: Mild Pain or Fever > 100.5 Hydrocodone Bitart/Acetaminophen (Hydrocodone/Apap 5-325mg 1 Each Tab) 1 each PO Q6HR PRN PRN Reason: Pain Alprazolam (Alprazolam 0.25 Mg Tab) 0.25 mg PO TID PRN PRN Reason: Anxiety Baclofen (Baclofen 10 Mg Tab) 5 mg PO TID [facility] Last Admin: 01/22/21 15:35 Dose: 5 mg Documented by: Calcium Carbonate (Calcium Carb-Vit D 500 Mg-5 Mcg Tab) 1 each PO DAILY [facility] Last Admin: 01/22/21 07:33 Dose: 1 each Documented by: Calcium Carbonate/Glycine (Calcium Carbonate 500 Mg Chewable) 1,000 mg PO TID [facility] Last Admin: 01/22/21 15:47 Dose: Not Given Documented by: Citalopram Hydrobromide (Citalopram Hydrobromide 20 Mg Tab) [address] [facility] Last Admin: 01/21/21 20:36 Dose: 40 mg Documented by: Cyanocobalamin (Cyanocobalamin 500 Mcg Tab) 5,000 mcg PO DAILY [facility] Last Admin: 01/22/21 07:33 Dose: 5,000 mcg Documented by: Ergocalciferol (Ergocalciferol 1,250 Mcg (50,000 Iu) Capsule) 1,250 mcg PO Q48H [facility] Last Admin: 01/21/21 08:24 Dose: 1,250 mcg Documented by: Folic Acid (Folic Acid 1 Mg Tab) [address] [facility] Last Admin: 01/21/21 20:36 Dose: 1 mg Documented by: Heparin Sodium (Porcine) (Heparin Sodium,Porcine/Pf 5,000 Unit/0.5 Ml Syringe) 5,000 unit SQ Q12HR [facility] Last Admin: 01/22/21 07:33 Dose: 5,000 unit Documented by: Ceftriaxone Sodium 1 gm/ (Sodium Chloride) 50 mls @ 100 mls/hr IVPB Q24H [facility] Last Admin: 01/22/21 15:35 Dose: 100 mls/hr Documented by: Insulin Aspart (Insulin Aspart (Novolog) 100 Unit/Ml Vial) 0 unit SQ ACHS [facility]; Protocol Last Admin: 01/22/21 11:35 Dose: Not Given Documented by: Magnesium Oxide (Magnesium Oxide 400 Mg Tab) 400 mg PO TID [facility] Last Admin: 01/22/21 15:35 Dose: 400 mg Documented by: Melatonin (Melatonin 3 Mg Tablet) [address] [facility] Last Admin: 01/21/21 20:36 Dose: 3 mg Documented by: Miscellaneous Information (Magnesium Replacement Protocol 1 Each Misc) 1 each MISCELLANE DAILY PRN; Protocol PRN Reason: Per Protocol Miscellaneous Information (Magnesium Replacement Protocol 1 Each Misc) 1 each MISCELLANE DAILY PRN; Protocol PRN Reason: Per Protocol Miscellaneous Information (Potassium Replacement Protocol 1 Each Misc) 1 each MISCELLANE DAILY PRN; Protocol PRN Reason: Per Protocol Naloxone HCl (Naloxone 0.4 Mg/Ml 1 Ml Vial) 0.2 mg IV Q2M PRN PRN Reason: Opioid Reversal Pantoprazole Sodium (Pantoprazole 40 Mg Tablet) [address] [facility] Last Admin: 01/21/21 20:35 Dose: 40 mg Documented by: Potassium Chloride (Potassium Chloride Er 20 Meq Tab.Er) 20 meq PO DAILY [facility] Last Admin: 01/22/21 07:33 Dose: 20 meq Documented by: Primidone (Primidone 50 Mg Tab) 50 mg PO TID [facility] Last Admin: 01/22/21 15:35 Dose: 50 mg Documented by: Sodium Bicarbonate (Sodium Bicarbonate Tab 650 Mg Tab) 650 mg PO BID [facility] Last Admin: 01/22/21 07:32 Dose: 650 mg Documented by: Zolpidem Tartrate (Zolpidem 5 Mg Tab) [address] [facility] Last Admin: 01/21/21 20:35 Dose: 5 mg Documented by: On examination: VITAL SIGNS: 97.8, 62, 18, 133/78, 98% room air GENERAL APPEARANCE: Sitting at the edge of the bed, eating HEENT: Normal external appearance of nose and ear. Oral cavity normal EYES: Pupils equal. Conjunctiva normal. NECK: JVD not raised. Mass not palpable. RESPIRATORY: Respiratory effort normal. Lungs clear to auscultation. CARDIOVASCULAR: First and second sounds normal. No edema. ABDOMEN: Soft. Liver and spleen not palpable. No tenderness. No mass palpable. MUSCULAR skeletal: Evidence of OA NEUROLOGICAL: Tremors PSYCHIATRY: AO 3, mood and affect normal INVESTIGATIONS, reviewed in the clinical context: January 22: Potassium 3.3 BUN 35 creatinine 1.69 ionized calciums 3.4 magnesia 1.5 January 20: WBC 6.1 hemoglobin 9.2 platelets 183 potassium 3.5 bun 38 creatinine 1.82 albumin 2.9 calcium 5.6 Admission labs: WBC 10.1 hemoglobin 11.9 platelets 253 sodium 147 bicarbonate pleasant 5 creatinine 3.07 potassium 5.4 magnesia 1.2 Coronavirus [PCR]-not detected Chest x-ray: Unremarkable CT brain: Unremarkable Ultrasound kidney and bladder: Medical renal disease suggested Assessment and plan: -Acute metabolic encephalopathy, multifactorial especially from electrolyte abnormalities, metabolic -improved Follow clinically -Acute kidney injury likely prerenal-improving slowly Fluids being replaced and oral intake encouraged -Acute severe metabolic acidosis due to kidney injury-improved Fluids and bicarbonate supplementation -Chronic rheumatoid arthritis Follow clinically -Chronic fibromyalgia Follow clinically. Cutback to dose of baclofen -Prolonged pro time, likely nutritional Encourage oral intake -Moderate cognitive impairment Follow clinically -Severe hypocalcemia-slow to respond Follow levels closely. 2 units of IV calcium gluconate ordered today. -Hypernatremia from free water deficit-corrected Follow BMP -Hypomagnesemia- By mouth magnesium oxide -Hypokalemia Being replaced. Follow BMP -Suspect underlying chronic kidney disease, likely stage III Follow closely. Follow with nephrology -Acute medical debility PTOT -Chronic dumping syndrome -Depression not otherwise specified Continue with Celexa -Chronic insomnia Patient is a rather hefty dose of Ambien , decreased -Chronic, familial tremor Add primidone 25 mg 3 times a day Calcium magnesia being replaced including potassium. Discussed with the patient and . Primidone being added. Follow with nephrology.
--- NOTE | 2021-01-22 16:08 | PN ---
PROGRESS NOTE Patient is seen for followup for acute kidney injury, hypernatremia and metabolic acidosis. She also has had hypocalcemia for which patient is maintained on supplementation. She has significant nutrition vitamin D deficiency. EXAMINATION: Today patient is comfortable, awake, she is not in any acute distress. Blood pressure was 127/69, heart rate 66 per minute, she is afebrile. Examination of the heart S1, S2. Examination of the lungs, bilateral breath sounds are heard. Abdomen is soft, nontender. Examination of lower extremities shows edema trace bilaterally. [employer] exam grossly intact. LAB: Show sodium 142, potassium 3.3, chloride 109, BUN 35, creatinine 1.69, calcium 5.8, magnesium 1.5. ASSESSMENT: 1. Acute kidney injury, prerenal, currently improved with IV hydration. Patient is tolerating oral intake. I will discontinue the IV fluids. 2. Metabolic acidosis on initial admission associated with gastrointestinal fluid loss and renal failure, currently improved. 3. Hypokalemia, maintained on supplementation. 4. Hypocalcemia with significant nutrition vitamin D deficiency, maintained on supplementation for calcium as well as Drisdol. 5. Hypomagnesemia, being replaced. PLAN: Discontinue IV fluids. Continue to maintain adequate oral intake. Continue with vitamin D2 every other day and replace magnesium. MMODL / IJN: [id number] /
[2021-01-22] MEDS: PRIMIDONE 25 MG TAB PO SCH ×2 (16:29→21:39)
[2021-01-22 17:03] LABS: Glucose,Whole Blood 103 mg/dL (75-99)
[2021-01-22 21:20] LABS: Glucose,Whole Blood 129 mg/dL (75-99)
[2021-01-22] MEDS: FOLIC ACID 1 MG TAB PO SCH (21:39)
[2021-01-22] MEDS: ZOLPIDEM 5 MG TAB PO SCH (21:39)
[2021-01-22] MEDS: PANTOPRAZOLE 40 MG TABLET PO SCH (21:39)
[2021-01-22] MEDS: CITALOPRAM HYDROBROMIDE 20 MG TAB PO SCH (21:39)
[2021-01-22] MEDS: MELATONIN 3 MG TABLET PO SCH (21:39)
[2021-01-23 07:19] LABS: Glucose,Whole Blood 91 mg/dL (75-99)
--- NOTE | 2021-01-23 08:22 | P.PN ---
Subjective Progress Note Date: 01/23/21 Principal diagnosis: This is a 70-year-old female with remote history of intestinal bypass for obesity with dumping syndrome, acute kidney injury, hypomagnesemia, hypocalcemia, metabolic acidosis secondary to GI losses and hyponatremia. She is feeling much better she is able to eat has multiple stools as before unchanged. No abdominal pain no dizziness no chest pain fever chills cough. Urine output is documented at about 1-1.2 L. While signs are on unremarkable. Objective - Vital Signs Vital signs: Vital Signs Temp 97.5 F L 01/23/21 02:30 Pulse 60 01/23/21 02:30 Resp 16 01/23/21 02:30 BP 121/65 01/23/21 02:30 Pulse Ox 98 01/23/21 02:30 Intake & Output 01/22/21 01/23/21 01/23/21 18:59 06:59 18:59 Intake Total 640 950 Output Total 1050 Balance 640 -100 Weight 58 kg Intake: IV 640 Lactated Ringers 1,000 ml 640 @ 80 mls/hr IV .[id number] [facility] Rx#:[id number] Oral 950 Output: Urine 1050 Other: Voiding Method Indwelling Catheter Indwelling Catheter # Bowel Movements 1 On examination she is awake alert oriented comfortable HEENT exam no JVP neck is supple no facial asymmetry Lungs clear to auscultation good air entry bilaterally Heart sounds unremarkable for any murmur rub gallop Abdomen soft nontender Extremity exam was no edema Neurologically awake alert oriented - Labs CBC & Chem 7: 01/20/21 06:49 01/22/21 16:54 Labs: Abnormal Lab Results - Last 24 Hours (Table) 01/22/21 01/22/21 01/22/21 Range/Units 07:51 17:02 21:17 Potassium 3.3 L (3.5-5.1) mmol/L Chloride 109 H (98-107) mmol/L BUN 35 H (7-17) mg/dL Creatinine 1.69 H (0.52-1.04) mg/dL POC Glucose (mg/dL) 103 H 129 H (75-99) mg/dL Calcium 5.8 L* (8.4-10.2) mg/dL Ionized Calcium Kostas 3.4 L* (4.5-5.3) mg/dL Magnesium 1.5 L (1.6-2.3) mg/dL Microbiology - Last 24 Hours (Table) 01/17/21 10:59 Blood Culture - Preliminary Blood No Growth after 120 hours Assessment and Plan Assessment: Impression 1. Acute kidney injury from volume depletion from GI losses improving, creatinine was 3.07 is currently on 1.69 2. Chronic kidney disease stage II- III with GFR anywhere between 58 mL per minute to 65, per minute creatinine is about 0.9 in 06/16/2020 to 1.3 on 09/14/2020, secondary to volume depletion chronically and nephrosclerosis 3. Significant non-gap acidosis from GI losses bicarb is 24 controlled. 4. Hypocalcemia secondary to vitamin D deficiency. Total calcium is 5.8 and ionized calcium is 3.4 normal range being 4.5, on calcium carbonate 1 g 3 times a day and ergocalciferol 1.25 g every other day 5. Hypomagnesemia secondary to GI losses on magnesium oxide 3 times a day 400 m g H 6. 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 History of nephrolithiasis 1 in the past Medication 1. Check vitamin D 125 level. 2. Start calcitriol 0.25 g daily 3. Give 4 g of magnesium sulfate. 4. Serum magnesium continues to fall we can try amiloride to improve magnesium loss in the urine 5. Patient may be discharged and taken care of off as an outpatient
[2021-01-23] MEDS: CYANOCOBALAMIN 500 MCG TAB PO SCH (09:04)
[2021-01-23] MEDS: MAGNESIUM OXIDE 400 MG TAB PO SCH ×3 (09:05→21:07)
[2021-01-23] MEDS: CALCIUM CARB-VIT D 500 MG-5 MCG TAB PO SCH (09:05)
[2021-01-23] MEDS: CALCIUM CARBONATE 500 MG CHEWABLE PO SCH ×3 (09:05→21:16)
[2021-01-23] MEDS: BACLOFEN 10 MG TAB PO SCH ×3 (09:05→21:07)
[2021-01-23] MEDS: POTASSIUM CHLORIDE ER 20 MEQ TAB.ER PO SCH (09:05)
[2021-01-23] MEDS: HEPARIN SODIUM,PORCINE/PF 5,000 UNIT/0.5 ML SYRINGE SQ SCH ×2 (09:05→21:12)
[2021-01-23] MEDS: SODIUM BICARBONATE TAB 650 MG TAB PO SCH ×2 (09:05→21:07)
[2021-01-23] MEDS: ERGOCALCIFEROL 1,250 MCG (50,000 IU) CAPSULE PO SCH (09:06)
[2021-01-23] MEDS: PRIMIDONE 25 MG TAB PO SCH ×3 (09:06→21:17)
[2021-01-23] MEDS: INSULIN ASPART (NovoLOG) 100 UNIT/ML VIAL SQ SCH ×4 (09:07→22:35)
[2021-01-23 11:48] LABS: Glucose,Whole Blood 106 mg/dL (75-99)
[2021-01-23 13:00] LABS: Ionized Calcium 3.6 mg/dL (4.5-5.3)
[2021-01-23 13:09] LABS: African American GFR (CKD) 36 (>60 ml/min/1.73 sqM); Anion Gap 10 mmol/L; Blood Urea Nitrogen 29 mg/dL (7-17); Carbon Dioxide 24 mmol/L (22-30); Chloride 106 mmol/L (98-107); Glucose 101 mg/dL (74-99); Non-African American GFR(CKD) 31 (>60 ml/min/1.73 sqM); Sodium 140 mmol/L (137-145)
[2021-01-23 13:14] LABS: Magnesium 1.5 mg/dL (1.6-2.3); Potassium 3.9 mmol/L (3.5-5.1)
[2021-01-23 13:35] LABS: Calcium 6.1 mg/dL (8.4-10.2)
--- NOTE | 2021-01-23 15:41 | P.PN ---
Progress Note - Text Progress Note Date: 01/23/21 Presenting complaint: Tired Hospital course: 70-year-old patient, Dr. Murillo, but a known history of fibromyalgia, memory impairment, rheumatoid arthritis, dumping syndrome, depression. Patient presented, feeling weak and tired rundown. Decreased responsiveness. Admitted with acute metabolic encephalopathy, acute kidney injury prerenal, severe metabolic acidosis, hypocalcemia, hypokalemia. Was moved to the ICU. Aggressive replacement of electrolytes. 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 Tremors are responding to primidone. Sitting at the edge of the bed. Feels a bit better. Review of systems: Was done for constitutional, cardiovascular, GI, pulmonary. relevant finding as above Active Medications Acetaminophen (Acetaminophen Tab 325 Mg Tab) 650 mg PO Q6HR PRN PRN Reason: Mild Pain or Fever > 100.5 Hydrocodone Bitart/Acetaminophen (Hydrocodone/Apap 5-325mg 1 Each Tab) 1 each PO Q6HR PRN PRN Reason: Pain Alprazolam (Alprazolam 0.25 Mg Tab) 0.25 mg PO TID PRN PRN Reason: Anxiety Baclofen (Baclofen 10 Mg Tab) 5 mg PO TID [facility] Last Admin: 01/23/21 09:05 Dose: 5 mg Documented by: Calcium Carbonate (Calcium Carb-Vit D 500 Mg-5 Mcg Tab) 1 each PO DAILY [facility] Last Admin: 01/23/21 09:05 Dose: 1 each Documented by: Calcium Carbonate/Glycine (Calcium Carbonate 500 Mg Chewable) 1,000 mg PO TID [facility] Last Admin: 01/23/21 13:57 Dose: Not Given Documented by: Citalopram Hydrobromide (Citalopram Hydrobromide 20 Mg Tab) 40 mg PO [facility] Last Admin: 01/22/21 21:39 Dose: 40 mg Documented by: Cyanocobalamin (Cyanocobalamin 500 Mcg Tab) 5,000 mcg PO DAILY [facility] Last Admin: 01/23/21 09:04 Dose: Not Given Documented by: Ergocalciferol (Ergocalciferol 1,250 Mcg (50,000 Iu) Capsule) 1,250 mcg PO Q48H [facility] Last Admin: 01/23/21 09:06 Dose: 1,250 mcg Documented by: Folic Acid (Folic Acid 1 Mg Tab) 1 mg PO [facility] Last Admin: 01/22/21 21:39 Dose: 1 mg Documented by: Heparin Sodium (Porcine) (Heparin Sodium,Porcine/Pf 5,000 Unit/0.5 Ml Syringe) 5,000 unit SQ Q12HR [facility] Last Admin: 01/23/21 09:05 Dose: 5,000 unit Documented by: Ceftriaxone Sodium 1 gm/ (Sodium Chloride) 50 mls @ 100 mls/hr IVPB Q24H [facility] Last Admin: 01/22/21 15:35 Dose: 100 mls/hr Documented by: Insulin Aspart (Insulin Aspart (Novolog) 100 Unit/Ml Vial) 0 unit SQ ACHS [facility]; Protocol Last Admin: 01/23/21 13:54 Dose: Not Given Documented by: Magnesium Oxide (Magnesium Oxide 400 Mg Tab) 400 mg PO TID [facility] Last Admin: 01/23/21 09:05 Dose: 400 mg Documented by: Melatonin (Melatonin 3 Mg Tablet) 3 mg PO [facility] Last Admin: 01/22/21 21:39 Dose: 3 mg Documented by: Miscellaneous Information (Magnesium Replacement Protocol 1 Each Misc) 1 each MISCELLANE DAILY PRN; Protocol PRN Reason: Per Protocol Miscellaneous Information (Magnesium Replacement Protocol 1 Each Misc) 1 each MISCELLANE DAILY PRN; Protocol PRN Reason: Per Protocol Miscellaneous Information (Potassium Replacement Protocol 1 Each Misc) 1 each MISCELLANE DAILY PRN; Protocol PRN Reason: Per Protocol Naloxone HCl (Naloxone 0.4 Mg/Ml 1 Ml Vial) 0.2 mg IV Q2M PRN PRN Reason: Opioid Reversal Pantoprazole Sodium (Pantoprazole 40 Mg Tablet) 40 mg PO [facility] Last Admin: 01/22/21 21:39 Dose: 40 mg Documented by: Potassium Chloride (Potassium Chloride Er 20 Meq Tab.Er) 20 meq PO DAILY [facility] Last Admin: 01/23/21 09:05 Dose: 20 meq Documented by: Primidone (Primidone 25 Mg Tab) 25 mg PO TID [facility] Last Admin: 01/23/21 09:06 Dose: 25 mg Documented by: Sodium Bicarbonate (Sodium Bicarbonate Tab 650 Mg Tab) 650 mg PO BID [facility] Last Admin: 01/23/21 09:05 Dose: 650 mg Documented by: Zolpidem Tartrate (Zolpidem 5 Mg Tab) 5 mg PO [facility] Last Admin: 01/22/21 21:39 Dose: 5 mg Documented by: On examination: VITAL SIGNS: 98.7, 77, 17, 119/72, 99% room air GENERAL APPEARANCE: Sitting at the edge of the bed, eating EYES: Pupils equal. Conjunctiva normal. NECK: JVD not raised. Mass not palpable. RESPIRATORY: Respiratory effort normal. Lungs clear to auscultation. CARDIOVASCULAR: First and second sounds normal. No edema. ABDOMEN: Soft. Liver and spleen not palpable. No tenderness. No mass palpable. MUSCULAR skeletal: Evidence of OA NEUROLOGICAL: Tremors-improved PSYCHIATRY: AO 3, mood and affect normal INVESTIGATIONS, reviewed in the clinical context: January 23: Potassium 3.9 creatinine 1.65 ionized calcium 3.6 magnesium 1.5 January 22: Potassium 3.3 BUN 35 creatinine 1.69 ionized calciums 3.4 magnesia 1.5 January 20: WBC 6.1 hemoglobin 9.2 platelets 183 potassium 3.5 bun 38 creatinine 1.82 albumin 2.9 calcium 5.6 Admission labs: WBC 10.1 hemoglobin 11.9 platelets 253 sodium 147 bicarbonate pleasant 5 creatinine 3.07 potassium 5.4 magnesia 1.2 Coronavirus [PCR]-not detected Chest x-ray: Unremarkable CT brain: Unremarkable Ultrasound kidney and bladder: Medical renal disease suggested Assessment and plan: -Acute metabolic encephalopathy, multifactorial especially from electrolyte abnormalities, metabolic -improved Follow clinically -Acute kidney injury likely prerenal-improving slowly Fluids being replaced -Acute severe metabolic acidosis due to kidney injury-improved Fluids and bicarbonate supplementation -Chronic rheumatoid arthritis Follow clinically -Chronic fibromyalgia Follow clinically. Cutback to dose of baclofen -Prolonged pro time, likely nutritional Encourage oral intake -Moderate cognitive impairment Follow clinically -Severe hypocalcemia-slow to respond Follow levels closely. 2 units of IV calcium gluconate ordered today. -Hypernatremia from free water deficit-corrected Follow BMP -Hypomagnesemia Magnesium oxide 400 mg 3 times a day -Hypokalemia-corrected Being replaced. Follow BMP -Suspect underlying chronic kidney disease, likely stage III Follow closely. Follow with nephrology -Acute medical debility PTOT -Chronic dumping syndrome -Depression not otherwise specified Continue with Celexa -Chronic insomnia Patient is a rather hefty dose of Ambien , decreased -Chronic, familial tremor primidone 25 mg 3 times a day-responding Nephrology started the patient on calcitriol. Ordered 2 A of IV calcium gluconate. Continue magnesium oxide. Repeat labs tomorrow morning hopefully discharge home tomorrow
[2021-01-23] MEDS ORDERED: CALCIUM GLUCONATE 2 GM in SODIUM CHLORIDE 0.9% 100 ML IVPB ONE (16:00)
[2021-01-23 16:31] LABS: Glucose,Whole Blood 114 mg/dL (75-99)
[2021-01-23 21:01] LABS: Glucose,Whole Blood 85 mg/dL (75-99)
[2021-01-23] MEDS: CITALOPRAM HYDROBROMIDE 20 MG TAB PO SCH (21:06)
[2021-01-23] MEDS: FOLIC ACID 1 MG TAB PO SCH (21:07)
[2021-01-23] MEDS: MELATONIN 3 MG TABLET PO SCH (21:07)
[2021-01-23] MEDS: PANTOPRAZOLE 40 MG TABLET PO SCH (21:07)
[2021-01-23] MEDS: ZOLPIDEM 5 MG TAB PO SCH (21:07)
[2021-01-24 03:05] VITALS: RESP 16
[2021-01-24 06:34] LABS: Glucose,Whole Blood 105 mg/dL (75-99)
[2021-01-24] MEDS: INSULIN ASPART (NovoLOG) 100 UNIT/ML VIAL SQ SCH ×2 (06:55→11:27)
[2021-01-24 07:28] VITALS: BP 125/71; PULSE 61; TEMP 98.1
[2021-01-24] MEDS: BACLOFEN 10 MG TAB PO SCH (08:45)
[2021-01-24] MEDS: SODIUM BICARBONATE TAB 650 MG TAB PO SCH (08:45)
[2021-01-24] MEDS: HEPARIN SODIUM,PORCINE/PF 5,000 UNIT/0.5 ML SYRINGE SQ SCH (08:45)
[2021-01-24] MEDS: POTASSIUM CHLORIDE ER 20 MEQ TAB.ER PO SCH (08:45)
[2021-01-24] MEDS: CALCIUM CARBONATE 500 MG CHEWABLE PO SCH (08:45)
[2021-01-24] MEDS: PRIMIDONE 25 MG TAB PO SCH (08:46)
[2021-01-24] MEDS: CALCIUM CARB-VIT D 500 MG-5 MCG TAB PO SCH (08:46)
[2021-01-24] MEDS: CYANOCOBALAMIN 500 MCG TAB PO SCH (08:46)
[2021-01-24] MEDS: MAGNESIUM OXIDE 400 MG TAB PO SCH (08:46)
--- NOTE | 2021-01-24 09:25 | P.PN ---
Subjective Progress Note Date: 01/24/21 Principal diagnosis: This is a 70-year-old female with remote history of intestinal bypass for obesity with dumping syndrome, acute kidney injury, hypomagnesemia, hypocalcemia, metabolic acidosis secondary to GI losses and hyponatremia. She is feeling much better she is able to eat has multiple stools as before unchanged. No abdominal pain no dizziness no chest pain fever chills cough. Urine output is documented at about 1-1.2 L. vital signs are on unremarkable. She is able to walk to the bathroom without any dizziness. She has a good appetite Objective - Vital Signs Vital signs: Vital Signs Temp 98.1 F 01/24/21 07:27 Pulse 61 01/24/21 07:27 Resp 16 01/24/21 07:27 BP 125/71 01/24/21 07:27 Pulse Ox 98 01/24/21 07:27 Intake & Output 01/23/21 01/24/21 01/24/21 18:59 06:59 18:59 Output Total 1600 1800 Balance -1600 -1800 Output: Urine 1600 1800 Other: Voiding Method Indwelling Catheter Indwelling Catheter Indwelling Catheter # Bowel Movements 2 On examination awake alert oriented comfortable HEENT exam no JVP neck is supple no facial asymmetry Lungs clear to auscultation good air entry bilaterally Heart sounds unremarkable for any murmur rub gallop Abdomen soft nontender Extremity exam was no edema Neurologically awake alert oriented - Labs CBC & Chem 7: 01/20/21 06:49 01/23/21 12:30 Labs: Abnormal Lab Results - Last 24 Hours (Table) 01/23/21 01/23/21 01/23/21 Range/Units 11:43 12:30 16:28 BUN 29 H (7-17) mg/dL Creatinine 1.65 H (0.52-1.04) mg/dL Glucose 101 H (74-99) mg/dL POC Glucose (mg/dL) 106 H 114 H (75-99) mg/dL Calcium 6.1 L* (8.4-10.2) mg/dL Ionized Calcium Kostas 3.6 L (4.5-5.3) mg/dL Magnesium 1.5 L (1.6-2.3) mg/dL 01/24/21 Range/Units 06:33 BUN (7-17) mg/dL Creatinine (0.52-1.04) mg/dL Glucose (74-99) mg/dL POC Glucose (mg/dL) 105 H (75-99) mg/dL Calcium (8.4-10.2) mg/dL Ionized Calcium Kostas (4.5-5.3) mg/dL Magnesium (1.6-2.3) mg/dL Microbiology - Last 24 Hours (Table) 01/17/21 10:59 Blood Culture - Final Blood No Growth after 144 hours Assessment and Plan Assessment: Impression 1. Acute kidney injury from volume depletion from GI losses improving, creatinine was 3.07, improved to 1.6 as of yesterday no labs drawn today. 2. Chronic kidney disease stage II- III with GFR anywhere between 58 mL per minute to 65, per minute creatinine is about 0.9 in 06/16/2020 to 1.3 on 09/14/2020, secondary to volume depletion chronically and nephrosclerosis 3. Significant non-gap acidosis from GI losses bicarb is 24 controlled. 4. Hypocalcemia secondary to vitamin D deficiency. Total calcium is 5.8 and ionized calcium is 3.4 normal range being 4.5, on calcium carbonate 1 g 3 times a day and ergocalciferol 1.25 g every other day 5. Hypomagnesemia secondary to GI losses on magnesium oxide 3 times a day 400 mg, was given 1 dose of 4 g of magnesium sulfate yesterday 6. 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 History of nephrolithiasis 1 in the past Medication 1. Check vitamin D 125 level. Labs are pending 2. Start calcitriol 0.25 g daily 3. May be discharged and followed up in the office in the next 2 or 3 days with labs, including a basic metabolic panel, phosphorus magnesium.
[2021-01-24 11:20] LABS: Glucose,Whole Blood 86 mg/dL (75-99)
--- NOTE | 2021-01-24 17:09 | P.DS ---
Providers Date of admission: 01/16/21 12:13 Expected date of discharge: 01/24/21 Attending physician: Martin Bateman Consults: 01/16/21 19:54 Consult Physician Routine Consulting Provider: Jaylene Eden Consult Reason/Comments: ARF Do you want consulting provider notified?: Yes 01/17/21 20:58 Consult Physician Routine Consulting Provider: Francisco Lane Consult Reason/Comments: ICU managament Do you want consulting provider notified?: Yes Primary care physician: Eldon Murillo [facility] Course: Presenting complaint: Tired Hospital course: 70-year-old patient, Dr. Murillo, but a known history of fibromyalgia, memory impairment, rheumatoid arthritis, dumping syndrome, depression. Patient presented, feeling weak and tired rundown. Decreased responsiveness. Admitted with acute metabolic encephalopathy, acute kidney injury prerenal, severe metabolic acidosis, hypocalcemia, hypokalemia. Was moved to the ICU. Aggressive replacement of electrolytes. Started on primidone for familial tremors-fair response Today: Doing better. Up to the bathroom. Tremors are better. at the bedside. Calcitriol was added. Cleared by nephrology for discharge. Care was discussed with the patient and . Questions answered. Follow-up as discussed. Discussion and discharge planning more than 35 minutes Consultation: Nephrology Dr. Bagley from pulmonary On examination: VITAL SIGNS: 98, 61, 16, 125/71, 98% room air GENERAL APPEARANCE: Sitting at the edge of the bed, better EYES: Pupils equal. Conjunctiva normal. NECK: JVD not raised. Mass not palpable. RESPIRATORY: Respiratory effort normal. Lungs clear to auscultation. CARDIOVASCULAR: First and second sounds normal. No edema. ABDOMEN: Soft. Liver and spleen not palpable. No tenderness. No mass palpable. MUSCULAR skeletal: Evidence of OA NEUROLOGICAL: Tremors-improved PSYCHIATRY: AO 3, mood and affect normal INVESTIGATIONS, reviewed in the clinical context: January 23: Potassium 3.9 creatinine 1.65 ionized calcium 3.6 magnesium 1.5 January 22: Potassium 3.3 BUN 35 creatinine 1.69 ionized calciums 3.4 magnesia 1.5 January 20: WBC 6.1 hemoglobin 9.2 platelets 183 potassium 3.5 bun 38 creatinine 1.82 albumin 2.9 calcium 5.6 Admission labs: WBC 10.1 hemoglobin 11.9 platelets 253 sodium 147 bicarbonate pleasant 5 creatinine 3.07 potassium 5.4 magnesia 1.2 Coronavirus [PCR]-not detected Chest x-ray: Unremarkable CT brain: Unremarkable Ultrasound kidney and bladder: Medical renal disease suggested Assessment and plan: -Acute metabolic encephalopathy, multifactorial especially from electrolyte abnormalities, metabolic -improved Baclofen dose was cut back to 5 mg every 8 when necessary. Benadryl was discontinued. Melatonin decreased to 5 mg. -Acute kidney injury likely prerenal-improving slowly Creatinine did come down from 3.07 down to 1.65 -Acute severe metabolic acidosis due to kidney injury-improved Fluids and bicarbonate supplementation -Chronic rheumatoid arthritis Follow clinically -Chronic fibromyalgia Follow clinically. Cutback to dose of baclofen -Prolonged pro time, likely nutritional Encourage oral intake -Moderate cognitive impairment Follow clinically -Severe hypocalcemia- Calcitriol added. On oral calcium carbonate. Received IV calcium gluconate -Hypernatremia from free water deficit-corrected Follow BMP -Hypomagnesemia Magnesium oxide given -Hypokalemia-corrected Being replaced. Follow BMP - chronic kidney disease, likely stage III Follow closely. Follow with nephrology -Acute medical debility PTOT -Chronic dumping syndrome -Depression not otherwise specified Continue with Celexa -Chronic insomnia Keep on Ambien -Chronic, familial tremor primidone 25 mg 3 times a day-responding Disposition: Home Labs: CMP, calcium, magnesium-7 days Patient Condition at Discharge: Fair Plan - Discharge Summary Discharge Rx Participant: No New Discharge Prescriptions: New Baclofen [Lioresal] 5 mg PO TID PRN #30 tab PRN Reason: Spasms Melatonin 5 mg PO HS #30 tablet Primidone [Mysoline] 25 mg PO TID #90 dose calcitrioL [Rocaltrol] 0.25 mcg PO DAILY #30 cap Ergocalciferol [Vitamin D2 (1250 Mcg = 15734 Iu)] 1,250 mcg PO Q48H #30 capsule Calcium Carbonate [Tums] 1,000 mg PO TID #90 chew Magnesium Oxide [Mag-Ox] 250 mg PO BID #60 tablet Continue Folic Acid 1 mg PO HS Citalopram Hydrobromide [CeleXA] 40 mg PO HS Calcium Carbonate/Vitamin D3 [Calcium 600-D3 20 mcg (800 Unit)] 1 tab PO DAILY Sodium Bicarbonate Tab 650 mg PO BID #60 tab Cyanocobalamin (Vitamin B-12) [Vitamin B-12] 5,000 mcg PO DAILY Discontinued Melatonin 10 mg PO HS Baclofen [Lioresal] 20 mg PO TID Zolpidem [Ambien] 10 mg PO HS Potassium Chloride [Klor-Con 20] 20 meq PO DAILY 30 Days #30 tab Ibuprofen [Motrin] 800 mg PO Q8H diphenhydrAMINE [Benadryl] 150 mg PO HS Furosemide [Lasix] 20 mg PO DAILY Discharge Medication List Folic Acid 1 mg PO HS 08/29/14 [History] Citalopram Hydrobromide [CeleXA] 40 mg PO HS 10/08/16 [History] Calcium Carbonate/Vitamin D3 [Calcium 600-D3 20 mcg (800 Unit)] 1 tab PO DAILY 06/13/20 [History] Sodium Bicarbonate Tab 650 mg PO BID #60 tab 06/16/20 [Rx] Cyanocobalamin (Vitamin B-12) [Vitamin B-12] 5,000 mcg PO DAILY 01/16/21 [History] Baclofen [Lioresal] 5 mg PO TID PRN #30 tab 01/24/21 [Rx] Calcium Carbonate [Tums] 1,000 mg PO TID #90 chew 01/24/21 [Rx] Ergocalciferol [Vitamin D2 (1250 Mcg = 88137 Iu)] 1,250 mcg PO Q48H #30 capsule 01/24/21 [Rx] Magnesium Oxide [Mag-Ox] 250 mg PO BID #60 tablet 01/24/21 [Rx] Melatonin 5 mg PO HS #30 tablet 01/24/21 [Rx] Primidone [Mysoline] 25 mg PO TID #90 dose 01/24/21 [Rx] calcitrioL [Rocaltrol] 0.25 mcg PO DAILY #30 cap 01/24/21 [Rx] Follow up Appointment(s)/Referral(s): Eldon Murillo MD [Primary Care Provider] - 1-2 days Jose Alfredo Rooney DO [STAFF PHYSICIAN] - 10 Days Patient Instructions/Handouts: Dehydration (DC), Acute Kidney Injury (DC), Hypomagnesemia (DC) Activity/Diet/Wound Care/Special Instructions: cmp, calcium, magnesium - 7 days Discharge Disposition: HOME SELF-CARE
== END 2021-01-24 13:30 | disposition home or self-care (01) | DRG 682 ==
LOC: EC 09:39 → 3SCARD 12:13 → 2SICU 01-17 19:10 → 4SSUR 01-20 12:38
PROVIDERS: ADMIT Hospitalist; ATTEND Hospitalist
DX: N17.0 Acute kidney failure with tubular necrosis (principal); G93.41 Metabolic encephalopathy; E87.0 Hyperosmolality and hypernatremia; E87.2 Acidosis; D68.9 Coagulation defect, unspecified; E44.0 Moderate protein-calorie malnutrition; N39.0 Urinary tract infection, site not specified; Z87.440 Personal history of urinary (tract) infections; M79.7 Fibromyalgia; M06.9 Rheumatoid arthritis, unspecified; Z20.822 Contact with and (suspected) exposure to COVID-19; F32.9 Major depressive disorder, single episode, unspecified; F41.0 Panic disorder [episodic paroxysmal anxiety]; Z80.9 Family history of malignant neoplasm, unspecified; E86.0 Dehydration; R55 Syncope and collapse; E87.6 Hypokalemia; D64.9 Anemia, unspecified; E55.9 Vitamin D deficiency, unspecified; R41.89 Other symptoms and signs involving cognitive functions and awareness; K91.1 Postgastric surgery syndromes; F51.04 Psychophysiologic insomnia; N18.2 Chronic kidney disease, stage 2 (mild); Z87.442 Personal history of urinary calculi; N18.30 Chronic kidney disease, stage 3 unspecified; G25.0 Essential tremor; E86.1 Hypovolemia; F03.90 Unspecified dementia, unspecified severity, without behavioral disturbance, psychotic disturbance, mood disturbance, and anxiety; I12.9 Hypertensive chronic kidney disease with stage 1 through stage 4 chronic kidney disease, or unspecified chronic kidney disease; Z96.651 Presence of right artificial knee joint; Z98.84 Bariatric surgery status; Z90.49 Acquired absence of other specified parts of digestive tract; R31.29 Other microscopic hematuria
CPT/HCPCS: 36415; 36600; 70450; 71046; 74018; 76770; 80048; 80053; 80076; 81001; 82330; 82550; 82570; 82652; 82728; 82805; 83605; 83735; 83930; 83935; 84132; 84133; 84156; 84300; 84484; 85025; 85379; 85610; 85652; 86140; 87040; 87086; 87635; 93005; 96360; 96361; 99291

== ENCOUNTER → 2021-04-12 | Outpatient (CLI) | payer MEDICARE, BC ==
[2021-04-12 13:23] LABS: Appearance,Urine Clear (Clear); Bilirubin,Urine Negative (Negative); Blood,Urine Negative (Negative); Color,Urine Light Yellow; Glucose,Urine (UA) Negative (Negative); Ketones,Urine Negative (Negative); Leukocyte Esterase,Urine Negative (Negative); Nitrite,Urine Negative (Negative); PH, Urine 5.5 (5.0-8.0); Protein,Urine Negative (Negative); Specific Gravity,Urine 1.011 (1.001-1.035); Urobilinogen,Urine <2.0 mg/dL (<2.0)
[2021-04-12 13:45] LABS: Creatinine,Urine Random 30.5 mg/dL; Protein/Creatinine Ratio,Urine 0.656
[2021-04-12 19:10] LABS: Basophils # (A) 0.04 X 10*3/uL (0.00-0.10); Basophils % (A) 0.8 %; Eosinophils # (A) 0.16 X 10*3/uL (0.04-0.35); Eosinophils % (A) 3.1 %; HCT 34.1 % (37.2-46.3); HGB 9.9 g/dL (12.0-15.0); Lymphocytes # (A) 1.39 X 10*3/uL (0.90-5.00); Lymphocytes % (A) 27.3 %; MCH 30.4 pg (27.0-32.0); MCV 104.6 fL (80.0-97.0); Mean Platelet Volume 11.1 fL (9.5-12.2); Monocytes # (A) 0.52 X 10*3/uL (0.20-1.00); Monocytes % (A) 10.2 %; Neutrophils # (A) 2.97 X 10*3/uL (1.80-7.70); Neutrophils % (A) 58.4 %; Platelet Count 250 X 10*3/uL (140-440); RBC 3.26 X 10*6/uL (4.10-5.20); RDW 18.2 % (11.5-14.5); WBC 5.09 X 10*3/uL (4.50-10.00)
[2021-04-12 23:59] LABS: Ferritin 38.7 ng/mL (10.0-291.0)
[2021-04-13 00:02] LABS: % Iron Saturation 16.8 (12.00-45.00); African American GFR (CKD) 40.5 (60.0-200.0); Albumin 4.1 g/dL (3.80-4.90); BUN/Creat Ratio 27.33 Ratio (12.00-20.00); Calcium 7.7 mg/dL (8.7-10.3); Non-African American GFR(CKD) 34.9 (60.0-200.0); Phosphorus 4.6 mg/dL (2.4-5.1); Potassium 4.3 mmol/L (3.5-5.5); Uric Acid 7.7 mg/dL (2.9-7.7)
== END | disposition home or self-care (01) ==
LOC: LABWHC1 11:35
PROVIDERS: ATTEND Nurse Practitioner Family
DX: N18.32 Chronic kidney disease, stage 3b (principal); E61.1 Iron deficiency; M10.9 Gout, unspecified; N39.0 Urinary tract infection, site not specified; R80.9 Proteinuria, unspecified; E55.9 Vitamin D deficiency, unspecified; N25.81 Secondary hyperparathyroidism of renal origin
CPT/HCPCS: 36415; 80048; 81003; 82040; 82306; 82570; 82728; 83540; 83550; 83735; 83970; 84100; 84156; 84550; 85025

== ENCOUNTER 2021-04-27 14:37 | Inpatient (IN) | payer MEDICARE, BC ==
[2021-04-27 14:55] LABS: Glucose,Whole Blood 90 mg/dL (75-99)
[2021-04-27] MEDS ORDERED: SODIUM CHLORIDE 0.9% 500 ML 500 ML IV ONE ×2 (15:22→16:16)
--- NOTE | 2021-04-27 15:29 | ED ---
General Adult HPI - General Chief complaint: Altered Mental Status Stated complaint: Weakness Time Seen by Provider: 04/27/21 15:16 Source: patient, RN notes reviewed, old records reviewed Mode of arrival: wheelchair Limitations: no limitations, altered mental status - History of Present Illness Initial comments: 70-year-old female presenting with lethargy, generalized weakness. Patient is accompanied by her was able to give detailed history. He states that she was in her usual state of health yesterday. This morning upon awakening she was somewhat lethargic but was able to go to the bathroom. This had progressively worsened throughout the day today. She had not had anything to eat or drink. No reported fever. He states that she was weak in both legs and was ultimately unable to bear her own weight. There was no reported trauma. Patient's states that she does have a dumping syndrome and has recurrent issues with electrolytes. - Related Data Home Medications Medication Instructions Recorded Confirmed Folic Acid 1 mg PO HS 08/29/14 01/16/21 Citalopram Hydrobromide [CeleXA] 40 mg PO HS 10/08/16 01/16/21 Calcium Carbonate/Vitamin D3 1 tab PO DAILY 06/13/20 01/16/21 [Calcium 600-D3 20 mcg (800 Unit)] Cyanocobalamin (Vitamin B-12) 5,000 mcg PO DAILY 01/16/21 01/16/21 [Vitamin B-12] Previous Rx's Medication Instructions Recorded Sodium Bicarbonate Tab 650 mg PO BID #60 tab 06/16/20 Baclofen [Lioresal] 5 mg PO TID PRN #30 tab 01/24/21 Calcium Carbonate [Tums] 1,000 mg PO TID #90 chew 01/24/21 Ergocalciferol [Vitamin D2 (1250 1,250 mcg PO Q48H #30 capsule 01/24/21 Mcg = 66626 Iu)] Magnesium Oxide [Mag-Ox] 250 mg PO BID #60 tablet 01/24/21 Melatonin 5 mg PO HS #30 tablet 01/24/21 Primidone [Mysoline] 25 mg PO TID #90 dose 01/24/21 calcitrioL [Rocaltrol] 0.25 mcg PO DAILY #30 cap 01/24/21 Allergies Allergy/AdvReac Type Severity Reaction Status Date / Time No Known Allergies Allergy Verified 01/16/21 11:11 Review of Systems ROS Statement: Those systems with pertinent positive or pertinent negative responses have been documented in the HPI. ROS Other: All systems not noted in ROS Statement are negative. Past Medical History Past Medical History: Fibromyalgia, Memory Impairment, Rheumatoid Arthritis (RA) Additional Past Medical History / Comment(s): DUMPING SYNDROME, DDD, frequent UTI's History of Any Multi-Drug Resistant Organisms: None Reported Past Surgical History: Adenoidectomy, Appendectomy, Bowel Resection, Cholecystectomy, Joint Replacement, Tonsillectomy, Tubal Ligation Additional Past Surgical History / Comment(s): RT TKA COLONOSCOPY TILT TABLE TEST, D & C. Gastric Bypass - 30 years ago Past Anesthesia/Blood Transfusion Reactions: No Reported Reaction Past Psychological History: Depression, Panic Disorder Smoking Status: Never smoker Past Alcohol Use History: None Reported Past Drug Use History: None Reported - Past Family History Father Family Medical History: Cancer Sister(s) Family Medical History: Cancer Mother Family Medical History: Deep Vein Thrombosis (DVT) General Exam Limitations: no limitations General appearance: alert, in no apparent distress Head exam: Present: atraumatic, normocephalic Eye exam: Present: PERRL (7 mm bilaterally) Neck exam: Absent: meningismus Respiratory exam: Present: normal lung sounds bilaterally. Absent: respiratory distress, wheezes Cardiovascular Exam: Present: regular rate, normal rhythm GI/Abdominal exam: Present: soft. Absent: distended, tenderness, guarding, rebound Extremities exam: Present: normal inspection, normal capillary refill. Absent: pedal edema, calf tenderness Neurological exam: Present: alert (Slow respond, does follow commands.), motor sensory deficit (Patient has equal specialist wound care strength bilaterally, she is able to wiggle both feet. She is generally weak.) Skin exam: Present: warm, dry, intact. Absent: cyanosis, diaphoretic Course Vital Signs 04/27/21 14:47 Temperature 97.4 F L Pulse Rate 96 Respiratory 18 Rate Blood Pressure 139/79 O2 Sat by Pulse 98 Oximetry EKG Findings - EKG Comments: EKG Findings:: EKG: Normal sinus rhythm, rate ventricular rate of 92, VA interval 164, QRS duration 88, QTC 460, no ST segment elevation. Medical Decision Making - Medical Decision Making 70-year-old female with generalized weakness, fatigue, altered mental status. Patient is able to answer simple questions and follow commands. She does not h ave any unilateral symptoms. Head CT is performed which is negative for intracranial hemorrhage or mass effect. She has a normal CBC, CMP showing CO2 of 15, normal lactic acid, elevated BUN and creatinine. Urinalysis is unremarkable. Chest x-ray concerning for possible developing infiltrate. She has no cough or fever given the change in mental status she is covered for pneumonia. Additionally she started on IV fluids. I discussed case with Dr. rodriguez who does also recommend sodium bicarb. This is ordered as well. She will be admitted. Neurology placed on consult for evaluation. - Lab Data Result diagrams: 04/27/21 15:34 04/27/21 15:34 Lab Results 04/27/21 04/27/21 04/27/21 Range/Units 14:53 15:34 15:34 WBC 8.4 (3.8-10.6) k/uL RBC 3.86 (3.80-5.40) m/uL Hgb 12.2 (11.4-16.0) gm/dL Hct 39.8 (34.0-46.0) % MCV 103.2 H (80.0-100.0) fL MCH 31.7 (25.0-35.0) pg MCHC 30.7 L (31.0-37.0) g/dL RDW 16.0 H (11.5-15.5) % Plt Count 224 (150-450) k/uL MPV 7.8 Neutrophils % 67 % Lymphocytes % 21 % Monocytes % 7 % Eosinophils % 1 % Basophils % 0 % Neutrophils # 5.6 (1.3-7.7) k/uL Lymphocytes # 1.8 (1.0-4.8) k/uL Monocytes # 0.6 (0-1.0) k/uL Eosinophils # 0.1 (0-0.7) k/uL Basophils # 0.0 (0-0.2) k/uL Hypochromasia Marked Anisocytosis Slight Macrocytosis Moderate PT 12.7 H (9.0-12.0) sec INR 1.2 H (<1.2) APTT 25.5 (22.0-30.0) sec Sodium (137-145) mmol/L Potassium (3.5-5.1) mmol/L Chloride (98-107) mmol/L Carbon Dioxide (22-30) mmol/L Anion Gap mmol/L BUN (7-17) mg/dL Creatinine (0.52-1.04) mg/dL Est GFR (CKD-EPI)AfAm (>60 ml/min/1.73 sqM) Est GFR (CKD-EPI)NonAf (>60 ml/min/1.73 sqM) Glucose (74-99) mg/dL POC Glucose (mg/dL) 90 (75-99) mg/dL POC Glu Welt [employer] Operator ID Garo Avila Plasma Lactic Acid Adriaon (0.7-2.0) mmol/L Calcium (8.4-10.2) mg/dL Magnesium (1.6-2.3) mg/dL Total Bilirubin (0.2-1.3) mg/dL AST (14-36) U/L ALT (4-34) U/L Alkaline Phosphatase (38-126) U/L Ammonia (<30) umol/L Creatine Kinase (30-135) U/L Troponin I (0.000-0.034) ng/mL Total Protein (6.3-8.2) g/dL Albumin (3.5-5.0) g/dL Urine Color Urine Appearance (Clear) Urine pH (5.0-8.0) Ur Specific [place] (1.001-1.035) Urine Protein (Negative) Urine Glucose (UA) (Negative) Urine Ketones (Negative) Urine Blood (Negative) Urine Nitrite (Negative) Urine Bilirubin (Negative) Urine Urobilinogen (<2.0) mg/dL Ur Leukocyte Esterase (Negative) Urine Opiates Screen (NotDetected) Ur Oxycodone Screen (NotDetected) Urine Methadone Screen (NotDetected) Ur Propoxyphene Screen (NotDetected) Ur Barbiturates Screen (NotDetected) U Tricyclic Antidepress (NotDetected) Ur Phencyclidine Scrn (NotDetected) Ur Amphetamines Screen (NotDetected) U Methamphetamines Scrn (NotDetected) U Benzodiazepines Scrn (NotDetected) Urine Cocaine Screen (NotDetected) U Marijuana (THC) Screen (NotDetected) 04/27/21 04/27/21 04/27/21 Range/Units 15:34 15:34 15:34 WBC (3.8-10.6) k/uL RBC (3.80-5.40) m/uL Hgb (11.4-16.0) gm/dL Hct (34.0-46.0) % MCV (80.0-100.0) fL MCH (25.0-35.0) pg MCHC (31.0-37.0) g/dL RDW (11.5-15.5) % Plt Count (150-450) k/uL MPV Neutrophils % % Lymphocytes % % Monocytes % % Eosinophils % % Basophils % % Neutrophils # (1.3-7.7) k/uL Lymphocytes # (1.0-4.8) k/uL Monocytes # (0-1.0) k/uL Eosinophils # (0-0.7) k/uL Basophils # (0-0.2) k/uL Hypochromasia Anisocytosis Macrocytosis PT (9.0-12.0) sec INR (<1.2) APTT (22.0-30.0) sec Sodium 141 (137-145) mmol/L Potassium 4.9 (3.5-5.1) mmol/L Chloride 113 H (98-107) mmol/L Carbon Dioxide 15 L (22-30) mmol/L Anion Gap 13 mmol/L BUN 29 H (7-17) mg/dL Creatinine 1.45 H (0.52-1.04) mg/dL Est GFR (CKD-EPI)AfAm 42 (>60 ml/min/1.73 sqM) Est GFR (CKD-EPI)NonAf 37 (>60 ml/min/1.73 sqM) Glucose 97 (74-99) mg/dL POC Glucose (mg/dL) (75-99) mg/dL POC Glu Welt [employer] Operator ID Plasma Lactic Acid Adriano (0.7-2.0) mmol/L Calcium 9.1 (8.4-10.2) mg/dL Magnesium 2.4 H (1.6-2.3) mg/dL Total Bilirubin 0.2 (0.2-1.3) mg/dL AST 21 (14-36) U/L ALT 18 (4-34) U/L Alkaline Phosphatase 199 H (38-126) U/L Ammonia <9 (<30) umol/L Creatine Kinase <20 L (30-135) U/L Troponin I <0.012 (0.000-0.034) ng/mL Total Protein 7.4 (6.3-8.2) g/dL Albumin 4.4 (3.5-5.0) g/dL Urine Color Urine Appearance (Clear) Urine pH (5.0-8.0) Ur Specific [place] (1.001-1.035) Urine Protein (Negative) Urine Glucose (UA) (Negative) Urine Ketones (Negative) Urine Blood (Negative) Urine Nitrite (Negative) Urine Bilirubin (Negative) Urine Urobilinogen (<2.0) mg/dL Ur Leukocyte Esterase (Negative) Urine Opiates Screen (NotDetected) Ur Oxycodone Screen (NotDetected) Urine Methadone Screen (NotDetected) Ur Propoxyphene Screen (NotDetected) Ur Barbiturates Screen (NotDetected) U Tricyclic Antidepress (NotDetected) Ur Phencyclidine Scrn (NotDetected) Ur Amphetamines Screen (NotDetected) U Methamphetamines Scrn (NotDetected) U Benzodiazepines Scrn (NotDetected) Urine Cocaine Screen (NotDetected) U Marijuana (THC) Screen (NotDetected) 04/27/21 04/27/21 Range/Units 16:58 16:58 WBC (3.8-10.6) k/uL RBC (3.80-5.40) m/uL Hgb (11.4-16.0) gm/dL Hct (34.0-46.0) % MCV (80.0-100.0) fL MCH (25.0-35.0) pg MCHC (31.0-37.0) g/dL RDW (11.5-15.5) % Plt Count (150-450) k/uL MPV Neutrophils % % Lymphocytes % % Monocytes % % Eosinophils % % Basophils % % Neutrophils # (1.3-7.7) k/uL Lymphocytes # (1.0-4.8) k/uL Monocytes # (0-1.0) k/uL Eosinophils # (0-0.7) k/uL Basophils # (0-0.2) k/uL Hypochromasia Anisocytosis Macrocytosis PT (9.0-12.0) sec INR (<1.2) APTT (22.0-30.0) sec Sodium (137-145) mmol/L Potassium (3.5-5.1) mmol/L Chloride (98-107) mmol/L Carbon Dioxide (22-30) mmol/L Anion Gap mmol/L BUN (7-17) mg/dL Creatinine (0.52-1.04) mg/dL Est GFR (CKD-EPI)AfAm (>60 ml/min/1.73 sqM) Est GFR (CKD-EPI)NonAf (>60 ml/min/1.73 sqM) Glucose (74-99) mg/dL POC Glucose (mg/dL) (75-99) mg/dL POC Glu Welt [employer] Operator ID Plasma Lactic Acid Adriano 0.8 (0.7-2.0) mmol/L Calcium (8.4-10.2) mg/dL Magnesium (1.6-2.3) mg/dL Total Bilirubin (0.2-1.3) mg/dL AST (14-36) U/L ALT (4-34) U/L Alkaline Phosphatase (38-126) U/L Ammonia (<30) umol/L Creatine Kinase (30-135) U/L Troponin I (0.000-0.034) ng/mL Total Protein (6.3-8.2) g/dL Albumin (3.5-5.0) g/dL Urine Color Light Yellow Urine Appearance Clear (Clear) Urine pH 5.5 (5.0-8.0) Ur Specific [place] 1.008 (1.001-1.035) Urine Protein Negative (Negative) Urine Glucose (UA) Negative (Negative) Urine Ketones Negative (Negative) Urine Blood Negative (Negative) Urine Nitrite Negative (Negative) Urine Bilirubin Negative (Negative) Urine Urobilinogen <2.0 (<2.0) mg/dL Ur Leukocyte Esterase Negative (Negative) Urine Opiates Screen Not Detected (NotDetected) Ur Oxycodone Screen Not Detected (NotDetected) Urine Methadone Screen Not Detected (NotDetected) Ur Propoxyphene Screen Not Detected (NotDetected) Ur Barbiturates Screen Detected H (NotDetected) U Tricyclic Antidepress Not Detected (NotDetected) Ur Phencyclidine Scrn Not Detected (NotDetected) Ur Amphetamines Screen Not Detected (NotDetected) U Methamphetamines Scrn Not Detected (NotDetected) U Benzodiazepines Scrn Not Detected (NotDetected) Urine Cocaine Screen Not Detected (NotDetected) U Marijuana (THC) Screen Not Detected (NotDetected) Disposition Clinical Impression: Altered mental status, Dehydration, Metabolic acidosis Disposition: ADMITTED IP TO THIS [facility] Condition: Stable Is patient prescribed a controlled substance at d/c from ED?: No Referrals: Eldon Murillo MD [Primary Care Provider] - 1-2 days Time of Disposition: 17:56 Decision to Admit Reason: Admit from EC Decision Date: 04/27/21 Decision Time: 17:56
[2021-04-27 15:43] LABS: Anisocytosis Slight; Basophils % (A) 0 %; Eosinophils # (A) 0.1 k/uL (0-0.7); Eosinophils % (A) 1 %; HCT 39.8 % (34.0-46.0); HGB 12.2 gm/dL (11.4-16.0); Hypochromasia Marked; Lymphocytes # (A) 1.8 k/uL (1.0-4.8); Lymphocytes % (A) 21 %; MCH 31.7 pg (25.0-35.0); MCHC 30.7 g/dL (31.0-37.0); MCV 103.2 fL (80.0-100.0); Macrocytosis Moderate; Mean Platelet Volume 7.8; Monocytes # (A) 0.6 k/uL (0-1.0); Monocytes % (A) 7 %; Neutrophils # (A) 5.6 k/uL (1.3-7.7); Neutrophils % (A) 67 %; Platelet Count 224 k/uL (150-450); RBC 3.86 m/uL (3.80-5.40); WBC 8.4 k/uL (3.8-10.6)
[2021-04-27 15:51] LABS: INR 1.2 (<1.2); Partial Thromboplastin Time 25.5 sec (22.0-30.0); Prothrombin Time 12.7 sec (9.0-12.0)
[2021-04-27 15:55] LABS: ALT 18 U/L (4-34); AST 21 U/L (14-36); African American GFR (CKD) 42 (>60 ml/min/1.73 sqM); Albumin 4.4 g/dL (3.5-5.0); Alkaline Phosphatase 199 U/L (38-126); Anion Gap 13 mmol/L; Blood Urea Nitrogen 29 mg/dL (7-17); Calcium 9.1 mg/dL (8.4-10.2); Carbon Dioxide 15 mmol/L (22-30); Chloride 113 mmol/L (98-107); Creatine Kinase <20 U/L (30-135); Glucose 97 mg/dL (74-99); Magnesium 2.4 mg/dL (1.6-2.3); Non-African American GFR(CKD) 37 (>60 ml/min/1.73 sqM); Potassium 4.9 mmol/L (3.5-5.1); Sodium 141 mmol/L (137-145); Total Bilirubin 0.2 mg/dL (0.2-1.3); Total Protein 7.4 g/dL (6.3-8.2)
--- NOTE | 2021-04-27 16:10 | CT ---
EXAMINATION TYPE: CT brain wo con DATE OF EXAM: 04/27/2021 HISTORY: altered mental status CT DLP: 1099.4 mGycm. Automated Exposure Control for Dose Reduction was Utilized. TECHNIQUE: CT scan of the head is performed without contrast. COMPARISON: CT brain January 16, 2021. FINDINGS: There is no acute intracranial hemorrhage or midline shift identified. There is mild sulc al prominence consistent with diffuse cerebral atrophy greatest focal bilateral frontal lobes. Bagley-w antonio matter differentiation fairly well-maintained. The globes are intact and the visualized sinuses are clear. IMPRESSION: No acute intracranial hemorrhage or midline shift. No significant change from most recen t prior.
--- NOTE | 2021-04-27 16:24 | XR ---
EXAMINATION TYPE: XR chest 2V DATE OF EXAM: 04/27/2021 COMPARISON: Chest x-ray January 16, 2021 HISTORY: Altered mental status and weakness. TECHNIQUE: Frontal and lateral views of the chest are obtained. FINDINGS: There is slightly elevated left hemidiaphragm redemonstrated. Persistent low lung volumes w ith increased opacity right mid to lower lungs on current study. Left lung is clear. Cardiac silhouet te size is stable and mildly enlarged with ectatic thoracic aorta redemonstrated. Osseous structures remain demineralized. IMPRESSION: Low lung volumes with developing right lower lung acute infiltrate and/or atelectasis f elt present. Progress study advised.
[2021-04-27] MEDS: SODIUM CHLORIDE 0.9% 1,000 ML IV SCH (16:50)
[2021-04-27] MEDS: cefTRIAXone IN SWFI 1,000 MG/10 ML SYRINGE IVP SCH (17:24)
[2021-04-27 17:27] LABS: Appearance,Urine Clear (Clear); Bilirubin,Urine Negative (Negative); Blood,Urine Negative (Negative); Color,Urine Light Yellow; Glucose,Urine (UA) Negative (Negative); Ketones,Urine Negative (Negative); Leukocyte Esterase,Urine Negative (Negative); Nitrite,Urine Negative (Negative); PH, Urine 5.5 (5.0-8.0); Protein,Urine Negative (Negative); Specific Gravity,Urine 1.008 (1.001-1.035); Urobilinogen,Urine <2.0 mg/dL (<2.0)
[2021-04-27 17:35] LABS: Amphetamine Screen,Urine Not Detected (NotDetected); Barbiturate Screen,Urine Detected (NotDetected); Benzodiazepines Screen,Urine Not Detected (NotDetected); Cocaine Screen,Urine Not Detected (NotDetected); Methadone Screen, Urine Not Detected (NotDetected); Opiate Screen,Urine Not Detected (NotDetected); Oxycodone Screen, Urine Not Detected (NotDetected); Phencyclidine Screen,Urine Not Detected (NotDetected); Tricyclic Antidepressant,Urine Not Detected (NotDetected); Urn Cannabinoid Scrn Not Detected (NotDetected)
[2021-04-27] MEDS ORDERED: cefTRIAXone IN SWFI 1,000 MG/10 ML SYRINGE IVP STA (17:36)
[2021-04-27] MEDS ORDERED: NALOXONE 0.4 MG/ML 1 ML VIAL IV PRN (17:54)
[2021-04-27] MEDS ORDERED: DEXTROSE 5% IN WATER 1,000 ML with SODIUM BICARB (1 MEQ/ML) 100 ML IV SCH (18:30)
[2021-04-27] MEDS ORDERED: BACLOFEN 10 MG TAB PO PRN ×2 (21:15→22:32)
[2021-04-27] MEDS ORDERED: ACETAMINOPHEN TAB 325 MG TAB PO PRN (21:15)
[2021-04-27] MEDS ORDERED: CITALOPRAM HYDROBROMIDE 20 MG TAB PO SCH (21:30)
[2021-04-27] MEDS ORDERED: MELATONIN 5 MG TABLET PO SCH (21:30)
[2021-04-27] MEDS: PRIMIDONE 25 MG TAB PO SCH (22:16)
[2021-04-27] MEDS: ENOXAPARIN 40 MG/0.4 ML SYRINGE SQ SCH (22:17)
[2021-04-27] MEDS ORDERED: CALCIUM CARBONATE 500 MG CHEWABLE PO PRN (22:36)
[2021-04-27] MEDS ORDERED: LACTULOSE 20 GM/30 ML CUP PO PRN (22:36)
[2021-04-27] MEDS ORDERED: MAG HYDROX/AL HYDROX/SIMETH 30 ML CUP PO PRN (22:36)
[2021-04-27] MEDS ORDERED: ONDANSETRON 4 MG/2 ML VIAL IVP PRN (22:36)
[2021-04-27] MEDS ORDERED: MAGNESIUM HYDROXIDE 2,400 MG/10 ML CUP PO PRN (22:36)
--- NOTE | 2021-04-27 22:39 | P.HPIM ---
History of Present Illness H&P Date: 04/27/21 Chief Complaint: Increasing lethargy Hospital course: 70-year-old patient, follows with Dr. Murillo, chronic stable medical conditions include fibromyalgia, memory impairment, rheumatoid arthritis, dumping syndrome, depression. At her baseline uses a walker. Also on primidone for familial tremors. History is obtained by primarily the at the bedside. Patient gone out yesterday shopping. Had done well. She does use a walker. This morning she felt very weak and tired. Could not even get up. Somewhat lethargic. Oral intake has been good. No diarrhea. Some chills. No respiratory or urinary symptoms. Tired and rundown. Review of systems: GEN.: Tired EYES: None HEENT: None NECK: None RESPIRATORY: None CARDIOVASCULAR: None GASTROINTESTINAL: None GENITOURINARY: None MUSCULOSKELETAL: None LYMPHATICS: None HEMATOLOGICAL: None PSYCHIATRY: None NEUROLOGICAL: Lethargic Past medical history to include: Fibromyalgia, cognitive impairment, rheumatoid arthritis, dumping syndrome, depression, familial tremors Social history: . No smoking. No alcohol Family history: Cancer On examination: VITAL SIGNS: 97.4, 96, 18, 139-79, 98% room air GENERAL APPEARANCE: BMI 20, laying in bed, tired and lethargic EYES: Pupils equal. Conjunctiva normal. NECK: JVD not raised. Mass not palpable. RESPIRATORY: Respiratory effort normal. Lungs clear to auscultation. CARDIOVASCULAR: First and second sounds normal. No edema. ABDOMEN: Soft. Liver and spleen not palpable. No tenderness. No mass palpable. MUSCULAR skeletal: Evidence of OA NEUROLOGICAL: Cranial nerves grossly intact. SENSATION grossly intact PSYCHIATRY: Able to answer simple questions INVESTIGATIONS, reviewed in the clinical context: White count 8.4 hemoglobin 12.2 platelets 224 potassium 4.9 sodium 141 and 29 creatinine 1.45 bicarb 15 UA negative Urine drug screen positive for barbiturates Previous labs: Ultrasound kidney and bladder: Medical renal disease suggested Creatinine 1.5 on 04/12/2021, 1.January Assessment and plan: -Acute metabolic encephalopathy, from metabolic acidosis, patient being on significant dose of baclofen, Ambien and Cymbalta. Baclofen dose cut back to 5 mg every 8 when necessary. Hold Ambien tonight. Hold Cymbalta tonight. Melatonin decreased to 5 mg. -Chronic kidney disease stage III likely nephrosclerosis Baseline creatinine of around 1.5 -Acute metabolic acidosis due to CK D Fluids and bicarbonate supplementation -Chronic rheumatoid arthritis Follow clinically -Chronic fibromyalgia Follow clinically. Decrease baclofen -Moderate cognitive impairment Follow clinically -Severe hypocalcemia- Calcitriol added. On oral calcium carbonate. Received IV calcium gluconate -Hypernatremia from free water deficit-corrected Follow BMP -Acute medical debility PTOT -Chronic dumping syndrome -Depression not otherwise specified Continue with Celexa -Chronic insomnia Decreased dose of Ambien -Chronic, familial tremor primidone 25 mg 3 times a day IV fluids. IV bicarbonate. Cut back baclofen 25 mg 3 times a day when nec essary. Decrease Ambien to 5 mg daily at bedtime-hold tonight. Fall precautions.. Care was discussed with at bedside. Given the complexity and severity of patient's condition expect the patient to be in the hospital at least for 2 overnights Past Medical History Past Medical History: Fibromyalgia, Memory Impairment, Rheumatoid Arthritis (RA) Additional Past Medical History / Comment(s): DUMPING SYNDROME, DDD, frequent U TI's History of Any Multi-Drug Resistant Organisms: None Reported Past Surgical History: Adenoidectomy, Appendectomy, Bowel Resection, Cholecystectomy, Joint Replacement, Tonsillectomy, Tubal Ligation Additional Past Surgical History / Comment(s): RT TKA COLONOSCOPY TILT TABLE TEST, D & C. Gastric Bypass - 30 years ago Past Anesthesia/Blood Transfusion Reactions: No Reported Reaction Past Psychological History: Depression, Panic Disorder Smoking Status: Never smoker Past Alcohol Use History: None Reported Past Drug Use History: None Reported - Past Family History Father Family Medical History: Cancer Sister(s) Family Medical History: Cancer Mother Family Medical History: Deep Vein Thrombosis (DVT) Medications and Allergies Home Medications Medication Instructions Recorded Confirmed Type Folic Acid 1 mg PO HS 08/29/14 04/27/21 History Citalopram Hydrobromide [CeleXA] 40 mg PO HS 10/08/16 04/27/21 History Sodium Bicarbonate Tab 650 mg PO BID #60 tab 06/16/20 04/27/21 Rx Magnesium Oxide [Mag-Ox] 250 mg PO BID #60 tablet 01/24/21 04/27/21 Rx Acetaminophen [Tylenol Arthritis] 650 mg PO BID PRN 04/27/21 04/27/21 History Baclofen [Lioresal] 20 mg PO BID PRN 04/27/21 04/27/21 History Baclofen [Lioresal] 20 mg PO HS 04/27/21 04/27/21 History Calcium Carbonate [Calcium] 600 mg PO DAILY 04/27/21 04/27/21 History Calcium Carbonate [Tums] 1,000 mg PO TID PRN 04/27/21 04/27/21 History Cholecalciferol [Vitamin D3 (25 50 mcg PO HS 04/27/21 04/27/21 History Mcg = 1000 Iu)] Cyanocobalamin [Vitamin B-12 1,000 mcg INJ Q21D 04/27/21 04/27/21 History Injection] Ergocalciferol [Vitamin D2 (1250 1,250 mcg PO MOFR 04/27/21 04/27/21 History Mcg = 72530 Iu)] Furosemide [Lasix] 20 mg PO DAILY PRN 04/27/21 04/27/21 History Gabapentin [Neurontin] 200 mg PO BID 04/27/21 04/27/21 History Ibuprofen [Motrin] 800 mg PO TID PRN 04/27/21 04/27/21 History Melatonin 15 mg PO HS 04/27/21 04/27/21 History Potassium Chloride [Klor-Con 20] 20 meq PO HS 04/27/21 04/27/21 History Primidone [Mysoline] 25 mg PO TID 04/27/21 04/27/21 History Zolpidem [Ambien] 10 mg PO HS 04/27/21 04/27/21 History Allergies Allergy/AdvReac Type Severity Reaction Status Date / Time No Known Allergies Allergy Verified 04/27/21 18:05 Physical Exam Vitals: Vital Signs Temp Pulse Resp BP Pulse Ox 04/27/21 19:00 76 153/84 04/27/21 18:28 79 16 153/84 100 04/27/21 18:00 79 149/77 04/27/21 17:00 85 125/68 04/27/21 16:00 81 125/73 04/27/21 14:47 97.4 F L 96 18 139/79 98 Intake and Output 04/27/21 04/27/21 04/27/21 06:59 14:59 22:59 Other: Weight 54.431 kg Results CBC & Chem 7: 04/27/21 15:34 04/27/21 15:34 Labs: Abnormal Lab Results - Last 24 Hours (Table) 04/27/21 04/27/21 04/27/21 Range/Units 15:34 15:34 15:34 MCV 103.2 H (80.0-100.0) fL MCHC 30.7 L (31.0-37.0) g/dL RDW 16.0 H (11.5-15.5) % PT 12.7 H (9.0-12.0) sec INR 1.2 H (<1.2) Chloride 113 H (98-107) mmol/L Carbon Dioxide 15 L (22-30) mmol/L BUN 29 H (7-17) mg/dL Creatinine 1.45 H (0.52-1.04) mg/dL Magnesium 2.4 H (1.6-2.3) mg/dL Alkaline Phosphatase 199 H (38-126) U/L Creatine Kinase <20 L (30-135) U/L Ur Barbiturates Screen (NotDetected) 04/27/21 Range/Units 16:58 MCV (80.0-100.0) fL MCHC (31.0-37.0) g/dL RDW (11.5-15.5) % PT (9.0-12.0) sec INR (<1.2) Chloride (98-107) mmol/L Carbon Dioxide (22-30) mmol/L BUN (7-17) mg/dL Creatinine (0.52-1.04) mg/dL Magnesium (1.6-2.3) mg/dL Alkaline Phosphatase (38-126) U/L Creatine Kinase (30-135) U/L Ur Barbiturates Screen Detected H (NotDetected)
[2021-04-28] MEDS: ACETAMINOPHEN TAB 325 MG TAB PO PRN ×2 (03:28→08:15)
[2021-04-28 06:51] VITALS: RESP 18
[2021-04-28] MEDS: SODIUM CHLORIDE 0.9% 1,000 ML IV SCH (07:38)
[2021-04-28] MEDS: ENOXAPARIN 40 MG/0.4 ML SYRINGE SQ SCH (08:15)
[2021-04-28] MEDS: PRIMIDONE 25 MG TAB PO SCH (10:02)
[2021-04-28 12:42] LABS: Glucose,Whole Blood 95 mg/dL (75-99)
[2021-04-28 15:26] VITALS: TEMP 98
[2021-04-28 16:41] VITALS: BP 125/72; PULSE 78
[2021-04-28] MEDS ORDERED: FOLIC ACID 1 MG TAB PO SCH (21:00)
[2021-04-28] MEDS ORDERED: BACLOFEN 10 MG TAB PO SCH (21:00)
--- NOTE | 2021-04-28 21:25 | P.DS ---
Providers Date of admission: 04/27/21 17:54 Expected date of discharge: 04/28/21 Attending physician: Martin Bateman Primary care physician: Eldon Murillo [facility] Course: Chief Complaint: Increasing lethargy Hospital course: 70-year-old patient, follows with Dr. Murillo, chronic stable medical conditions include fibromyalgia, memory impairment, rheumatoid arthritis, dumping syndrome, depression. At her baseline uses a walker. Also on primidone for familial tremors. History is obtained by primarily the at the bedside. Patient gone out yesterday shopping. Had done well. She does use a walker. This morning she felt very weak and tired. Could not even get up. Somewhat lethargic. Oral intake has been good. No diarrhea. Some chills. No respiratory or urinary symptoms. Tired and rundown. Patient bit of a metabolic encephalopathy felt to be from medications. Because of Ambien is cutback. Because of melatonin cutback. Baclofen dose is cutback. April 28: Patient doing much better today to make. Able to communicate. Patient's medications were discussed in detail with the patient and the . Expected the reason for doing so. She'll follow-up with the family doctor for the same. DC trial Mcdaniel was done. Patient did urinate. Sleep hygiene was discussed at length. Discussion and discharge planning more than 35 minutes Past medical history to include: Fibromyalgia, cognitive impairment, rheumatoid arthritis, dumping syndrome, depression, familial tremors Social history: . No smoking. No alcohol Family history: Cancer On examination: VITAL SIGNS: 98, 78, 18, 125/72, 97% room air GENERAL APPEARANCE: Sitting up, comfortable far more awake EYES: Pupils equal. Conjunctiva normal. NECK: JVD not raised. Mass not palpable. RESPIRATORY: Respiratory effort normal. Lungs clear to auscultation. CARDIOVASCULAR: First and second sounds normal. No edema. ABDOMEN: Soft. Liver and spleen not palpable. No tenderness. No mass palpable. MUSCULAR skeletal: Evidence of OA NEUROLOGICAL: Cranial nerves grossly intact. SENSATION grossly intact PSYCHIATRY: Answering questions appropriately INVESTIGATIONS, reviewed in the clinical context: White count 8.4 hemoglobin 12.2 platelets 224 potassium 4.9 sodium 141 and 29 creatinine 1.45 bicarb 15 UA negative Urine drug screen positive for barbiturates Previous labs: Ultrasound kidney and bladder: Medical renal disease suggested Creatinine 1.5 on 04/12/2021, 1.January Assessment and plan: -Acute metabolic encephalopathy, from metabolic acidosis, patient being on significant dose of baclofen, Ambien and Cymbalta. Baclofen dose cut back to 10 mg every 8 when necessary. Ambien cutback to 5 mg at night.. Melatonin decreased to 10 mg. -Chronic kidney disease stage III likely nephrosclerosis Baseline creatinine of around 1.5 -Acute metabolic acidosis due to CK D Fluids and bicarbonate supplementation -Chronic rheumatoid arthritis Follow clinically -Chronic fibromyalgia Follow clinically. Decrease baclofen -Moderate cognitive impairment Follow clinically -Severe hypocalcemia- Calcitriol added. On oral calcium carbonate. Received IV calcium gluconate -Hypernatremia from free water deficit-corrected Follow BMP -Acute medical debility PTOT -Chronic dumping syndrome -Depression not otherwise specified Continue with Celexa -Chronic insomnia, which sleeps cycle disturbance Sleep hygiene discussed. -Chronic, familial tremor primidone 25 mg 3 times a day Disposition: Home Patient Condition at Discharge: Stable Plan - Discharge Summary New Discharge Prescriptions: New Magnesium Hydroxide [Milk of Magnesia Concentrate] 2,400 mg PO DAILY PRN ml PRN Reason: Constipation Continue Folic Acid 1 mg PO HS Citalopram Hydrobromide [CeleXA] 40 mg PO HS Sodium Bicarbonate Tab 650 mg PO BID #60 tab Calcium Carbonate [Tums] 1,000 mg PO TID PRN PRN Reason: Gi Upset Primidone [Mysoline] 25 mg PO TID Cyanocobalamin [Vitamin B-12 Injection] 1,000 mcg INJ Q21D Calcium Carbonate [Calcium] 600 mg PO DAILY Acetaminophen [Tylenol Arthritis] 650 mg PO BID PRN PRN Reason: Pain Ergocalciferol [Vitamin D2 (1250 Mcg = 78922 Iu)] 1,250 mcg PO MOFR Cholecalciferol [Vitamin D3 (25 Mcg = 1000 Iu)] 50 mcg PO HS Furosemide [Lasix] 20 mg PO DAILY PRN PRN Reason: Edema Changed Baclofen [Lioresal] 10 mg PO BID PRN #0 PRN Reason: Muscle Spasm Baclofen [Lioresal] 10 mg PO HS #0 Magnesium Oxide [Mag-Ox] 250 mg PO DAILY #60 tablet Zolpidem [Ambien] 5 mg PO HS #0 Melatonin 10 mg PO HS #0 Discontinued Ibuprofen [Motrin] 800 mg PO TID PRN PRN Reason: Pain Potassium Chloride [Klor-Con 20] 20 meq PO HS No Action Gabapentin [Neurontin] 200 mg PO BID Discharge Medication List Folic Acid 1 mg PO HS 08/29/14 [History] Citalopram Hydrobromide [CeleXA] 40 mg PO HS 10/08/16 [History] Sodium Bicarbonate Tab 650 mg PO BID #60 tab 06/16/20 [Rx] Acetaminophen [Tylenol Arthritis] 650 mg PO BID PRN 04/27/21 [History] Calcium Carbonate [Calcium] 600 mg PO DAILY 04/27/21 [History] Calcium Carbonate [Tums] 1,000 mg PO TID PRN 04/27/21 [History] Cholecalciferol [Vitamin D3 (25 Mcg = 1000 Iu)] 50 mcg PO HS 04/27/21 [History] Cyanocobalamin [Vitamin B-12 Injection] 1,000 mcg INJ Q21D 04/27/21 [History] Ergocalciferol [Vitamin D2 (1250 Mcg = 87838 Iu)] 1,250 mcg PO MOFR 04/27/21 [History] Furosemide [Lasix] 20 mg PO DAILY PRN 04/27/21 [History] Gabapentin [Neurontin] 200 mg PO BID 04/27/21 [History] Primidone [Mysoline] 25 mg PO TID 04/27/21 [History] Baclofen [Lioresal] 10 mg PO BID PRN #0 04/28/21 [Rx] Baclofen [Lioresal] 10 mg PO HS #0 04/28/21 [Rx] Magnesium Hydroxide [Milk of Magnesia Concentrate] 2,400 mg PO DAILY PRN ml 04/28/21 [Rx] Magnesium Oxide [Mag-Ox] 250 mg PO DAILY #60 tablet 04/28/21 [Rx] Melatonin 10 mg PO HS #0 04/28/21 [Rx] Zolpidem [Ambien] 5 mg PO HS #0 04/28/21 [Rx] Follow up Appointment(s)/Referral(s): Eldon Murillo MD [Primary Care Provider] - 1-2 days Discharge Disposition: HOME SELF-CARE
[2021-04-28] MEDS ORDERED: CITALOPRAM HYDROBROMIDE 20 MG TAB PO SCH (21:30)
== END 2021-04-28 17:50 | disposition home or self-care (01) | DRG 92 ==
LOC: EC 14:37 → 4SSUR 17:54
PROVIDERS: ADMIT Hospitalist; ATTEND Hospitalist
DX: G92 Toxic encephalopathy (principal); E87.0 Hyperosmolality and hypernatremia; E87.2 Acidosis; E83.51 Hypocalcemia; E86.0 Dehydration; G31.84 Mild cognitive impairment of uncertain or unknown etiology; T42.6X5A Adverse effect of other antiepileptic and sedative-hypnotic drugs, initial encounter; F32.9 Major depressive disorder, single episode, unspecified; R53.81 Other malaise; F41.0 Panic disorder [episodic paroxysmal anxiety]; F51.04 Psychophysiologic insomnia; G25.0 Essential tremor; I12.9 Hypertensive chronic kidney disease with stage 1 through stage 4 chronic kidney disease, or unspecified chronic kidney disease; K91.1 Postgastric surgery syndromes; M06.9 Rheumatoid arthritis, unspecified; M79.7 Fibromyalgia; N18.30 Chronic kidney disease, stage 3 unspecified; Z79.899 Other long term (current) drug therapy; Z87.440 Personal history of urinary (tract) infections; Z96.651 Presence of right artificial knee joint; Z98.84 Bariatric surgery status; Z98.51 Tubal ligation status; Z90.49 Acquired absence of other specified parts of digestive tract; X58.XXXA Exposure to other specified factors, initial encounter
CPT/HCPCS: 36415; 70450; 71046; 80053; 80306; 81003; 82140; 82550; 83605; 83735; 84484; 85025; 85610; 85730; 87040; 93005; 96361; 96372; 96374; 96375; 99285

== ENCOUNTER 2021-05-13 04:00 | Inpatient (IN) | payer MEDICARE, BC ==
--- NOTE | 2021-05-13 04:43 | XR ---
EXAMINATION TYPE: XR knee limited RT DATE OF EXAM: 05/13/2021 COMPARISON: NONE HISTORY: Knee pain. Fall. TECHNIQUE: 2 views FINDINGS: There is right knee prosthesis. I see no fracture nor dislocation. There is no sign of join t effusion. There is osteopenia. IMPRESSION: No acute abnormality of the right knee.
[2021-05-13] MEDS ORDERED: MORPHINE SULFATE 4 MG/ML SYRINGE IV STA (06:35)
[2021-05-13] MEDS ORDERED: NALOXONE 0.4 MG/ML 1 ML VIAL IV PRN (07:23)
[2021-05-13] MEDS ORDERED: DOCUSATE 100 MG CAP PO PRN (08:15)
[2021-05-13] MEDS ORDERED: MORPHINE SULFATE 4 MG/ML SYRINGE IV PRN (08:15)
[2021-05-13] MEDS ORDERED: MAG HYDROX/AL HYDROX/SIMETH 30 ML CUP PO PRN (08:15)
[2021-05-13 09:01] LABS: Anisocytosis Slight; Basophils % (A) 0 %; Eosinophils % (A) 0 %; HCT 32.5 % (34.0-46.0); HGB 9.8 gm/dL (11.4-16.0); Hypochromasia Marked; Lymphocytes # (A) 0.8 k/uL (1.0-4.8); Lymphocytes % (A) 8 %; MCH 31.6 pg (25.0-35.0); MCHC 30.1 g/dL (31.0-37.0); MCV 105.2 fL (80.0-100.0); Macrocytosis Moderate; Monocytes # (A) 0.4 k/uL (0-1.0); Monocytes % (A) 4 %; Neutrophils % (A) 86 %; Platelet Count 241 k/uL (150-450); Poikilocytosis Slight; RBC 3.08 m/uL (3.80-5.40); RDW 16.7 % (11.5-15.5); WBC 9.3 k/uL (3.8-10.6)
[2021-05-13 09:16] LABS: Calcium 8.2 mg/dL (8.4-10.2)
[2021-05-13] MEDS ORDERED: SODIUM BICARBONATE TAB 650 MG TAB PO SCH (11:00)
[2021-05-13] MEDS ORDERED: BACLOFEN 10 MG TAB PO SCH ×2 (11:00→16:00)
[2021-05-13] MEDS: SODIUM CHLORIDE 0.9% 1,000 ML IV SCH (11:11)
[2021-05-13] MEDS: DEXTROSE 5% IN WATER 1,000 ML with SODIUM BICARB (1 MEQ/ML) 50 ML IV SCH (12:10)
[2021-05-13] MEDS: DICLOFENAC SODIUM GEL 100 GM TUBE TOPICAL SCH ×3 (12:14→20:25)
[2021-05-13] MEDS: PRIMIDONE 25 MG TAB PO SCH ×3 (12:24→20:46)
[2021-05-13] MEDS: POTASSIUM CHLORIDE ER 20 MEQ TAB.ER PO SCH (12:24)
[2021-05-13] MEDS: FAMOTIDINE 20 MG TAB PO SCH (12:24)
[2021-05-13] MEDS: CALCIUM CARB-VIT D 500 MG-5 MCG TAB PO SCH (12:24)
[2021-05-13] MEDS: GABAPENTIN 100 MG CAP PO SCH ×2 (12:24→20:27)
--- NOTE | 2021-05-13 16:06 | P.HPIM ---
History of Present Illness H&P Date: 05/13/21 Chief Complaint: Right knee pain History of presenting complaint: 70-year-old patient, follows with Dr. Murillo, chronic stable medical conditions include fibromyalgia, memory impairment, rheumatoid arthritis, dumping syndrome, depression. baseline uses a walker. on primidone for familial tremors. Patient was recently admitted on April 27 for metabolic encephalopathy felt to be from medications. Melatonin, baclofen, Ambien doses was cutback. Sleep hygiene was discussed with the at that time. Patient is doing well. Patient now presents with getting out of bed she falls over and injured the right knee. Unable to weight-bear. Presented to the ER. Patient other tired with history giving. Somewhat lethargic. It was noted that patient's back on higher doses of baclofen and Ambien. Denies any chest pain palpitation. No fever no chills. No respiratory symptoms. Review of systems: GEN.: Tired EYES: None HEENT: None NECK: None RESPIRATORY: None CARDIOVASCULAR: None GASTROINTESTINAL: None GENITOURINARY: None MUSCULOSKELETAL: Right knee pain swelling. LYMPHATICS: None HEMATOLOGICAL: None PSYCHIATRY: None NEUROLOGICAL: Lethargic Past medical history to include: Fibromyalgia, cognitive impairment, rheumatoid arthritis, dumping syndrome, depression, familial tremors, sleep disorder Social history: . No smoking. No alcohol Family history: Cancer On examination: VITAL SIGNS: 98.5, 79, 18, 103/60, 95% room air GENERAL APPEARANCE: BMI 23, laying in bed, tired and lethargic EYES: Pupils equal. Conjunctiva normal. NECK: JVD not raised. Mass not palpable. RESPIRATORY: Respiratory effort normal. Lungs clear to auscultation. CARDIOVASCULAR: First and second sounds normal. No edema. ABDOMEN: Soft. Liver and spleen not palpable. No tenderness. No mass palpable. MUSCULAR skeletal: Evidence of OA . Local tenderness swelling around the right knee. Postoperative scar. Healed NEUROLOGICAL: Cranial nerves grossly intact. Positive sensation grossly intact. Decreased sensorium PSYCHIATRY: Able to answer simple questions INVESTIGATIONS, reviewed in the clinical context: White count 9.3 hemoglobin 9.8 platelets 241 potassium 4 bicarb 11 38 creatinine 1.34 glucose 116 Coronavirus [PCF]: Not detected Right knee x-ray: No fracture reported. Right knee prosthesis is present. Osteopenia. Assessment and plan: -Patient presents with a fall and injury to the right knee. No fracture on the x-ray. There is local tenderness and swelling. Suspect inflammatory changes. Secondary to fall. Orthopedics consulted. Use topical Voltaren gel 4 g 4 times a day. Local ice. -Acute metabolic encephalopathy, from metabolic acidosis,and patient taking higher dose of baclofen, Ambien Baclofen dose cut back to 10 mg every 8 when necessary. Ambien cutback to 5 mg at night.. Melatonin decreased to 5 mg. -Chronic kidney disease stage III likely nephrosclerosis Baseline creatinine of around 1.5 -Acute metabolic acidosis due to CK D Sodium bicarbonate drip IV -Chronic rheumatoid arthritis Follow clinically -Chronic fibromyalgia Follow clinically. Decrease baclofen -Moderate cognitive impairment Follow clinically -Chronic medical debility PTOT -Chronic dumping syndrome -Depression not otherwise specified Celexa 40 mg daily at bedtime -Chronic insomnia, : sleeps cycle disturbance Sleep hygiene -Chronic, familial tremor primidone 25 mg 3 times a day Patient started on IV sodium bicarbonate drip. Follow BMP. Baclofen cutback to 10 mg every 8 when necessary. Ambien reduced to 5 mg daily at bedtime. Fall precautions. 4 getting gel to right knee 4 times a day. Justin wrap. Orthopedics consulted. Past Medical History Past Medical History: Fibromyalgia, Memory Impairment, Rheumatoid Arthritis (RA) Additional Past Medical History / Comment(s): DUMPING SYNDROME, DDD, frequent UTI's History of Any Multi-Drug Resistant Organisms: None Reported Past Surgical History: Adenoidectomy, Appendectomy, Bowel Resection, Cholecystectomy, Joint Replacement, Tonsillectomy, Tubal Ligation Additional Past Surgical History / Comment(s): RT TKA COLONOSCOPY TILT TABLE TEST, D & C. Gastric Bypass - 30 years ago Past Anesthesia/Blood Transfusion Reactions: No Reported Reaction Past Psychological History: Depression, Panic Disorder Smoking Status: Never smoker Past Alcohol Use History: None Reported Past Drug Use History: None Reported - Past Family History Father Family Medical History: Cancer Sister(s) Family Medical History: Cancer Mother Family Medical History: Deep Vein Thrombosis (DVT) Medications and Allergies Home Medications Medication Instructions Recorded Confirmed Type Folic Acid 1 mg PO HS 08/29/14 05/13/21 History Citalopram Hydrobromide [CeleXA] 40 mg PO HS 10/08/16 05/13/21 History Sodium Bicarbonate Tab 650 mg PO BID #60 tab 06/16/20 05/13/21 Rx Cyanocobalamin [Vitamin B-12 1,000 mcg INJ Q21D 04/27/21 05/13/21 History Injection] Ergocalciferol [Vitamin D2 (1250 1,250 mcg PO MOFR 04/27/21 05/13/21 History Mcg = 43469 Iu)] Furosemide [Lasix] 20 mg PO DAILY 04/27/21 05/13/21 History Gabapentin [Neurontin] 200 mg PO BID 04/27/21 05/13/21 History Primidone [Mysoline] 25 mg PO TID 04/27/21 05/13/21 History Melatonin 10 mg PO HS #0 04/28/21 05/13/21 Rx Baclofen [Lioresal] 20 mg PO TID 05/13/21 05/13/21 History Calcium Carbonate/Vitamin D3 1 tab PO DAILY 05/13/21 05/13/21 History [Calcium 600-Vit D3 10 mcg (400 Iu)] Potassium Chloride ER [K-Dur 20] 20 meq PO DAILY 05/13/21 05/13/21 History Zolpidem [Ambien] 10 mg PO HS PRN 05/13/21 05/13/21 History Allergies Allergy/AdvReac Type Severity Reaction Status Date / Time No Known Allergies Allergy Verified 05/13/21 08:23 Physical Exam Vitals: Vital Signs Temp Pulse Resp BP Pulse Ox 05/13/21 10:29 80 18 100/55 98 05/13/21 08:01 80 90/51 05/13/21 07:23 98.7 F 05/13/21 06:03 75 16 101/65 96 05/13/21 04:03 97.5 F L 76 18 129/56 97 Intake and Output 05/12/21 05/13/21 05/13/21 22:59 06:59 14:59 Output Total 1000 Balance -1000 Output: Urine 1000 Other: # Voids 1 Weight 58.967 kg Results CBC & Chem 7: 05/13/21 08:33 05/13/21 08:37 Labs: Abnormal Lab Results - Last 24 Hours (Table) 05/13/21 05/13/21 Range/Units 08:33 08:37 RBC 3.08 L (3.80-5.40) m/uL Hgb 9.8 L D (11.4-16.0) gm/dL Hct 32.5 L (34.0-46.0) % MCV 105.2 H (80.0-100.0) fL MCHC 30.1 L (31.0-37.0) g/dL RDW 16.7 H (11.5-15.5) % Neutrophils # 8.0 H (1.3-7.7) k/uL Lymphocytes # 0.8 L (1.0-4.8) k/uL Chloride 120 H (98-107) mmol/L Carbon Dioxide 11 L (22-30) mmol/L BUN 38 H (7-17) mg/dL Creatinine 1.34 H (0.52-1.04) mg/dL Glucose 116 H (74-99) mg/dL Calcium 8.2 L (8.4-10.2) mg/dL
[2021-05-13] MEDS: CITALOPRAM HYDROBROMIDE 20 MG TAB PO SCH (20:27)
[2021-05-13] MEDS: MELATONIN 5 MG TABLET PO SCH (20:27)
[2021-05-13] MEDS: FOLIC ACID 1 MG TAB PO SCH (20:27)
[2021-05-13] MEDS ORDERED: ZOLPIDEM 5 MG TAB PO PRN (21:00)
[2021-05-14] MEDS: DEXTROSE 5% IN WATER 1,000 ML with SODIUM BICARB (1 MEQ/ML) 50 ML IV SCH ×3 (04:51→16:52)
[2021-05-14 06:03] LABS: African American GFR (CKD) 50 (>60 ml/min/1.73 sqM); Anion Gap 9 mmol/L; Blood Urea Nitrogen 32 mg/dL (7-17); Calcium 7.9 mg/dL (8.4-10.2); Carbon Dioxide 16 mmol/L (22-30); Chloride 113 mmol/L (98-107); Glucose 104 mg/dL (74-99); Non-African American GFR(CKD) 43 (>60 ml/min/1.73 sqM); Sodium 138 mmol/L (137-145)
[2021-05-14] MEDS: SODIUM CHLORIDE 0.9% 1,000 ML IV SCH (07:30)
[2021-05-14] MEDS: DICLOFENAC SODIUM GEL 100 GM TUBE TOPICAL SCH ×4 (07:36→22:05)
[2021-05-14] MEDS: PRIMIDONE 25 MG TAB PO SCH ×3 (07:41→22:06)
[2021-05-14] MEDS: GABAPENTIN 100 MG CAP PO SCH ×2 (07:41→22:04)
[2021-05-14] MEDS: FAMOTIDINE 20 MG TAB PO SCH (07:41)
[2021-05-14] MEDS: POTASSIUM CHLORIDE ER 20 MEQ TAB.ER PO SCH (07:41)
[2021-05-14] MEDS: ERGOCALCIFEROL 1,250 MCG (50,000 IU) CAPSULE PO SCH (07:42)
[2021-05-14] MEDS: CALCIUM CARB-VIT D 500 MG-5 MCG TAB PO SCH (07:42)
[2021-05-14] MEDS ORDERED: LIDOCAINE 2% INJ 20 MG/ML (20 ML MDV) ONE (12:04)
--- NOTE | 2021-05-14 13:40 | P.CNOR ---
History of Present Illness - [facility] Consult date: 05/14/21 Consult reason: fracture (Right distal femur) History of present illness: This is a 70-year-old female who is admitted to internal medicine on 05/13/2021 after falling directly on her knees and sustaining injury to the right knee. The patient has history of [place] [address] Cerda. She has history of fibromyalgia and has had a recent admission this past summer for electrolyte imbalance and was in the ICU. She is currently managing some decubitus ulcers to her sacrum and buttock. Her x-rays in the ER were initially read as negative and we were consulted for knee pain. On review of the x-rays she is found to have a periprosthetic distal femur fracture of the right knee. Past Medical History Past Medical History: Fibromyalgia, Memory Impairment, Rheumatoid Arthritis (RA) Additional Past Medical History / Comment(s): DUMPING SYNDROME, DDD, frequent UTI's History of Any Multi-Drug Resistant Organisms: None Reported Past Surgical History: Adenoidectomy, Appendectomy, Bowel Resection, Cholecystectomy, Joint Replacement, Tonsillectomy, Tubal Ligation Additional Past Surgical History / Comment(s): RT TKA COLONOSCOPY TILT TABLE TEST, D & C. Gastric Bypass - 30 years ago Past Anesthesia/Blood Transfusion Reactions: No Reported Reaction Past Psychological History: Depression, Panic Disorder Smoking Status: Never smoker Past Alcohol Use History: None Reported Past Drug Use History: None Reported - Past Family History Father Family Medical History: Cancer Sister(s) Family Medical History: Cancer Mother Family Medical History: Deep Vein Thrombosis (DVT) Medications and Allergies Home Medications Medication Instructions Recorded Confirmed Type Folic Acid 1 mg PO HS 08/29/14 05/13/21 History Citalopram Hydrobromide [CeleXA] 40 mg PO HS 10/08/16 05/13/21 History Sodium Bicarbonate Tab 650 mg PO BID #60 tab 06/16/20 05/13/21 Rx Cyanocobalamin [Vitamin B-12 1,000 mcg INJ Q21D 04/27/21 05/13/21 History Injection] Ergocalciferol [Vitamin D2 (1250 1,250 mcg PO MOFR 04/27/21 05/13/21 History Mcg = 69542 Iu)] Furosemide [Lasix] 20 mg PO DAILY 04/27/21 05/13/21 History Gabapentin [Neurontin] 200 mg PO BID 04/27/21 05/13/21 History Primidone [Mysoline] 25 mg PO TID 04/27/21 05/13/21 History Melatonin 10 mg PO HS #0 04/28/21 05/13/21 Rx Baclofen [Lioresal] 20 mg PO TID 05/13/21 05/13/21 History Calcium Carbonate/Vitamin D3 1 tab PO DAILY 05/13/21 05/13/21 History [Calcium 600-Vit D3 10 mcg (400 Iu)] Potassium Chloride ER [K-Dur 20] 20 meq PO DAILY 05/13/21 05/13/21 History Zolpidem [Ambien] 10 mg PO HS PRN 05/13/21 05/13/21 History Allergies Allergy/AdvReac Type Severity Reaction Status Date / Time No Known Allergies Allergy Verified 05/13/21 08:23 Physical Examination This is a pleasant 70-year-old female in no acute distress. She is alert and oriented 3. Exam of the head neck reveal no obvious deformity. She has full cervical spine motion without difficulty or pain. Exam of the upper extremities reveals no acute deformity. She has fairly good shoulder, elbow, wrist and finger motion bilaterally. Neurovascular status to the upper extremities is intact. Exam of the lower extremities reveals a 3+ effusion of the right knee. No erythema or ecchymosis. She has significant pain with any motion to the knee. She has full foot and ankle motion bilaterally. Neurovascular status to the lower extremities is intact. Results X-rays of the right knee reveal a minimally displaced transverse periprosthetic fracture of the distal femur. The fracture is angulated in flexion. Implants have no radiographic evidence of loosening. - Labs Labs: Abnormal Lab Results - Last 24 Hours (Table) 05/14/21 Range/Units 04:59 Chloride 113 H (98-107) mmol/L Carbon Dioxide 16 L (22-30) mmol/L BUN 32 H (7-17) mg/dL Creatinine 1.26 H (0.52-1.04) mg/dL Glucose 104 H (74-99) mg/dL Calcium 7.9 L (8.4-10.2) mg/dL H & H 05/13/21 Range/Units 08:33 Hgb 9.8 L D (11.4-16.0) gm/dL Hct 32.5 L (34.0-46.0) % Result Diagrams: 05/13/21 08:33 05/14/21 04:59 Assessment and Plan (1) Periprosthetic fracture around internal prosthetic right knee joint Current Visit: Yes Status: Acute Code(s): M97.11XA - PERIPROSTH FRACTURE AROUND INTERNAL PROSTH R KNEE JT, INIT SNOMED Code(s): 391787933 (2) History of fibromyalgia Current Visit: Yes Status: Acute Code(s): Z87.39 - PERSONAL HISTORY OF DISEASES OF THE MS SYS AND CONN TISS SNOMED Code(s): 843898102 Plan: The clinical and x-ray findings are discussed with the patient and her . Treatment options are reviewed including conservative, nonsurgical treatment in a knee immobilizer with nonweightbearing versus surgical treatment with super condylar IM tariq versus retrograde nail right distal femur. After discussion and consideration with the patient, her and internal medicine, the patient elects to proceed with surgical treatment. We will plan open reduction internal fixation with supracondylar versus retrograde nail right distal femur on Monday. Dr. Bateman was in the patient's room during the discussion and he has been very cleared her for surgery.
--- NOTE | 2021-05-14 15:37 | P.PN ---
Progress Note - Text Progress Note Date: 05/14/21 Chief Complaint: Right knee pain History of presenting complaint: 70-year-old patient, follows with Dr. Murillo, chronic stable medical conditions include fibromyalgia, memory impairment, rheumatoid arthritis, dumping syndrome, depression. baseline uses a walker. on primidone for familial tremors. Patient was recently admitted on April 27 for metabolic encephalopathy felt to be from medications. Melatonin, baclofen, Ambien doses was cutback. Sleep hygiene was discussed with the at that time. Patient is doing well. Patient now presents with getting out of bed she falls over and injured the right knee. Unable to weight-bear. Presented to the ER. Patient other tired with history giving. Somewhat lethargic. It was noted that patient's back on higher doses of baclofen and Ambien. Denies any chest pain palpitation. No fever no chills. No respiratory symptoms. May 14: Further review of the x-ray by radiology and May reveals distal femur periprosthetic fracture. Patient is more awake today after some the medications making her sleepy were cutback. at the bedside. He did mention that he had full-court take the new medications from [place] admission to the PCP has the old medication list was continued. Initial plan was for a brace but is felt by Dr. Fito Jett that patient be better off at the plate and screws. This was further discussed with the patient . They're agreeable to proceed with the same. The knee will be drained today. Planning for surgery on Monday. Review of systems: Was done for constitutional, cardiovascular, GI, pulmonary. relevant finding as above Active Medications Acetaminophen (Acetaminophen Tab 325 Mg Tab) 650 mg PO Q6HR PRN PRN Reason: Mild Pain or Fever > 100.5 Al Hydroxide/Mg Hydroxide (Mag Hydrox/Al Hydrox/Simeth 30 Ml Cup) 15 ml PO Q6HR PRN PRN Reason: Indigestion Baclofen (Baclofen 10 Mg Tab) 10 mg PO TID PRN PRN Reason: Breakthrough Pain Calcium Carbonate (Calcium Carb-Vit D 500 Mg-5 Mcg Tab) 1 each PO DAILY [facility] Last Admin: 05/14/21 07:42 Dose: 1 each Documented by: Citalopram Hydrobromide (Citalopram Hydrobromide 20 Mg Tab) 40 mg PO HS [facility] Last Admin: 05/13/21 20:27 Dose: 40 mg Documented by: Diclofenac Sodium (Diclofenac Sodium Gel 100 Gm Tube) 4 gm TOPICAL QID [facility]; Protocol Last Admin: 05/14/21 12:06 Dose: 4 gm Documented by: Ergocalciferol (Ergocalciferol 1,250 Mcg (50,000 Iu) Capsule) 1,250 mcg PO MOFR [facility] Last Admin: 05/14/21 07:42 Dose: 1,250 mcg Documented by: Famotidine (Famotidine 20 Mg Tab) 20 mg PO DAILY [facility] Last Admin: 05/14/21 07:41 Dose: 20 mg Documented by: Folic Acid (Folic Acid 1 Mg Tab) 1 mg PO HS [facility] Last Admin: 05/13/21 20:27 Dose: 1 mg Documented by: Gabapentin (Gabapentin 100 Mg Cap) 200 mg PO BID [facility] Last Admin: 05/14/21 07:41 Dose: 200 mg Documented by: Hydromorphone HCl (Hydromorphone 0.5 Mg/0.5 Ml Syringe) 0.5 mg IVP Q3HR PRN PRN Reason: Moderate Pain Sodium Chloride (Saline 0.9%) 1,000 mls @ 20 mls/hr IV .Q24H [facility] Last Admin: 05/14/21 07:30 Dose: Not Given Documented by: Sodium Bicarbonate 50 ml/ (Dextrose/Water) 1,050 mls @ 100 mls/hr IV .[id number] [facility] Last Admin: 05/14/21 07:34 Dose: 100 mls/hr Documented by: Melatonin (Melatonin 5 Mg Tablet) 5 mg PO HS [facility] Last Admin: 05/13/21 20:27 Dose: 5 mg Documented by: Naloxone HCl (Naloxone 0.4 Mg/Ml 1 Ml Vial) 0.2 mg IV Q2M PRN PRN Reason: Opioid Reversal Potassium Chloride (Potassium Chloride Er 20 Meq Tab.Er) 20 meq PO DAILY [facility] Last Admin: 05/14/21 07:41 Dose: 20 meq Documented by: Primidone (Primidone 25 Mg Tab) 25 mg PO TID [facility] Stop: 05/14/21 23:59 Last Admin: 05/14/21 07:41 Dose: 25 mg Documented by: Primidone (Primidone 50 Mg Tab) 25 mg PO TID [facility] Zolpidem Tartrate (Zolpidem 5 Mg Tab) 5 mg PO HS PRN PRN Reason: Insomnia Past medical history to include: Fibromyalgia, cognitive impairment, rheumatoid arthritis, dumping syndrome, depression, familial tremors, sleep disorder Social history: . No smoking. No alcohol Family history: Cancer On examination: VITAL SIGNS: 98.3, 85, 16, 101/65, 95% room air GENERAL APPEARANCE: Reclining in bed, more awake EYES: Pupils equal. Conjunctiva normal. NECK: JVD not raised. Mass not palpable. RESPIRATORY: Respiratory effort normal. Lungs clear to auscultation. CARDIOVASCULAR: First and second sounds normal. No edema. ABDOMEN: Soft. Liver and spleen not palpable. No tenderness. No mass palpable. MUSCULAR skeletal: Evidence of OA . Local tenderness and swelling around the right knee. Postoperative scar. Healed NEUROLOGICAL: Cranial nerves grossly intact. Positive sensation grossly intact. Decreased sensorium PSYCHIATRY: Answering questions appropriately INVESTIGATIONS, reviewed in the clinical context: May 14: Potassium 4. 32 creatinine 1.26 bicarb 16 White count 9.3 hemoglobin 9.8 platelets 241 potassium 4 bicarb 11 38 creatinine 1.34 glucose 116 Coronavirus [PCF]: Not detected Right knee x-ray: No fracture reported. Right knee prosthesis is present. Osteopenia. Assessment and plan: -Patient presents with a fall and injury to the right knee. Distal femur periprosthetic fracture Hematoma to be drained today Use topical Voltaren gel 4 g 4 times a day. Local ice. Plan for surgical intervention on Monday with plate and screws. -Acute metabolic encephalopathy, from metabolic acidosis,and patient taking higher dose of baclofen, Ambien : Improved Baclofen dose cut back to 10 mg every 8 when necessary. Ambien cutback to 5 mg at night.. Melatonin decreased to 5 mg. -Chronic kidney disease stage III likely nephrosclerosis Baseline creatinine of around 1.5 -Acute metabolic acidosis due to CK D: Slow to respond Continue Sodium bicarbonate drip IV -Chronic rheumatoid arthritis Follow clinically -Chronic fibromyalgia Follow clinically. Decrease baclofen -Moderate cognitive impairment Follow clinically -Chronic medical debility PTOT -Chronic dumping syndrome -Depression not otherwise specified Celexa 40 mg daily at bedtime -Chronic insomnia, : sleeps cycle disturbance Sleep hygiene -Chronic, familial tremor primidone 25 mg 3 times a day Continue IV sodium bicarbonate drip. Medications were discussed length with the patient and . Upper discharge again is written instructions be given at this time. Discussed with Adriane from orthopedics. Plan for surgery this Monday. Right knee will be drained today. Total time spent today about 40 minutes with over 25 minutes of discussion. Follow labs
--- NOTE | 2021-05-14 16:09 | XR ---
EXAMINATION TYPE: XR chest 1V portable DATE OF EXAM: 05/14/2021 COMPARISON: Chest x-ray from 04/27/2021 HISTORY: Preop, presurgical TECHNIQUE: Single frontal view of the chest is obtained. FINDINGS: There is no focal air space opacity, pleural effusion, or pneumothorax seen. The cardiac silhouette size is within normal limits. Patient is rotated. Bandlike area of increased attenuation i s present in the right mid lung which may represent some thickening of the minor fissure, atelectasis . Lung volumes are low. Question some prominence of pulmonary artery. The osseous structures are int act, bone mineralization is reduced. Surgical clips are present in the right upper quadrant. IMPRESSION: Rotated expiratory exam. Correlate for possible pulmonary artery hypertension. Possible atelectasis right lung. Follow-up as indicated.
[2021-05-14] MEDS: FOLIC ACID 1 MG TAB PO SCH (22:04)
[2021-05-14] MEDS: CITALOPRAM HYDROBROMIDE 20 MG TAB PO SCH (22:04)
[2021-05-14] MEDS: MELATONIN 5 MG TABLET PO SCH (22:05)
[2021-05-14] MEDS: HYDROmorphone 0.5 MG/0.5 ML SYRINGE IVP PRN (22:07)
[2021-05-14] MEDS: ACETAMINOPHEN TAB 325 MG TAB PO PRN (22:36)
[2021-05-15] MEDS: DEXTROSE 5% IN WATER 1,000 ML with SODIUM BICARB (1 MEQ/ML) 50 ML IV SCH ×3 (01:51→17:24)
[2021-05-15] MEDS: HYDROmorphone 0.5 MG/0.5 ML SYRINGE IVP PRN ×4 (01:51→17:21)
[2021-05-15] MEDS: ACETAMINOPHEN TAB 325 MG TAB PO PRN (05:35)
[2021-05-15 06:38] LABS: Anisocytosis Slight; Basophils % (A) 0 %; Eosinophils # (A) 0.2 k/uL (0-0.7); Eosinophils % (A) 3 %; HCT 27.8 % (34.0-46.0); Hypochromasia Marked; Lymphocytes # (A) 1.8 k/uL (1.0-4.8); Lymphocytes % (A) 31 %; MCH 30.9 pg (25.0-35.0); MCHC 29.6 g/dL (31.0-37.0); MCV 104.6 fL (80.0-100.0); Macrocytosis Moderate; Mean Platelet Volume 7.9; Monocytes # (A) 0.5 k/uL (0-1.0); Monocytes % (A) 9 %; Neutrophils # (A) 3.3 k/uL (1.3-7.7); Neutrophils % (A) 56 %; Platelet Count 175 k/uL (150-450); RBC 2.66 m/uL (3.80-5.40); RDW 16.2 % (11.5-15.5); WBC 5.9 k/uL (3.8-10.6)
[2021-05-15 06:52] LABS: African American GFR (CKD) 53 (>60 ml/min/1.73 sqM); Anion Gap 8 mmol/L; Blood Urea Nitrogen 32 mg/dL (7-17); Calcium 7.5 mg/dL (8.4-10.2); Carbon Dioxide 19 mmol/L (22-30); Chloride 109 mmol/L (98-107); Glucose 104 mg/dL (74-99); Non-African American GFR(CKD) 46 (>60 ml/min/1.73 sqM); Potassium 4.2 mmol/L (3.5-5.1); Sodium 136 mmol/L (137-145)
[2021-05-15 06:54] LABS: HGB 8.2 gm/dL (11.4-16.0)
[2021-05-15] MEDS: CALCIUM CARB-VIT D 500 MG-5 MCG TAB PO SCH (09:29)
[2021-05-15] MEDS: DICLOFENAC SODIUM GEL 100 GM TUBE TOPICAL SCH ×4 (09:29→21:33)
[2021-05-15] MEDS: GABAPENTIN 100 MG CAP PO SCH ×2 (09:29→21:32)
[2021-05-15] MEDS: POTASSIUM CHLORIDE ER 20 MEQ TAB.ER PO SCH (09:30)
[2021-05-15] MEDS: FAMOTIDINE 20 MG TAB PO SCH (09:30)
[2021-05-15] MEDS: PRIMIDONE 50 MG TAB PO SCH ×3 (09:30→21:32)
[2021-05-15] MEDS: SODIUM CHLORIDE 0.9% 1,000 ML IV SCH (09:31)
[2021-05-15] MEDS: BACLOFEN 10 MG TAB PO PRN ×2 (09:47→17:22)
--- NOTE | 2021-05-15 12:55 | P.PN ---
Subjective Progress Note Date: 05/15/21 Principal diagnosis: Right distal femur periprosthetic fracture. This is a 70-year-old female who we saw on consult yesterday with right knee pain after a fall. She was found to have a distal femoral periprosthetic fracture of the right knee. She is awaiting surgery on Monday for close reduction with insertion of intramedullary nail of the right distal femur. She has no new complaints or concerns today. Vital signs are stable. Objective - Vital Signs Vital signs: Vital Signs Temp 97.9 F 05/15/21 04:15 Pulse 88 05/15/21 09:31 Resp 16 05/15/21 08:45 BP 106/72 05/15/21 09:31 Pulse Ox 95 05/15/21 04:15 Intake & Output 05/14/21 05/15/21 05/15/21 18:59 06:59 18:59 Intake Total 1440 1490 Output Total 2750 1500 Balance -1310 -10 Intake: IV 1200 900 Dextrose 5% in Water 1, 1200 900 000 ml @ 100 mls/hr IV . [id number] SAUL with Sodium Bicarb (1 Meq/ml) 50 ml Rx#:[id number] Oral 240 590 Output: Urine 2750 1500 Other: Voiding Method Indwelling Catheter Indwelling Catheter Indwelling Catheter - Exam This is a pleasant 70-year-old female in no acute distress. She is alert and oriented at this time. Exam of the right knee reveals that the knee immobilizer is in place. She has full foot and ankle motion without difficulty or pain. Neurovascular status to the lower extremity is intact. - Labs CBC & Chem 7: 05/15/21 06:16 05/15/21 06:16 Labs: Abnormal Lab Results - Last 24 Hours (Table) 05/15/21 05/15/21 Range/Units 06:16 06:16 RBC 2.66 L (3.80-5.40) m/uL Hgb 8.2 L D (11.4-16.0) gm/dL Hct 27.8 L (34.0-46.0) % MCV 104.6 H (80.0-100.0) fL MCHC 29.6 L (31.0-37.0) g/dL RDW 16.2 H (11.5-15.5) % Sodium 136 L (137-145) mmol/L Chloride 109 H (98-107) mmol/L Carbon Dioxide 19 L (22-30) mmol/L BUN 32 H (7-17) mg/dL Creatinine 1.19 H (0.52-1.04) mg/dL Glucose 104 H (74-99) mg/dL Calcium 7.5 L (8.4-10.2) mg/dL Assessment and Plan (1) Periprosthetic fracture around internal prosthetic right knee joint Current Visit: Yes Status: Acute Code(s): M97.11XA - PERIPROSTH FRACTURE AROUND INTERNAL PROSTH R KNEE JT, INIT SNOMED Code(s): 712508347 (2) History of fibromyalgia Current Visit: Yes Status: Acute Code(s): Z87.39 - PERSONAL HISTORY OF DISEASES OF THE MS SYS AND CONN TISS SNOMED Code(s): 956753975 Plan: The clinical and x-ray findings are discussed with the patient and her . Treatment options are reviewed including conservative, nonsurgical treatment in a knee immobilizer with nonweightbearing versus surgical treatment with super condylar IM tariq versus retrograde nail right distal femur. After discussion and consideration with the patient, her and internal medicine, the patient elects to proceed with surgical treatment. We will plan open reduction internal fixation with supracondylar versus retrograde nail right distal femur on Monday. Dr. Bateman was in the patient's room during the discussion and he has been very cleared her for surgery. She is scheduled for surgery on Monday. We will repeat the x-rays tomorrow.
--- NOTE | 2021-05-15 12:56 | P.PN ---
Progress Note - Text Progress Note Date: 05/14/21 Addendum: This is an addendum to the original consult note on 05/14/2021. The right knee was aspirated using sterile technique. I obtained approximately 65 mL of dark blood. The patient tolerated the aspiration well. She states that the decompression of the knee did improve her pain.
--- NOTE | 2021-05-15 18:06 | PN ---
PROGRESS NOTE DATE OF SERVICE: 05/15/2021 This 70-year-old woman who was admitted with a fall and injury to the right knee had a distal femur periprosthetic fracture and hematoma. Orthopedic Surgery is planning surgery. The right knee was aspirated using a sterile technique. Approximately 65 mL of dark blood was aspirated. Past medical history reviewed. REVIEW OF SYSTEMS: CARDIOVASCULAR SYSTEM: No angina. RESPIRATION: As mentioned earlier. GI: As mentioned earlier. : No dysuria. NERVOUS SYSTEM: No numbness, weakness. CURRENT MEDICATIONS: Reviewed. They include Tylenol, , Lioresal, Os-Tera with D, Celexa, . Doses are reviewed. PHYSICAL EXAMINATION: Patient alert and x3. Pulse 85, blood pressure 101/65, respirations 16, temperature 98.8, pulse ox 93% on room air. HEENT: Conjunctivae normal. NECK: No jugular venous distention. CARDIOVASCULAR: S1, S2 muffled. RESPIRATION: Breath sounds diminished at the bases. A few scattered rhonchi and crackles. ABDOMEN: Soft, nontender. LEGS: Status post injury. NERVOUS SYSTEM: No focal deficit. LABS: WBC 5.2, hemoglobin 8.6, sodium 136 and creatinine is 1.19. Calcium is noted. ASSESSMENT: 1. Status post fall and right knee periprosthetic fracture for surgical treatment, status post arthrocentesis. 2. Change in mental status, acute metabolic encephalopathy. 3. Chronic kidney disease, stage 3. 4. Acute metabolic acidosis. 5. Chronic rheumatoid arthritis. 6. Chronic fibromyalgia. 7. Mild cognitive impairment. 8. Chronic medical debility. 9. Depression. 10.Hyponatremia. 11.Anemia, macrocytic. RECOMMENDATIONS AND DISCUSSION: I recommend to continue current medications, continue with symptomatic treatment. Otherwise, repeat labs. Closely follow with Orthopedic Surgery. DVT prophylaxis. Guarded prognosis. Further recommendations to follow. MMODL / IJN: [id number] / BETTYE
[2021-05-15 18:20] LABS: INR 1.1 (<1.2)
[2021-05-15] MEDS: FOLIC ACID 1 MG TAB PO SCH (21:32)
[2021-05-15] MEDS: CITALOPRAM HYDROBROMIDE 20 MG TAB PO SCH (21:32)
[2021-05-15] MEDS: HEPARIN SODIUM,PORCINE/PF 5,000 UNIT/0.5 ML SYRINGE SQ SCH (21:32)
[2021-05-15] MEDS: MELATONIN 5 MG TABLET PO SCH (21:32)
[2021-05-16] MEDS: HYDROmorphone 0.5 MG/0.5 ML SYRINGE IVP PRN ×3 (02:23→19:26)
--- NOTE | 2021-05-16 07:07 | XR ---
Right knee. HISTORY: Postoperative total right knee replacement. COMPARISON: 05/13/2021. TECHNIQUE: 4 views the right knee were obtained. FINDINGS: There is a total right knee prosthesis in near anatomic alignment. There is disruption of the lateral cortex of the right distal femoral metaphysis consistent with an a cute fracture along the medial aspect of the distal right femoral metaphysis adjacent to the femoral prosthetic component there is a linear defect which also indicates an acute fracture line. There has been no interval change since the prior study. IMPRESSION: Acute fracture of the distal right femoral metaphysis near the femoral component of the prosthesis as described above. There is been no interval change.
[2021-05-16 07:10] LABS: Basophils % (A) 0 %; Eosinophils # (A) 0.2 k/uL (0-0.7); Eosinophils % (A) 3 %; HCT 28.7 % (34.0-46.0); HGB 8.7 gm/dL (11.4-16.0); Hypochromasia Moderate; Lymphocytes # (A) 1.7 k/uL (1.0-4.8); Lymphocytes % (A) 29 %; MCH 31.6 pg (25.0-35.0); MCHC 30.3 g/dL (31.0-37.0); MCV 104.1 fL (80.0-100.0); Macrocytosis Moderate; Mean Platelet Volume 8.1; Monocytes # (A) 0.4 k/uL (0-1.0); Monocytes % (A) 7 %; Neutrophils # (A) 3.3 k/uL (1.3-7.7); Neutrophils % (A) 58 %; Platelet Count 182 k/uL (150-450); RBC 2.76 m/uL (3.80-5.40); RDW 15.8 % (11.5-15.5); WBC 5.7 k/uL (3.8-10.6)
[2021-05-16] MEDS: SODIUM CHLORIDE 0.9% 1,000 ML IV SCH (08:59)
[2021-05-16] MEDS: PRIMIDONE 50 MG TAB PO SCH ×3 (09:14→22:09)
[2021-05-16] MEDS: GABAPENTIN 100 MG CAP PO SCH ×2 (09:14→21:37)
[2021-05-16] MEDS: BACLOFEN 10 MG TAB PO PRN ×2 (09:15→20:29)
[2021-05-16] MEDS: CALCIUM CARB-VIT D 500 MG-5 MCG TAB PO SCH (09:15)
[2021-05-16] MEDS: POTASSIUM CHLORIDE ER 20 MEQ TAB.ER PO SCH (09:15)
[2021-05-16] MEDS: FAMOTIDINE 20 MG TAB PO SCH (09:15)
[2021-05-16] MEDS: HEPARIN SODIUM,PORCINE/PF 5,000 UNIT/0.5 ML SYRINGE SQ SCH ×2 (09:15→21:37)
[2021-05-16] MEDS: DICLOFENAC SODIUM GEL 100 GM TUBE TOPICAL SCH ×4 (09:22→23:28)
[2021-05-16] MEDS: DEXTROSE 5% IN WATER 1,000 ML with SODIUM BICARB (1 MEQ/ML) 50 ML IV SCH ×4 (09:22→16:16)
[2021-05-16 12:55] LABS: Anion Gap 2.5 mmol/L (4.00-12.00); Calcium 7.8 mg/dL (8.7-10.3); Carbon Dioxide 25.5 mmol/L (21.6-31.8); Non-African American GFR(CKD) 45.8 (60.0-200.0); Potassium 4.5 mmol/L (3.5-5.5)
--- NOTE | 2021-05-16 12:59 | P.PN ---
Subjective Progress Note Date: 05/16/21 Principal diagnosis: Right distal femur periprosthetic fracture. This is a 70-year-old female who we saw on consult yesterday with right knee pain after a fall. She was found to have a distal femoral periprosthetic fracture of the right knee. She is awaiting surgery on Monday for close reduction with insertion of intramedullary nail of the right distal femur. She has no new complaints or concerns today. Vital signs are stable. Objective - Vital Signs Vital signs: Vital Signs Temp 97.9 F 05/16/21 04:58 Pulse 79 05/16/21 09:25 Resp 16 05/16/21 09:25 BP 120/67 05/16/21 08:10 Pulse Ox 94 L 05/16/21 04:58 Intake & Output 05/15/21 05/16/21 05/16/21 18:59 06:59 18:59 Intake Total 1300 870 Output Total 3025 1600 Balance -1725 -730 Intake: IV 160 Dextrose 5% in Water 1, 160 000 ml @ 100 mls/hr IV . [id number] SAUL with Sodium Bicarb (1 Meq/ml) 50 ml Rx#:[id number] Oral 1300 710 Output: Urine 3025 1600 Uretheral (Mcdaniel) 1600 Other: Voiding Method Indwelling Catheter Indwelling Catheter Indwelling Catheter # Voids 1 # Bowel Movements 2 - Exam This is a pleasant 70-year-old female in no acute distress. She is alert and oriented at this time. Exam of the right knee reveals that the knee immobilizer is in place. She has full foot and ankle motion without difficulty or pain. Neurovascular status to the lower extremity is intact. - Labs CBC & Chem 7: 05/16/21 06:51 05/16/21 06:51 Labs: Abnormal Lab Results - Last 24 Hours (Table) 05/16/21 05/16/21 Range/Units 06:51 06:51 RBC 2.76 L (3.80-5.40) m/uL Hgb 8.7 L (11.4-16.0) gm/dL Hct 28.7 L (34.0-46.0) % MCV 104.1 H (80.0-100.0) fL MCHC 30.3 L (31.0-37.0) g/dL RDW 15.8 H (11.5-15.5) % Anion Gap 2.50 L (4.00-12.00) mmol/L BUN 36.0 H (9.0-27.0) mg/dL Est GFR (CKD-EPI)AfAm 53.0 L (60.0-200.0) Est GFR (CKD-EPI)NonAf 45.8 L (60.0-200.0) BUN/Creatinine Ratio 30.00 H (12.00-20.00) Ratio Calcium 7.8 L (8.7-10.3) mg/dL Assessment and Plan (1) Periprosthetic fracture around internal prosthetic right knee joint Current Visit: Yes Status: Acute Code(s): M97.11XA - PERIPROSTH FRACTURE AROUND INTERNAL PROSTH R KNEE JT, INIT SNOMED Code(s): 782344775 (2) History of fibromyalgia Current Visit: Yes Status: Acute Code(s): Z87.39 - PERSONAL HISTORY OF DISEASES OF THE MS SYS AND CONN TISS SNOMED Code(s): 167873572 Plan: The clinical and x-ray findings are discussed with the patient and her . Treatment options are reviewed including conservative, nonsurgical treatment in a knee immobilizer with nonweightbearing versus surgical treatment with super condylar IM tariq versus retrograde nail right distal femur. After discussion and consideration with the patient, her and internal medicine, the patient elects to proceed with surgical treatment. We will plan open reduction internal fixation with supracondylar versus retrograde nail right distal femur on Monday. Dr. Bateman was in the patient's room during the discussion and he has been very cleared her for surgery. She is scheduled for surgery on Monday.
--- NOTE | 2021-05-16 19:14 | PN ---
PROGRESS NOTE DATE OF SERVICE: 05/16/2021 This 70-year-old woman who was admitted with fall and right knee periprosthetic fracture is being closely followed by Orthopedic surgery. Adriane Arias has seen the patient today and recommended surgery on Monday. No chest pain. No palpitations. No fever. PHYSICAL EXAMINATION: Alert and oriented x2. Pulse 79, blood pressure 104/65, respirations 16, temperature 98.6, pulse ox 98% on room air. HEENT: Conjunctivae normal. Oral mucosa moist. NECK: No jugular venous distention. No lymph node enlargement. CARDIOVASCULAR: S1, S2, muffled. No S3, no S4, RESPIRATORY: Diminished breath sounds at the bases. ABDOMEN: Soft. LEGS: Right knee fracture. NERVOUS SYSTEM: No focal deficits. LAB STUDIES: Hemoglobin 8.7, sodium 130, potassium 4.5. ASSESSMENT: 1. Fall and right knee periprosthetic fracture for surgical treatment status post arthrocentesis. 2. Change in mental status, acute metabolic encephalopathy, multifactorial. 3. Chronic kidney disease stage 3. 4. Acute metabolic acidosis. 5. Chronic rheumatoid arthritis. 6. Chronic fibromyalgia. 7. Mild cognitive impairment. 8. Chronic medical debility. 9. Depression. 10.Hyponatremia. 11.Anemia, macrocytic. RECOMMENDATIONS: Recommend to continue current management and symptomatic treatment. Otherwise, closely follow with Orthopedic surgery. Stable for surgery. Further recommendations to follow. MMODL / IJN: [id number] /
[2021-05-16] MEDS: ACETAMINOPHEN TAB 325 MG TAB PO PRN (20:28)
[2021-05-16] MEDS: CITALOPRAM HYDROBROMIDE 20 MG TAB PO SCH (21:36)
[2021-05-16] MEDS: MELATONIN 5 MG TABLET PO SCH (21:37)
[2021-05-16] MEDS: FOLIC ACID 1 MG TAB PO SCH (21:37)
[2021-05-17] MEDS ORDERED: TRANEXAMIC ACID 1,000 MG in SODIUM CHLORIDE 0.9% 100 ML IVPB PRN ×4 (05:00)
[2021-05-17] MEDS: ERGOCALCIFEROL 1,250 MCG (50,000 IU) CAPSULE PO SCH (08:20)
[2021-05-17] MEDS: FAMOTIDINE 20 MG TAB PO SCH (08:20)
[2021-05-17] MEDS: CALCIUM CARB-VIT D 500 MG-5 MCG TAB PO SCH (08:20)
[2021-05-17] MEDS: HEPARIN SODIUM,PORCINE/PF 5,000 UNIT/0.5 ML SYRINGE SQ SCH ×2 (08:20→21:07)
[2021-05-17] MEDS: POTASSIUM CHLORIDE ER 20 MEQ TAB.ER PO SCH (08:21)
[2021-05-17] MEDS: HYDROmorphone 0.5 MG/0.5 ML SYRINGE IVP PRN ×3 (08:25→19:46)
[2021-05-17] MEDS: GABAPENTIN 100 MG CAP PO SCH ×2 (08:25→21:07)
[2021-05-17] MEDS: PRIMIDONE 50 MG TAB PO SCH ×3 (08:26→21:11)
[2021-05-17] MEDS: DICLOFENAC SODIUM GEL 100 GM TUBE TOPICAL SCH ×4 (08:27→21:08)
[2021-05-17] MEDS ORDERED: LIDOCAINE 1% (10MG/ML) FOR IV START INTRADERMA ONE (11:52)
[2021-05-17] MEDS ORDERED: LACTATED RINGERS 1,000 ML IV ONE ×2 (11:52→14:01)
[2021-05-17] MEDS ORDERED: ONDANSETRON 4 MG/2 ML VIAL ONE (12:03)
[2021-05-17] MEDS ORDERED: ONDANSETRON 4 MG/2 ML VIAL IVP ONE (12:07)
[2021-05-17] MEDS ORDERED: DEXAMETHASONE SOD PHOSPHATE 4 MG/ML 1 ML VIAL IVP ONE (12:08)
[2021-05-17] MEDS: SODIUM CHLORIDE 0.9% 1,000 ML IV SCH (12:15)
[2021-05-17] MEDS ORDERED: PROPOFOL 10 MG/ML 20 ML VIAL IV ONE (13:14)
[2021-05-17] MEDS ORDERED: LIDOCAINE 1% INJ 10MG/ML (20 ML MDV) ONE (13:14)
[2021-05-17] MEDS ORDERED: TRANEXAMIC ACID 1,000 MG/10 ML VIAL ONE (13:14)
[2021-05-17] MEDS ORDERED: MIDAZOLAM 2 MG/2 ML VIAL ONE (13:14)
[2021-05-17] MEDS ORDERED: fentaNYL (PF) 50 MCG/ML 2 ML AMP ONE (13:14)
[2021-05-17] MEDS ORDERED: SODIUM CHLORIDE 0.9% 100 ML BAG ONE (13:14)
[2021-05-17] MEDS ORDERED: SODIUM CHLORIDE 0.9% 100 ML with ceFAZolin 2,000 MG IV ONE ×2 (13:40)
--- NOTE | 2021-05-17 13:45 | P.OP ---
Date of Procedure: 05/17/21 Procedure(s) Performed: right distal femur periprosthetic fracture closed reduction and intramedullary nailing with femoral supracondylar nail EBL Adriane [employer] equipment
[2021-05-17] MEDS ORDERED: TRANEXAMIC ACID 1,000 MG in SODIUM CHLORIDE 0.9% 100 ML IVPB ONE (13:52)
[2021-05-17] MEDS: DEXTROSE 5% IN WATER 1,000 ML with SODIUM BICARB (1 MEQ/ML) 50 ML IV SCH ×2 (14:21→16:37)
[2021-05-17] MEDS ORDERED: TEMAZEPAM 15 MG CAP PO PRN (15:21)
[2021-05-17] MEDS ORDERED: HYDROmorphone 0.2 MG/1 ML SYRINGE IVP PRN (15:21)
[2021-05-17] MEDS ORDERED: HYDROmorphone 0.5 MG/0.5 ML SYRINGE IVP PRN ×2 (15:21)
[2021-05-17] MEDS ORDERED: ONDANSETRON 4 MG/2 ML VIAL IVP PRN (15:21)
[2021-05-17] MEDS ORDERED: HYDROcodone/APAP 5-325MG 1 EACH TAB PO PRN (15:21)
[2021-05-17] MEDS ORDERED: diphenhydrAMINE 50 MG CAP PO PRN (15:21)
[2021-05-17] MEDS ORDERED: SENNOSIDES-DOCUSATE SODIUM 1 EACH TAB PO PRN (15:21)
--- NOTE | 2021-05-17 15:40 | FL ---
Fluoroscopy and limited right knee HISTORY: Fracture 95 seconds fluoroscopy time supplied to the referring clinician. 5 intraoperative C-arm images docum ent the procedure. See dictated report from orthopedic surgery.
--- NOTE | 2021-05-17 17:30 | P.PN ---
Progress Note - Text Progress Note Date: 05/17/21 Chief Complaint: Right knee pain History of presenting complaint: 70-year-old patient, follows with Dr. Murillo, chronic stable medical conditions include fibromyalgia, memory impairment, rheumatoid arthritis, dumping syndrome, depression. baseline uses a walker. on primidone for familial tremors. Patient was recently admitted on April 27 for metabolic encephalopathy felt to be from medications. Melatonin, baclofen, Ambien doses was cutback. Sleep hygiene was discussed with the at that time. Patient is doing well. Patient now presents with getting out of bed she falls over and injured the right knee. Unable to weight-bear. Presented to the ER. Patient other tired with history giving. Somewhat lethargic. It was noted that patient's back on higher doses of baclofen and Ambien. Denies any chest pain palpitation. No fever no chills. No respiratory symptoms. May 14: Further review of the x-ray by radiology and May reveals distal femur periprosthetic fracture. Patient is more awake today after some the medications making her sleepy were cutback. at the bedside. He did mention that he had full-court take the new medications from [facility] admission to the PCP has the old medication list was continued. Initial plan was for a brace but is felt by Dr. Fito Jett that patient be better off at the plate and screws. This was further discussed with the patient . They're agreeable to proceed with the same. The knee will be drained today. Planning for surgery on Monday. 65 mL of dark blood was aspirated later in the day. May 17: Patient was seen this morning.. Awaiting surgery. Has been sleeping well. Awake. Answering questions. Later today patient underwent closed reduction and retrograde intramedullary nailing Review of systems: Was done for constitutional, cardiovascular, GI, pulmonary. relevant finding as above Active Medications Acetaminophen (Acetaminophen Tab 325 Mg Tab) 650 mg PO Q6HR PRN PRN Reason: Mild Pain or Fever > 100.5 Last Admin: 05/16/21 20:28 Dose: 650 mg Documented by: Hydrocodone Bitart/Acetaminophen (Hydrocodone/Apap 5-325mg 1 Each Tab) 1 each PO Q6HR PRN PRN Reason: Pain Scale 1 to 5 Hydrocodone Bitart/Acetaminophen (Hydrocodone/Apap 5-325mg 1 Each Tab) 2 each PO Q6HR PRN PRN Reason: Pain Scale 6 to 10 Al Hydroxide/Mg Hydroxide (Mag Hydrox/Al Hydrox/Simeth 30 Ml Cup) 15 ml PO Q6HR PRN PRN Reason: Indigestion Aspirin (Aspirin 81 Mg) 81 mg PO BID [facility] Baclofen (Baclofen 10 Mg Tab) 10 mg PO TID PRN PRN Reason: Breakthrough Pain Last Admin: 05/16/21 20:29 Dose: 10 mg Documented by: Calcium Carbonate (Calcium Carb-Vit D 500 Mg-5 Mcg Tab) 1 each PO DAILY [facility] Last Admin: 05/17/21 08:20 Dose: Not Given Documented by: Citalopram Hydrobromide (Citalopram Hydrobromide 20 Mg Tab) 40 mg PO HS [facility] Last Admin: 05/16/21 21:36 Dose: 40 mg Documented by: Diclofenac Sodium (Diclofenac Sodium Gel 100 Gm Tube) 4 gm TOPICAL QID [facility]; Protocol Last Admin: 05/17/21 16:01 Dose: Not Given Documented by: Diphenhydramine HCl (Diphenhydramine 50 Mg Cap) 50 mg PO HS PRN PRN Reason: Insomnia Ergocalciferol (Ergocalciferol 1,250 Mcg (50,000 Iu) Capsule) 1,250 mcg PO MOFR [facility] Last Admin: 05/17/21 08:20 Dose: Not Given Documented by: Famotidine (Famotidine 20 Mg Tab) 20 mg PO DAILY [facility] Last Admin: 05/17/21 08:20 Dose: Not Given Documented by: Folic Acid (Folic Acid 1 Mg Tab) 1 mg PO HS [facility] Last Admin: 05/16/21 21:37 Dose: 1 mg Documented by: Gabapentin (Gabapentin 100 Mg Cap) 200 mg PO BID [facility] Last Admin: 05/17/21 08:25 Dose: 200 mg Documented by: Heparin Sodium (Porcine) (Heparin Sodium,Porcine/Pf 5,000 Unit/0.5 Ml Syringe) 5,000 unit SQ Q12HR [facility] Last Admin: 05/17/21 08:20 Dose: Not Given Documented by: Hydromorphone HCl (Hydromorphone 0.5 Mg/0.5 Ml Syringe) 0.5 mg IVP Q3HR PRN PRN Reason: Moderate Pain Last Admin: 05/17/21 16:31 Dose: 0.5 mg Documented by: Hydromorphone HCl (Hydromorphone 0.2 Mg/1 Ml Syringe) 0.2 mg IVP Q3HR PRN PRN Reason: Pain Scale 4 to 6 Hydromorphone HCl (Hydromorphone 0.5 Mg/0.5 Ml Syringe) 0.125 mg IVP Q3HR PRN PRN Reason: Pain Scale 1 to 3 Hydromorphone HCl (Hydromorphone 0.5 Mg/0.5 Ml Syringe) 0.5 mg IVP Q3HR PRN PRN Reason: Pain Scale 7 to 10 Sodium Chloride (Saline 0.9%) 1,000 mls @ 20 mls/hr IV .Q24H [facility] Last Admin: 05/17/21 12:15 Dose: Not Given Documented by: Sodium Bicarbonate 50 ml/ (Dextrose/Water) 1,050 mls @ 20 mls/hr IV .Q24H [facility] Last Admin: 05/17/21 16:37 Dose: Not Given Documented by: Tranexamic Acid 1,000 mg/ (Sodium Chloride) 110 mls @ 220 mls/hr IVPB ONCE PRN PRN Reason: Pre-Op Stop: 05/18/21 00:01 Tranexamic Acid 1,000 mg/ (Sodium Chloride) 110 mls @ 220 mls/hr IVPB ONCE PRN PRN Reason: Pre-Op Stop: 05/18/21 00:01 Cefazolin Sodium 2 gm/ Sodium (Chloride) 50 mls @ 100 mls/hr IVPB Q8HR [facility] Stop: 05/18/21 00:29 Last Admin: 05/17/21 16:32 Dose: 100 mls/hr Documented by: Melatonin (Melatonin 5 Mg Tablet) 5 mg PO HS [facility] Last Admin: 05/16/21 21:37 Dose: 5 mg Documented by: Naloxone HCl (Naloxone 0.4 Mg/Ml 1 Ml Vial) 0.2 mg IV Q2M PRN PRN Reason: Opioid Reversal Ondansetron HCl (Ondansetron 4 Mg/2 Ml Vial) 4 mg IVP Q6HR PRN PRN Reason: Nausea And Vomiting Potassium Chloride (Potassium Chloride Er 20 Meq Tab.Er) 20 meq PO DAILY [facility] Last Admin: 05/17/21 08:21 Dose: Not Given Documented by: Primidone (Primidone 50 Mg Tab) 25 mg PO TID [facility] Last Admin: 05/17/21 16:31 Dose: 25 mg Documented by: Senna/Docusate Sodium (Sennosides-Docusate Sodium 1 Each Tab) 2 each PO HS PRN PRN Reason: Constipation Temazepam (Temazepam 15 Mg Cap) 15 mg PO HS PRN PRN Reason: Insomnia Zolpidem Tartrate (Zolpidem 5 Mg Tab) 5 mg PO HS PRN PRN Reason: Insomnia Past medical history to include: Fibromyalgia, cognitive impairment, rheumatoid arthritis, dumping syndrome, depression, familial tremors, sleep disorder Social history: . No smoking. No alcohol Family history: Cancer On examination: VITAL SIGNS: 87.7, 82, 18, 141 with 67, 97% room air GENERAL APPEARANCE: Reclining in bed, awake, comfortable EYES: Pupils equal. Conjunctiva normal. NECK: JVD not raised. Mass not palpable. RESPIRATORY: Respiratory effort normal. Lungs clear to auscultation. CARDIOVASCULAR: First and second sounds normal. No edema. ABDOMEN: Soft. Liver and spleen not palpable. No tenderness. No mass palpable. MUSCULAR skeletal: Evidence of OA . Local tenderness and swelling around the right knee. Support NEUROLOGICAL: Cranial nerves grossly intact. Positive sensation grossly intact. Decreased sensorium PSYCHIATRY: Answering questions appropriately INVESTIGATIONS, reviewed in the clinical context: May 14: Potassium 4. 32 creatinine 1.26 bicarb 16 White count 9.3 hemoglobin 9.8 platelets 241 potassium 4 bicarb 11 38 creatinine 1.34 glucose 116 Coronavirus [PCF]: Not detected Right knee x-ray: No fracture reported. Right knee prosthesis is present. Osteopenia. Assessment and plan: -Patient presents with a fall and injury to the right knee. Distal femur periprosthetic fracture 65 mL out Doppler was drained. Closed reduction and IM nailing was done on April [address] Payton -Acute metabolic encephalopathy, from metabolic acidosis,and patient taking higher dose of baclofen, Ambien : Improved Baclofen dose cut back to 10 mg every 8 when necessary. Ambien cutback to 5 mg at night.. Melatonin decreased to 5 mg. -Chronic kidney disease stage III likely nephrosclerosis Baseline creatinine of around 1.5 -Acute metabolic acidosis due to CK D: Corrected Given Sodium bicarbonate drip IV. -Chronic rheumatoid arthritis Follow clinically -Chronic fibromyalgia Follow clinically. Decrease baclofen -Moderate cognitive impairment Follow clinically -Chronic medical debility PTOT -Anemia of chronic disease mainly CK D Follow H&H -Chronic dumping syndrome -Depression not otherwise specified Celexa 40 mg daily at bedtime -Chronic insomnia, : sleeps cycle disturbance Sleep hygiene -Chronic, familial tremor primidone 25 mg 3 times a day Continue current medication treatment plan. Postoperative orders per Dr. Payton. Follow
[2021-05-17] MEDS: FOLIC ACID 1 MG TAB PO SCH (21:07)
[2021-05-17] MEDS: CITALOPRAM HYDROBROMIDE 20 MG TAB PO SCH (21:07)
[2021-05-17] MEDS: ASPIRIN 81 MG PO SCH (21:07)
[2021-05-17] MEDS: MELATONIN 5 MG TABLET PO SCH (21:07)
[2021-05-17] MEDS: HYDROcodone/APAP 5-325MG 1 EACH TAB PO PRN (23:41)
[2021-05-18 06:23] LABS: Basophils % (A) 0 %; Eosinophils # (A) 0.1 k/uL (0-0.7); Eosinophils % (A) 1 %; HGB 8.9 gm/dL (11.4-16.0); Hypochromasia Moderate; Lymphocytes # (A) 1.4 k/uL (1.0-4.8); Lymphocytes % (A) 23 %; MCH 31.5 pg (25.0-35.0); MCHC 30.6 g/dL (31.0-37.0); Macrocytosis Moderate; Monocytes # (A) 0.5 k/uL (0-1.0); Monocytes % (A) 8 %; Neutrophils % (A) 66 %; Platelet Count 226 k/uL (150-450); RBC 2.82 m/uL (3.80-5.40); RDW 15.5 % (11.5-15.5); WBC 6.2 k/uL (3.8-10.6)
[2021-05-18] MEDS: POTASSIUM CHLORIDE ER 20 MEQ TAB.ER PO SCH (07:50)
[2021-05-18] MEDS: HEPARIN SODIUM,PORCINE/PF 5,000 UNIT/0.5 ML SYRINGE SQ SCH ×2 (07:50→21:17)
[2021-05-18] MEDS: GABAPENTIN 100 MG CAP PO SCH ×2 (07:50→21:17)
[2021-05-18] MEDS: FAMOTIDINE 20 MG TAB PO SCH (07:50)
[2021-05-18] MEDS: CALCIUM CARB-VIT D 500 MG-5 MCG TAB PO SCH (07:50)
[2021-05-18] MEDS: PRIMIDONE 50 MG TAB PO SCH ×3 (07:50→21:17)
[2021-05-18] MEDS: ASPIRIN 81 MG PO SCH ×2 (07:50→21:17)
[2021-05-18] MEDS: BACLOFEN 10 MG TAB PO PRN (07:56)
[2021-05-18] MEDS: DICLOFENAC SODIUM GEL 100 GM TUBE TOPICAL SCH ×5 (08:41→22:31)
--- NOTE | 2021-05-18 09:09 | P.PN ---
Subjective Progress Note Date: 05/18/21 This is a 70-year-old female who is status post right supracondylar femur fracture closed reduction and retrograde intramedullary nailing. This is postoperative day #1 and patient is seen and evaluated at bedside today. Patient states that her knee immobilizer feels heavy, but her pain is well- controlled. Patient denies any new complaints today. Objective - Vital Signs Vital signs: Vital Signs Temp 97.9 F 05/18/21 04:56 Pulse 78 05/18/21 04:56 Resp 16 05/18/21 04:56 BP 102/63 05/18/21 04:56 Pulse Ox 95 05/18/21 04:56 Intake & Output 05/17/21 05/18/21 05/18/21 18:59 06:59 18:59 Intake Total 1630 Output Total 1650 800 Balance -20 -800 Intake: IV 1450 Intake, IV Titration 180 Amount Dextrose 5% in Water 1, 180 000 ml @ 100 mls/hr IV . [id number] SAUL with Sodium Bicarb (1 Meq/ml) 50 ml Rx#:[id number] Output: Urine 1600 800 Estimated Blood Loss 50 Other: Voiding Method Indwelling Catheter Indwelling Catheter # Bowel Movements 2 - Exam Vital signs are stable. Patient is in no acute distress and is alert and oriented 3. Knee immobilizer removed for exam. Calf is soft and nontender to palpation. Dressings are clean, dry, and intact. Patient has full foot and ankle motion without pain or difficulty. Sensation intact. Neurovascular status and circulatory status are intact. - Labs CBC & Chem 7: 05/18/21 05:56 05/16/21 06:51 Labs: Abnormal Lab Results - Last 24 Hours (Table) 05/18/21 Range/Units 05:56 RBC 2.82 L (3.80-5.40) m/uL Hgb 8.9 L (11.4-16.0) gm/dL Hct 29.0 L (34.0-46.0) % MCV 103.0 H (80.0-100.0) fL MCHC 30.6 L (31.0-37.0) g/dL Assessment and Plan (1) Periprosthetic fracture around internal prosthetic right knee joint Current Visit: Yes Status: Acute Code(s): M97.11XA - PERIPROSTH FRACTURE AROUND INTERNAL PROSTH R KNEE ERICA PEREZ SNOMED Code(s): 587977874 Plan: 1. Patient is to be toe-touch weightbearing to the right lower extremity with a knee immobilizer. 2. Continue routine postoperative care and pain control. 3. Aspirin for DVT prophylaxis. 4. Anticipate discharge to ECF in the next 24-48 hours.
[2021-05-18] MEDS: SODIUM CHLORIDE 0.9% 1,000 ML IV SCH (12:43)
[2021-05-18] MEDS: HYDROcodone/APAP 5-325MG 1 EACH TAB PO PRN (15:33)
[2021-05-18] MEDS: DEXTROSE 5% IN WATER 1,000 ML with SODIUM BICARB (1 MEQ/ML) 50 ML IV SCH (15:39)
[2021-05-18] MEDS: MELATONIN 5 MG TABLET PO SCH (21:17)
[2021-05-18] MEDS: FOLIC ACID 1 MG TAB PO SCH (21:17)
[2021-05-18] MEDS: CITALOPRAM HYDROBROMIDE 20 MG TAB PO SCH (21:17)
--- NOTE | 2021-05-18 22:13 | P.PN ---
Progress Note - Text Progress Note Date: 05/18/21 Chief Complaint: Right knee pain History of presenting complaint: 70-year-old patient, follows with Dr. Murillo, chronic stable medical conditions include fibromyalgia, memory impairment, rheumatoid arthritis, dumping syndrome, depression. baseline uses a walker. on primidone for familial tremors. Patient was recently admitted on April 27 for metabolic encephalopathy felt to be from medications. Melatonin, baclofen, Ambien doses was cutback. Sleep hygiene was discussed with the at that time. Patient is doing well. Patient now presents with getting out of bed she falls over and injured the right knee. Unable to weight-bear. Presented to the ER. Patient other tired with history giving. Somewhat lethargic. It was noted that patient's back on higher doses of baclofen and Ambien. Denies any chest pain palpitation. No fever no chills. No respiratory symptoms. May 14: Further review of the x-ray by radiology and May reveals distal femur periprosthetic fracture. Patient is more awake today after some the medications making her sleepy were cutback. at the bedside. He did mention that he had full-court take the new medications from [facility] admission to the PCP has the old medication list was continued. Initial plan was for a brace but is felt by Dr. Fito Jett that patient be better off at the plate and screws. This was further discussed with the patient . They're agreeable to proceed with the same. The knee will be drained today. Planning for surgery on Monday. 65 mL of dark blood was aspirated later in the day. May 17: Patient was seen this morning. Awaiting surgery. Has been sleeping well. Awake. Answering questions. Later today patient underwent closed reduction and retrograde intramedullary nailing May 10: Sitting up in a recliner. Some pain at the operative site. Patie nt wanted to go home rather than rehab. I had a very lengthy talk with the patient and the disease case manager Gerald. I did explain to patient that should be best 7 inpatient rehab. Her is also undergoing treatment and testing. I'm concerned about the patient being (self not able to get enough therapy. Patient will discussed with the . Late in the day disease case manager came back and spoke to the patient and her . They have agreed to proceed inpatient rehab. Review of systems: Was done for constitutional, cardiovascular, GI, pulmonary. relevant finding as above Active Medications Acetaminophen (Acetaminophen Tab 325 Mg Tab) 650 mg PO Q6HR PRN PRN Reason: Mild Pain or Fever > 100.5 Last Admin: 05/16/21 20:28 Dose: 650 mg Documented by: Hydrocodone Bitart/Acetaminophen (Hydrocodone/Apap 5-325mg 1 Each Tab) 1 each PO Q6HR PRN PRN Reason: Pain Scale 1 to 5 Last Admin: 05/17/21 18:30 Dose: 1 each Documented by: Hydrocodone Bitart/Acetaminophen (Hydrocodone/Apap 5-325mg 1 Each Tab) 2 each PO Q6HR PRN PRN Reason: Pain Scale 6 to 10 Last Admin: 05/18/21 15:33 Dose: 2 each Documented by: Al Hydroxide/Mg Hydroxide (Mag Hydrox/Al Hydrox/Simeth 30 Ml Cup) 15 ml PO Q6HR PRN PRN Reason: Indigestion Aspirin (Aspirin 81 Mg) 81 mg PO BID [facility] Last Admin: 05/18/21 21:17 Dose: 81 mg Documented by: Baclofen (Baclofen 10 Mg Tab) 10 mg PO TID PRN PRN Reason: Breakthrough Pain Last Admin: 05/18/21 07:56 Dose: 10 mg Documented by: Calcium Carbonate (Calcium Carb-Vit D 500 Mg-5 Mcg Tab) 1 each PO DAILY [facility] Last Admin: 05/18/21 07:50 Dose: 1 each Documented by: Citalopram Hydrobromide (Citalopram Hydrobromide 20 Mg Tab) 40 mg PO HS [facility] Last Admin: 05/18/21 21:17 Dose: 40 mg Documented by: Diclofenac Sodium (Diclofenac Sodium Gel 100 Gm Tube) 4 gm TOPICAL QID [facility]; Protocol Last Admin: 05/18/21 21:18 Dose: 4 gm Documented by: Diphenhydramine HCl (Diphenhydramine 50 Mg Cap) 50 mg PO HS PRN PRN Reason: Insomnia Ergocalciferol (Ergocalciferol 1,250 Mcg (50,000 Iu) Capsule) 1,250 mcg PO MOFR [facility] Last Admin: 05/17/21 08:20 Dose: Not Given Documented by: Famotidine (Famotidine 20 Mg Tab) 20 mg PO DAILY [facility] Last Admin: 05/18/21 07:50 Dose: 20 mg Documented by: Folic Acid (Folic Acid 1 Mg Tab) 1 mg PO HS [facility] Last Admin: 05/18/21 21:17 Dose: 1 mg Documented by: Gabapentin (Gabapentin 100 Mg Cap) 200 mg PO BID [facility] Last Admin: 05/18/21 21:17 Dose: 200 mg Documented by: Heparin Sodium (Porcine) (Heparin Sodium,Porcine/Pf 5,000 Unit/0.5 Ml Syringe) 5,000 unit SQ Q12HR [facility] Last Admin: 05/18/21 21:17 Dose: 5,000 unit Documented by: Hydromorphone HCl (Hydromorphone 0.5 Mg/0.5 Ml Syringe) 0.5 mg IVP Q3HR PRN PRN Reason: Moderate Pain Last Admin: 05/17/21 19:46 Dose: 0.5 mg Documented by: Hydromorphone HCl (Hydromorphone 0.2 Mg/1 Ml Syringe) 0.2 mg IVP Q3HR PRN PRN Reason: Pain Scale 4 to 6 Hydromorphone HCl (Hydromorphone 0.5 Mg/0.5 Ml Syringe) 0.125 mg IVP Q3HR PRN PRN Reason: Pain Scale 1 to 3 Hydromorphone HCl (Hydromorphone 0.5 Mg/0.5 Ml Syringe) 0.5 mg IVP Q3HR PRN PRN Reason: Pain Scale 7 to 10 Sodium Chloride (Saline 0.9%) 1,000 mls @ 20 mls/hr IV .Q24H [facility] Last Admin: 05/18/21 12:43 Dose: Not Given Documented by: Sodium Bicarbonate 50 ml/ (Dextrose/Water) 1,050 mls @ 20 mls/hr IV .Q24H [facility] Last Admin: 05/18/21 15:39 Dose: 20 mls/hr Documented by: Melatonin (Melatonin 5 Mg Tablet) 5 mg PO [facility] Last Admin: 05/18/21 21:17 Dose: 5 mg Documented by: Naloxone HCl (Naloxone 0.4 Mg/Ml 1 Ml Vial) 0.2 mg IV Q2M PRN PRN Reason: Opioid Reversal Ondansetron HCl (Ondansetron 4 Mg/2 Ml Vial) 4 mg IVP Q6HR PRN PRN Reason: Nausea And Vomiting Potassium Chloride (Potassium Chloride Er 20 Meq Tab.Er) 20 meq PO DAILY [facility] Last Admin: 05/18/21 07:50 Dose: 20 meq Documented by: Primidone (Primidone 50 Mg Tab) 25 mg PO TID [facility] Last Admin: 05/18/21 21:17 Dose: 25 mg Documented by: Senna/Docusate Sodium (Sennosides-Docusate Sodium 1 Each Tab) 2 each PO HS PRN PRN Reason: Constipation Temazepam (Temazepam 15 Mg Cap) 15 mg PO HS PRN PRN Reason: Insomnia Zolpidem Tartrate (Zolpidem 5 Mg Tab) 5 mg PO HS PRN PRN Reason: Insomnia Past medical history to include: Fibromyalgia, cognitive impairment, rheumatoid arthritis, dumping syndrome, depression, familial tremors, sleep disorder Social history: . No smoking. No alcohol Family history: Cancer On examination: VITAL SIGNS: 98.8, sitting 86, 16, 100/62, 96% room air GENERAL APPEARANCE: Sitting up in a recliner, awake, comfortable EYES: Pupils equal. Conjunctiva normal. NECK: JVD not raised. Mass not palpable. RESPIRATORY: Respiratory effort normal. Lungs clear to auscultation. CARDIOVASCULAR: First and second sounds normal. No edema. ABDOMEN: Soft. Liver and spleen not palpable. No tenderness. No mass palpable. MUSCULAR skeletal: Evidence of OA . Local tenderness and swelling around the right knee. Support NEUROLOGICAL: Cranial nerves grossly intact. Positive sensation grossly intact. Decreased sensorium PSYCHIATRY: Answering questions appropriately INVESTIGATIONS, reviewed in the clinical context: May 10: WBC 6.2 hemoglobin 8.9 platelets 226 May 14: Potassium 4. 32 creatinine 1.26 bicarb 16 White count 9.3 hemoglobin 9.8 platelets 241 potassium 4 bicarb 11 38 creatinine 1.34 glucose 116 Coronavirus [PCF]: Not detected Right knee x-ray: No fracture reported. Right knee prosthesis is present. Osteopenia. Assessment and plan: -Patient presents with a fall and injury to the right knee. Distal femur periprosthetic fracture 65 mL hematoma drained. Closed reduction and IM nailing was done on April [address] Payton -Acute metabolic encephalopathy, from metabolic acidosis,and patient taking higher dose of baclofen, Ambien : Improved Baclofen cut back to 10 mg every 8 when necessary. Ambien cutback to 5 mg at night.. Melatonin decreased to 5 mg. -Chronic kidney disease stage III likely nephrosclerosis Baseline creatinine of around 1.5 -Acute metabolic acidosis due to CK D: Corrected Given Sodium bicarbonate drip IV. -Chronic rheumatoid arthritis Follow clinically -Chronic fibromyalgia Follow clinically. Decrease baclofen -Moderate cognitive impairment Follow clinically -Chronic medical debility PTOT -Anemia of chronic disease mainly CK D Follow H&H -Chronic dumping syndrome -Depression not otherwise specified Celexa 40 mg daily at bedtime -Chronic insomnia, : sleeps cycle disturbance Sleep hygiene -Chronic, familial tremor primidone 25 mg 3 times a day Family discussion with the patient and disease case manager. Later the patient agree to going to inpatient rehab. Total time spent today about 40 minutes with over 25 minutes of discussion.
[2021-05-19] MEDS: HYDROcodone/APAP 5-325MG 1 EACH TAB PO PRN (01:03)
[2021-05-19] MEDS: SODIUM CHLORIDE 0.9% 1,000 ML IV SCH (07:21)
[2021-05-19] MEDS: PRIMIDONE 50 MG TAB PO SCH (07:23)
[2021-05-19] MEDS: POTASSIUM CHLORIDE ER 20 MEQ TAB.ER PO SCH (07:24)
[2021-05-19] MEDS: ASPIRIN 81 MG PO SCH (07:24)
[2021-05-19] MEDS: CALCIUM CARB-VIT D 500 MG-5 MCG TAB PO SCH (07:24)
[2021-05-19] MEDS: GABAPENTIN 100 MG CAP PO SCH (07:24)
[2021-05-19] MEDS: HEPARIN SODIUM,PORCINE/PF 5,000 UNIT/0.5 ML SYRINGE SQ SCH ×2 (07:24→07:28)
[2021-05-19] MEDS: FAMOTIDINE 20 MG TAB PO SCH (07:24)
[2021-05-19] MEDS: DICLOFENAC SODIUM GEL 100 GM TUBE TOPICAL SCH ×2 (07:25→12:23)
--- NOTE | 2021-05-19 07:55 | P.PN ---
Subjective Progress Note Date: 05/19/21 Principal diagnosis: Right distal femur periprosthetic fracture. Postop closed reduction with insertion of retrograde intramedullary nail right distal femur. This is a 70-year-old female who is postop day #2 status post close reduction with insertion of retrograde intramedullary nail of the right distal femur. She is doing well from an orthopedic standpoint. She has no new complaints or concerns today. Vital signs are stable. Objective - Vital Signs Vital signs: Vital Signs Temp 98.0 F 05/19/21 04:41 Pulse 79 05/19/21 04:41 Resp 18 05/19/21 04:41 BP 122/70 05/19/21 04:41 Pulse Ox 95 05/19/21 04:41 Intake & Output 05/18/21 05/19/21 05/19/21 18:59 06:59 18:59 Intake Total 920 1020 Output Total 1900 900 Balance -980 1020 -900 Intake: Intake, IV Titration 120 180 Amount Dextrose 5% in Water 1, 180 000 ml @ 20 mls/hr IV . Q24H SAUL with Sodium Bicarb (1 Meq/ml) 50 ml Rx#:[id number] Sodium Chloride 0.9% 1, 120 000 ml @ 20 mls/hr IV . Q24H SAUL Rx#:[id number] Oral 800 840 Output: Urine 1900 900 Uretheral (Mcdaniel) 900 Other: Voiding Method Indwelling Catheter Indwelling Catheter # Voids 4 # Bowel Movements 1 - Exam This is a pleasant 70-year-old female in no acute distress. She is alert and oriented at this time. Exam of the right knee reveals that the knee immobilizer is in place. She has full foot and ankle motion without difficulty or pain. Neurovascular status to the lower extremity is intact. - Labs CBC & Chem 7: 05/18/21 05:56 05/16/21 06:51 Assessment and Plan (1) Periprosthetic fracture around internal prosthetic right knee joint Current Visit: Yes Status: Acute Code(s): M97.11XA - PERIPROSTH FRACTURE AROUND INTERNAL PROSTH R KNEE JT, INIT SNOMED Code(s): 602739124 (2) History of fibromyalgia Current Visit: Yes Status: Acute Code(s): Z87.39 - PERSONAL HISTORY OF DISEASES OF THE MS SYS AND CONN TISS SNOMED Code(s): 175284095 Plan: The clinical findings are discussed with the patient and nursing staff. She is toe-touch weightbearing to the right lower extremity with a walker. She may be discharged to home versus rehab today or when cleared medically. She is to follow-up in our office in 2 weeks for re-x-ray and evaluation.
[2021-05-19] MEDS: BACLOFEN 10 MG TAB PO PRN (10:59)
[2021-05-19 12:21] VITALS: BP 100/61; PULSE 102; RESP 17; TEMP 99
--- NOTE | 2021-05-19 22:23 | P.DS ---
Providers Date of admission: 05/14/21 13:53 Expected date of discharge: 05/19/21 Attending physician: Martin Bateman Consults: 05/13/21 08:15 Consult Physician Routine Consulting Provider: Martin June Consult Reason/Comments: Right knee injury. Cannot ambulate Do you want consulting provider notified?: Yes Primary care physician: [facility] Course: Chief Complaint: Right knee pain History of presenting complaint: 70-year-old patient, follows with Dr. Murillo, chronic stable medical conditions include fibromyalgia, memory impairment, rheumatoid arthritis, dumping syndrome, depression. baseline uses a walker. on primidone for familial tremors. Patient was recently admitted on April 27 for metabolic encephalopathy felt to be from medications. Melatonin, baclofen, Ambien doses was cutback. Sleep hygiene was discussed with the at that time. Patient is doing well. Patient now presents with getting out of bed she falls over and injured the right knee. Unable to weight-bear. Presented to the ER. Patient other tired with history giving. Somewhat lethargic. It was noted that patient's back on higher doses of baclofen and Ambien. Denies any chest pain palpitation. No fever no chills. No respiratory symptoms. May 14: Further review of the x-ray by radiology and May reveals distal femur periprosthetic fracture. Patient is more awake today after some the medications making her sleepy were cutback. at the bedside. He did mention that he had full-court take the new medications from [facility] admission to the PCP has the old medication list was continued. Initial plan was for a brace but is felt by Dr. Fito Jett that patient be better off at the plate and screws. This was further discussed with the patient . They're agreeable to proceed with the same. The knee will be drained today. Planning for surgery on Monday. 65 mL of dark blood was aspirated later in the day. May 17: Patient was seen this morning. Awaiting surgery. Has been sleeping well. Awake. Answering questions. Later today patient underwent closed reduction and retrograde intramedullary nailing May 18: Sitting up in a recliner. Some pain at the operative site. Patient wanted to go home rather than rehab. I had a very lengthy talk with the patient and the case maker Gerald. I did explain to patient that should be best 7 inpatient rehab. Her is also undergoing treatment and testing. I'm concerned about the patient being (self not able to get enough therapy. Patient will discussed with the . Late in the day case maker came back and spoke to the patient and her . They have agreed to proceed inpatient rehab. May 19: This morning patient has decided along with the family to rather go home. He'll get outpatient rehab. I did have a lengthy discussion with the patient her and a niece. The niece is a nurse's aide. We'll prefer the patient to be home. And get home PT OT. Questions were answered. Also was discussed with the case maker. And the nurse. Medications discussed. Discussion and discharge planning more than 35 minutes Consultation: Dr. Swenson from orthopedics Past medical history to include: Fibromyalgia, cognitive impairment, rheumatoid arthritis, dumping syndrome, depression, familial tremors, sleep disorder Social history: . No smoking. No alcohol Family history: Cancer On examination: VITAL SIGNS: 99, 79, 18, 122/70, 95% room air GENERAL APPEARANCE: Resting in bed,, comfortable EYES: Pupils equal. Conjunctiva normal. NECK: JVD not raised. Mass not palpable. RESPIRATORY: Respiratory effort normal. Lungs clear to auscultation. CARDIOVASCULAR: First and second sounds normal. No edema. ABDOMEN: Soft. Liver and spleen not palpable. No tenderness. No mass palpable. MUSCULAR skeletal: Evidence of OA . Local tenderness and swelling around the right knee. Support NEUROLOGICAL: Cranial nerves grossly intact. Positive sensation grossly intact. Decreased sensorium PSYCHIATRY: Answering questions appropriately INVESTIGATIONS, reviewed in the clinical context: May 10: WBC 6.2 hemoglobin 8.9 platelets 226 May 14: Potassium 4. 32 creatinine 1.26 bicarb 16 White count 9.3 hemoglobin 9.8 platelets 241 potassium 4 bicarb 11 38 creatinine 1.34 glucose 116 Coronavirus [PCF]: Not detected Right knee x-ray: No fracture reported. Right knee prosthesis is present. Osteopenia. Assessment and plan: -Patient presents with a fall and injury to the right knee. Distal femur periprosthetic fracture 65 mL hematoma drained. Closed reduction and IM nailing was done on April [address] Payton -Acute metabolic encephalopathy, from metabolic acidosis,and patient taking higher dose of baclofen, Imelda : Improved Baclofen cut back to 10 mg every 8 when necessary. Ambien cutback to 5 mg at night.. Melatonin decreased to 5 mg. -Chronic kidney disease stage III likely nephrosclerosis Baseline creatinine of around 1.5 -Acute metabolic acidosis due to CK D: Corrected Given Sodium bicarbonate drip IV. -Chronic rheumatoid arthritis Follow clinically -Chronic fibromyalgia Follow clinically. Decrease baclofen -Moderate cognitive impairment Follow clinically -Chronic medical debility PTOT -Anemia of chronic disease mainly CK D Follow H&H -Chronic dumping syndrome -Depression not otherwise specified Celexa 40 mg daily at bedtime -Chronic insomnia, : sleeps cycle disturbance Sleep hygiene -Chronic, familial tremor primidone 25 mg 3 times a day Disposition: Home with family. Outpatient PT OT. Plan - Discharge Summary Discharge Rx Participant: No New Discharge Prescriptions: New Sennosides-Docusate Sodium [Senokot-S] 1 tab PO BID #60 tablet Aspirin [Adult Low Dose Aspirin EC] 81 mg PO BID #1 tab HYDROcodone/APAP 5-325MG [Ralls 5-325] 1 - 2 tab PO Q6HR PRN #48 tab PRN Reason: Pain Continue Folic Acid 1 mg PO HS Citalopram Hydrobromide [CeleXA] 40 mg PO HS Primidone [Mysoline] 25 mg PO TID Cyanocobalamin [Vitamin B-12 Injection] 1,000 mcg INJ Q21D Gabapentin [Neurontin] 200 mg PO BID Ergocalciferol [Vitamin D2 (1250 Mcg = 91894 Iu)] 1,250 mcg PO MOFR Calcium Carbonate/Vitamin D3 [Calcium 600-Vit D3 10 mcg (400 Iu)] 1 tab PO DAILY Changed Zolpidem [Ambien] 5 mg PO HS PRN #0 PRN Reason: Insomnia Baclofen [Lioresal] 10 mg PO TID PRN #1 tab PRN Reason: Muscle Spasm Melatonin 5 mg PO HS #0 Discontinued Sodium Bicarbonate Tab 650 mg PO BID #60 tab Furosemide [Lasix] 20 mg PO DAILY Potassium Chloride ER [K-Dur 20] 20 meq PO DAILY Discharge Medication List Folic Acid 1 mg PO HS 08/29/14 [History] Citalopram Hydrobromide [CeleXA] 40 mg PO HS 10/08/16 [History] Cyanocobalamin [Vitamin B-12 Injection] 1,000 mcg INJ Q21D 04/27/21 [History] Ergocalciferol [Vitamin D2 (1250 Mcg = 74946 Iu)] 1,250 mcg PO MOFR 04/27/21 [History] Gabapentin [Neurontin] 200 mg PO BID 04/27/21 [History] Primidone [Mysoline] 25 mg PO TID 04/27/21 [History] Calcium Carbonate/Vitamin D3 [Calcium 600-Vit D3 10 mcg (400 Iu)] 1 tab PO DAILY 05/13/21 [History] Aspirin [Adult Low Dose Aspirin EC] 81 mg PO BID #1 tab 05/19/21 [Rx] Baclofen [Lioresal] 10 mg PO TID PRN #1 tab 05/19/21 [Rx] HYDROcodone/APAP 5-325MG [Ralls 5-325] 1 - 2 tab PO Q6HR PRN #48 tab 05/19/21 [Rx] Melatonin 5 mg PO HS #0 05/19/21 [Rx] Sennosides-Docusate Sodium [Senokot-S] 1 tab PO BID #60 tablet 05/19/21 [Rx] Zolpidem [Ambien] 5 mg PO HS PRN #0 05/19/21 [Rx] Follow up Appointment(s)/Referral(s): Adriane Arias PAC [PHYSICIAN [facility]] - 06/02/21 1:15 pm Eldon Murillo MD [Primary Care Provider] - 05/26/21 10:30 am Benjamin Shelton [NON-STAFF] - 1 Week Activity/Diet/Wound Care/Special Instructions: Maintain knee immobilizer when out of bed right lower extremity. May remove Tegaderm dressings in 2 days. May shower. Toe-touch weightbearing right lower extremity with walker. Discharge Disposition: HOME WITH HOME HEALTH SERVICES
--- NOTE | 2021-05-26 04:35 | ED ---
Extremity Problem HPI - General Chief complaint: Fall Stated complaint: Rt Knee Injury, Fall Time Seen by Provider: 05/13/21 04:03 Source: EMS Mode of arrival: EMS Limitations: no limitations - History of Present Illness Initial comments: 's patient is a 70-year-old woman with history of previous right total knee surgery performed by Dr. Cerda in the early . The patient stated that she had fallen tonight onto the right leg and that since that time she has not been able to bear any weight. She has noted swelling of the right knee. Patient de nies any other injury in the fall. No head, neck, chest, back or other extremity pain MD Complaint: extremity pain, extremity swelling -: hour(s) Location: right, knee -: Yes arthralgia Quality: aching Consistency: constant Improves with: immobilization Worsens with: palpation Associated Symptoms: denies other symptoms - Related Data Home Medications Medication Instructions Recorded Confirmed Folic Acid 1 mg PO HS 08/29/14 05/13/21 Citalopram Hydrobromide [CeleXA] 40 mg PO HS 10/08/16 05/13/21 Cyanocobalamin [Vitamin B-12 1,000 mcg INJ Q21D 04/27/21 05/13/21 Injection] Ergocalciferol [Vitamin D2 (1250 1,250 mcg PO MOFR 04/27/21 05/13/21 Mcg = 17821 Iu)] Gabapentin [Neurontin] 200 mg PO BID 04/27/21 05/13/21 Primidone [Mysoline] 25 mg PO TID 04/27/21 05/13/21 Calcium Carbonate/Vitamin D3 1 tab PO DAILY 05/13/21 05/13/21 [Calcium 600-Vit D3 10 mcg (400 Iu)] Previous Rx's Medication Instructions Recorded Aspirin [Adult Low Dose Aspirin EC] 81 mg PO BID #1 tab 05/19/21 Baclofen [Lioresal] 10 mg PO TID PRN #1 tab 05/19/21 HYDROcodone/APAP 5-325MG [Cascade 1 - 2 tab PO Q6HR PRN #48 tab 05/19/21 5-325] Melatonin 5 mg PO HS #0 05/19/21 Sennosides-Docusate Sodium 1 tab PO BID #60 tablet 05/19/21 [Senokot-S] Zolpidem [Ambien] 5 mg PO HS PRN #0 05/19/21 Allergies Allergy/AdvReac Type Severity Reaction Status Date / Time No Known Allergies Allergy Verified 05/13/21 08:23 Review of Systems ROS Statement: Those systems with pertinent positive or pertinent negative responses have been documented in the HPI. ROS Other: All systems not noted in ROS Statement are negative. Constitutional: Denies: fever, chills, weakness Respiratory: Denies: cough, dyspnea Cardiovascular: Denies: chest pain, palpitations, syncope Gastrointestinal: Denies: abdominal pain, vomiting Genitourinary: Denies: dysuria, hematuria Musculoskeletal: Reports: as per HPI, joint swelling, arthralgia. Denies: back pain Skin: Denies: rash Neurological: Denies: headache, weakness, numbness, paresthesias Past Medical History Past Medical History: Fibromyalgia, Memory Impairment, Rheumatoid Arthritis (RA) Additional Past Medical History / Comment(s): DUMPING SYNDROME, DDD, frequent UTI's History of Any Multi-Drug Resistant Organisms: None Reported Past Surgical History: Adenoidectomy, Appendectomy, Bowel Resection, Cholecystectomy, Joint Replacement, Tonsillectomy, Tubal Ligation Additional Past Surgical History / Comment(s): RT TKA COLONOSCOPY TILT TABLE TEST, D & C. Gastric Bypass - 30 years ago Past Anesthesia/Blood Transfusion Reactions: No Reported Reaction Past Psychological History: Depression, Panic Disorder Smoking Status: Never smoker Past Alcohol Use History: None Reported Past Drug Use History: None Reported - Past Family History Father Family Medical History: Cancer Sister(s) Family Medical History: Cancer Mother Family Medical History: Deep Vein Thrombosis (DVT) General Exam Limitations: no limitations General appearance: alert, in no apparent distress Head exam: Present: atraumatic, normocephalic Eye exam: Present: normal appearance. Absent: scleral icterus, conjunctival injection Neck exam: Present: normal inspection, full ROM. Absent: tenderness Respiratory exam: Present: normal lung sounds bilaterally. Absent: respiratory distress, wheezes, rales, rhonchi, stridor, chest wall tenderness Cardiovascular Exam: Present: regular rate, normal rhythm, normal heart sounds. Absent: systolic murmur, diastolic murmur, rubs, gallop GI/Abdominal exam: Present: soft. Absent: distended, tenderness, guarding, rebound, rigid, mass, pulsatile mass, hernia Extremities exam: Present: normal inspection, normal capillary refill. Absent: pedal edema, calf tenderness Right Hip exam: Present: normal inspection. Absent: tenderness, swelling Upper Leg exam: Present: normal inspection. Absent: tenderness Knee exam: Present: tenderness, swelling, effusion. Absent: normal inspection, full ROM, abrasion, laceration, ecchymosis, deformity, crepitus, dislocation, erythema Lower Leg exam: Present: normal inspection, full ROM. Absent: tenderness, swelling, abrasion Ankle exam: Present: normal inspection, full ROM. Absent: tenderness, swelling Foot/Toe exam: Present: normal inspection, full ROM. Absent: tenderness, swelling, abrasion, laceration Neurovascular tendon exam: Absent: abnormal cap refill, motor deficit, sensory deficit, tendon deficit Back exam: Present: normal inspection. Absent: CVA tenderness (R), CVA tenderness (L), vertebral tenderness Neurological exam: Present: alert. Absent: motor sensory deficit Skin exam: Present: warm, dry, intact, normal color. Absent: rash Course Vital Signs 05/13/21 05/13/21 05/13/21 04:03 06:03 07:23 Temperature 97.5 F L 98.7 F Pulse Rate 76 75 Pulse Rate [ Left] Respiratory 18 16 Rate Blood Pressure 129/56 101/65 Blood Pressure [Right Arm] O2 Sat by Pulse 97 96 Oximetry 05/13/21 05/13/21 05/13/21 08:01 10:29 11:01 Temperature 98.5 F Pulse Rate 80 80 Pulse Rate [ 79 Left] Respiratory 18 18 Rate Blood Pressure 90/51 100/55 Blood Pressure 103/60 [Right Arm] O2 Sat by Pulse 98 95 Oximetry Procedures - [place] Protocol (Time Out) Patient Identification (2 identifiers required): Chart, Name, Birthdate Patient/Legal Rnp has Confirmed: Identity, Site, Procedure, Consent Site Marked: Yes Medical Decision Making - Medical Decision Making Patient is 70-year-old woman with significant right knee pain and moderate amount of swelling after a fall. The initial x-rays interpreted by radiology as negative. Patient not able to move the right knee or bear any weight. Will admit patient with orthopedics consult for further evaluation of the right knee pain and swelling. - Lab Data Result diagrams: 05/18/21 05:56 05/16/21 06:51 Lab Results 05/13/21 05/13/21 05/13/21 Range/Units 08:33 08:37 08:37 WBC 9.3 (3.8-10.6) k/uL RBC 3.08 L (3.80-5.40) m/uL Hgb 9.8 L D (11.4-16.0) gm/dL Hct 32.5 L (34.0-46.0) % MCV 105.2 H (80.0-100.0) fL MCH 31.6 (25.0-35.0) pg MCHC 30.1 L (31.0-37.0) g/dL RDW 16.7 H (11.5-15.5) % Plt Count 241 (150-450) k/uL MPV 8.0 Neutrophils % 86 % Lymphocytes % 8 % Monocytes % 4 % Eosinophils % 0 % Basophils % 0 % Neutrophils # 8.0 H (1.3-7.7) k/uL Lymphocytes # 0.8 L (1.0-4.8) k/uL Monocytes # 0.4 (0-1.0) k/uL Eosinophils # 0.0 (0-0.7) k/uL Basophils # 0.0 (0-0.2) k/uL Hypochromasia Marked Poikilocytosis Slight Anisocytosis Slight Macrocytosis Moderate Sodium 142 (137-145) mmol/L Potassium 4.0 (3.5-5.1) mmol/L Chloride 120 H (98-107) mmol/L Carbon Dioxide 11 L (22-30) mmol/L Anion Gap 11 mmol/L BUN 38 H (7-17) mg/dL Creatinine 1.34 H (0.52-1.04) mg/dL Est GFR (CKD-EPI)AfAm 46 (>60 ml/min/1.73 sqM) Est GFR (CKD-EPI)NonAf 40 (>60 ml/min/1.73 sqM) Glucose 116 H (74-99) mg/dL Calcium 8.2 L (8.4-10.2) mg/dL Coronavirus (PCR) Not Detected (Not Detectd) 05/14/21 Range/Units 04:59 WBC (3.8-10.6) k/uL RBC (3.80-5.40) m/uL Hgb (11.4-16.0) gm/dL Hct (34.0-46.0) % MCV (80.0-100.0) fL MCH (25.0-35.0) pg MCHC (31.0-37.0) g/dL RDW (11.5-15.5) % Plt Count (150-450) k/uL MPV Neutrophils % % Lymphocytes % % Monocytes % % Eosinophils % % Basophils % % Neutrophils # (1.3-7.7) k/uL Lymphocytes # (1.0-4.8) k/uL Monocytes # (0-1.0) k/uL Eosinophils # (0-0.7) k/uL Basophils # (0-0.2) k/uL Hypochromasia Poikilocytosis Anisocytosis Macrocytosis Sodium 138 (137-145) mmol/L Potassium 4.0 (3.5-5.1) mmol/L Chloride 113 H (98-107) mmol/L Carbon Dioxide 16 L (22-30) mmol/L Anion Gap 9 mmol/L BUN 32 H (7-17) mg/dL Creatinine 1.26 H (0.52-1.04) mg/dL Est GFR (CKD-EPI)AfAm 50 (>60 ml/min/1.73 sqM) Est GFR (CKD-EPI)NonAf 43 (>60 ml/min/1.73 sqM) Glucose 104 H (74-99) mg/dL Calcium 7.9 L (8.4-10.2) mg/dL Coronavirus (PCR) (Not Detectd) Disposition Clinical Impression: Fall, Right knee injury Disposition: ADMITTED IP TO THIS HOSP Condition: Fair
--- NOTE | 2021-05-27 14:45 | CDI ---
Documentation Clarification Form Date: 05/27/2021 02:36:32 PM From: Martin Etienne Admit Date: 05/14/2021 01:53:00 PM Patient Name: Yasmin Murray Visit Number: [id number] Discharge Date: 05/19/2021 02:00:00 PM ATTENTION: The Clinical Documentation Specialists (CDI) and [facility] Coding Staff appreciate your assistance in clarifying documentation. Please respond to the clarification below the line at the bottom and electronically sign. The CDI & [facility] Coding staff will review the response and follow-up if needed. Please note: Queries are made part of the Legal Health Record. If you have any questions, please contact the author of this message via ITS. Dr. Jeff Hutton supracondylar R femur fx is documented in your operative report. Your post-op diagnosis lists severe osteoporosis. We need to determine if the fracture was pathological (would not normally occur with this type of fall) or traumatic (result of fall). This would determine the principle diagnosis. Patient history/risk factors: severe osteoporosis Clinical Indicators: Treatment: Please clarify the etiology of the R femur fracture if known: [ ] Osteoporosis (specify type if known): [ x ] Traumatic-a result of the fall [ ] Other (please specify): [ ] Unable to determine MTDD
== END 2021-05-19 14:00 | disposition home health service (06) | DRG 480 ==
LOC: EC 04:00 → 6NMEDSUR 08:17 → 5NMEDONC 10:26 → OBSVTOIN 05-14 13:53
PROVIDERS: ADMIT Hospitalist; ATTEND Hospitalist
PROC: 0QSB36Z Reposition Right Lower Femur with Intramedullary Internal Fixation Device, Percutaneous Approach (ICD-10-PCS; principal; 2021-05-17 14:55)
DX: M97.11XA Periprosthetic fracture around internal prosthetic right knee joint, initial encounter (principal); G93.41 Metabolic encephalopathy; S72.451A Displaced supracondylar fracture without intracondylar extension of lower end of right femur, initial encounter for closed fracture; E87.1 Hypo-osmolality and hyponatremia; E87.2 Acidosis; D53.9 Nutritional anemia, unspecified; D63.8 Anemia in other chronic diseases classified elsewhere; F32.9 Major depressive disorder, single episode, unspecified; F41.0 Panic disorder [episodic paroxysmal anxiety]; F51.04 Psychophysiologic insomnia; G25.0 Essential tremor; G31.84 Mild cognitive impairment of uncertain or unknown etiology; I12.9 Hypertensive chronic kidney disease with stage 1 through stage 4 chronic kidney disease, or unspecified chronic kidney disease; K91.1 Postgastric surgery syndromes; M06.9 Rheumatoid arthritis, unspecified; M79.7 Fibromyalgia; Z20.822 Contact with and (suspected) exposure to COVID-19; M81.0 Age-related osteoporosis without current pathological fracture; N18.30 Chronic kidney disease, stage 3 unspecified; L89.159 Pressure ulcer of sacral region, unspecified stage; W19.XXXA Unspecified fall, initial encounter; Z79.899 Other long term (current) drug therapy; Z87.440 Personal history of urinary (tract) infections; Z91.81 History of falling; Z98.84 Bariatric surgery status; T42.6X5A Adverse effect of other antiepileptic and sedative-hypnotic drugs, initial encounter; T42.8X5A Adverse effect of antiparkinsonism drugs and other central muscle-tone depressants, initial encounter
CPT/HCPCS: 36415; 71045; 80048; 85025; 85610; 86850; 86900; 86901; 87635; 96374; 99284

== ENCOUNTER → 2021-12-20 | Outpatient (CLI) | payer MEDICARE, BC ==
[2021-12-20 14:59] LABS: Protein/Creatinine Ratio,Urine 0.344
[2021-12-20 18:06] LABS: HCT 35.2 % (37.2-46.3); HGB 10.5 g/dL (12.0-15.0); MCH 31.4 pg (27.0-32.0); MCHC 29.8 g/dL (32.0-37.0); MCV 105.4 fL (80.0-97.0); Mean Platelet Volume 10.4 fL (9.5-12.2); NRBC Per 100 WBC 0 /100 WBCS (0.0-0.0); Platelet Count 232 X 10*3/uL (140-440); RBC 3.34 X 10*6/uL (4.10-5.20); RDW 14.5 % (11.5-14.5); WBC 4.86 X 10*3/uL (4.50-10.00)
[2021-12-20 19:00] LABS: % Iron Saturation 22.97 (12.00-45.00); African American GFR (CKD) 40.9 (60.0-200.0); Anion Gap 12.6 mmol/L (10.00-18.00); BUN/Creat Ratio 16.89 Ratio (12.00-20.00); Carbon Dioxide 20.7 mmol/L (20.0-27.5); Magnesium 2.1 mg/dL (1.5-2.4); Non-African American GFR(CKD) 35.3 (60.0-200.0); Potassium 5.4 mmol/L (3.5-5.5); Uric Acid 9.7 mg/dL (2.9-7.7)
[2021-12-20 19:03] LABS: Basophils # (A) 0.07 X 10*3/uL (0.00-0.10); Basophils % (A) 1.4 %; Eosinophils % (A) 2.1 %; Immature Grans, Automated 0.2 %; Lymphocytes # (A) 2.03 X 10*3/uL (0.90-5.00); Lymphocytes % (A) 41.8 %; Monocytes # (A) 0.56 X 10*3/uL (0.20-1.00); Monocytes % (A) 11.5 %; Neutrophils # (A) 2.09 X 10*3/uL (1.80-7.70)
[2021-12-20 19:04] LABS: Macrocytosis (M) 2+
[2021-12-20 19:20] LABS: Albumin 4.1 g/dL (3.8-4.9)
[2021-12-20 20:38] LABS: Appearance,Urine Clear (Clear); Bacteria,Urine Trace /HPF (None Seen); Bilirubin,Urine Negative (Negative); Blood,Urine Negative (Negative); Color,Urine Yellow (Yellow); Ketones,Urine Negative (Negative); Nitrite,Urine Negative (Negative); PH, Urine 5.5 (5.0-8.0); Urobilinogen,Urine 0.2 (0.2,1.0)
== END | disposition home or self-care (01) ==
LOC: LABWHC1 13:19
PROVIDERS: ATTEND Internal Medicine Nephrology
DX: E21.3 Hyperparathyroidism, unspecified (principal); E55.9 Vitamin D deficiency, unspecified; M10.9 Gout, unspecified; N39.0 Urinary tract infection, site not specified; D64.9 Anemia, unspecified; R80.9 Proteinuria, unspecified
CPT/HCPCS: 36415; 80048; 81001; 82040; 82306; 82570; 82728; 83540; 83550; 83735; 83970; 84100; 84156; 84550; 85025

== ENCOUNTER → 2022-07-11 | Outpatient (CLI) | payer MEDICARE, BC ==
[2022-07-11 14:20] LABS: Creatinine,Urine Random 51.2 mg/dL; Protein/Creatinine Ratio,Urine 0.371
[2022-07-11 18:49] LABS: % Iron Saturation 22.76 (12.00-45.00); African American GFR (CKD) 37.2 (60.0-200.0); BUN/Creat Ratio 25.75 Ratio (12.00-20.00); Blood Urea Nitrogen 41.2 mg/dL (9.0-27.0); Calcium 8.3 mg/dL (8.7-10.3); Magnesium 2.2 mg/dL (1.5-2.4); Non-African American GFR(CKD) 32.1 (60.0-200.0); Phosphorus 4.7 mg/dL (2.4-5.1); Potassium 4.2 mmol/L (3.5-5.5); Uric Acid 6.4 mg/dL (2.9-7.7)
[2022-07-11 18:59] LABS: Basophils # (A) 0.06 X 10*3/uL (0.00-0.10); Basophils % (A) 1.2 %; Eosinophils # (A) 0.23 X 10*3/uL (0.04-0.35); Eosinophils % (A) 4.6 %; HCT 38.2 % (37.2-46.3); HGB 11.6 g/dL (12.0-15.0); Immature Grans, Automated 0.2 %; Lymphocytes # (A) 1.97 X 10*3/uL (0.90-5.00); Lymphocytes % (A) 39.4 %; MCHC 30.4 g/dL (32.0-37.0); MCV 102.1 fL (80.0-97.0); Mean Platelet Volume 10.8 fL (9.5-12.2); Monocytes # (A) 0.53 X 10*3/uL (0.20-1.00); Monocytes % (A) 10.6 %; NRBC Per 100 WBC 0 /100 WBCS (0.0-0.0); Platelet Count 204 X 10*3/uL (140-440); RBC 3.74 X 10*6/uL (4.10-5.20); RDW 15.6 % (11.5-14.5)
[2022-07-11 19:07] LABS: Appearance,Urine Clear (Clear); Bilirubin,Urine Negative (Negative); Blood,Urine Negative (Negative); Color,Urine Yellow (Yellow); Ketones,Urine Negative (Negative); Nitrite,Urine Negative (Negative); PH, Urine 5.5 (5.0-8.0); Specific Gravity,Urine 1.014 (1.001-1.030); Urobilinogen,Urine 0.2 (0.2,1.0)
[2022-07-11 19:09] LABS: Albumin 4.5 g/dL (3.8-4.9)
== END | disposition home or self-care (01) ==
LOC: LABWHC1 12:48
PROVIDERS: ATTEND Nurse Practitioner Family
DX: M10.9 Gout, unspecified (principal); N18.32 Chronic kidney disease, stage 3b; D63.1 Anemia in chronic kidney disease; E21.3 Hyperparathyroidism, unspecified; E55.9 Vitamin D deficiency, unspecified; N39.0 Urinary tract infection, site not specified
CPT/HCPCS: 36415; 80048; 81003; 82040; 82306; 82570; 82728; 83540; 83550; 83735; 83970; 84100; 84156; 84550; 85025

== ENCOUNTER 2023-02-22 14:27 | Inpatient (IN) | payer MEDICARE, BC ==
[2023-02-22] MEDS ORDERED: SODIUM CHLORIDE 0.9% 1,000 ML IV STA (14:56)
--- NOTE | 2023-02-22 14:59 | ED ---
General Adult HPI - General Chief complaint: Weakness Stated complaint: weakness, poss dehydration Time Seen by Provider: 02/22/23 14:40 Source: EMS, RN notes reviewed, old records reviewed Mode of arrival: EMS Limitations: no limitations - History of Present Illness Initial comments: This is a 72-year-old female who presents emergency Department complaining of generalized weakness that started Monday. Patient states the weakness is gotten progressively worse and she just weak all over to the point where she can't even get up on around and walk around. Patient states she has chronic back pain but aside from that she has no new pain. Patient denies any headache patient denies any focal weakness or numbness. Patient denies any fever chills or cough. Patient denies any chest pain or palpitations. Patient has difficulty breathing shortest breath per patient denies abdominal pain patient denies nausea vomiting diarrhea. - Related Data Home Medications Medication Instructions Recorded Confirmed Folic Acid 1 mg PO HS 08/29/14 05/13/21 Citalopram Hydrobromide [CeleXA] 40 mg PO HS 10/08/16 05/13/21 Cyanocobalamin [Vitamin B-12 1,000 mcg INJ Q21D 04/27/21 05/13/21 Injection] Ergocalciferol [Vitamin D2 (1250 1,250 mcg PO MOFR 04/27/21 05/13/21 Mcg = 45239 Iu)] Gabapentin [Neurontin] 200 mg PO BID 04/27/21 05/13/21 Primidone [Mysoline] 25 mg PO TID 04/27/21 05/13/21 Calcium Carbonate/Vitamin D3 1 tab PO DAILY 05/13/21 05/13/21 [Calcium 600-Vit D3 10 mcg (400 Iu)] Previous Rx's Medication Instructions Recorded Aspirin [Adult Low Dose Aspirin EC] 81 mg PO BID #1 tab 05/19/21 Baclofen [Lioresal] 10 mg PO TID PRN #1 tab 05/19/21 HYDROcodone/APAP 5-325MG [[place] 1 - 2 tab PO Q6HR PRN #48 tab 05/19/21 5-325] Melatonin 5 mg PO HS #0 05/19/21 Sennosides-Docusate Sodium 1 tab PO BID #60 tablet 05/19/21 [Senokot-S] Zolpidem [Ambien] 5 mg PO HS PRN #0 05/19/21 Allergies Allergy/AdvReac Type Severity Reaction Status Date / Time No Known Allergies Allergy Verified 05/13/21 08:23 Review of Systems ROS Statement: Those systems with pertinent positive or pertinent negative responses have been documented in the HPI. ROS Other: All systems not noted in ROS Statement are negative. Past Medical History Past Medical History: Fibromyalgia, Memory Impairment, Rheumatoid Arthritis (RA) Additional Past Medical History / Comment(s): DUMPING SYNDROME, DDD, frequent UTI's History of Any Multi-Drug Resistant Organisms: None Reported Past Surgical History: Adenoidectomy, Appendectomy, Bowel Resection, Cholec ystectomy, Joint Replacement, Tonsillectomy, Tubal Ligation Additional Past Surgical History / Comment(s): RT TKA COLONOSCOPY TILT TABLE TEST, D & C. Gastric Bypass - 30 years ago Past Anesthesia/Blood Transfusion Reactions: No Reported Reaction Past Psychological History: Depression, Panic Disorder Smoking Status: Never smoker Past Alcohol Use History: None Reported Past Drug Use History: None Reported - Past Family History Father Family Medical History: Cancer Sister(s) Family Medical History: Cancer Mother Family Medical History: Deep Vein Thrombosis (DVT) General Exam - General Exam Comments Initial Comments: GENERAL: Patient is well-developed and well-nourished. Patient is nontoxic and well- hydrated and is in mild distress. ENT: Neck is soft and supple. No significant lymphadenopathy is noted. Oropharynx is clear. Moist mucous membranes. Neck has full range of motion without eliciting any pain. EYES: The sclera were anicteric and conjunctiva were pink and moist. Extraocular movements were intact and pupils were equal round and reactive to light. Eyelids were unremarkable. PULMONARY: Unlabored respirations. Good breath sounds bilaterally. No audible rales rhonchi or wheezing was noted. CARDIOVASCULAR: There is a regular rate and rhythm without any murmurs gallops or rubs. ABDOMEN: Soft and nontender with normal bowel sounds. SKIN: Skin is clear with no lesions or rashes and otherwise unremarkable. NEUROLOGIC: Patient is alert and oriented x3. Cranial nerves II through XII are grossly intact. Motor and sensory are also intact. Normal speech, volume and content. Symmetrical smile. MUSCULOSKELETAL: Normal extremities range of motion however she is very weak in all 4 extremities equally LYMPHATICS: No significant lymphadenopathy is noted PSYCHIATRIC: Normal psychiatric evaluation. Limitations: no limitations Course Vital Signs 02/22/23 14:37 Temperature 98 F Pulse Rate 77 Respiratory 18 Rate Blood Pressure 141/80 O2 Sat by Pulse 98 Oximetry Medical Decision Making - Medical Decision Making EKG is interpreted by myself shows a sinus rhythm at 72 bpm DE interval is 171 QRS is 93 QT intervals 408 QTC is 432. Patient's EKG shows no ST segment elevation or depression. Was pt. sent in by a medical professional or institution (, PA, COAT REPAIR INSPECTOR, urgent care, hospital, or halfway...) When possible be specific @ -No Did you speak to anyone other than the patient for history (EMS, parent, family, police, friend...)? What history was obtained from this source @ - gave some of the past medical history Did you review nursing and triage notes (agree or disagree)? Why? @ -I reviewed and agree with nursing and triage notes Were old charts reviewed (outside hosp., previous admission, EMS record, old EKG, old radiological studies, urgent care reports/EKG's, halfway records)? Report findings @ -I reviewed prior chart from prior labwork on this patient Differential Diagnosis (chest pain, altered mental status, abdominal pain women, abdominal pain men, vaginal bleeding, weakness, fever, dyspnea, syncope, headache, dizziness, GI bleed, back pain, seizure, CVA, palpatations, mental health, musculoskeletal)? @ -Differential Weakness: Hypoglycemia, shock, sepsis, hyponatremia, anemia, infection, [place], ETOH, adverse medicine reaction, overdose, stroke, this is not meant to be an all-inclusive list. EKG interpreted by me (3pts min.). @ -As above X-rays interpreted by me (1pt min.). @ -Chest x-ray shows no acute abnormalities CT interpreted by me (1pt min.). @ -None done U/S interpreted by me (1pt. min.). @ -None done What testing was considered but not performed or refused? (CT, X-rays, U/S, labs)? Why? @ -None What meds were considered but not given or refused? Why? @ -None Did you discuss the management of the patient with other professionals (professionals i.e. , TJ, COAT REPAIR INSPECTOR, lab, RT, psych nurse, aids social worker, electronic equipment repairer, teacher, supply officer, case sealer)? Give summary @ -Spoke with Dr. camargo he agreed to admit the patient Was smoking cessation discussed for >3mins.? @ -No Was critical care preformed (if so, how long)? @ -No Were there social determinants of health that impacted care today? How? (Homelessness, low income, unemployed, alcoholism, drug addiction, transportation, low edu. Level, literacy, decrease access to med. care, prison, rehab)? @ -No Was there de-escalation of care discussed even if they declined (Discuss DNR or withdrawal of care, Hospice)? DNR status @ -No What co-morbidities impacted this encounter? (DM, HTN, Smoking, COPD, CAD, Cancer, CVA, ARF, Chemo, Hep., AIDS, mental health diagnosis, sleep apnea, morbid obesity)? @ -None Was patient admitted / discharged? Hospital course, mention meds given and route, prescriptions, significant lab abnormalities, going to OR and other pertinent info. @ -Patient had a urinary tract infection and started the patient on antibiotics. I went back into the room to reevaluate the patient though she was a little bit stronger after a liter fluid she was still not strong enough to pull herself up in bed. Undiagnosed new problem with uncertain prognosis? @ -No Drug Therapy requiring intensive monitoring for toxicity (Heparin, Nitro, Insulin, Cardizem)? @ -No Were any procedures done? @ -No Diagnosis/symptom? @ -Urinary tract infection Acute, or Chronic, or Acute on Chronic? @ -Acute Uncomplicated (without systemic symptoms) or Complicated (systemic symptoms)? @ -Complicated Side effects of treatment? @ -No Exacerbation, Progression, or Severe Exacerbation? @ -No Poses a threat to life or bodily function? How? (Chest pain, [place], [place], pneumonia, PE, COPD, DKA, ARF, appy, cholecystitis, CVA, Diverticulitis, Homicidal, Suicidal, threat to staff... and all critical care pts) @ -No Diagnosis/symptom? @ -Generalized weakness Acute, or Chronic, or Acute on Chronic? @ -Acute Uncomplicated (without systemic symptoms) or Complicated (systemic symptoms)? @ -Complicated Side effects of treatment? @ -none Exacerbation, Progression, or Severe Exacerbation] @ -no Poses a threat to life or bodily function? @ -no - Lab Data Result diagrams: 02/22/23 15:07 02/22/23 15:07 Lab Results 02/22/23 02/22/23 02/22/23 Range/Units 15:07 15:07 15:07 WBC 5.8 (3.8-10.6) k/uL RBC 3.97 (3.80-5.40) m/uL Hgb 12.2 (11.4-16.0) gm/dL Hct 40.3 (34.0-46.0) % MCV 101.6 H (80.0-100.0) fL MCH 30.8 (25.0-35.0) pg MCHC 30.4 L (31.0-37.0) g/dL RDW 14.8 (11.5-15.5) % Plt Count 205 (150-450) k/uL MPV 8.2 Neutrophils % 58 % Lymphocytes % 29 % Monocytes % 6 % Eosinophils % 3 % Basophils % 0 % Neutrophils # 3.4 (1.3-7.7) k/uL Lymphocytes # 1.7 (1.0-4.8) k/uL Monocytes # 0.4 (0-1.0) k/uL Eosinophils # 0.2 (0-0.7) k/uL Basophils # 0.0 (0-0.2) k/uL Hypochromasia Marked Macrocytosis Slight PT 10.6 (9.0-12.0) sec INR 1.0 (<1.2) APTT 22.1 (22.0-30.0) sec Sodium (137-145) mmol/L Potassium (3.5-5.1) mmol/L Chloride (98-107) mmol/L Carbon Dioxide (22-30) mmol/L Anion Gap mmol/L BUN (7-17) mg/dL Creatinine (0.52-1.04) mg/dL Est GFR (CKD-EPI)AfAm (>60 ml/min/1.73 sqM) Est GFR (CKD-EPI)NonAf (>60 ml/min/1.73 sqM) Glucose (74-99) mg/dL Plasma Lactic Acid [place] (0.7-2.0) mmol/L Calcium (8.4-10.2) mg/dL Magnesium (1.6-2.3) mg/dL Total Bilirubin (0.2-1.3) mg/dL AST (14-36) U/L ALT (4-34) U/L Alkaline Phosphatase (38-126) U/L Troponin I (0.000-0.034) ng/mL Total Protein (6.3-8.2) g/dL Albumin (3.5-5.0) g/dL Urine Color Colorless Urine Appearance Clear (Clear) Urine pH 5.5 (5.0-8.0) Ur Specific [place] 1.006 (1.001-1.035) Urine Protein Negative (Negative) Urine Glucose (UA) Negative (Negative) Urine Ketones Negative (Negative) Urine Blood Negative (Negative) Urine Nitrite Positive H (Negative) Urine Bilirubin Negative (Negative) Urine Urobilinogen <2.0 (<2.0) mg/dL Ur Leukocyte Esterase Moderate H (Negative) Urine RBC <1 (0-5) /hpf Urine WBC 20 H (0-5) /hpf Urine WBC Clumps Few H (None) /hpf Urine Bacteria Occasional H (None) /hpf Urine Mucus Rare H (None) /hpf 02/22/23 02/22/23 02/22/23 Range/Units 15:07 15:07 15:07 WBC (3.8-10.6) k/uL RBC (3.80-5.40) m/uL Hgb (11.4-16.0) gm/dL Hct (34.0-46.0) % MCV (80.0-100.0) fL MCH (25.0-35.0) pg MCHC (31.0-37.0) g/dL RDW (11.5-15.5) % Plt Count (150-450) k/uL MPV Neutrophils % % Lymphocytes % % Monocytes % % Eosinophils % % Basophils % % Neutrophils # (1.3-7.7) k/uL Lymphocytes # (1.0-4.8) k/uL Monocytes # (0-1.0) k/uL Eosinophils # (0-0.7) k/uL Basophils # (0-0.2) k/uL Hypochromasia Macrocytosis PT (9.0-12.0) sec INR (<1.2) APTT (22.0-30.0) sec Sodium 140 (137-145) mmol/L Potassium 4.7 (3.5-5.1) mmol/L Chloride 114 H (98-107) mmol/L Carbon Dioxide 15 L (22-30) mmol/L Anion Gap 11 mmol/L BUN 33 H (7-17) mg/dL Creatinine 1.38 H (0.52-1.04) mg/dL Est GFR (CKD-EPI)AfAm 44 (>60 ml/min/1.73 sqM) Est GFR (CKD-EPI)NonAf 38 (>60 ml/min/1.73 sqM) Glucose 79 (74-99) mg/dL Plasma Lactic Acid [place] 0.6 L (0.7-2.0) mmol/L Calcium 7.4 L (8.4-10.2) mg/dL Magnesium 2.1 (1.6-2.3) mg/dL Total Bilirubin 0.3 (0.2-1.3) mg/dL AST 21 (14-36) U/L ALT 18 (4-34) U/L Alkaline Phosphatase 57 (38-126) U/L Troponin I <0.012 (0.000-0.034) ng/mL Total Protein 6.4 (6.3-8.2) g/dL Albumin 3.5 (3.5-5.0) g/dL Urine Color Urine Appearance (Clear) Urine pH (5.0-8.0) Ur Specific [place] (1.001-1.035) Urine Protein (Negative) Urine Glucose (UA) (Negative) Urine Ketones (Negative) Urine Blood (Negative) Urine Nitrite (Negative) Urine Bilirubin (Negative) Urine Urobilinogen (<2.0) mg/dL Ur Leukocyte Esterase (Negative) Urine RBC (0-5) /hpf Urine WBC (0-5) /hpf Urine WBC Clumps (None) /hpf Urine Bacteria (None) /hpf Urine Mucus (None) /hpf Disposition Clinical Impression: Generalized weakness, Urinary tract infection Disposition: ADMITTED IP TO THIS HOSP Referrals: Eldon Murillo MD [Primary Care Provider] - 1-2 days Time of Disposition: 18:03
[2023-02-22] MEDS ORDERED: KETOROLAC 15 MG/ML 1 ML VIAL IVP STA (15:01)
[2023-02-22 15:44] LABS: ALT 18 U/L (4-34); AST 21 U/L (14-36); African American GFR (CKD) 44 (>60 ml/min/1.73 sqM); Albumin 3.5 g/dL (3.5-5.0); Alkaline Phosphatase 57 U/L (38-126); Anion Gap 11 mmol/L; Blood Urea Nitrogen 33 mg/dL (7-17); Calcium 7.4 mg/dL (8.4-10.2); Carbon Dioxide 15 mmol/L (22-30); Chloride 114 mmol/L (98-107); Glucose 79 mg/dL (74-99); Magnesium 2.1 mg/dL (1.6-2.3); Non-African American GFR(CKD) 38 (>60 ml/min/1.73 sqM); Potassium 4.7 mmol/L (3.5-5.1); Sodium 140 mmol/L (137-145); Total Bilirubin 0.3 mg/dL (0.2-1.3); Total Protein 6.4 g/dL (6.3-8.2)
[2023-02-22 15:51] LABS: Partial Thromboplastin Time 22.1 sec (22.0-30.0); Prothrombin Time 10.6 sec (9.0-12.0)
[2023-02-22] MEDS ORDERED: HYDROcodone/APAP 5-325MG 1 EACH TAB PO STA (15:57)
[2023-02-22 16:04] LABS: Appearance,Urine Clear (Clear); Bacteria,Urine Occasional /hpf; Bilirubin,Urine Negative (Negative); Blood,Urine Negative (Negative); Color,Urine Colorless; Glucose,Urine (UA) Negative (Negative); Ketones,Urine Negative (Negative); Leukocyte Esterase,Urine Moderate (Negative); Mucus,Urine Rare /hpf; Nitrite,Urine Positive (Negative); PH, Urine 5.5 (5.0-8.0); Protein,Urine Negative (Negative); RBC,Urine <1 /hpf (0-5); Specific Gravity,Urine 1.006 (1.001-1.035); Urobilinogen,Urine <2.0 mg/dL (<2.0); WBC,Urine 20 /hpf (0-5)
--- NOTE | 2023-02-22 16:11 | XR ---
EXAMINATION TYPE: XR chest 2V DATE OF EXAM: 02/22/2023 4:05 PM COMPARISON: Chest radiographs from 05/14/2021 TECHNIQUE: XR chest 2V Frontal and lateral views of the chest. CLINICAL INDICATION:Female, 72 years old with history of Weakness; FINDINGS: Lungs/Pleura: Right midlung streaky atelectasis. There is no evidence of pleural effusion, focal cons olidation, or pneumothorax. Pulmonary vascularity: Unremarkable. Heart/mediastinum: Cardiomediastinal silhouette is unremarkable. Musculoskeletal: No acute osseous pathology. IMPRESSION: No acute cardiopulmonary disease/process.
[2023-02-22 16:19] LABS: Basophils % (A) 0 %; Eosinophils # (A) 0.2 k/uL (0-0.7); Eosinophils % (A) 3 %; HCT 40.3 % (34.0-46.0); HGB 12.2 gm/dL (11.4-16.0); Hypochromasia Marked; Lymphocytes # (A) 1.7 k/uL (1.0-4.8); Lymphocytes % (A) 29 %; MCH 30.8 pg (25.0-35.0); MCHC 30.4 g/dL (31.0-37.0); MCV 101.6 fL (80.0-100.0); Macrocytosis Slight; Mean Platelet Volume 8.2; Monocytes # (A) 0.4 k/uL (0-1.0); Monocytes % (A) 6 %; Neutrophils # (A) 3.4 k/uL (1.3-7.7); Neutrophils % (A) 58 %; Platelet Count 205 k/uL (150-450); RBC 3.97 m/uL (3.80-5.40); RDW 14.8 % (11.5-15.5); WBC 5.8 k/uL (3.8-10.6)
[2023-02-22] MEDS ORDERED: cefTRIAXone IN SWFI 1,000 MG/10 ML SYRINGE IVP STA (17:07)
[2023-02-22] MEDS ORDERED: BACLOFEN 10 MG TAB PO PRN (21:25)
[2023-02-22] MEDS ORDERED: FAMOTIDINE 20 MG TAB PO PRN (21:25)
[2023-02-22] MEDS ORDERED: ACETAMINOPHEN TAB 325 MG TAB PO STA (21:42)
[2023-02-22] MEDS ORDERED: SODIUM BICARBONATE TAB 650 MG TAB PO SCH (22:00)
[2023-02-22] MEDS: ERGOCALCIFEROL 1,250 MCG (50,000 IU) CAPSULE PO SCH (22:14)
[2023-02-22] MEDS: DEXTROSE 5% IN WATER 1,000 ML with SODIUM BICARB (1 MEQ/ML) 100 ML IV SCH (22:15)
[2023-02-23] MEDS ORDERED: ZOLPIDEM 5 MG TAB PO SCH ×2 (01:02→21:00)
[2023-02-23] MEDS: PRIMIDONE 25 MG TAB PO SCH ×4 (01:26→21:38)
[2023-02-23] MEDS: MELATONIN 5 MG TABLET PO SCH ×3 (01:27→21:36)
[2023-02-23] MEDS: FOLIC ACID 1 MG TAB PO SCH ×2 (01:27→21:36)
[2023-02-23 06:58] LABS: African American GFR (CKD) 43 (>60 ml/min/1.73 sqM); Anion Gap 9 mmol/L; Blood Urea Nitrogen 30 mg/dL (7-17); Carbon Dioxide 18 mmol/L (22-30); Chloride 113 mmol/L (98-107); Glucose 97 mg/dL (74-99); Non-African American GFR(CKD) 38 (>60 ml/min/1.73 sqM); Potassium 4.3 mmol/L (3.5-5.1); Sodium 140 mmol/L (137-145)
[2023-02-23] MEDS ORDERED: traMADol 50 MG TAB PO STA (08:20)
[2023-02-23] MEDS ORDERED: diphenhydrAMINE 25 MG CAP PO SCH (09:00)
[2023-02-23] MEDS: allopurinoL 100 MG TAB PO SCH (10:00)
[2023-02-23] MEDS: ERGOCALCIFEROL 1,250 MCG (50,000 IU) CAPSULE PO SCH (10:01)
[2023-02-23] MEDS: CITALOPRAM HYDROBROMIDE 20 MG TAB PO SCH (10:14)
[2023-02-23] MEDS: DEXTROSE 5% IN WATER 1,000 ML with SODIUM BICARB (1 MEQ/ML) 100 ML IV SCH ×2 (11:03→21:44)
[2023-02-23] MEDS: ENOXAPARIN 40 MG/0.4 ML SYRINGE SQ SCH (12:08)
[2023-02-23] MEDS: ACETAMINOPHEN TAB 500 MG TAB PO SCH ×3 (12:08→23:05)
[2023-02-23] MEDS: CYCLOBENZAPRINE 5 MG TAB PO SCH ×3 (12:09→21:36)
--- NOTE | 2023-02-23 12:36 | P.NPCON ---
History of Present Illness - Reason for Consult acute renal failure - History of Present Illness Patient is a 72-year-old female who was admitted to the hospital with complaints of increased weakness. Patient states she was not able to move her arms due to severe weakness. She denied any numbness. No history of nausea vomiting or diarrhea No complaints of abdominal pain, chest pain or shortness of breath. Lowest blood pressure 106 mmHg systolic. Patient has history of underlying CK D, stage III a with baseline creatinine around 1.2-1.3 mg/dL. Etiology is nephrosclerosis. Patient has had previous episodes of acute kidney injury mostly prerenal. No history of use of NSAIDs Patient states she has been voiding. Currently maintained on bicarb drip. Serum creatinine was 1.3 on admission and it is 1.4 today. Review of Systems As per HPI Past Medical History Past Medical History: Fibromyalgia, Memory Impairment, Rheumatoid Arthritis (RA) Additional Past Medical History / Comment(s): DUMPING SYNDROME, DDD, frequent UTI's History of Any Multi-Drug Resistant Organisms: None Reported Past Surgical History: Adenoidectomy, Appendectomy, Bowel Resection, Cholecystectomy, Joint Replacement, Tonsillectomy, Tubal Ligation Additional Past Surgical History / Comment(s): RT TKA COLONOSCOPY TILT TABLE TEST, D & C. Gastric Bypass - 40 years ago Past Anesthesia/Blood Transfusion Reactions: No Reported Reaction Smoking Status: Never smoker - Past Family History Father Family Medical History: Cancer Sister(s) Family Medical History: Cancer Mother Family Medical History: Deep Vein Thrombosis (DVT) Medications and Allergies Home Medications Medication Instructions Recorded Confirmed Type Citalopram Hydrobromide [CeleXA] 40 mg PO DAILY 10/08/16 02/22/23 History Cyanocobalamin [Vitamin B-12 1,000 mcg IM Q21D 04/27/21 02/22/23 History Injection] Ergocalciferol [Vitamin D2 (1250 1,250 mcg PO MOTUWETHFR 04/27/21 02/22/23 History Mcg = 61024 Iu)] Primidone [Mysoline] 25 mg PO TID 04/27/21 02/22/23 History Calcium Carbonate/Vitamin D3 1 tab PO DAILY 05/13/21 02/22/23 History [Calcium 600-Vit D3 10 mcg (400 Iu)] Baclofen [Lioresal] 20 mg PO TID PRN 02/22/23 02/22/23 History Famotidine [Pepcid AC] 10 mg PO DAILY PRN 02/22/23 02/22/23 History Folic Acid 1 mg PO HS 02/22/23 02/22/23 History Furosemide [Lasix] 20 mg PO DAILY PRN 02/22/23 02/22/23 History Melatonin 10 mg PO HS 02/22/23 02/22/23 History Potassium Chloride ER [K-Dur 20] 20 meq PO DAILY 02/22/23 02/22/23 History Sodium Bicarbonate Tab 650 mg PO QID 02/22/23 02/22/23 History Zolpidem [Ambien] 5 mg PO HS 02/22/23 02/22/23 History allopurinoL [Zyloprim] 100 mg PO DAILY 02/22/23 02/22/23 History calcitrioL [Calcitriol] 0.5 mcg PO MOWEFR 02/22/23 02/22/23 History diphenhydrAMINE [Benadryl] 50 mg PO HS 02/22/23 02/22/23 History Allergies Allergy/AdvReac Type Severity Reaction Status Date / Time No Known Allergies Allergy Verified 02/22/23 19:51 Physical Exam Vitals: Vital Signs Temp Pulse Pulse Pulse Resp BP BP 02/23/23 11:58 97.9 F 77 18 142/80 02/23/23 08:45 97.9 F 84 16 121/77 02/23/23 06:55 97.4 F L 77 17 106/64 02/23/23 01:35 97.8 F 81 18 118/59 02/22/23 23:22 98.0 F 79 18 134/62 02/22/23 20:08 78 20 144/70 02/22/23 14:37 98 F 77 18 141/80 Pulse Ox 02/23/23 11:58 97 02/23/23 08:45 02/23/23 06:55 96 02/23/23 01:35 97 02/22/23 23:22 97 02/22/23 20:08 96 02/22/23 14:37 98 Intake and Output 02/22/23 02/23/23 02/23/23 22:59 06:59 14:59 Intake Total 800 80 Output Total 1600 1200 Balance -800 -1120 Intake: Oral 800 80 Output: Urine 1600 1200 Uretheral (Mcdaniel) 1000 Other: Voiding Method External Catheter External Catheter Weight 77.111 kg 77.111 kg Patient is awake, comfortable, no acute distress Examination of the heart S1 and S2 Examination of the lungs bilateral breath sounds are heard Abdomen is soft nontender Examination of lower extremity shows no significant edema. LAST PATTERN GRADER exam grossly intact Results - Lab Results Most recent lab results Calcium 7.0 mg/dL (8.4-10.2) L 02/23/23 06:02 Magnesium 2.1 mg/dL (1.6-2.3) 02/22/23 15:07 02/22/23 15:07 02/23/23 06:02 Assessment and Plan Assessment: 1. Acute kidney injury, ATN, nonoliguric associated with hypovolemia and some degree of hypotension as well as urine retention. No nephrotoxic agents noted. Patient had 1000 mL of urine obtained on Mcdaniel catheter placement. 2. Volume depletion 3. Non-gap metabolic acidosis associated with acute kidney injury currently maintained on bicarb drip and improving 4. CK D stage III 8 secondary to nephrosclerosis with baseline creatinine around 1.2-1.3 mg/dL. 5. Pyuria rule out UTI Plan: Continue with Mcdaniel catheter Check ultrasound of the kidneys Repeat labs in a.m. Continue with bicarb drip for now Thank you for the consultation. We will continue to follow the patient with you during her hospitalization.
[2023-02-23] MEDS: NAPROXEN 250 MG TAB PO SCH ×3 (12:47→21:36)
--- NOTE | 2023-02-23 13:19 | CT ---
EXAMINATION TYPE: CT lumbar spine wo con CT DLP: 973 mGycm, Automated exposure control for dose reduction was used. DATE OF EXAM: 02/23/2023 1:11 PM COMPARISON: Radiograph same day. CLINICAL INDICATION:Female, 72 years old with history of ACUTE/CHRONIC LOW BACK PAIN; low back pain TECHNIQUE: Multiple axial images were obtained from the midportion of T11 through the sacroiliac lucille nts. Soft tissue and bone windows in coronal and sagittal planes were obtained and reviewed. Contrast used: mL of , none. Oral contrast used: none. FINDINGS: Alignment: There are 4 lumbar type vertebral bodies with grade 1 anterolisthesis of L4 on L5. There i s sacralization of L5 vertebrae.. Bone: No evidence of fracture is identified. Multilevel osteophyte formation with some disc space na rrowing. L1 vertebral body hemangioma. Scattered mild facet joint arthropathy. Discs: T12-L1: No spinal canal or neural foraminal stenosis is identified. L1-L2: No spinal canal or neural foraminal stenosis is identified. L2-L3: No spinal canal or neural foraminal stenosis is identified. L3-L4: No spinal canal or neural foraminal stenosis is identified. L4-L5: No spinal canal or neural foraminal stenosis is identified. L5-S1: No spinal canal or neural foraminal stenosis is identified. Other moderate stool burden throughout the colon. IMPRESSION: 1. No evidence for spinal fracture. 2. No evidence for significant spinal canal or neural foraminal stenosis. 3. Sacralization of the L5 vertebrae. 4. Grade 1 anterolisthesis of L4 and L5.
--- NOTE | 2023-02-23 13:22 | P.CNOR ---
History of Present Illness - [facility] Consult date: 02/23/23 Consult reason: low back pain History of present illness: Patient is 72-year-old female who was admitted to [facility] on after being evaluated on 02/22/2023 with regards to generalized weakness and fatigue. Since being admitted, patient has complained of significant back pain which is chronic, she's also been diagnosed with a urinary tract infection. Urinary retention was noted, urinary catheter was in place. She has a known history of chronic kidney disease and there was concern for acute kidney injury. Internal medicine was cementing providers, nephrology and our orthopedic team are on cons ult at this time. Patient was evaluated today at bedside, she is resting in her hospital chair. She has multiple family members at bedside. Patient minutes to having low back pain for quite some time. She denies being evaluated by an orthopedic surgeon in the past. She denies any orthopedic surgical intervention. She admits to history of fibromyalgia which she takes a few different medications for. She admits to having a sciatica on her left side previously, she feels this is very similar. She said it began on Monday while at a holiday constitution party and has progressively gotten worse. Patient states over the last few days she hasn't done much at home due to being very weak and not feeling very well. Currently patient is taking no medications for this problem specifically, she does take a muscle relaxer for her fibromyalgia. Patient states that she will utilize a walker occasionally for ambulation. She does history of a right total knee arthroplasty that was done at many years ago. She denies any recent trauma, this including falls. She admits to numbness and tingling mainly involving the left lower extremity that extends to the toes. She does note some vague numbness and tingling of the right big toe and on the pad of her right foot. Patient denies any new onset loss of bowel or bladder function. She has had a previous intestinal surgery which has left her with chronic diarrhea, which she can feel when she has to use the restroom. Patient denies any numbness or tingling or obvious weakness of the bilateral upper extremities. She feels that due to the pain in the low back and left lower extremity was has caused the left lower extremity to be a little bit weaker.. currently denies headaches, lightheadedness, chest pain or shortness of breath. Review of Systems Constitutional: Reports as per HPI Past Medical History Past Medical History: Fibromyalgia, Memory Impairment, Rheumatoid Arthritis (RA) Additional Past Medical History / Comment(s): DUMPING SYNDROME, DDD, frequent UTI's History of Any Multi-Drug Resistant Organisms: None Reported Past Surgical History: Adenoidectomy, Appendectomy, Bowel Resection, Cholecystectomy, Joint Replacement, Tonsillectomy, Tubal Ligation Additional Past Surgical History / Comment(s): RT TKA COLONOSCOPY TILT TABLE TEST, D & C. Gastric Bypass - 40 years ago Past Anesthesia/Blood Transfusion Reactions: No Reported Reaction Smoking Status: Never smoker - Past Family History Father Family Medical History: Cancer Sister(s) Family Medical History: Cancer Mother Family Medical History: Deep Vein Thrombosis (DVT) Medications and Allergies Home Medications Medication Instructions Recorded Confirmed Type Citalopram Hydrobromide [CeleXA] 40 mg PO DAILY 10/08/16 02/22/23 History Cyanocobalamin [Vitamin B-12 1,000 mcg IM Q21D 04/27/21 02/22/23 History Injection] Ergocalciferol [Vitamin D2 (1250 1,250 mcg PO MOTUWETHFR 04/27/21 02/22/23 History Mcg = 35833 Iu)] Primidone [Mysoline] 25 mg PO TID 04/27/21 02/22/23 History Calcium Carbonate/Vitamin D3 1 tab PO DAILY 05/13/21 02/22/23 History [Calcium 600-Vit D3 10 mcg (400 Iu)] Baclofen [Lioresal] 20 mg PO TID PRN 02/22/23 02/22/23 History Famotidine [Pepcid AC] 10 mg PO DAILY PRN 02/22/23 02/22/23 History Folic Acid 1 mg PO HS 02/22/23 02/22/23 History Furosemide [Lasix] 20 mg PO DAILY PRN 02/22/23 02/22/23 History Melatonin 10 mg PO HS 02/22/23 02/22/23 History Potassium Chloride ER [K-Dur 20] 20 meq PO DAILY 02/22/23 02/22/23 History Sodium Bicarbonate Tab 650 mg PO QID 02/22/23 02/22/23 History Zolpidem [Ambien] 5 mg PO HS 02/22/23 02/22/23 History allopurinoL [Zyloprim] 100 mg PO DAILY 02/22/23 02/22/23 History calcitrioL [Calcitriol] 0.5 mcg PO MOWEFR 02/22/23 02/22/23 History diphenhydrAMINE [Benadryl] 50 mg PO HS 02/22/23 02/22/23 History Allergies Allergy/AdvReac Type Severity Reaction Status Date / Time No Known Allergies Allergy Verified 02/22/23 19:51 Physical Examination Gen: AOx3, NAD VSS stable at this time Integument: No obvious open lesions, sores, redness or areas of swelling noted throughout the cervical, thoracic or lumbar spine Palpation: Nontender with palpation of both the midline and paraspinal region of the cervical and thoracic spine. She does demonstrate some discomfort on the right sided paraspinal and SI joint region with palpation ROM: Full range of motion in all major muscle groups in the bilateral upper extremities, no focal deficits Range of motion intact bilaterally in the lower extremities with hip flexion, knee extension, knee flexion, plantar flexion, FHL Dorsiflexion and EHL are very limited on the left lower extremity, intact on the right lower extremity Sensory Exam: Senory exam to light touch is intact C5-T1 Senosry exam to light touch is intact L2-S1, dermatomal defect noted on the left-hand side L4-L5, L5-S1, L5-S1 right-sided Motor: 4/5 strength appreciated in the bilateral upper extremities with shoulder elevation, shoulder abduction, elbow extension, elbow flexion, wrist extension, 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, 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 4/5 strength appreciated in the right lower extremity with hip flexion, knee extension, knee flexion, plantar flexion, dorsiflexion, EHL, FHL 3+/5 strength in the left lower extremity with hip flexion, knee extension, knee flexion, plantar flexion, FHL, 2/5 dorsiflexion and EHL Reflexes: Negative Kevin's bilaterally Negative Babinski bilaterally Negative clonus bilaterally Special Test: Logroll maneuver bilaterally reproduces no pain Positive straight leg raise left side, negative straight leg raise right side Results - Labs Labs: Abnormal Lab Results - Last 24 Hours (Table) 02/22/23 02/22/23 02/22/23 Range/Units 15:07 15:07 15:07 MCV 101.6 H (80.0-100.0) fL MCHC 30.4 L (31.0-37.0) g/dL Chloride 114 H (98-107) mmol/L Carbon Dioxide 15 L (22-30) mmol/L BUN 33 H (7-17) mg/dL Creatinine 1.38 H (0.52-1.04) mg/dL Plasma Lactic Acid Adriano (0.7-2.0) mmol/L Calcium 7.4 L (8.4-10.2) mg/dL Urine Nitrite Positive H (Negative) Ur Leukocyte Esterase Moderate H (Negative) Urine WBC 20 H (0-5) /hpf Urine WBC Clumps Few H (None) /hpf Urine Bacteria Occasional H (None) /hpf Urine Mucus Rare H (None) /hpf 02/22/23 02/23/23 Range/Units 15:07 06:02 MCV (80.0-100.0) fL MCHC (31.0-37.0) g/dL Chloride 113 H (98-107) mmol/L Carbon Dioxide 18 L (22-30) mmol/L BUN 30 H (7-17) mg/dL Creatinine 1.40 H (0.52-1.04) mg/dL Plasma Lactic Acid Adriano 0.6 L (0.7-2.0) mmol/L Calcium 7.0 L (8.4-10.2) mg/dL Urine Nitrite (Negative) Ur Leukocyte Esterase (Negative) Urine WBC (0-5) /hpf Urine WBC Clumps (None) /hpf Urine Bacteria (None) /hpf Urine Mucus (None) /hpf H & H 02/22/23 Range/Units 15:07 Hgb 12.2 (11.4-16.0) gm/dL Hct 40.3 (34.0-46.0) % Coagulation 02/22/23 Range/Units 15:07 INR 1.0 (<1.2) Result Diagrams: 02/22/23 15:07 02/23/23 06:02 Assessment and Plan Assessment: Acute on chronic low back pain Sciatica, left-sided Left lower extremity weakness Urinary retention Urinary tract infection Chronic kidney disease with acute kidney injury Other medical comorbidities Plan: X-rays and computed tomography scan of the lumbar spine were ordered by internal medicine, awaiting results Urinary tract infection has likely contributed to patient's generalized weakness and current medical state Pending results of the lumbar spine imaging studies, recommend medical optimization of patient's current symptoms. Would consider use of oral/IV steroids and gabapentin PT/OT evaluation, recommend weightbear as tolerated with walker DVT prophylaxis per primary medical service Other medical records director recommendations appreciated Further recommendations to follow Time with Patient: Less than 30
--- NOTE | 2023-02-23 13:45 | XR ---
EXAM TYPE: LUMBAR SPINE X RAY SERIES COMPARISON: NONE HISTORY: Pain TECHNIQUE: 4 views are submitted. FINDINGS: Alignment is anatomic. The pedicles are intact. The transverse processes are intact. There is diff use osteopenia with sacralization of L5 segment. Intra-abdominal surgical changes are noted. SI joints are symmetric. There is facet arthropathy at L4-5 most marked at L5-S1. There is a grade 1 anterolisthesis of L4 on L5. Hypertrophic spurring anteriorly. Mild degenerative disc thoracolumbar j unction. IMPRESSION: 1. Advanced facet arthropathy at levels L3-S1 with grade 1 anterolisthesis of L4 on the partially sac ralized L5 segment. Suspect foraminal encroachment.
--- NOTE | 2023-02-23 13:57 | P.CNNES ---
History of Present Illness Consult date: 02/23/23 Requesting physician: Massimo Pringle Reason for Consult: generalized weakness History of Present Illness: This is a 72-year-old woman who presented to the emergency department because generalized weakness. Patient is accompanied with her as well as daughter were at bedside. Seems that the patient has chronic lower back pain but since his Monday she's been having posture lower back that's rating down the left lower extremity all the way down to the foot with the left foot weakness. Initially she did not notice that weakness on the left foot but she felt was recent and but stated that she's been having shooting pain from the lower back. She denies any urinary retention that she had a home but is seems that she's been retaining urine in our facility. Denies any numbness in the lower extremity or the pelvic region. Denies of any upper extremity weakness or numbness. Some of the workup during our hospital visit consisted of: CT of the lumbar spine is reported as no evidence of for spinal fracture. Orthopedic is on board and they felt the patient has left sciatica Review of Systems Review of system: The 12 point system was reviewed and apparent positive and negative per HPI. Past Medical History Past Medical History: Fibromyalgia, Memory Impairment, Rheumatoid Arthritis (RA) Additional Past Medical History / Comment(s): DUMPING SYNDROME, DDD, frequent UTI's History of Any Multi-Drug Resistant Organisms: None Reported Past Surgical History: Adenoidectomy, Appendectomy, Bowel Resection, Cholecystectomy, Joint Replacement, Tonsillectomy, Tubal Ligation Additional Past Surgical History / Comment(s): RT TKA COLONOSCOPY TILT TABLE TEST, D & C. Gastric Bypass - 40 years ago Past Anesthesia/Blood Transfusion Reactions: No Reported Reaction Smoking Status: Never smoker - Past Family History Father Family Medical History: Cancer Sister(s) Family Medical History: Cancer Mother Family Medical History: Deep Vein Thrombosis (DVT) Medications and Allergies Home Medications Medication Instructions Recorded Confirmed Type Citalopram Hydrobromide [CeleXA] 40 mg PO DAILY 10/08/16 02/22/23 History Cyanocobalamin [Vitamin B-12 1,000 mcg IM Q21D 04/27/21 02/22/23 History Injection] Ergocalciferol [Vitamin D2 (1250 1,250 mcg PO MOTUWETHFR 04/27/21 02/22/23 History Mcg = 14466 Iu)] Primidone [Mysoline] 25 mg PO TID 04/27/21 02/22/23 History Calcium Carbonate/Vitamin D3 1 tab PO DAILY 05/13/21 02/22/23 History [Calcium 600-Vit D3 10 mcg (400 Iu)] Baclofen [Lioresal] 20 mg PO TID PRN 02/22/23 02/22/23 History Famotidine [Pepcid AC] 10 mg PO DAILY PRN 02/22/23 02/22/23 History Folic Acid 1 mg PO HS 02/22/23 02/22/23 History Furosemide [Lasix] 20 mg PO DAILY PRN 02/22/23 02/22/23 History Melatonin 10 mg PO HS 02/22/23 02/22/23 History Potassium Chloride ER [K-Dur 20] 20 meq PO DAILY 02/22/23 02/22/23 History Sodium Bicarbonate Tab 650 mg PO QID 02/22/23 02/22/23 History Zolpidem [Ambien] 5 mg PO HS 02/22/23 02/22/23 History allopurinoL [Zyloprim] 100 mg PO DAILY 02/22/23 02/22/23 History calcitrioL [Calcitriol] 0.5 mcg PO MOWEFR 02/22/23 02/22/23 History diphenhydrAMINE [Benadryl] 50 mg PO HS 02/22/23 02/22/23 History Allergies Allergy/AdvReac Type Severity Reaction Status Date / Time No Known Allergies Allergy Verified 02/22/23 19:51 Physical Examination - Vital Signs Vital Signs: Vital Signs Temp Pulse Pulse Pulse Resp BP BP 02/23/23 11:58 97.9 F 77 18 142/80 02/23/23 08:45 97.9 F 84 16 121/77 02/23/23 06:55 97.4 F L 77 17 106/64 02/23/23 01:35 97.8 F 81 18 118/59 02/22/23 23:22 98.0 F 79 18 134/62 02/22/23 20:08 78 20 144/70 02/22/23 14:37 98 F 77 18 141/80 Pulse Ox 02/23/23 11:58 97 02/23/23 08:45 02/23/23 06:55 96 02/23/23 01:35 97 02/22/23 23:22 97 02/22/23 20:08 96 02/22/23 14:37 98 Intake and Output 02/22/23 02/23/23 02/23/23 22:59 06:59 14:59 Intake Total 800 80 Output Total 1600 1200 Balance -800 -1120 Intake: Oral 800 80 Output: Urine 1600 1200 Uretheral (Mcdaniel) 1000 Other: Voiding Method External Catheter Indwelling Catheter Weight 77.111 kg 77.111 kg GENERAL: The patient is sitting in a chair having lunch and not in acute distress. NEUROLOGICAL: Higher mental function: The patient is awake, alert, oriented to self, place and time. Somewhat slow responding to questioning. Patient is following simple commands. No aphasia and no neglect. Cranial nerves: The pupils are round, equal and reactive to light and accommodation. Visual dutta are full to confrontation throughout. Extraocular movement is intact no nystagmus is noted. Facial sensation is normal to touch throughout. The facial strength is normal throughout. Hearing is moderately decreased bilaterally to hand rub. Tongue is midline and moved [id number] without any difficulty. No dysarthria is noted. Shoulder shrug is normal bilaterally. Motor: The strength is had left ankle dorsiflexion, eversion and eversion weakness about 1. Left plantar flexion is 4+. Otherwise 5 over 5 throughout. Normal tone and bulk. Cerebellum: Normal finger to nose bilaterally. Sensation: Sensation is normal to touch throughout. Reflexes (right/left): 2+ uppers. Patellar are 1+, ankles are 0. Plantars are mute bilaterally. Results - Laboratory Findings CBC and BMP: 02/22/23 15:07 02/23/23 06:02 Abnormal Lab Findings: Abnormal Labs 02/22/23 02/22/23 02/22/23 15:07 15:07 15:07 MCV 101.6 H MCHC 30.4 L Chloride 114 H Carbon Dioxide 15 L BUN 33 H Creatinine 1.38 H Plasma Lactic Acid Adriano Calcium 7.4 L Urine Nitrite Positive H Ur Leukocyte Esterase Moderate H Urine WBC 20 H Urine WBC Clumps Few H Urine Bacteria Occasional H Urine Mucus Rare H 02/22/23 02/23/23 15:07 06:02 MCV MCHC Chloride 113 H Carbon Dioxide 18 L BUN 30 H Creatinine 1.40 H Plasma Lactic Acid Adriano 0.6 L Calcium 7.0 L Urine Nitrite Ur Leukocyte Esterase Urine WBC Urine WBC Clumps Urine Bacteria Urine Mucus Assessment and Plan Assessment: This is a 72-year-old woman who has chronic lower back pain but since this past Monday she has noticed the posterior lower back pain rating down all the way to the left lower extremity to the foot and has left foot weakness. Acute on chronic lower back pain with radiation to the left lower extremity with left to drop as well as weakness on eversion/inversion: Probable L5 lumbar radiculopathy Chronic lower back pain Essential tremor on primidone Plan: I ordered MRI of the lumbar without to assess if patient has any significant stenosis Ordered CT of the brain to rule out any acute subacute ischemic stroke Recommend EMG with nerve conduction study as an outpatient to rule out any radiculopathy versus plexopathy. Orthopedic surgery team is on board PT and OT are consulted We'll defer the rest of the medical management to primary team Plan discussed with the patient, and her family members and ( and her daughter). Thank you for the consultation. Time with Patient: Greater than 30
[2023-02-23 16:03] VITALS: BMI 30.1
--- NOTE | 2023-02-23 20:41 | P.HPIM ---
History of Present Illness H&P Date: 02/23/23 Chief Complaint: Tired History of presenting complaint: 72-year-old patient, follows with Dr. Murillo, chronic stable medical conditions include fibromyalgia, memory impairment, rheumatoid arthritis, dumping syndrome, depression. baseline uses a walker. on primidone for familial tremors. Patient presented with multiple symptoms. What that lethargic. Eating well. Complaining of increasing back pain. Sometimes goes off easily. Goes out of bed. Some biopsies during the day. present at the bedside. No fever no chills. No change in bowel pattern. Review of systems: GEN.: Tired EYES: None HEENT: None NECK: None RESPIRATORY: None CARDIOVASCULAR: None GASTROINTESTINAL: None GENITOURINARY: None MUSCULOSKELETAL: No back pain LYMPHATICS: None HEMATOLOGICAL: None PSYCHIATRY: None NEUROLOGICAL: Lethargic Past medical history to include: Fibromyalgia, cognitive impairment, rheumatoid arthritis, dumping syndrome, depression, familial tremors, sleep disorder Social history: . No smoking. No alcohol Family history: Cancer On examination: VITAL SIGNS: 97.9, 84, 16, 121/77, 97% room air GENERAL APPEARANCE: BMI 30.1, sitting up in a recliner tired EYES: Pupils equal. Conjunctiva normal. NECK: JVD not raised. Mass not palpable. RESPIRATORY: Respiratory effort normal. Lungs clear to auscultation. CARDIOVASCULAR: First and second sounds normal. No edema. ABDOMEN: Soft. Liver and spleen not palpable. No tenderness. No mass palpable. MUSCULAR skeletal: Evidence of OA . NEUROLOGICAL: Cranial nerves grossly intact. Positive sensation grossly intact. Decreased sensorium PSYCHIATRY: answer but can answer questions appropriately INVESTIGATIONS, reviewed in the clinical context: WBC 5.8 hemoglobin 12.2 platelets 205 sodium 140 potassium 4.3 bicarb 15 BUN 33 creatinine 1.38 UA positive for nitrite, leukoesterase WBC EKG tracing personally reviewed by me-normal sinus rhythm Chest x-ray film personally reviewed by me-unremarkable Lumbar spine x-ray: Advanced facet arthropathy at L3 S1 anterolisthesis L4. Suspect foraminal encroachment. Lumbar CT: Sacralization of L5. Grade 1 anterolisthesis L4 and L5 Assessment and plan: -Acute metabolic encephalopathy, from several medications that would explain patient's drowsiness. Also underlying infection. J baclofen to Flexeril. Change Ambien to 2.5 mg daily at bedtime. Contact melatonin to 5 mg. DC Benadryl. -Acute UTI with cystitis IV ceftriaxone -Acute on chronic lower back pain. X-ray computed tomography scan lumbar spine ordered. Showing arthritis. Orthopedics consulted. Naproxen. K pad. Flexeril. -Chronic kidney disease stage III likely nephrosclerosis Follow renal function -Acute metabolic acidosis due to CK D: IV sodium bicarbonate drip -Chronic rheumatoid arthritis Follow clinically -Chronic fibromyalgia Naproxen. Flexeril. -Moderate cognitive impairment Follow clinically -Chronic medical debility PTOT -Anemia of chronic disease mainly CK D Follow H&H -Chronic dumping syndrome -Depression not otherwise specified Celexa 40 mg daily at bedtime -Chronic insomnia, : sleeps cycle disturbance Sleep hygiene . Medications discussed. -Chronic, familial tremor primidone 25 mg 3 times a day Discussed at length with the patient and . Past Medical History Past Medical History: Fibromyalgia, Memory Impairment, Rheumatoid Arthritis (RA) Additional Past Medical History / Comment(s): DUMPING SYNDROME, DDD, frequent UTI's History of Any Multi-Drug Resistant Organisms: None Reported Past Surgical History: Adenoidectomy, Appendectomy, Bowel Resection, Cholecystectomy, Joint Replacement, Tonsillectomy, Tubal Ligation Additional Past Surgical History / Comment(s): RT TKA COLONOSCOPY TILT TABLE TEST, D & C. Gastric Bypass - 40 years ago Past Anesthesia/Blood Transfusion Reactions: No Reported Reaction Smoking Status: Never smoker - Past Family History Father Family Medical History: Cancer Sister(s) Family Medical History: Cancer Mother Family Medical History: Deep Vein Thrombosis (DVT) Medications and Allergies Home Medications Medication Instructions Recorded Confirmed Type Citalopram Hydrobromide [CeleXA] 40 mg PO DAILY 10/08/16 02/22/23 History Cyanocobalamin [Vitamin B-12 1,000 mcg IM Q21D 04/27/21 02/22/23 History Injection] Ergocalciferol [Vitamin D2 (1250 1,250 mcg PO MOTUWETHFR 04/27/21 02/22/23 History Mcg = 93622 Iu)] Primidone [Mysoline] 25 mg PO TID 04/27/21 02/22/23 History Calcium Carbonate/Vitamin D3 1 tab PO DAILY 05/13/21 02/22/23 History [Calcium 600-Vit D3 10 mcg (400 Iu)] Baclofen [Lioresal] 20 mg PO TID PRN 02/22/23 02/22/23 History Famotidine [Pepcid AC] 10 mg PO DAILY PRN 02/22/23 02/22/23 History Folic Acid 1 mg PO HS 02/22/23 02/22/23 History Furosemide [Lasix] 20 mg PO DAILY PRN 02/22/23 02/22/23 History Melatonin 10 mg PO HS 02/22/23 02/22/23 History Potassium Chloride ER [K-Dur 20] 20 meq PO DAILY 02/22/23 02/22/23 History Sodium Bicarbonate Tab 650 mg PO QID 02/22/23 02/22/23 History Zolpidem [Ambien] 5 mg PO HS 02/22/23 02/22/23 History allopurinoL [Zyloprim] 100 mg PO DAILY 02/22/23 02/22/23 History calcitrioL [Calcitriol] 0.5 mcg PO MOWEFR 02/22/23 02/22/23 History diphenhydrAMINE [Benadryl] 50 mg PO HS 02/22/23 02/22/23 History Allergies Allergy/AdvReac Type Severity Reaction Status Date / Time No Known Allergies Allergy Verified 02/22/23 19:51 Physical Exam Vitals: Vital Signs Temp Pulse Pulse Pulse Resp BP BP 02/23/23 06:55 97.4 F L 77 17 106/64 02/23/23 01:35 97.8 F 81 18 118/59 02/22/23 23:22 98.0 F 79 18 134/62 02/22/23 20:08 78 20 144/70 02/22/23 14:37 98 F 77 18 141/80 Pulse Ox 02/23/23 06:55 96 02/23/23 01:35 97 02/22/23 23:22 97 02/22/23 20:08 96 02/22/23 14:37 98 Intake and Output 02/22/23 02/23/23 02/23/23 22:59 06:59 14:59 Intake Total 800 80 Output Total 1600 1200 Balance -800 -1120 Intake: Oral 800 80 Output: Urine 1600 1200 Uretheral (Mcdaniel) 1000 Other: Voiding Method External Catheter Weight 77.111 kg 77.111 kg Results CBC & Chem 7: 02/22/23 15:07 02/23/23 06:02 Labs: Abnormal Lab Results - Last 24 Hours (Table) 02/22/23 02/22/23 02/22/23 Range/Units 15:07 15:07 15:07 MCV 101.6 H (80.0-100.0) fL MCHC 30.4 L (31.0-37.0) g/dL Chloride 114 H (98-107) mmol/L Carbon Dioxide 15 L (22-30) mmol/L BUN 33 H (7-17) mg/dL Creatinine 1.38 H (0.52-1.04) mg/dL Plasma Lactic Acid Adriano (0.7-2.0) mmol/L Calcium 7.4 L (8.4-10.2) mg/dL Urine Nitrite Positive H (Negative) Ur Leukocyte Esterase Moderate H (Negative) Urine WBC 20 H (0-5) /hpf Urine WBC Clumps Few H (None) /hpf Urine Bacteria Occasional H (None) /hpf Urine Mucus Rare H (None) /hpf 02/22/23 02/23/23 Range/Units 15:07 06:02 MCV (80.0-100.0) fL MCHC (31.0-37.0) g/dL Chloride 113 H (98-107) mmol/L Carbon Dioxide 18 L (22-30) mmol/L BUN 30 H (7-17) mg/dL Creatinine 1.40 H (0.52-1.04) mg/dL Plasma Lactic Acid Adriano 0.6 L (0.7-2.0) mmol/L Calcium 7.0 L (8.4-10.2) mg/dL Urine Nitrite (Negative) Ur Leukocyte Esterase (Negative) Urine WBC (0-5) /hpf Urine WBC Clumps (None) /hpf Urine Bacteria (None) /hpf Urine Mucus (None) /hpf Thrombosis Risk Factor Assmnt - Choose All That Apply Any of the Below Risk Factors Present?: Yes Each Factor Represents 1 point: Obesity (BMI >25) Other Risk Factors: Yes Each Risk Factor Represents 2 Points: Age 61-74 years, Patient confined to bed Each Risk Factor Represents 3 Points: Family history of DVT/PE Thrombosis Risk Factor Assessment Total Risk Factor Score: 8 Thrombosis Risk Factor Assessment Level: High Risk
[2023-02-23] MEDS ORDERED: FOLIC ACID 1 MG TAB PO SCH (21:00)
[2023-02-23] MEDS ORDERED: MELATONIN 5 MG TABLET PO SCH (21:00)
[2023-02-23] MEDS ORDERED: diphenhydrAMINE 50 MG CAP PO SCH (21:00)
[2023-02-23] MEDS: ZOLPIDEM 5 MG TAB PO SCH (21:39)
[2023-02-24] MEDS: ACETAMINOPHEN TAB 500 MG TAB PO SCH ×3 (05:23→18:05)
[2023-02-24] MEDS: DEXTROSE 5% IN WATER 1,000 ML with SODIUM BICARB (1 MEQ/ML) 100 ML IV SCH (05:24)
[2023-02-24] MEDS: allopurinoL 100 MG TAB PO SCH (09:53)
[2023-02-24] MEDS: CITALOPRAM HYDROBROMIDE 20 MG TAB PO SCH (09:54)
[2023-02-24] MEDS: CYCLOBENZAPRINE 5 MG TAB PO SCH ×3 (09:54→21:30)
[2023-02-24] MEDS: ENOXAPARIN 40 MG/0.4 ML SYRINGE SQ SCH (09:54)
[2023-02-24] MEDS: ERGOCALCIFEROL 1,250 MCG (50,000 IU) CAPSULE PO SCH (09:55)
[2023-02-24] MEDS: NAPROXEN 250 MG TAB PO SCH (09:55)
[2023-02-24] MEDS: PRIMIDONE 25 MG TAB PO SCH ×3 (09:58→21:31)
--- NOTE | 2023-02-24 14:35 | P.PN ---
Subjective Progress Note Date: 02/24/23 The patient seen at bedside and she feels about the same. Denies of any new neurological issues. Objective - Vital Signs Vital signs: Vital Signs Temp 98.3 F 02/24/23 13:25 Pulse 81 02/24/23 13:25 Resp 20 02/24/23 13:25 BP 131/83 02/24/23 13:25 Pulse Ox 99 02/24/23 11:40 FiO2 Intake & Output 02/23/23 02/24/23 02/24/23 18:59 06:59 18:59 Intake Total 80 500 Output Total 2450 1200 Balance -2370 500 -1200 Weight 77.111 kg Intake: Oral 80 500 Output: Urine 2450 300 Urine/Stool Mix 900 Other: Voiding Method Indwelling Catheter Bedside Commode Bedside Commode # Voids 1 2 # Bowel Movements 1 1 - Exam GENERAL: The patient is sitting in a chair having lunch and not in acute distress. NEUROLOGICAL: Higher mental function: The patient is awake, alert, oriented to self, place and time. Somewhat slow responding to questioning. Patient is following simple commands. No aphasia and no neglect. Cranial nerves: The pupils are round, equal and reactive to light and accommodation. Visual dutta are full to confrontation throughout. Extraocular movement is intact no nystagmus is noted. Facial sensation is normal to touch throughout. The facial strength is normal throughout. Hearing is moderately decreased bilaterally to hand rub. Tongue is midline and moved [id number] without any difficulty. No dysarthria is noted. Shoulder shrug is normal bilaterally. Motor: The strength is had left ankle dorsiflexion, eversion and eversion weakness about 1. Left plantar flexion is 4+. Otherwise 5 over 5 throughout. Normal tone and bulk. Cerebellum: Normal finger to nose bilaterally. Sensation: Sensation is normal to touch throughout. Reflexes (right/left): 2+ uppers. Patellar are 1+, ankles are 0. Plantars are mute bilaterally. Some of the workup during our hospital visit consisted of: CT of the lumbar spine is reported as no evidence of for spinal fracture. - Labs CBC & Chem 7: 02/22/23 15:07 02/23/23 06:02 Assessment and Plan Assessment: This is a 72-year-old woman who has chronic lower back pain but since this past Monday she has noticed the posterior lower back pain rating down all the way to the left lower extremity to the foot and has left foot weakness. Acute on chronic lower back pain with radiation to the left lower extremity with left to drop as well as weakness on eversion/inversion: Probable L5 lumbar radiculopathy Chronic lower back pain Essential tremor on primidone Plan: Pending MRI of the lumbar without to assess if patient has any significant stenosis Pending CT of the brain to rule out any acute subacute ischemic stroke Ordered Hembolgoing A1c to assess if has diabetes that can cause diabetic lumbosacral plexopathy. Recommend EMG with nerve conduction study as an outpatient to rule out any radiculopathy versus plexopathy. Orthopedic surgery team is on board PT and OT are consulted We'll defer the rest of the medical management to primary team Plan discussed with the patient and Orthopedic N.P. Time with Patient: Less than 30
--- NOTE | 2023-02-24 15:05 | P.PN ---
Subjective Progress Note Date: 02/24/23 Principal diagnosis: Low back pain, left lower extremity weakness Patient was evaluated at bedside today, she is resting in her hospital bed, her is present at bedside. Patient states that the weakness in the left lower extremity remains same. She feels that the pain in her low back and left lower extremity is improved. She is having the MRI of her lumbar spine done later this afternoon. Currently he denies headaches, lightheadedness, chest pain or shortness of breath Objective - Vital Signs Vital signs: Vital Signs Temp 98.3 F 02/24/23 13:25 Pulse 81 02/24/23 13:25 Resp 20 02/24/23 13:25 BP 131/83 02/24/23 13:25 Pulse Ox 99 02/24/23 11:40 FiO2 Intake & Output 02/23/23 02/24/23 02/24/23 18:59 06:59 18:59 Intake Total 80 500 Output Total 2450 1200 Balance -2370 500 -1200 Weight 77.111 kg Intake: Oral 80 500 Output: Urine 2450 300 Urine/Stool Mix 900 Other: Voiding Method Indwelling Catheter Bedside Commode Bedside Commode # Voids 1 2 # Bowel Movements 1 1 - Exam Gen: AOx3, NAD VSS stable at this time Integument: No obvious open lesions, sores, redness or areas of swelling noted throughout the cervical, thoracic or lumbar spine Palpation: Nontender with palpation of both the midline and paraspinal region of the cervical and thoracic spine. She does demonstrate some discomfort on the right sided paraspinal and SI joint region with palpation ROM: Full range of motion in all major muscle groups in the bilateral upper extremities, no focal deficits Range of motion intact bilaterally in the lower extremities with hip flexion, knee extension, knee flexion, plantar flexion, FHL Dorsiflexion and EHL are very limited on the left lower extremity, intact on the right lower extremity Sensory Exam: Senory exam to light touch is intact C5-T1 Senosry exam to light touch is intact L2-S1, dermatomal defect noted on the left-hand side L4-L5, L5-S1, L5-S1 right-sided Motor: 4/5 strength appreciated in the bilateral upper extremities with shoulder e levation, shoulder abduction, elbow extension, elbow flexion, wrist extension, 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, 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 4/5 strength appreciated in the right lower extremity with hip flexion, knee extension, knee flexion, plantar flexion, dorsiflexion, EHL, FHL 3+/5 strength in the left lower extremity with hip flexion, knee extension, knee flexion, plantar flexion, FHL, 2/5 dorsiflexion and EHL Reflexes: Negative Kevin's bilaterally Negative Babinski bilaterally Negative clonus bilaterally Special Test: Logroll maneuver bilaterally reproduces no pain Positive straight leg raise left side, negative straight leg raise right side - Labs CBC & Chem 7: 02/22/23 15:07 02/23/23 06:02 Assessment and Plan Assessment: Acute on chronic low back pain Sciatica, left-sided Left lower extremity weakness Urinary retention Urinary tract infection Chronic kidney disease with acute kidney injury Other medical comorbidities Plan: X-rays and computed tomography scan of the lumbar spine reveal no acute fractures or dislocations. Mild spondylitic changes throughout the lumbar spine. Awaiting results of the lumbar MRI PT/OT evaluation, recommend weightbear as tolerated with walker DVT prophylaxis per primary medical service Other medical reception recommendations appreciated Further recommendations to follow Time with Patient: Less than 30
--- NOTE | 2023-02-24 16:39 | P.PN ---
Progress Note - Text Progress Note Date: 02/24/23 Chief Complaint: Tired History of presenting complaint: 72-year-old patient, follows with Dr. Murillo, chronic stable medical conditions include fibromyalgia, memory impairment, rheumatoid arthritis, dumping syndrome, depression. baseline uses a walker. on primidone for familial tremors. Patient presented with multiple symptoms. What that lethargic. Eating well. Complaining of increasing back pain. Sometimes goes off easily. Goes out of bed. Some biopsies during the day. present at the bedside. No fever no chills. No change in bowel pattern. Diagnosis of metabolic encephalopathy from medications. Blood and was changed over to Flexeril. Ambien was cutback. Benadryl discontinued. Melatonin dose was cutback. Patient IV ceftriaxone for UTI. IV sodium bicarbonate drip for metabolic acidosis. For back pain orthopedics consulted. Patient had x-ray of the lumbar spine and computed tomography scan. Some arthritic changes. Seen by orthopedics Dr. Morrissey. MRI of the spine ordered. Patient slept for last night. Doing better today oral intake better. Back pain is actually better. Because of the renal function naproxen discontinued. Sleep hygiene reinforced. Active Medications Acetaminophen (Acetaminophen Tab 500 Mg Tab) 500 mg PO Q6HR [facility] Last Admin: 02/24/23 11:56 Dose: 500 mg Allopurinol (Allopurinol 100 Mg Tab) 100 mg PO DAILY [facility] Last Admin: 02/24/23 09:53 Dose: 100 mg Calcitriol (Calcitriol 0.25 Mcg Cap) 0.5 mcg PO [id number] [facility] Last Admin: 02/24/23 09:54 Dose: 0.5 mcg Citalopram Hydrobromide (Citalopram Hydrobromide 20 Mg Tab) 40 mg PO DAILY [facility] Last Admin: 02/24/23 09:54 Dose: 40 mg Cyclobenzaprine HCl (Cyclobenzaprine 5 Mg Tab) 5 mg PO TID [facility] Last Admin: 02/24/23 09:54 Dose: 5 mg Enoxaparin Sodium (Enoxaparin 40 Mg/0.4 Ml Syringe) 40 mg SQ DAILY [facility] Last Admin: 02/24/23 09:54 Dose: 40 mg Ergocalciferol (Ergocalciferol 1,250 Mcg (50,000 Iu) Capsule) 1,250 mcg PO [id number] [facility] Last Admin: 02/24/23 09:55 Dose: 1,250 mcg Famotidine (Famotidine 20 Mg Tab) 10 mg PO DAILY PRN PRN Reason: Heartburn Folic Acid (Folic Acid 1 Mg Tab) 1 mg PO [facility] Last Admin: 02/23/23 21:36 Dose: 1 mg Ceftriaxone Sodium 2 gm/ (Sodium Chloride) 50 mls @ 100 mls/hr IVPB Q24HR [facility]; Protocol Last Admin: 02/24/23 09:01 Dose: 100 mls/hr Sodium Bicarbonate 100 ml/ (Dextrose/Water) 1,100 mls @ 100 mls/hr IV .Q11H [facility] Last Admin: 02/24/23 05:24 Dose: 100 mls/hr Melatonin (Melatonin 5 Mg Tablet) 5 mg PO [facility] Last Admin: 02/23/23 21:36 Dose: 5 mg Primidone (Primidone 25 Mg Tab) 25 mg PO TID [facility] Last Admin: 02/24/23 09:58 Dose: 25 mg Zolpidem Tartrate (Zolpidem 5 Mg Tab) 2.5 mg PO [facility] Last Admin: 02/23/23 21:39 Dose: 2.5 mg Past medical history to include: Fibromyalgia, cognitive impairment, rheumatoid arthritis, dumping syndrome, depression, familial tremors, sleep disorder Social history: . No smoking. No alcohol Family history: Cancer On examination: VITAL SIGNS: 98.3, 91, 20, 09/20/1982, 99% room air GENERAL APPEARANCE: Looking better, sitting the edge of the bed EYES: Pupils equal. Conjunctiva normal. NECK: JVD not raised. Mass not palpable. RESPIRATORY: Respiratory effort normal. Lungs clear to auscultation. CARDIOVASCULAR: First and second sounds normal. No edema. ABDOMEN: Soft. Liver and spleen not palpable. No tenderness. No mass palpable. MUSCULAR skeletal: Evidence of OA . NEUROLOGICAL: Cranial nerves grossly intact. Positive sensation grossly intact. Decreased sensorium PSYCHIATRY: answer but can answer questions appropriately INVESTIGATIONS, reviewed in the clinical context: WBC 5.8 hemoglobin 12.2 platelets 205 sodium 140 potassium 4.3 bicarb 15 BUN 33 creatinine 1.38 UA positive for nitrite, leukoesterase WBC EKG tracing personally reviewed by me-normal sinus rhythm Chest x-ray film personally reviewed by me-unremarkable Lumbar spine x-ray: Advanced facet arthropathy at L3 S1 anterolisthesis L4. Suspect foraminal encroachment. Lumbar CT: Sacralization of L5. Grade 1 anterolisthesis L4 and L5 Assessment and plan: -Acute metabolic encephalopathy, from several medications that would explain patient's drowsiness. Also underlying infection.: By Change baclofen to Flexeril. Change Ambien to 2.5 mg daily at bedtime. Reduce melatonin to 5 mg. DC Benadryl. -Acute UTI with cystitis IV ceftriaxone. Changed to oral Keflex -Acute on chronic lower back pain. Flexeril. K pad. NSAID stopped because of renal function. Add steroid. X-ray computed tomography scan lumbar spine noted. Showing arthritis. Seen by Dr. Morrissey. MRI lumbar spine ordered. -Chronic kidney disease stage III likely nephrosclerosis Follow renal function -Acute metabolic acidosis due to CK D: IV sodium bicarbonate drip -Chronic rheumatoid arthritis Follow clinically -Chronic fibromyalgia Flexeril. -Moderate cognitive impairment Follow clinically -Chronic medical debility PTOT -Anemia of chronic disease mainly CK D Follow H&H -Chronic dumping syndrome -Depression not otherwise specified Celexa 40 mg daily at bedtime -Chronic insomnia, : sleeps cycle disturbance Sleep hygiene . Medications discussed. -Chronic, familial tremor primidone 25 mg 3 times a day Back pain is better. MRI spine ordered by orthopedics. Naproxen stopped because of renal function. Bicarbonate drip to continue. Repeat labs tomorrow.
[2023-02-24] MEDS: CEPHALEXIN 500 MG CAP PO SCH ×2 (18:05→21:31)
--- NOTE | 2023-02-24 18:24 | MR ---
EXAMINATION TYPE: MR lumbar spine wo con DATE OF EXAM: 02/24/2023 5:58 PM COMPARISON: CT lumbar spine 02/23/2023. CLINICAL INDICATION: Female, 72 years old with history of low back pain with weakness left foot; Low back pain with weakness left foot TECHNIQUE: Multi planar, multi sequence imaging was performed utilizing: T1-weighted, T2-weighted, a nd turbo inversion recovery imaging of the lumbar spine. IV Contrast: None. FINDINGS: Alignment: The lumbar vertebral bodies have preserved heights. There is sacralization of L5 vertebrae . Grade 1 anterolisthesis of L4 and L5. Cord: The conus medullaris and the distal spinal cord appear unremarkable with regards to their signa l intensity and morphology. Bones/Discs: High T1 high T2 signal L1 vertebral body hemangioma. There is sacralization of L5 verteb hillary. The remainder of the bone marrow signal is relatively unremarkable. No abnormal inversion recove ry bony edema. Scattered osteophytes disc space narrowing and facet joint arthropathy is present. T12-L1: No evidence of significant spinal canal stenosis or neural foraminal stenosis. L1-L2: No evidence of significant spinal canal stenosis or neural foraminal stenosis. L2-L3: No evidence of significant spinal canal stenosis or neural foraminal stenosis. L3-L4: No evidence of significant spinal canal stenosis or neural foraminal stenosis. L4-L5: Disc uncovering from grade 1 anterolisthesis and facet joint arthropathy with mild spinal angel l stenosis and moderate left and mild right neural foraminal stenosis. L5-S1: Sacralization of the L5 vertebrae with no evidence for significant spinal canal or neural fora jesusita stenosis. No significant spinal canal or neural foraminal stenosis in the remainder of the visualized levels. Other findings: Extra renal pelves are seen bilaterally. IMPRESSION: 1. No definitive evidence of disc herniation or significant spinal canal stenosis. 2. Mild to moderate disc degeneration with associated osteoarthritic changes. 3. Grade 1 anterolisthesis of L4 and L5 with moderate left and mild right neural foraminal stenosis.
--- NOTE | 2023-02-24 18:27 | CT ---
EXAMINATION TYPE: CT brain wo con CT DLP: 1284 mGycm, Automated exposure control for dose reduction was used. DATE OF EXAM: 02/24/2023 5:39 PM COMPARISON: 04/27/2021. CLINICAL INDICATION:Female, 72 years old with history of left foot weakness., Left foot weakness and generalized weakness. TECHNIQUE: Brain: Axial CT images of the brain were obtained with coronal and sagittal reformats created and rev iewed. Contrast used: None. Oral contrast used: None. FINDINGS: Brain: Extra-axial spaces: No abnormal extra-axial fluid collections. Ventricular system: Within normal limits Cerebral parenchyma: No acute intraparenchymal hemorrhage or mass effect. The ren-white junction is well differentiated. Cerebellum: Unremarkable. Mass effect: No evidence of midline shift. Intracranial vasculature: Atherosclerotic calcifications of the intracranial vessels. Soft tissues: Normal. Calvarium/osseous structures: No depressed skull fracture. Paranasal sinuses and mastoid air cells: Mild scattered paranasal sinus disease. Visualized orbits: Bilateral aphakia IMPRESSION: No acute intracranial process.
--- NOTE | 2023-02-24 19:37 | P.PN ---
Subjective Patient is seen for f/u for ALISHA on top of CKD. S/p MRI spine. Voiding well. Labs pending from today. Objective - Vital Signs Vital signs: Vital Signs Temp 98.3 F 02/24/23 19:10 Pulse 96 02/24/23 19:10 Resp 16 02/24/23 19:10 BP 137/86 02/24/23 19:10 Pulse Ox 95 02/24/23 19:10 FiO2 Intake & Output 02/24/23 02/24/23 02/25/23 06:59 18:59 06:59 Intake Total 500 Output Total 1200 Balance 500 -1200 Intake: Oral 500 Output: Urine 300 Urine/Stool Mix 900 Other: Voiding Method Bedside Commode Bedside Commode # Voids 1 1 # Bowel Movements 1 1 - Exam Awake, comfortable. On bedside commode. Lungs are clear. CVS S1 and S2 Abdomen is soft, non tender. Extremities show no edema. - Labs CBC & Chem 7: 02/22/23 15:07 02/23/23 06:02 Assessment and Plan Assessment: 1. Acute kidney injury, ATN, nonoliguric associated with hypovolemia and some degree of hypotension as well as urine retention. No nephrotoxic agents noted. Patient had 1000 mL of urine obtained on Mcdaniel catheter placement. Now removed. 2. Volume depletion 3. Non-gap metabolic acidosis associated with acute kidney injury currently maintained on bicarb drip and improving 4. CK D stage III 8 secondary to nephrosclerosis with baseline creatinine around 1.2-1.3 mg/dL. 5. Pyuria rule out UTI Plan: Monitor post void residual Check ultrasound of the kidneys Repeat labs Continue with bicarb drip for now
[2023-02-24] MEDS: MELATONIN 5 MG TABLET PO SCH (21:30)
[2023-02-24] MEDS: FOLIC ACID 1 MG TAB PO SCH (21:30)
[2023-02-24] MEDS: ZOLPIDEM 5 MG TAB PO SCH (21:30)
[2023-02-25] MEDS: ACETAMINOPHEN TAB 500 MG TAB PO SCH ×3 (00:02→13:58)
[2023-02-25] MEDS: DEXTROSE 5% IN WATER 1,000 ML with SODIUM BICARB (1 MEQ/ML) 100 ML IV SCH ×2 (00:04→08:16)
[2023-02-25 05:22] LABS: African American GFR (CKD) 47 (>60 ml/min/1.73 sqM); Anion Gap 9 mmol/L; Blood Urea Nitrogen 17 mg/dL (7-17); Calcium 7.6 mg/dL (8.4-10.2); Carbon Dioxide 26 mmol/L (22-30); Chloride 105 mmol/L (98-107); Glucose 107 mg/dL (74-99); Non-African American GFR(CKD) 40 (>60 ml/min/1.73 sqM); Potassium 3.6 mmol/L (3.5-5.1); Sodium 140 mmol/L (137-145)
[2023-02-25 07:52] VITALS: BP 132/81; PULSE 85; RESP 18; TEMP 98.4
[2023-02-25] MEDS: PRIMIDONE 25 MG TAB PO SCH (08:28)
[2023-02-25] MEDS: allopurinoL 100 MG TAB PO SCH (08:28)
[2023-02-25] MEDS: CITALOPRAM HYDROBROMIDE 20 MG TAB PO SCH (08:28)
[2023-02-25] MEDS: CEPHALEXIN 500 MG CAP PO SCH (08:28)
[2023-02-25] MEDS: ENOXAPARIN 40 MG/0.4 ML SYRINGE SQ SCH (08:28)
[2023-02-25] MEDS: CYCLOBENZAPRINE 5 MG TAB PO SCH (08:28)
--- NOTE | 2023-02-25 09:47 | P.PN ---
Subjective Progress Note Date: 02/25/23 Principal diagnosis: Low back pain, left lower extremity weakness Patient was evaluated at bedside today, she is resting in her hospital bed. Patient looks more medically stable today at bedside. She has been working on basic range of motion with the left lower extremity assisting with the right lower extremity. She states that the back pain has continued to improve. Curre ntly he denies headaches, lightheadedness, chest pain or shortness of breath Objective - Vital Signs Vital signs: Vital Signs Temp 98.4 F 02/25/23 07:27 Pulse 85 02/25/23 07:27 Resp 18 02/25/23 07:27 BP 132/81 02/25/23 07:27 Pulse Ox 97 02/25/23 07:27 FiO2 Intake & Output 02/24/23 02/25/23 02/25/23 18:59 06:59 18:59 Output Total 1200 Balance -1200 Output: Urine 300 Urine/Stool Mix 900 Other: Voiding Method Bedside Commode Bedside Commode # Voids 1 3 # Bowel Movements 1 4 - Exam Gen: AOx3, NAD VSS stable at this time Integument: No obvious open lesions, sores, redness or areas of swelling noted throughout t he cervical, thoracic or lumbar spine Palpation: Nontender with palpation of both the midline and paraspinal region of the cervical and thoracic spine. She does demonstrate some discomfort on the right sided paraspinal and SI joint region with palpation ROM: Full range of motion in all major muscle groups in the bilateral upper extremities, no focal deficits Range of motion intact bilaterally in the lower extremities with hip flexion, knee extension, knee flexion, plantar flexion, FHL Dorsiflexion and EHL are very limited on the left lower extremity, intact on the right lower extremity Sensory Exam: Senory exam to light touch is intact C5-T1 Senosry exam to light touch is intact L2-S1, dermatomal defect noted on the left-hand side L4-L5, L5-S1, L5-S1 right-sided Motor: 4/5 strength appreciated in the bilateral upper extremities with shoulder elevation, shoulder abduction, elbow extension, elbow flexion, wrist extension, 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, 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 4/5 strength appreciated in the right lower extremity with hip flexion, knee extension, knee flexion, plantar flexion, dorsiflexion, EHL, FHL 3+/5 strength in the left lower extremity with hip flexion, knee extension, knee flexion, plantar flexion, FHL, 2/5 dorsiflexion and EHL Reflexes: Negative Kevin's bilaterally Negative Babinski bilaterally Negative clonus bilaterally Special Test: Logroll maneuver bilaterally reproduces no pain Positive straight leg raise left side, negative straight leg raise right side - Labs CBC & Chem 7: 02/22/23 15:07 02/25/23 04:52 Labs: Abnormal Lab Results - Last 24 Hours (Table) 02/25/23 Range/Units 04:52 Creatinine 1.32 H (0.52-1.04) mg/dL Glucose 107 H (74-99) mg/dL Calcium 7.6 L (8.4-10.2) mg/dL Assessment and Plan Assessment: Grade 1 L4-L5 spondylolisthesis Mild central canal stenosis L4-L5, L5-S1 Acute on chronic low back pain Sciatica, left-sided Left lower extremity weakness Urinary retention Urinary tract infection Chronic kidney disease with acute kidney injury Other medical comorbidities Plan: I was able to review the images of the MRI of the lumbar spine with attending Dr. Morrissey. Findings suggest no need for emergent or urgent orthopedic spine surgical intervention Recommend use of either IV or oral steroids to aid in symptoms. Also consider consult to pain management for possible JUANITA PT/OT evaluation, recommend weightbear as tolerated with walker DVT prophylaxis per primary medical service Other medical insurance collector recommendations appreciated Discharge planning: Orthopedically the patient remained stable, recommending follow-up in the outpatient setting on an as-needed basis with Dr. Morrissey. Time with Patient: Less than 30
--- NOTE | 2023-02-25 10:33 | P.PN ---
Subjective Progress Note Date: 02/25/23 Patient is seen at bedside and she feels about the same. Objective - Vital Signs Vital signs: Vital Signs Temp 98.4 F 02/25/23 07:27 Pulse 85 02/25/23 07:27 Resp 18 02/25/23 07:27 BP 132/81 02/25/23 07:27 Pulse Ox 97 02/25/23 07:27 FiO2 Intake & Output 02/24/23 02/25/23 02/25/23 18:59 06:59 18:59 Output Total 1200 Balance -1200 Output: Urine 300 Urine/Stool Mix 900 Other: Voiding Method Bedside Commode Bedside Commode Bedside Commode # Voids 1 3 # Bowel Movements 1 4 - Exam GENERAL: The patient is sitting in a chair having lunch and not in acute distress. NEUROLOGICAL: Higher mental function: The patient is awake, alert, oriented to self, place and time. Somewhat slow responding to questioning. Patient is following simple commands. No aphasia and no neglect. Cranial nerves: The pupils are round, equal and reactive to light and accommodation. Visual dutta are full to confrontation throughout. Extraocular movement is intact no nystagmus is noted. Facial sensation is normal to touch throughout. The facial strength is normal throughout. Hearing is moderately decreased bilaterally to hand rub. Tongue is midline and moved [id number] without any difficulty. No dysarthria is noted. Shoulder shrug is normal bilaterally. Motor: The strength is had left ankle dorsiflexion, eversion and eversion weakness about 1. Left plantar flexion is 4+. Otherwise 5 over 5 throughout. Normal tone and bulk. Cerebellum: Normal finger to nose bilaterally. Sensation: Sensation is normal to touch throughout. Reflexes (right/left): 2+ uppers. Patellar are 1+, ankles are 0. Plantars are mute bilaterally. Some of the workup during our hospital visit consisted of: Hemoglobin A1c is 4.7. CT of the lumbar spine is reported as no evidence of for spinal fracture. CT of the brain is reported as no acute intracranial process. I personally reviewed the CT and I agree with the report. MRI of lumbar spine it's reported as no definite evidence of disc herniation or significant spinal canal stenosis. Mild to moderate disc degeneration with associated osteoarthritic changes. Grade 1 anterior lithiasis of L4 and L5 with moderate left mild right neuroforaminal stenosis - Labs CBC & Chem 7: 07/05/23 15:07 02/25/23 04:52 Labs: Abnormal Lab Results - Last 24 Hours (Table) 02/25/23 Range/Units 04:52 Creatinine 1.32 H (0.52-1.04) mg/dL Glucose 107 H (74-99) mg/dL Calcium 7.6 L (8.4-10.2) mg/dL Assessment and Plan Assessment: This is a 72-year-old woman who has chronic lower back pain but since this past Monday she has noticed the posterior lower back pain rating down all the way to the left lower extremity to the foot and has left foot weakness. Acute on chronic lower back pain with radiation to the left lower extremity with left to drop as well as weakness on eversion/inversion: Probable L5 lumbar radiculopathy. MRI of the lumbar shows moderate left L4-L5 neural foraminal stenosis. CT of the brain is negative for any acute or subacute ischemia. Chronic lower back pain Essential tremor on primidone Plan: I ordered MRI of the brain without stat to rule out any acute or subacute ischemia contributing to the patient's left foot drop. She is requesting to go home today. I notified her we'll attempt to expedite this MRI to assess whether she had a stroke Recommend EMG with nerve conduction study as an outpatient to rule out any radiculopathy versus plexopathy. Orthopedic surgery team is on board PT and OT are consulted We'll defer the rest of the medical management to primary team Recommend the patient to follow-up with a neurologist as outpatient within 1-2 weeks. Plan discussed with the patient and her was at bedside. Also the plan was discussed with her nurse. Time with Patient: Less than 30
--- NOTE | 2023-02-25 10:42 | P.PN ---
Subjective Patient is seen in follow-up for acute kidney injury on chronic any disease. Renal function stable. Has been voiding. Receiving IV fluids. Acidosis improved. Admits to chronic diarrhea. Vital signs are stable. General: No acute distress. HEENT: Head exam is unremarkable. LUNGS: No audible rhonchi or wheezes. HEART: Rate and Rhythm are regular. ABDOMEN: Nontender. EXTREMITITES: No edema. Objective - Vital Signs Vital signs: Vital Signs Temp 98.4 F 02/25/23 07:27 Pulse 85 02/25/23 07:27 Resp 18 02/25/23 07:27 BP 132/81 02/25/23 07:27 Pulse Ox 97 02/25/23 07:27 FiO2 Intake & Output 02/24/23 02/25/23 02/25/23 18:59 06:59 18:59 Output Total 1200 Balance -1200 Output: Urine 300 Urine/Stool Mix 900 Other: Voiding Method Bedside Commode Bedside Commode Bedside Commode # Voids 1 3 # Bowel Movements 1 4 - Labs CBC & Chem 7: 02/22/23 15:07 02/25/23 04:52 Labs: Abnormal Lab Results - Last 24 Hours (Table) 02/25/23 Range/Units 04:52 Creatinine 1.32 H (0.52-1.04) mg/dL Glucose 107 H (74-99) mg/dL Calcium 7.6 L (8.4-10.2) mg/dL Assessment and Plan Plan: Assessment: 1. Acute kidney injury secondary to ATN secondary to hypovolemia and hypot ension. Renal function fairly stable this admission. Creatinine 1.32 today. No proteinuria on UA. 2. Chronic kidney disease stage IIIa secondary to nephrosclerosis with baseline creatinine 1.2-1.3. 3. Metabolic acidosis secondary to acute kidney injury and GI losses improved with bicarb drip. 4. Chronic kidney disease mineral bone disease maintained on calcitriol. Plan: Hep-Lock IV fluids. Encourage oral intake. Check renal ultrasound. Follow up outpatient in 1-2 weeks post discharge.
--- NOTE | 2023-02-25 12:22 | US ---
EXAMINATION TYPE: US kidneys/renal and bladder DATE OF EXAM: 02/25/2023 COMPARISON: Renal ultrasound 01/17/2021 CLINICAL INDICATION: Female, 72 years old with history of orin; UTI EXAM MEASUREMENTS: Right Kidney: 8.4 x 3.0 x 4.0 cm Left Kidney: 7.8 x 2.9 x 4.1 cm Right Kidney: No hydronephrosis or masses seen, small in size Left Kidney: No hydronephrosis or masses seen, small in size but bowel gas limited views Bladder: wnl There is no evidence for hydronephrosis at this point in time. No nephrolithiasis is seen. Cortical medullary differentiation is maintained bilaterally. No masses are identified. The urinary bladder i s anechoic. IMPRESSION: No hydronephrosis or nephrolithiasis.
--- NOTE | 2023-02-25 12:30 | MR ---
EXAMINATION TYPE: MR brain wo con DATE OF EXAM: 02/25/2023 12:16 PM COMPARISON: 10/10/2016. CLINICAL INDICATION:Female, 72 years old with history of left foot drop. stroke; Left foot drop, str johnny TECHNIQUE: Multi planar, multi sequence imaging was performed through the brain including: T1, T2, In version recovery, Diffusion weighted imaging, and gradient echo imaging. No gadolinium was given. FINDINGS: Ventricular dilatation in proportion to cerebral atrophy. Scattered foci of high T2 signal intensity are seen within the periventricular white matter. Midline structures show no abnormality. Diffusion-w eighted imaging shows no evidence of restricted diffusion. The susceptibility weighted images do not reveal any evidence for micro-hemorrhage. The bone marrow signal is within normal limits. Paranasal sinuses and mastoid air cells: No significant paranasal sinus disease. Trace high T2 signal right mastoid air cells. Visualized orbits: Bilateral aphakia IMPRESSION: 1. No evidence of intracranial mass or acute/subacute infarct. 2. Nonspecific white matter changes, likely secondary to small vessel ischemic disease.
--- NOTE | 2023-02-25 14:02 | P.DS ---
Providers Date of admission: 02/22/23 18:04 Expected date of discharge: 02/25/23 Attending physician: Martin Bateman Consults: 02/22/23 17:52 Consult Physician Urgent Consulting Provider: Charles Hoffman Consult Reason/Comments: Generalized weakness Do you want consulting provider notified?: Yes 02/23/23 11:48 Consult Physician Routine Consulting Provider: Kyle Morrissey Consult Reason/Comments: LOW BACK PAIN Do you want consulting provider notified?: Yes 02/24/23 20:13 Consult Physician Routine Consulting Provider: Jaylene Eden Consult Reason/Comments: CK D Do you want consulting provider notified?: Yes Primary care physician: [facility] Course: Chief Complaint: Tired History of presenting complaint: 72-year-old patient, follows with Dr. Murillo, chronic stable medical conditions include fibromyalgia, memory impairment, rheumatoid arthritis, dumping syndrome, depression. baseline uses a walker. on primidone for familial tremors. Patient presented with multiple symptoms. What that lethargic. Eating well. Complaining of increasing back pain. Sometimes goes off easily. Goes out of bed. Some biopsies during the day. present at the bedside. No fever no chills. No change in bowel pattern. Diagnosis of metabolic encephalopathy from medications. Blood and was changed over to Flexeril. Ambien was cutback. Benadryl discontinued. Melatonin dose was cutback. Patient IV ceftriaxone for UTI. IV sodium bicarbonate drip for metabolic acidosis. For back pain orthopedics consulted. Patient had x-ray of the lumbar spine and computed tomography scan. Some arthritic changes. Seen by orthopedics Dr. Morrissey. MRI of the spine ordered. Patient slept for last night. Doing better today oral intake better. Back pain is actually better. Because of the renal function naproxen discontinued. Sleep hygiene reinforced. February 25: Back pain much better. Able to walk to the bathroom. Very keen to go home. Medications discussed at length with the patient has been at the bedside. MRI brain unremarkable. Patient follow-up with Dr. Morrissey outpatient. MRI lumbar spine showing chronic changes. Sleep hygiene discussed at length. Complete a course of Keflex for the UTI. Discussion and discharge planning more than 35 minutes Past medical history to include: Fibromyalgia, cognitive impairment, rheumatoid arthritis, dumping syndrome, depression, familial tremors, sleep disorder Social history: . No smoking. No alcohol Family history: Cancer On examination: VITAL SIGNS: 98.4, 95, 18, 132/81, 97% room air GENERAL APPEARANCE: Up in a chair, comfortable EYES: Pupils equal. Conjunctiva normal. NECK: JVD not raised. Mass not palpable. RESPIRATORY: Respiratory effort normal. Lungs clear to auscultation. CARDIOVASCULAR: First and second sounds normal. No edema. ABDOMEN: Soft. Liver and spleen not palpable. No tenderness. No mass palpable. MUSCULAR skeletal: Evidence of OA . NEUROLOGICAL: Cranial nerves grossly intact. Positive sensation grossly intact. Decreased sensorium PSYCHIATRY: Answering questions appropriately mood affect normal INVESTIGATIONS, reviewed in the clinical context: Ultrasound kidney: Unremarkable Brain MRI: Nonspecific white matter changes. CT brain: Unremarkable Lumbar spine MRI: Some disc DJD. With OA changes. Grade 1 anterolisthesis of L4-L5. Moderate left and right neuroforaminal stenosis. February 25: Potassium 3.6 BUN 17 creatinine 1.3 to WBC 5.8 hemoglobin 12.2 platelets 205 sodium 140 potassium 4.3 bicarb 15 BUN 33 creatinine 1.38 UA positive for nitrite, leukoesterase WBC EKG tracing personally reviewed by me-normal sinus rhythm Chest x-ray film personally reviewed by me-unremarkable Lumbar spine x-ray: Advanced facet arthropathy at L3 S1 anterolisthesis L4. Suspect foraminal encroachment. Lumbar CT: Sacralization of L5. Grade 1 anterolisthesis L4 and L5 Assessment and plan: -Acute metabolic encephalopathy, from several medications that would explain patient's drowsiness. Also underlying infection.: Much improved baclofen changed to Flexeril. Cutback Ambien to 2.5 mg daily at bedtime. Reduce melatonin to 5 mg. DC Benadryl. -Acute UTI with cystitis IV ceftriaxone. Changed to oral Keflex-complete course -Acute on chronic lower back pain. Flexeril. K pad. NSAID stopped because of renal function. : Better X-ray computed tomography scan lumbar spine noted. Showing arthritis. Seen by Dr. Morrissey. MRI lumbar spine results noted. Follow-up outpatient. -Chronic kidney disease stage III likely nephrosclerosis Follow Flagyl patient -Acute metabolic acidosis due to CK D:: Improved IV sodium bicarbonate drip. Sodium bicarbonate tablets -Chronic rheumatoid arthritis Follow clinically -Chronic fibromyalgia Flexeril. -Moderate cognitive impairment Follow clinically -Chronic medical debility PTOT -Anemia of chronic disease mainly CK D Follow H&H -Chronic dumping syndrome -Depression not otherwise specified Celexa 40 mg daily at bedtime -Chronic insomnia, : sleeps cycle disturbance Sleep hygiene . Medications discussed. -Chronic, familial tremor primidone 25 mg 3 times a day Disposition: Home Labs: CBC BMP 1 week Plan - Discharge Summary Discharge Rx Participant: Yes New Discharge Prescriptions: New Zolpidem [Ambien] 2.5 mg PO HS #30 tab Cyclobenzaprine [Flexeril] 5 mg PO TID #90 tab Melatonin 5 mg PO HS #30 tab Cephalexin [Keflex] 500 mg PO QID #20 cap Acetaminophen Tab [Tylenol] 500 mg PO Q6HR tab Continue Citalopram Hydrobromide [CeleXA] 40 mg PO DAILY Primidone [Mysoline] 25 mg PO TID Cyanocobalamin [Vitamin B-12 Injection] 1,000 mcg IM Q21D allopurinoL [Zyloprim] 100 mg PO DAILY Folic Acid 1 mg PO HS calcitrioL [Calcitriol] 0.5 mcg PO MOWEFR Ergocalciferol [Vitamin D2 (1250 Mcg = 60282 Iu)] 1,250 mcg PO MOTUWETHFR Calcium Carbonate/Vitamin D3 [Calcium 600-Vit D3 10 mcg (400 Iu)] 1 tab PO DAILY Famotidine [Pepcid AC] 10 mg PO DAILY PRN PRN Reason: Heartburn Furosemide [Lasix] 20 mg PO DAILY PRN PRN Reason: swelling Changed Sodium Bicarbonate Tab 650 mg PO BID #0 Discontinued Potassium Chloride ER [K-Dur 20] 20 meq PO DAILY Melatonin 10 mg PO HS Baclofen [Lioresal] 20 mg PO TID PRN PRN Reason: Muscle Spasm Zolpidem [Ambien] 5 mg PO HS diphenhydrAMINE [Benadryl] 50 mg PO HS Discharge Medication List Citalopram Hydrobromide [CeleXA] 40 mg PO DAILY 10/08/16 [History] Cyanocobalamin [Vitamin B-12 Injection] 1,000 mcg IM Q21D 04/27/21 [History] Ergocalciferol [Vitamin D2 (1250 Mcg = 34821 Iu)] 1,250 mcg PO MOTUWETHFR 04/27/21 [History] Primidone [Mysoline] 25 mg PO TID 04/27/21 [History] Calcium Carbonate/Vitamin D3 [Calcium 600-Vit D3 10 mcg (400 Iu)] 1 tab PO DAILY 05/13/21 [History] Famotidine [Pepcid AC] 10 mg PO DAILY PRN 02/22/23 [History] Folic Acid 1 mg PO HS 02/22/23 [History] Furosemide [Lasix] 20 mg PO DAILY PRN 02/22/23 [History] allopurinoL [Zyloprim] 100 mg PO DAILY 02/22/23 [History] calcitrioL [Calcitriol] 0.5 mcg PO MOWEFR 02/22/23 [History] Acetaminophen Tab [Tylenol] 500 mg PO Q6HR tab 02/25/23 [Rx] Cephalexin [Keflex] 500 mg PO QID #20 cap 02/25/23 [Rx] Cyclobenzaprine [Flexeril] 5 mg PO TID #90 tab 02/25/23 [Rx] Melatonin 5 mg PO HS #30 tab 02/25/23 [Rx] Sodium Bicarbonate Tab 650 mg PO BID #0 02/25/23 [Rx] Zolpidem [Ambien] 2.5 mg PO HS #30 tab 02/25/23 [Rx] Follow up Appointment(s)/Referral(s): [facility],Equipment [NON-STAFF] - 1 Week Eldon Murillo MD [Primary Care Provider] - 1-2 days (call office on [facility] for follow up appt) Kyle Morrissey DO [Doctor of Osteopathic Medicine] - As Needed Patient Instructions/Handouts: Cephalexin (By mouth), Cyclobenzaprine (By mouth), Zolpidem (By mouth), Melatonin (By mouth), Urinary Tract Infection in Women (DC)
== END 2023-02-25 15:36 | disposition home or self-care (01) | DRG 689 ==
LOC: EC 14:27 → 5NMEDONC 18:04
PROVIDERS: ADMIT Hospitalist; ATTEND Hospitalist
DX: N30.90 Cystitis, unspecified without hematuria (principal); G92.8 Other toxic encephalopathy; N17.0 Acute kidney failure with tubular necrosis; E87.20 Acidosis, unspecified; G31.84 Mild cognitive impairment of uncertain or unknown etiology; R53.1 Weakness; E86.0 Dehydration; M79.7 Fibromyalgia; N18.30 Chronic kidney disease, stage 3 unspecified; M19.90 Unspecified osteoarthritis, unspecified site; M06.9 Rheumatoid arthritis, unspecified; M43.16 Spondylolisthesis, lumbar region; D63.8 Anemia in other chronic diseases classified elsewhere; N18.31 Chronic kidney disease, stage 3a; I25.10 Atherosclerotic heart disease of native coronary artery without angina pectoris; R33.8 Other retention of urine; M48.07 Spinal stenosis, lumbosacral region; M89.8X9 Other specified disorders of bone, unspecified site; T50.905A Adverse effect of unspecified drugs, medicaments and biological substances, initial encounter; I12.9 Hypertensive chronic kidney disease with stage 1 through stage 4 chronic kidney disease, or unspecified chronic kidney disease; E86.1 Hypovolemia; F32.A Depression, unspecified; F51.04 Psychophysiologic insomnia; G25.0 Essential tremor; G89.29 Other chronic pain; F41.0 Panic disorder [episodic paroxysmal anxiety]; Z98.84 Bariatric surgery status; M51.16 Intervertebral disc disorders with radiculopathy, lumbar region; E11.22 Type 2 diabetes mellitus with diabetic chronic kidney disease; I95.9 Hypotension, unspecified; K52.9 Noninfective gastroenteritis and colitis, unspecified; M47.897 Other spondylosis, lumbosacral region; K91.1 Postgastric surgery syndromes; X58.XXXA Exposure to other specified factors, initial encounter; Z79.82 Long term (current) use of aspirin; Z79.899 Other long term (current) drug therapy; Z87.440 Personal history of urinary (tract) infections; Z96.651 Presence of right artificial knee joint; Z90.49 Acquired absence of other specified parts of digestive tract; Z98.51 Tubal ligation status; Z87.19 Personal history of other diseases of the digestive system
CPT/HCPCS: 36415; 70450; 70551; 71046; 72110; 72131; 72148; 76770; 80048; 80053; 81001; 83036; 83605; 83735; 84484; 85025; 85610; 85730; 93005; 96361; 96374; 96375; 99285

== ENCOUNTER 2023-11-01 16:01 | Emergency (ER) | payer MEDICARE, BC ==
[2023-11-01 16:23] VITALS: TEMP 97.4
[2023-11-01] MEDS: DIPH,PERTUS(ACELL)TETVAC-LF 0.5 ML VIAL IM ONE (16:58)
[2023-11-01] MEDS: LIDOCAINE 1% INJ 10MG/ML (20 ML MDV) SQ ONE (17:36)
--- NOTE | 2023-11-01 17:49 | ED ---
Wound/Laceration HPI - General Chief Complaint: Wound/Laceration Stated Complaint: Ear Laceration Time Seen by Provider: 11/01/23 17:50 Source: patient, family, RN notes reviewed Mode of arrival: ambulatory Limitations: no limitations - History of Present Illness Initial Comments: Patient is a 73-year-old female presented to ER with a chief complaint of laceration. 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 She states she hit her right ear on a chair. She states she did hit her head denies loss of consciousness or blood thinner use. Denies any other injuries. No dizziness, chest pain, lightheadedness or shortness of breath prior to incident. No other complaints at this time. Tetanus status unknown. - Related Data Home Medications Medication Instructions Recorded Confirmed Citalopram Hydrobromide [CeleXA] 40 mg PO DAILY 10/08/16 02/22/23 Cyanocobalamin [Vitamin B-12 1,000 mcg IM Q21D 04/27/21 02/22/23 Injection] Ergocalciferol [Vitamin D2 (1250 1,250 mcg PO MOTUWETHFR 04/27/21 02/22/23 Mcg = 19755 Iu)] Primidone [Mysoline] 25 mg PO TID 04/27/21 02/22/23 Calcium Carbonate/Vitamin D3 1 tab PO DAILY 05/13/21 02/22/23 [Calcium 600-Vit D3 10 mcg (400 Iu)] Famotidine [Pepcid AC] 10 mg PO DAILY PRN 02/22/23 02/22/23 Folic Acid 1 mg PO HS 02/22/23 02/22/23 Furosemide [Lasix] 20 mg PO DAILY PRN 02/22/23 02/22/23 allopurinoL [Zyloprim] 100 mg PO DAILY 02/22/23 02/22/23 calcitrioL 0.5 mcg PO MOWEFR 02/22/23 02/22/23 Previous Rx's Medication Instructions Recorded Acetaminophen Tab [Tylenol] 500 mg PO Q6HR tab 02/25/23 Cephalexin [Keflex] 500 mg PO QID #20 cap 02/25/23 Cyclobenzaprine [Flexeril] 5 mg PO TID #90 tab 02/25/23 Melatonin 5 mg PO HS #30 tab 02/25/23 Sodium Bicarbonate Tab 650 mg PO BID #0 02/25/23 Zolpidem [Ambien] 2.5 mg PO HS #30 tab 02/25/23 Allergies Allergy/AdvReac Type Severity Reaction Status Date / Time No Known Allergies Allergy Verified 02/22/23 19:51 Review of Systems ROS Statement: Those systems with pertinent positive or pertinent negative responses have been documented in the HPI. ROS Other: All systems not noted in ROS Statement are negative. Past Medical History Past Medical History: Fibromyalgia, Memory Impairment, Rheumatoid Arthritis (RA) Additional Past Medical History / Comment(s): DUMPING SYNDROME, DDD, frequent UTI's History of Any Multi-Drug Resistant Organisms: None Reported Past Surgical History: Adenoidectomy, Appendectomy, Bowel Resection, Cholecystectomy, Joint Replacement, Tonsillectomy, Tubal Ligation Additional Past Surgical History / Comment(s): RT TKA COLONOSCOPY TILT TABLE TEST, D & C. Gastric Bypass - 40 years ago Past Anesthesia/Blood Transfusion Reactions: No Reported Reaction Past Psychological History: Depression, Panic Disorder Smoking Status: Never smoker - Past Family History Father Family Medical History: Cancer Sister(s) Family Medical History: Cancer Mother Family Medical History: Deep Vein Thrombosis (DVT) General Exam Limitations: no limitations General appearance: alert, in no apparent distress Head exam: Present: atraumatic, normocephalic, normal inspection Eye exam: Present: normal appearance, PERRL, EOMI. Absent: scleral icterus, conjunctival injection, periorbital swelling Pupils: Present: normal accommodation ENT exam: Present: normal exam, normal oropharynx, mucous membranes moist, other (2 cm laceration to right ear. No active bleeding.) Neck exam: Present: normal inspection. Absent: tenderness, meningismus, lymphadenopathy Respiratory exam: Present: normal lung sounds bilaterally. Absent: respiratory distress, wheezes, rales, rhonchi, stridor Cardiovascular Exam: Present: regular rate, normal rhythm, normal heart sounds. Absent: systolic murmur, diastolic murmur, rubs, gallop, clicks GI/Abdominal exam: Present: soft, normal bowel sounds. Absent: distended, tenderness, guarding, rebound, rigid Extremities exam: Present: normal inspection, full ROM, normal capillary refill. Absent: tenderness, pedal edema, joint swelling, calf tenderness Neurological exam: Present: alert, oriented X3, CN II-XII intact Psychiatric exam: Present: normal affect, normal mood Skin exam: Present: warm, dry, intact, normal color. Absent: rash Course Vital Signs 11/01/23 11/01/23 16:14 18:00 Temperature 97.4 F L Pulse Rate 75 87 Respiratory 16 18 Rate Blood Pressure 149/77 139/75 O2 Sat by Pulse 98 98 Oximetry Procedures - Laceration Laceration #1 Consent Obtained: verbal consent Indication: laceration Site: other (ear) Size (cm): 2 Description: linear Depth: simple, single layer Anesthetic Used: lidocaine 1% Anesthesia Technique: local infiltration Amount (mls): 2 Pre-repair: wound explored, irrigated extensively, deep structures intact Type of Sutures: nylon Size of Sutures: 5-0 Number of Sutures: 4 Technique: simple, interrupted Patient Tolerated Procedure: well, no complications Medical Decision Making - Medical Decision Making Was pt. sent in by a medical professional or institution (Dr. PA, PLAST[employer] FABRICATOR, urgent care, hospital, or skilled nursing...) When possible be specific @ -No Did you speak to anyone other than the patient for history (EMS, parent, family, police, friend...)? What history was obtained from this source @ - providing past medical history Did you review nursing and triage notes (agree or disagree)? Why? @ -I reviewed and agree with nursing and triage notes Were old charts reviewed (outside hosp., previous admission, EMS record, old EKG, old radiological studies, urgent care reports/EKG's, skilled nursing records)? Report findings @ -No old charts were reviewed Differential Diagnosis (chest pain, altered mental status, abdominal pain women, abdominal pain men, vaginal bleeding, weakness, fever, dyspnea, syncope, headache, dizziness, GI bleed, back pain, seizure, CVA, palpatations, mental health, musculoskeletal)? @ -Fracture, dislocation, contusion, hematoma, intracranial hemorrhage, concussion, abrasion, laceration this list does not like to be all-inclusive EKG interpreted by me (3pts min.). @ -None X-rays interpreted by me (1pt min.). @ -None done CT interpreted by me (1pt min.). @ -None done U/S interpreted by me (1pt. min.). @ -None done What testing was considered but not performed or refused? (CT, X-rays, U/S, labs)? Why? @ -CT brain C-spine considered due to fall and head injury, patient refused. What meds were considered but not given or refused? Why? @ -None Did you discuss the management of the patient with other professionals (professionals i.e. , PA, P[employer] FABRICATOR, lab, RT, psych nurse, social media project manager, pharmacy grad intern, teacher, hospital security officer, lining caser)? Give summary @ -No Was smoking cessation discussed for >3mins.? @ -No Was critical care preformed (if so, how long)? @ -No Were there social determinants of health that impacted care today? How? (Homelessness, low income, unemployed, alcoholism, drug addiction, transportation, low edu. Level, literacy, decrease access to med. care, retirement, rehab)? @ -No Was there de-escalation of care discussed even if they declined (Discuss DNR or withdrawal of care, Hospice)? DNR status @ -No What co-morbidities impacted this encounter? (DM, HTN, Smoking, COPD, CAD, Cancer, CVA, ARF, Chemo, Hep., AIDS, mental health diagnosis, sleep apnea, morbid obesity)? @ -None Was patient admitted / discharged? Hospital course, mention meds given and route, prescriptions, significant lab abnormalities, going to OR and other pertinent info. @ -Discharge. Patient is a 73-year-old female presented to ER with chief complaint of laceration. History and physical exam completed. Vitals stable. Patient no signs of acute distress and nontoxic-appearing. Patient did have a 2 cm laceration to right ear. No active bleeding. No acute neurologic findings on exam. Bilateral upper and lower extremities neurovascular intact. CT brain C-spine considered due to fall and head injury but patient refused. Patient closed using 4 simple interrupted sutures. Patient tolerated procedures well. Tetanus updated. Suture care and return parameters discussed. Advised suture removal in 5 to 7 days. Patient discharged in stable condition with follow-up to PCP. Patient expressed understanding and agreement with care plan. Case discussed with ED attending, Dr. Calix. Undiagnosed new problem with uncertain prognosis? @ -No Drug Therapy requiring intensive monitoring for toxicity (Heparin, Nitro, Insulin, Cardizem)? @ -No Were any procedures done? @ -No Diagnosis/symptom? @ -Laceration/fall Acute, or Chronic, or Acute on Chronic? @ -Acute Uncomplicated (without systemic symptoms) or Complicated (systemic symptoms)? @ -Uncomplicated Side effects of treatment? @ -No Exacerbation, Progression, or Severe Exacerbation? @ -No Poses a threat to life or bodily function? How? (Chest pain, [place], [place], pneumonia, PE, COPD, DKA, ARF, appy, cholecystitis, CVA, Diverticulitis, Homicidal, Suicidal, threat to staff... and all critical care pts) @ -No Disposition Clinical Impression: Laceration, Fall Disposition: HOME SELF-CARE Condition: Stable Instructions (If sedation given, give patient instructions): Care For Your Stitches (DC) Additional Instructions: Please have sutures removed in 5 to 7 days. Monitor for any signs of infection including increasing redness, pain or drainage. Follow-up with PCP. Return to the ER for any new or worsening symptoms. Is patient prescribed a controlled substance at d/c from ED?: No Referrals: None,Stated [REFERRING] - 1-2 days Time of Disposition: 17:49
[2023-11-01 18:26] VITALS: BP 139/75; PULSE 87; RESP 18
== END 2023-11-01 18:21 | disposition home or self-care (01) ==
LOC: EC 16:01
DX: S01.311A Laceration without foreign body of right ear, initial encounter (principal); M79.7 Fibromyalgia; M06.9 Rheumatoid arthritis, unspecified; F32.A Depression, unspecified; Z23 Encounter for immunization; Z79.899 Other long term (current) drug therapy; W01.190A Fall on same level from slipping, tripping and stumbling with subsequent striking against furniture, initial encounter
CPT/HCPCS: 12011; 99282; 90471; 90715; J2001

== ENCOUNTER → 2024-08-05 | Outpatient (CLI) | payer MEDICARE, BC ==
--- NOTE | 2024-08-05 15:34 | US ---
EXAMINATION TYPE: US kidneys/renal and bladder DATE OF EXAM: 08/05/2024 COMPARISON: 02/25/23 CLINICAL INDICATION: Female, 73 years old with history of N18.32 CHRONIC KIDNEY DISEASE, STAGE 3B; CK D TECHNIQUE: Grayscale imaging of the bilateral kidneys and urinary bladder: FINDINGS: EXAM MEASUREMENTS: Right Kidney: 8.1 x 4.2 x 3.9 cm Left Kidney: not seen due to excessive bowel gas Right Kidney: No hydronephrosis or masses seen Left Kidney: not visualized due to excessive bowel gas Bladder: wnl Bilateral Jets seen: Left jet seen There is no evidence for hydronephrosis at this point in time. No nephrolithiasis is seen. No daniel s are identified. The urinary bladder is anechoic. IMPRESSION: 1. No evidence for obstructive uropathy or renal calculus. 2. Nonvisualization of the left kidney due to bowel gas. [facility], , 08/05/2024 3:32 PM
== END | disposition home or self-care (01) ==
LOC: RADUSWWP 14:43
PROVIDERS: ATTEND Internal Medicine Nephrology
DX: N18.32 Chronic kidney disease, stage 3b (principal); R14.3 Flatulence
CPT/HCPCS: 76770